=== PATIENT | male | born 1940 | race Caucasian/White ===

== ENCOUNTER → 2020-03-27 08:56 | Outpatient (BNVA) | payer MEDICARE, SELFPAY | PROVIDERS: PCP Internal Medicine; Referring Provider Internal Medicine; Visit Provider Dietitian, Registered | DX: Z76.89 Persons encountering health services in other specified circumstances (principal) ==

== ENCOUNTER 2020-05-15 06:59 | Outpatient (REF) | payer MEDICARE, SELFPAY ==
[2020-05-15 07:37] LABS: MANUAL DIFF FLAG NO
[2020-05-15 07:43] LABS: Basophils Percent Auto 0.6 % (0-2); Eosinophils Absolute Auto 0.2 X10*3/uL (0.0-0.4); Eosinophils Percent Auto 2.8 % (0-4); Hematocrit 43.7 % (42-52); Hemoglobin 14.3 g/dl (14.0-18.0); Imm Gran Abs Auto 0.02 X10*3/uL (0.00-0.03); Imm Gran Pct Auto 0.4 % (0.0-0.4); Lymphocytes Absolute Auto 1.3 X10*3/uL (1.2-4.9); Lymphocytes Percent Auto 24.2 % (20-40); Mean Corpuscular HGB Conc 32.7 g/dl (31.0-36.0); Mean Corpuscular Hemoglobin 30.8 pg (27.0-33.0); Mean Corpuscular Volume 94.2 fL (80-98); Mean Platelet Volume 12.2 fL (9.4-12.4); Monocytes Absolute Auto 0.5 X10*3/uL (0.1-1.2); Monocytes Percent Auto 9.4 % (2-11); Neutrophils Absolute Auto 3.3 X10*3/uL (2.0-8.3); Neutrophils Percent Auto 62.6 % (45-73); Platelet Count 102 X10*3/uL (160-400); Red Blood Count 4.64 X10*6/uL (4.60-5.80); White Blood Count 5.3 X10*3/uL (4.8-10.8)
[2020-05-15 07:44] LABS: Glucose Urine UA NEG (NEG); Leukocyte Esterase Urine NEG (NEG); Nitrite Urine NEG (NEG); Specific Gravity - Urine 1.025 (1.005-1.025); Urine Blood NEG (NEG); Urine Ketones NEG (NEG); Urine Protein NEG (NEG-TRACE)
[2020-05-15 07:46] LABS: Appearance Urine CLEAR; Color Urine YELLOW
[2020-05-15 08:05] LABS: Creatinine Urine 104.54 mg/dL; Microalbum/Creatinine Ratio Ur 6.6 ug/mg cr
[2020-05-15 08:08] LABS: Estimated Average Glucose 120 mg/dL; Hemoglobin A1c % 5.8 %
[2020-05-15 08:11] LABS: RBC Urine 0-2 /HPF (0); WBC Urine 0-2 /HPF (0-4)
[2020-05-15 08:12] LABS: Mucus Urine 1+ /LPF
[2020-05-15 08:17] LABS: Alanine Aminotransferase 50 U/L (0-40); Albumin Level 4.1 g/dL (3.5-5.0); Alkaline Phosphatase 172 U/L (39-117); Anion Gap 13 (12-20); Aspartate Amino Transferase 48 U/L (5-37); Bilirubin Total 0.9 mg/dL (0.0-1.0); Blood Urea Nitrogen 20 mg/dL (9-16); Calcium 8.8 mg/dL (8.4-10.2); Carbon Dioxide 28 mmol/L (22-29); Chloride 105 mmol/L (96-108); Cholesterol 164 mg/dL; Estimated Glomerular Filt Rate > 60; Glucose Fasting 105 mg/dL (60-99); HDL Cholesterol 73 mg/dL; LDL Cholesterol Calculated 83 mg/dl; Potassium 5.2 mmol/l (3.3-5.1); Sodium 141 mmol/L (135-145); Total Protein 7.2 g/dL (6.5-8.0); Triglycerides 41 mg/dL
[2020-05-15 08:20] LABS: TSH reflex Free T4 0.98 mIU/mL (0.32-4.0); Vitamin D 25-OH Total 52.6 ng/mL (>30)
[2020-05-15 08:35] LABS: Folate 18.5 ng/mL (> or = 4.0); Vitamin B12 844 pg/mL (200-900)
== END 2020-05-15 07:00 | disposition home or self-care (01) ==
LOC: HO.LAB 06:59
PROVIDERS: PCP Internal Medicine; Visit Provider Internal Medicine
DX: K74.3 Primary biliary cirrhosis (principal); D13.5 Benign neoplasm of extrahepatic bile ducts; E11.9 Type 2 diabetes mellitus without complications; E78.5 Hyperlipidemia, unspecified; G11.9 Hereditary ataxia, unspecified; M81.0 Age-related osteoporosis without current pathological fracture; E66.3 Overweight
CPT/HCPCS: 36415; 80053; 80061; 81001; 82043; 82306; 82607; 82746; 83036; 84443; 85025

== ENCOUNTER 2020-06-25 06:51 | Outpatient (REF) | payer MEDICARE, SELFPAY ==
[2020-06-25 07:40] LABS: Alanine Aminotransferase 44 U/L (0-40); Albumin Level 4.2 g/dL (3.5-5.0); Alkaline Phosphatase 185 U/L (39-117); Anion Gap 11 (12-20); Aspartate Amino Transferase 37 U/L (5-37); Bilirubin Total 1.1 mg/dL (0.0-1.0); Blood Urea Nitrogen 16 mg/dL (9-16); Calcium 8.8 mg/dL (8.4-10.2); Carbon Dioxide 30 mmol/L (22-29); Chloride 105 mmol/L (96-108); Estimated Glomerular Filt Rate > 60; Glucose Fasting 107 mg/dL (60-99); Potassium 4.2 mmol/L (3.3-5.1); Sodium 142 mmol/L (135-145); Total Protein 7.3 g/dL (6.5-8.0)
[2020-06-25 08:04] LABS: Vitamin D 25-OH Total 57.7 ng/mL (>30)
[2020-06-28 16:42] LABS: N-Telopeptide 20 (see note); NTXCreaRU 152 mg/dL (20-320)
== END 2020-06-25 06:52 | disposition home or self-care (01) ==
LOC: HO.LAB 06:51
PROVIDERS: PCP Internal Medicine; Visit Provider Internal Medicine Endocrinology, Diabetes & Metabolism
DX: M81.0 Age-related osteoporosis without current pathological fracture (principal)
CPT/HCPCS: 36415; 80053; 82306; 82523

== ENCOUNTER 2020-08-14 06:00 | Outpatient (REF) | payer MEDICARE, SELFPAY ==
[2020-08-14 07:12] LABS: MANUAL DIFF FLAG NO
[2020-08-14 07:15] LABS: Basophils Percent Auto 0.5 % (0-2); Eosinophils Absolute Auto 0.1 X10*3/uL (0.0-0.4); Eosinophils Percent Auto 3.2 % (0-4); Hematocrit 41.3 % (42-52); Hemoglobin 13.7 g/dl (14.0-18.0); Imm Gran Abs Auto 0.01 X10*3/uL (0.00-0.03); Imm Gran Pct Auto 0.2 % (0.0-0.4); Lymphocytes Absolute Auto 1.3 X10*3/uL (1.2-4.9); Lymphocytes Percent Auto 28.4 % (20-40); Mean Corpuscular HGB Conc 33.2 g/dl (31.0-36.0); Mean Corpuscular Hemoglobin 31.1 pg (27.0-33.0); Mean Corpuscular Volume 93.9 fL (80-98); Mean Platelet Volume 12.3 fL (9.4-12.4); Monocytes Absolute Auto 0.5 X10*3/uL (0.1-1.2); Monocytes Percent Auto 10.1 % (2-11); Neutrophils Absolute Auto 2.6 X10*3/uL (2.0-8.3); Neutrophils Percent Auto 57.6 % (45-73); Red Cell Distribution Width 13.3 % (11.0-16.0); White Blood Count 4.4 X10*3/uL (4.8-10.8)
[2020-08-14 07:20] LABS: Platelet Count 95 X10*3/uL (160-400)
[2020-08-14 07:42] LABS: Estimated Average Glucose 126 mg/dL
[2020-08-14 07:57] LABS: Alanine Aminotransferase 34 U/L (0-40); Albumin Level 4.1 g/dL (3.5-5.0); Alkaline Phosphatase 159 U/L (39-117); Anion Gap 13 (12-20); Aspartate Amino Transferase 38 U/L (5-37); Bilirubin Total 1.3 mg/dL (0.0-1.0); Blood Urea Nitrogen 19 mg/dL (9-16); Calcium 8.9 mg/dL (8.4-10.2); Carbon Dioxide 30 mmol/L (22-29); Chloride 107 mmol/L (96-108); Cholesterol 159 mg/dL; Estimated Glomerular Filt Rate > 60; Glucose Fasting 100 mg/dL (60-99); HDL Cholesterol 69 mg/dL; LDL Cholesterol Calculated 76 mg/dl; Potassium 4.9 mmol/L (3.3-5.1); Sodium 145 mmol/L (135-145); Total Protein 7.1 g/dL (6.5-8.0); Triglycerides 74 mg/dL
[2020-08-14 07:59] LABS: Creatinine Urine 114.92 mg/dL
[2020-08-14 08:20] LABS: TSH reflex Free T4 0.86 uIU/mL (0.32-4.0)
[2020-08-14 08:23] LABS: Glucose Urine UA NEG (NEG); Leukocyte Esterase Urine NEG (NEG); Nitrite Urine NEG (NEG); PH 6.5 (5.0-8.0); Specific Gravity - Urine 1.025 (1.005-1.025); Urine Blood NEG (NEG); Urine Ketones NEG (NEG); Urine Protein NEG (NEG-TRACE)
[2020-08-14 08:27] LABS: Appearance Urine CLEAR; Color Urine YELLOW
== END 2020-08-14 06:01 | disposition home or self-care (01) ==
LOC: HO.LAB 06:00
PROVIDERS: PCP Internal Medicine; Visit Provider Internal Medicine
DX: I10 Essential (primary) hypertension (principal); E78.00 Pure hypercholesterolemia, unspecified; E11.9 Type 2 diabetes mellitus without complications
CPT/HCPCS: 36415; 80053; 80061; 81003; 82043; 83036; 84443; 85025

== ENCOUNTER → 2020-08-15 11:16 | Outpatient (BNVA) | payer MEDICARE, SELFPAY | PROVIDERS: PCP Internal Medicine; Visit Provider Internal Medicine Endocrinology, Diabetes & Metabolism | DX: Z13.89 Encounter for screening for other disorder (principal) | CPT/HCPCS: Q3014 ==

== ENCOUNTER → 2020-08-22 09:57 | Outpatient (BNVA) | payer MEDICARE, SELFPAY | PROVIDERS: PCP Internal Medicine; Visit Provider Internal Medicine Endocrinology, Diabetes & Metabolism | DX: M81.0 Age-related osteoporosis without current pathological fracture (principal) | CPT/HCPCS: 96372; 96402; J0897 ==

== ENCOUNTER 2020-09-05 08:00 | Outpatient (REF) | payer MEDICARE, SELFPAY ==
[2020-09-05 09:24] LABS: Calcium 9.3 mg/dL (8.4-10.2)
== END 2020-09-05 08:01 | disposition home or self-care (01) ==
LOC: HO.LAB 08:00
PROVIDERS: PCP Internal Medicine; Visit Provider Internal Medicine Endocrinology, Diabetes & Metabolism
DX: M81.0 Age-related osteoporosis without current pathological fracture (principal)
CPT/HCPCS: 36415; 82040; 82310

== ENCOUNTER 2020-11-19 07:29 | Outpatient (REF) | payer MEDICARE, SELFPAY ==
[2020-11-19 08:19] LABS: MANUAL DIFF FLAG NO
[2020-11-19 08:23] LABS: Basophils Percent Auto 0.2 % (0-2); Eosinophils Absolute Auto 0.2 X10*3/uL (0.0-0.4); Eosinophils Percent Auto 3.1 % (0-4); Hematocrit 43.6 % (42-52); Hemoglobin 14.5 g/dl (14.0-18.0); Imm Gran Abs Auto 0.01 X10*3/uL (0.00-0.03); Imm Gran Pct Auto 0.2 % (0.0-0.4); Lymphocytes Absolute Auto 1.1 X10*3/uL (1.2-4.9); Lymphocytes Percent Auto 22.5 % (20-40); Mean Corpuscular HGB Conc 33.3 g/dl (31.0-36.0); Mean Corpuscular Hemoglobin 31.1 pg (27.0-33.0); Mean Corpuscular Volume 93.6 fL (80-98); Monocytes Absolute Auto 0.4 X10*3/uL (0.1-1.2); Neutrophils Absolute Auto 3.2 X10*3/uL (2.0-8.3); Platelet Count 101 X10*3/uL (160-400); Red Blood Count 4.66 X10*6/uL (4.60-5.80); Red Cell Distribution Width 13.2 % (11.0-16.0); White Blood Count 4.9 X10*3/uL (4.8-10.8)
[2020-11-19 08:47] LABS: Alanine Aminotransferase 33 U/L (0-40); Albumin Level 4.1 g/dL (3.5-5.0); Alkaline Phosphatase 152 U/L (39-117); Anion Gap 11 (12-20); Aspartate Amino Transferase 34 U/L (5-37); Bilirubin Total 0.8 mg/dL (0.0-1.0); Blood Urea Nitrogen 15 mg/dL (9-16); Calcium 9.1 mg/dL (8.4-10.2); Carbon Dioxide 30 mmol/L (22-29); Chloride 107 mmol/L (96-108); Cholesterol 149 mg/dL; Estimated Average Glucose 128 mg/dL; Estimated Glomerular Filt Rate > 60; Glucose Fasting 114 mg/dL (60-99); HDL Cholesterol 66 mg/dL; Hemoglobin A1c % 6.1 %; LDL Cholesterol Calculated 74 mg/dl; Potassium 4.8 mmol/L (3.3-5.1); Sodium 143 mmol/L (135-145); Total Protein 7.1 g/dL (6.5-8.0); Triglycerides 45 mg/dL
[2020-11-19 09:10] LABS: TSH reflex Free T4 0.54 uIU/mL (0.32-4.0); Vitamin D 25-OH Total 46.6 ng/mL (>30)
[2020-11-19 09:12] LABS: Folate 18.3 ng/mL (> or = 4.0); Vitamin B12 1025 pg/mL (200-900)
[2020-11-19 09:14] LABS: Glucose Urine UA NEG (NEG); Leukocyte Esterase Urine NEG (NEG); Nitrite Urine NEG (NEG); PH 6.5 (5.0-8.0); Specific Gravity - Urine 1.015 (1.005-1.025); Urine Blood NEG (NEG); Urine Ketones NEG (NEG); Urine Protein NEG (NEG-TRACE)
[2020-11-19 09:19] LABS: Appearance Urine CLEAR; Color Urine YELLOW
[2020-11-19 09:44] LABS: Creatinine Urine 112.16 mg/dL
== END 2020-11-19 07:30 | disposition home or self-care (01) ==
LOC: HO.LAB 07:29
PROVIDERS: PCP Internal Medicine; Visit Provider Internal Medicine
DX: G11.9 Hereditary ataxia, unspecified (principal); I10 Essential (primary) hypertension; K74.3 Primary biliary cirrhosis; E78.00 Pure hypercholesterolemia, unspecified; E66.3 Overweight; E11.9 Type 2 diabetes mellitus without complications; M81.0 Age-related osteoporosis without current pathological fracture; D13.5 Benign neoplasm of extrahepatic bile ducts
CPT/HCPCS: 36415; 80053; 80061; 81003; 82043; 82306; 82607; 82746; 83036; 84443; 85025

== ENCOUNTER 2020-12-26 07:38 | Outpatient (REF) | payer MEDICARE, SELFPAY ==
[2020-12-26 10:40] LABS: Calcium 8.7 mg/dL (8.4-10.2)
[2020-12-26 11:07] LABS: Vitamin D 25-OH Total 52.8 ng/mL (>30)
[2021-01-01 15:41] LABS: N-Telopeptide 15 (see note); NTXCreaRU 146 mg/dL (20-320)
== END 2020-12-26 07:39 | disposition home or self-care (01) ==
LOC: HO.LAB 07:38
PROVIDERS: PCP Internal Medicine; Visit Provider Internal Medicine Endocrinology, Diabetes & Metabolism
DX: M81.0 Age-related osteoporosis without current pathological fracture (principal)
CPT/HCPCS: 36415; 82040; 82306; 82310; 82523

== ENCOUNTER 2020-12-27 11:36 | Outpatient (REF) | payer MEDICARE, SELFPAY ==
--- NOTE | ~2020-12-27 | MM_ITS ---
EXAMINATION: BONE DENSITOMETRY CLINICAL INDICATION: Osteoporosis. COMPARISON: Previous BD dated 12/14/2018 and baseline BD dated 04/29/2005. TECHNIQUE: Using a [employer] DXA System (software version: 13.1) manufactured by [employer], dual-energy x-ray absorptiometry was performed of the lumbar spine and left hip. The images are of good technical quality. Summary results are attached. FINDINGS: AP SPINE L1-L4: Current: BMD 0.983 g/cm2, Z-score -1.7, T-score -2.0, osteopenia, 10.0% increase from previous, 19.6% increase from baseline (<5% change is not significant). Prior: BMD 0.894 g/cm2. Baseline: BMD 0.822 g/cm2. LEFT FEMUR, NECK: Current: BMD 0.737 g/cm2, Z-score -1.3, T-score -2.6, osteoporosis. Prior: BMD 0.754 g/cm2. Baseline: BMD 0.692 g/cm2. LEFT FEMUR, TOTAL: Current: BMD 0.778 g/cm2, Z-score -1.4, T-score -2.2, osteopenia, 0.5% increase from previous, 6.7% increase from baseline (<5% change is not significant). Prior: BMD 0.774 g/cm2. Baseline: BMD 0.729 g/cm2. IDENTIFIED RISK FACTORS: Height loss, osteoporosis, family history (parent hip fracture), secondary osteoporosis. HISTORY OF FRACTURE: None listed. MEDICATIONS: Calcium, Prolia. MM/XR DEXA axial skeleton IMPRESSION: 1. DIAGNOSIS: Osteoporosis based on the lowest T-score value of -2.6 in the femoral neck applying World Health Organization criteria. 2. 10-YEAR FRACTURE RISK PREDICTION, FRAX: Major osteoporotic fracture (clinical spine, forearm, hip or shoulder) 24.1%. Hip fracture 18.6%. 3. Treatment Recommendations: NOF guidelines recommend consideration for treatment in postmenopausal women and men age 50 and older presenting with the following: -A hip or vertebral (clinical or morphometric) fracture. -T-score less than or equal to -2.5 at the femoral neck or spine after appropriate evaluation to exclude secondary causes. -Low bone mass at the hip or spine and a 10-year fracture probability by FRAX of greater than or equal to 3% for hip fracture or greater than or equal to 20% for major osteoporotic fracture based on the [place] adapted WHO algorithm. 4. Other Recommendations: All treatment decisions require clinical judgment and consideration of individual patient factors, including patient preferences, comorbidities, previous drug use, risk factors not captured in the FRAX model (e.g. frailty, falls, vitamin D deficiency, increased bone turnover, interval significant decline in bone density) and possible under or overestimation of fracture risk by FRAX. Additional medical evaluation for secondary cause of low bone mineral density may be appropriate. FUTURE SCAN RECOMMENDATION: People with diagnosed cases of osteoporosis or at high risk for fracture should have regular bone mineral density tests. For patients eligible for Medicare, routine testing is allowed once every 2 years. The testing frequency can be increased to one year for patients who have rapidly progressing disease, those who are receiving or discontinuing medical therapy to restore bone mass, or have additional risk factors.
== END 2020-12-27 11:37 | disposition home or self-care (01) ==
LOC: HO.MAMMO 11:36
PROVIDERS: PCP Internal Medicine; Visit Provider Internal Medicine Endocrinology, Diabetes & Metabolism
DX: M81.0 Age-related osteoporosis without current pathological fracture (principal)
CPT/HCPCS: 77080

== ENCOUNTER 2021-01-01 14:34 | Outpatient (REF) | payer MEDICARE, SELFPAY ==
[2021-01-01 15:18] LABS: Basophils Percent Auto 0.3 % (0-2); Imm Gran Abs Auto 0.02 X10*3/uL (0.00-0.03); Imm Gran Pct Auto 0.3 % (0.0-0.4); Red Blood Count 4.67 X10*6/uL (4.60-5.80)
[2021-01-01 15:20] LABS: Eosinophils Absolute Auto 0.2 X10*3/uL (0.0-0.4); Eosinophils Percent Auto 2.7 % (0-4); Hematocrit 43.6 % (42-52); Hemoglobin 14.5 g/dl (14.0-18.0); Lymphocytes Absolute Auto 1.4 X10*3/uL (1.2-4.9); Lymphocytes Percent Auto 21.9 % (20-40); Mean Corpuscular HGB Conc 33.3 g/dl (31.0-36.0); Mean Corpuscular Volume 93.4 fL (80-98); Mean Platelet Volume 11.7 fL (9.4-12.4); Monocytes Absolute Auto 0.5 X10*3/uL (0.1-1.2); Monocytes Percent Auto 8.6 % (2-11); Neutrophils Absolute Auto 4.2 X10*3/uL (2.0-8.3); Neutrophils Percent Auto 66.2 % (45-73); Platelet Count 114 X10*3/uL (160-400); Red Cell Distribution Width 13.2 % (11.0-16.0); White Blood Count 6.3 X10*3/uL (4.8-10.8)
[2021-01-01 15:22] LABS: MANUAL DIFF FLAG NO
[2021-01-01 15:37] LABS: Alanine Aminotransferase 41 U/L (0-40); Albumin Level 4.2 g/dL (3.5-5.0); Alkaline Phosphatase 158 U/L (39-117); Anion Gap 11 (12-20); Aspartate Amino Transferase 42 U/L (5-37); Bilirubin Total 0.7 mg/dL (0.0-1.0); Blood Urea Nitrogen 16 mg/dL (9-16); Calcium 9.1 mg/dL (8.4-10.2); Carbon Dioxide 27 mmol/L (22-29); Chloride 107 mmol/L (96-108); Estimated Glomerular Filt Rate > 60; Glucose Random 104 mg/dL (60-115); Potassium 4.6 mmol/L (3.3-5.1); Sodium 140 mmol/L (135-145); Total Protein 7.4 g/dL (6.5-8.0)
[2021-01-01 15:59] LABS: Erythrocyte Sedimentation Rate 12 MM/HR (0-15)
== END 2021-01-01 14:35 | disposition home or self-care (01) ==
LOC: HO.LAB 14:34
PROVIDERS: PCP Internal Medicine; Visit Provider Nurse Practitioner Family
DX: M54.2 Cervicalgia (principal)
CPT/HCPCS: 36415; 80053; 85025; 85652

== ENCOUNTER 2021-02-25 07:36 | Outpatient (REF) | payer MEDICARE, SELFPAY ==
--- NOTE | ~2021-02-25 | XR_ITS ---
EXAMINATION: XR CHEST CLINICAL INFORMATION: Cough x2 months COMPARISON: None TECHNIQUE: 2 views of the chest were obtained. FINDINGS: The lungs are well-expanded and clear. The heart size and pulmonary vascularity is normal. No gross bony abnormality seen. There is mild spondylosis dorsal spine. There are old healed left lateral mid rib fractures. XR/XR chest 2V IMPRESSION: Unremarkable chest exam. No acute process seen.
[2021-02-25 07:47] LABS: MANUAL DIFF FLAG NO
[2021-02-25 08:30] LABS: Basophils Percent Auto 0.2 % (0-2); Eosinophils Absolute Auto 0.2 X10*3/uL (0.0-0.4); Eosinophils Percent Auto 2.8 % (0-4); Hematocrit 44.1 % (42-52); Hemoglobin 14.8 g/dl (14.0-18.0); Imm Gran Abs Auto 0.04 X10*3/uL (0.00-0.03); Imm Gran Pct Auto 0.8 % (0.0-0.4); Lymphocytes Absolute Auto 1.2 X10*3/uL (1.2-4.9); Lymphocytes Percent Auto 22.2 % (20-40); Mean Corpuscular HGB Conc 33.6 g/dl (31.0-36.0); Mean Corpuscular Hemoglobin 31.3 pg (27.0-33.0); Mean Corpuscular Volume 93.2 fL (80-98); Mean Platelet Volume 11.4 fL (9.4-12.4); Monocytes Absolute Auto 0.4 X10*3/uL (0.1-1.2); Monocytes Percent Auto 7.9 % (2-11); Neutrophils Absolute Auto 3.5 X10*3/uL (2.0-8.3); Neutrophils Percent Auto 66.1 % (45-73); Platelet Count 102 X10*3/uL (160-400); Red Blood Count 4.73 X10*6/uL (4.60-5.80); Red Cell Distribution Width 13.1 % (11.0-16.0); White Blood Count 5.3 X10*3/uL (4.8-10.8)
[2021-02-25 08:41] LABS: Estimated Average Glucose 126 mg/dL
[2021-02-25 08:54] LABS: Alanine Aminotransferase 35 U/L (0-40); Albumin Level 4.2 g/dL (3.5-5.0); Alkaline Phosphatase 151 U/L (39-117); Anion Gap 12 (12-20); Aspartate Amino Transferase 34 U/L (5-37); Bilirubin Total 1.1 mg/dL (0.0-1.0); Blood Urea Nitrogen 15 mg/dL (9-16); Calcium 9.4 mg/dL (8.4-10.2); Carbon Dioxide 28 mmol/L (22-29); Chloride 108 mmol/L (96-108); Cholesterol 147 mg/dL; Estimated Glomerular Filt Rate > 60; Glucose Fasting 126 mg/dL (60-99); HDL Cholesterol 64 mg/dL; LDL Cholesterol Calculated 73 mg/dl; Potassium 4.5 mmol/L (3.3-5.1); Sodium 143 mmol/L (135-145); Total Protein 7.3 g/dL (6.5-8.0); Triglycerides 53 mg/dL
[2021-02-25 08:59] LABS: Appearance Urine HAZY; Color Urine YELLOW; Glucose Urine UA NEG (NEG); Leukocyte Esterase Urine NEG (NEG); Nitrite Urine NEG (NEG); Urine Blood NEG (NEG); Urine Ketones NEG (NEG); Urine Protein NEG (NEG-TRACE)
[2021-02-25 09:17] LABS: TSH reflex Free T4 0.94 uIU/mL (0.32-4.0); Vitamin D 25-OH Total 53.6 ng/mL (>30)
[2021-02-25 09:22] LABS: Prostate Specific Antigen Scr 0.59 ng/mL (<0.05-4.0)
[2021-02-25 09:23] LABS: Creatinine Urine 141.88 mg/dL
[2021-02-25 09:26] LABS: Folate 19.7 ng/mL (> or = 4.0); Vitamin B12 946 pg/mL (200-900)
[2021-03-01 15:10] LABS: Testosterone, Free 50.1 pg/mL (30.0-135.0); Testosterone, Total 533 ng/dL (250-1100)
== END 2021-02-25 07:37 | disposition home or self-care (01) ==
LOC: HO.LAB 07:36
PROVIDERS: Absent Provider Nurse Practitioner Family; PCP Internal Medicine; Visit Provider Internal Medicine
DX: Z12.5 Encounter for screening for malignant neoplasm of prostate (principal); K74.3 Primary biliary cirrhosis; D13.5 Benign neoplasm of extrahepatic bile ducts; G11.9 Hereditary ataxia, unspecified; E55.9 Vitamin D deficiency, unspecified; R53.83 Other fatigue; E11.9 Type 2 diabetes mellitus without complications; E66.3 Overweight; E78.00 Pure hypercholesterolemia, unspecified; R05.9 Cough, unspecified
CPT/HCPCS: 36415; 71046; 80053; 80061; 81003; 82043; 82306; 82607; 82746; 83036; 84153; 84402; 84403; 84443; 85025

== ENCOUNTER → 2021-03-06 10:26 | Outpatient (BNVA) | payer MEDICARE, SELFPAY | PROVIDERS: PCP Internal Medicine; Visit Provider Nurse Practitioner Gerontology | DX: M81.0 Age-related osteoporosis without current pathological fracture (principal) | CPT/HCPCS: 96372; J0897 ==

== ENCOUNTER 2021-03-19 16:08 | Outpatient (REF) | payer MEDICARE, SELFPAY ==
[2021-03-19 17:13] LABS: Estimated Glomerular Filt Rate > 60
[2021-03-21 01:33] LABS: PTHI 46 pg/mL (14-64)
== END 2021-03-19 16:09 | disposition home or self-care (01) ==
LOC: HO.LAB 16:08
PROVIDERS: Internal Medicine; PCP Internal Medicine; Visit Provider Nurse Practitioner Family
DX: M81.0 Age-related osteoporosis without current pathological fracture (principal)
CPT/HCPCS: 36415; 82565; 83970

== ENCOUNTER 2021-05-15 06:25 | Outpatient (REF) | payer MEDICARE, SELFPAY | END 2021-05-15 06:26 | disposition home or self-care (01) | LOC: HO.LAB 06:25 | PROVIDERS: PCP Internal Medicine; Visit Provider Nurse Practitioner Family | DX: Z13.89 Encounter for screening for other disorder (principal) ==

== ENCOUNTER 2021-06-03 11:00 | Outpatient (RCR) | payer MEDICARE, SELFPAY | END 2021-06-08 07:00 | disposition home or self-care (01) | LOC: HO.PTCHIC 11:00 | PROVIDERS: PCP Internal Medicine; Visit Provider Nurse Practitioner Family | DX: M54.9 Dorsalgia, unspecified (principal); S22.49XD Multiple fractures of ribs, unspecified side, subsequent encounter for fracture with routine healing; W19.XXXD Unspecified fall, subsequent encounter | CPT/HCPCS: 97110; 97150; 97162 ==

== ENCOUNTER 2021-09-05 10:08 | Outpatient (REF) | payer MEDICARE, SELFPAY ==
[2021-09-05 11:56] LABS: Albumin Level 3.7 g/dL (3.5-5.0); Blood Urea Nitrogen 16 mg/dL (9-16); Calcium 8.9 mg/dL (8.4-10.2); Estimated Glomerular Filt Rate > 60
== END 2021-09-05 10:09 | disposition home or self-care (01) ==
LOC: HO.HMGCLDS 10:08
PROVIDERS: Visit Provider Internal Medicine Endocrinology, Diabetes & Metabolism
DX: M81.0 Age-related osteoporosis without current pathological fracture (principal)
CPT/HCPCS: 36415; 82040; 82310; 82565; 84520

== ENCOUNTER 2021-09-17 09:12 | Outpatient (REF) | payer MEDICARE, SELFPAY ==
[2021-09-17 11:38] LABS: MANUAL DIFF FLAG NO
[2021-09-17 11:51] LABS: Basophils Percent Auto 0.3 % (0-2); Eosinophils Absolute Auto 0.3 X10*3/uL (0.0-0.4); Eosinophils Percent Auto 4.5 % (0-4); Hematocrit 45.9 % (42.0-52.0); Hemoglobin 14.9 g/dl (14.0-18.0); Imm Gran Abs Auto 0.01 X10*3/uL (0.00-0.03); Imm Gran Pct Auto 0.2 % (0.0-0.4); Lymphocytes Absolute Auto 1.3 X10*3/uL (1.2-4.9); Lymphocytes Percent Auto 20.6 % (20-40); Mean Corpuscular HGB Conc 32.5 g/dl (31.0-36.0); Mean Corpuscular Hemoglobin 29.9 pg (27.0-33.0); Mean Corpuscular Volume 92.2 fL (80.0-98.0); Mean Platelet Volume 11.6 fL (9.4-12.4); Monocytes Absolute Auto 0.6 X10*3/uL (0.1-1.2); Monocytes Percent Auto 10.4 % (2-11); Neutrophils Absolute Auto 3.9 x10*3/uL (2.0-8.3); Platelet Count 124 X10*3/uL (160-400); Red Blood Count 4.98 X10*6/uL (4.60-5.80); Red Cell Distribution Width 13.2 % (11.0-16.0); White Blood Count 6.1 X10*3/uL (4.8-10.8)
[2021-09-17 11:58] LABS: Appearance Urine CLEAR; Color Urine YELLOW; Glucose Urine UA NEG (NEG); Leukocyte Esterase Urine NEG (NEG); Nitrite Urine NEG (NEG); Specific Gravity - Urine 1.025 (1.005-1.025); UACC Culture Trigger NO; Urine Blood TRACE (NEG); Urine Ketones NEG (NEG); Urine Protein NEG (NEG-TRACE)
[2021-09-17 12:13] LABS: Estimated Average Glucose 137 mg/dL; Hemoglobin A1c % 6.4 %
[2021-09-17 12:21] LABS: Alanine Aminotransferase 25 U/L (0-40); Albumin Level 3.9 g/dL (3.5-5.0); Alkaline Phosphatase 157 U/L (39-117); Anion Gap 12 (12-20); Aspartate Amino Transferase 29 U/L (5-37); Blood Urea Nitrogen 15 mg/dL (9-16); Calcium 9.2 mg/dL (8.4-10.2); Carbon Dioxide 27 mmol/L (22-29); Chloride 104 mmol/L (96-108); Cholesterol 144 mg/dL; Estimated Glomerular Filt Rate > 60; Glucose Fasting 139 mg/dL (60-99); HDL Cholesterol 59 mg/dL; LDL Cholesterol Calculated 74 mg/dl; Potassium 4.2 mmol/L (3.3-5.1); Sodium 139 mmol/L (135-145); Total Protein 7.2 g/dL (6.5-8.0); Triglycerides 59 mg/dL
[2021-09-17 12:22] LABS: TSH reflex Free T4 1.01 uIU/mL (0.32-4.0); Vitamin D 25-OH Total 53.4 ng/mL (>30)
[2021-09-17 12:28] LABS: Creatinine Urine 199.39 mg/dL
[2021-09-17 13:14] LABS: RBC Urine 0-2 /HPF (0); WBC Urine 0-2 /HPF (0-4)
== END 2021-09-17 09:13 | disposition home or self-care (01) ==
LOC: HO.HMGCLDS 09:12
PROVIDERS: Visit Provider Internal Medicine
DX: E55.9 Vitamin D deficiency, unspecified (principal); I10 Essential (primary) hypertension; E11.9 Type 2 diabetes mellitus without complications; E78.00 Pure hypercholesterolemia, unspecified
CPT/HCPCS: 36415; 80053; 80061; 81001; 81003; 82043; 82306; 83036; 84443; 85025

== ENCOUNTER 2021-10-22 12:39 | Outpatient (REF) | payer MEDICARE, SELFPAY ==
--- NOTE | 2021-10-22 17:27 | PFT_ITS ---
Forced vital capacity 85%, FEV1 96%, FEV1/FVC ratio 81. [id number] 141% and MVV is 97%. Post bronchodilator therapy, no significant response is noted. Total lung capacity 82% and residual volume is 88%. Diffusion capacity 48, corrected with the volume is 66. CONCLUSION: The normal pulmonary function test. No evidence of obstructive or restrictive pulmonary disorder. Isolated decrease in diffusion capacity, may be due to technical reason, nonspecific factors. Clinical correlation is recommended. Mike Myers MD MSB/MODL / [id number]
== END 2021-10-22 12:40 | disposition home or self-care (01) ==
LOC: HO.RESP 12:39
PROVIDERS: PCP Internal Medicine; Visit Provider Internal Medicine
DX: R05.8 Other specified cough (principal); R06.00 Dyspnea, unspecified
CPT/HCPCS: 94060; 94727; 94729

== ENCOUNTER → 2021-11-08 11:57 | Outpatient (REF) | payer MEDICARE, SELFPAY ==
--- NOTE | 2021-11-08 12:03 | ECG_ITS ---
Test Reason : ARRHYTHMIA Blood Pressure : / mmHG Vent. Rate : 046 BPM Atrial Rate : 066 BPM P-R Int : 000 ms QRS Dur : 090 ms QT Int : 436 ms P-R-T Axes : 056 003 -15 degrees QTc Int : 381 ms Sinus rhythm with 2nd degree A-V block (Mobitz I) Abnormal ECG When compared with ECG of 06-DEC-2008 09:39, Sinus rhythm is now with 2nd degree A-V block (Mobitz I) Vent. rate has decreased BY 23 BPM Referred By: Donnell Gillis Electronically Signed By:Kit Betancourt
== END ==
LOC: HO.CARD 11:57
PROVIDERS: PCP Internal Medicine; Visit Provider Internal Medicine
DX: I49.9 Cardiac arrhythmia, unspecified (principal)
CPT/HCPCS: 93005

== ENCOUNTER → 2021-12-12 12:53 | Outpatient (BNVA) | payer MEDICARE, SELFPAY | PROVIDERS: PCP Internal Medicine; Visit Provider Internal Medicine Endocrinology, Diabetes & Metabolism | DX: M81.0 Age-related osteoporosis without current pathological fracture (principal) | CPT/HCPCS: 99212 ==

== ENCOUNTER 2022-01-17 10:10 | Outpatient (REF) | payer MEDICARE, SELFPAY ==
[2022-01-17 10:32] LABS: MANUAL DIFF FLAG NO
[2022-01-17 11:16] LABS: Basophils Percent Auto 0.4 % (0-2); Eosinophils Absolute Auto 0.2 X10*3/uL (0.0-0.4); Eosinophils Percent Auto 3.5 % (0-4); Hematocrit 43.4 % (42.0-52.0); Hemoglobin 14.4 g/dl (14.0-18.0); Imm Gran Abs Auto 0.02 X10*3/uL (0.00-0.03); Imm Gran Pct Auto 0.4 % (0.0-0.4); Lymphocytes Absolute Auto 1.1 X10*3/uL (1.2-4.9); Lymphocytes Percent Auto 23.6 % (20-40); Mean Corpuscular HGB Conc 33.2 g/dl (31.0-36.0); Mean Corpuscular Hemoglobin 30.8 pg (27.0-33.0); Mean Corpuscular Volume 92.9 fL (80.0-98.0); Monocytes Absolute Auto 0.4 X10*3/uL (0.1-1.2); Monocytes Percent Auto 8.5 % (2-11); Neutrophils Absolute Auto 2.9 x10*3/uL (2.0-8.3); Neutrophils Percent Auto 63.6 % (45-73); Platelet Count 108 X10*3/uL (160-400); Red Blood Count 4.67 X10*6/uL (4.60-5.80); Red Cell Distribution Width 13.4 % (11.0-16.0); White Blood Count 4.6 X10*3/uL (4.8-10.8)
[2022-01-17 11:29] LABS: Appearance Urine Clear; Color Urine Yellow; Glucose Urine UA Negative (Negative); Leukocyte Esterase Urine Negative (Negative); Nitrite Urine Negative (Negative); Urine Blood Negative (Negative); Urine Ketones Negative (Negative); Urine Protein Negative (Neg-Trace)
[2022-01-17 11:31] LABS: Estimated Average Glucose 134 mg/dL; Hemoglobin A1c % 6.3 %
[2022-01-17 12:23] LABS: Creatinine Urine 121.69 mg/dL; Microalbum/Creatinine Ratio Ur 8.2 ug/mg cr
[2022-01-17 12:30] LABS: Alanine Aminotransferase 28 U/L (0-40); Alkaline Phosphatase 139 U/L (39-117); Anion Gap 14 (12-20); Aspartate Amino Transferase 31 U/L (5-37); Bilirubin Total 1.1 mg/dL (0.0-1.0); Blood Urea Nitrogen 18 mg/dL (9-16); Calcium 8.9 mg/dL (8.4-10.2); Carbon Dioxide 27 mmol/L (22-29); Chloride 106 mmol/L (96-108); Cholesterol 128 mg/dL; Estimated Glomerular Filt Rate > 60; Glucose Fasting 108 mg/dL (60-99); HDL Cholesterol 57 mg/dL; LDL Cholesterol Calculated 62 mg/dl; Potassium 4.8 mmol/L (3.3-5.1); Sodium 142 mmol/L (135-145); Total Protein 7.1 g/dL (6.5-8.0); Triglycerides 45 mg/dL
[2022-01-17 12:38] LABS: TSH reflex Free T4 0.94 uIU/mL (0.32-4.0); Vitamin D 25-OH Total 61.1 ng/mL (>30)
[2022-01-21 23:01] LABS: Prot Elec - Alpha1 0.3 g/dL (0.2-0.3); Prot Elec - Alpha2 0.8 g/dL (0.5-0.9); Prot Elec - Beta 1 0.4 g/dL (0.4-0.6); Prot Elec - Beta 2 0.4 g/dL (0.2-0.5); Prot Elec - Gamma 1.2 g/dL (0.8-1.7); Prot Elec - Total Protein 7.1 g/dL (6.1-8.1)
== END 2022-01-17 10:11 | disposition home or self-care (01) ==
LOC: HO.LAB 10:10
PROVIDERS: Absent Provider Internal Medicine Endocrinology, Diabetes & Metabolism; PCP Internal Medicine; Visit Provider Internal Medicine
DX: M81.0 Age-related osteoporosis without current pathological fracture (principal); I10 Essential (primary) hypertension; E11.9 Type 2 diabetes mellitus without complications; E55.9 Vitamin D deficiency, unspecified; E78.00 Pure hypercholesterolemia, unspecified
CPT/HCPCS: 36415; 80053; 80061; 81003; 82043; 82306; 83036; 84165; 84443; 85025; 86335

== ENCOUNTER → 2022-01-20 09:31 | Outpatient (BNVA) | payer MEDICARE, SELFPAY | PROVIDERS: PCP Internal Medicine; Referring Provider Internal Medicine; Visit Provider Internal Medicine | DX: I44.1 Atrioventricular block, second degree (principal) | CPT/HCPCS: 99202 ==

== ENCOUNTER 2022-01-24 13:30 | Outpatient (REF) | payer MEDICARE, SELFPAY ==
[2022-01-24 14:06] LABS: Creatinine, mg/dL 82.22
[2022-01-24 14:39] LABS: Creatinine, 24Hr Urine 1.5 G/Day (1.0-2.0); Total Volume 24 Hour Urine 1800 mL
[2022-01-27 19:47] LABS: Calcium, 24 Hr Urine 472 mg/24 h; Calcium/Creatinine Ratio 301 mg/g creat (30-210); Creatinine 24Hr Urine 1.57 g/24 h (0.50-2.15)
== END 2022-01-24 13:31 | disposition home or self-care (01) ==
LOC: HO.LNP 13:30
PROVIDERS: Visit Provider Internal Medicine Endocrinology, Diabetes & Metabolism
DX: M81.0 Age-related osteoporosis without current pathological fracture (principal)
CPT/HCPCS: 82340; 82570

== ENCOUNTER → 2022-02-11 06:42 | Outpatient (REF) | payer MEDICARE, SELFPAY ==
--- NOTE | ~2022-02-11 | NM_ITS ---
Exercise Myocardial perfusion study Indication: The second degree AV block to evaluate for myocardial ischemia Technique: The patient was brought in for an dobutamine perfusion study on 02/11/2022. Patient performed exercise as per dobutamine protocol and was injected 30 mCi of sestamibi was given intravenously one target HR was achieved. Images were obtained using the SPECT gamma camera interlaced with the gating device. Images were obtained in supine position. Resting perfusion study was performed on 02/12/2022. Patient was administered 30 mCi of sestamibi intravenously at rest. Images were then obtained in supine position. Images obtained with and without CT attenuation. Total DLP 85 mGy-cm. Images were processed with the software and compared side to side in short axis, horizontal long axis and vertical long axis views. Findings: The stress perfusion study showed non attenuated images show mildly reduced uptake in the basal septum of the LV myocardium. Attenuation corrected images show mildly reduced uptake in the septum of the LV myocardium and the apex of the LV myocardium.. The gated study shows normal LV systolic function with calculated LVEF of 74%. LV cavity is normal in size. The gated study shows normal systolic wall thickening and contraction of all segments. There is no transient ischemic dilation. Resting study shows no change in perfusion pattern compared to stress perfusion study. Gating at rest reveals normal systolic wall motion with ejection fraction at 70%. The findings are consistent with no clear reversible defect suggestive of ischemia. Mild intensity fixed defect suggestive attenuation artifact.. NM/NM cardiolite stress test Impression: 1. Normal myocardial perfusion 2. Gated LVEF is 70% 3. Transient ischemic dilatation not present Stress EKG is negative for ischemia
--- NOTE | 2022-02-11 07:12 | HM_ITS ---
Conclusion: 1. Patient was monitored for total period of 3 days 2. Baseline was normal sinus rhythm with average heart of 51 beats per minute 3. Minimal heart rate 25 beats per minute which appears to be related to 2 is to 1 av block happening at 03:00 in the morning 4. Intermittent very prolonged first-degree AV block noted with occasional Mobitz type 1 second-degree AV block noted 5. Episodes of advanced AV block noted interspersed with PVCs at 22:56 6. Total of 6460 PVCs accounting for 2.9% total beats account for frequent PVCs 7. No patient reported events MTDD
--- NOTE | 2022-02-11 07:12 | CA_ITS ---
Transthoracic Echocardiogram Patient (Last, First, Middle): Janak Jorgensen G Gender: Male Date of : 1940 Age: 81 Procedure Date: 02/11/2022 Procedure Type: Transthoracic Echocardiogram Location: OP Height: 180.34 cm Weight: 90.72 kg BSA: 2.11 m2 Heart Rate: bpm BP: 160 / 78 mmHg Special Education Case Manager: TIRSO Referring MD: Dylan Hilton MD Symptoms: I25.10 - Atherosclerotic heart disease of [place] coronary artery without... Study Quality: Fair ECG Rhythm: Undetermined Conclusions: - The left ventricular systolic function is normal. The visually estimated ejection fraction is between 55-60%. - Moderately increased right ventricular cavity size. - There is mild calcification of the aortic valve. - There is mild mitral annular calcification. - There is mild tricuspid valve regurgitation. Findings Left Ventricle Normal left ventricular cavity size. There is mildly increased left ventricular wall thickness. The left ventricular systolic function is normal. The visually estimated ejection fraction is between 55-60%. There is no evidence of regional wall motion abnormalities. E/E prime ratio is between 8 and 15 consistent with indeterminate filling pressures. Evidence suggests grade I (mild) diastolic dysfunction. Right Ventricle Moderately increased right ventricular cavity size. There is normal right ventricular systolic function. Atria The left atrium is moderately dilated. The right atrium is normal in size. Aortic Valve There is a normal trileaflet aortic valve. There is mild calcification of the aortic valve. There is no aortic valve stenosis. There is no aortic valve regurgitation. Mitral Valve There is mild mitral annular calcification. There is no mitral valve regurgitation. There is no mitral valve stenosis. Pulmonic Valve The pulmonic valve is likely normal. Tricuspid Valve There is mild tricuspid valve regurgitation. Borderline elevated pulmonary artery systolic pressure. Great Vessels The aortic annulus, sinuses of valsalva, and asc aorta are normal in size. Venous The inferior vena cava is normal in size and collapses greater than 50% with inspiration. Pericardium/Pleural There is no evidence of pericardial effusion. Prior Study Comparison No prior study available for comparison. Measurements 2D Linear Measurements IVSd: 1.07 0.6-0.9/0.6-1.0 cm LVIDd: 4.15 3.9-5.3/4.2-5.9 cm LVIDd Index: 1.97 2.4-3.2/2.2-3.1 cm/m2 LVIDs: 2.55 2.0-3.6 cm LVPWd: 1.05 0.7-1.1 cm LA Diam: 4.20 2.7-3.8/3.0-4.0 cm LAIDs Index: 1.99 1.5-2.3 cm/m2 LV Mass: 182.02 67-162/88-224 g LV Mass Index: 86.27 43-95/49-115 g/m2 LVOT Diam: 2.10 3.0+(-)1.3 cm 2D Systolic Function EF 4C: 51.70 >55% EF 2C: 56.60 >55% EF BiP: 52.70 >55% Mitral Valve MV Pk E: 0.78 MV PK A: 1.02 MV Decel Time: 258.00 E/A: 0.80 E'Lateral: 7.94 E'Medial: 5.33 E/E' Med: 14.70 E/E' Lat: 9.90 PHT: 75.00 MVA PHT: 2.93 Decel Wells: 3.04 Aortic Valve AoV Pk Anil: 1.58 AoV Mn Anil: 1.07 AoV VTI: 0.40 AoV Pk Grad: 10.00 Aov Mn Grad: 5.00 PETER Cont.VTI: 2.40 LVOT LVOT Pk Anil: 1.08 LVOT Mn Anil: 0.71 LVOT VTI: 0.28 LVOT Pk Grad: 5.00 LVOT Mn Grad: 2.00 LVOT Diam: 2.10 LVOT Area: 3.46 Diastolic Function MV Pk E: 0.78 MV Pk A: 1.02 E/A: 0.80 E'Medial: 5.33 E/E' Med: 14.70 E' Laterial: 7.94 E/E' Lat: 9.90 Right Ventricle TAPSE (mm): 21.70 TVS' Anil: 10.60 Tricuspid Valve TR Pk Anil: 2.88 TR Pk Grad: 33.00 RA Press: 3.00 RVSP: 36.00 Great Vessels Aorta Sinus of Valsalva: 3.54 2.0-3.[address] Ridge: 2.64 1.7-3.4 cm Ao Asc: 3.50 2.1-3.4 cm Updated in Other Vendor System with Status of Final Dylan Hilton MD electronically signed on 02/12/2022 12:01:43 PM with status of Final
--- NOTE | 2022-02-11 07:12 | CA_ITS ---
Acquisition Time: 2022-02-11 09:03:55 Total Exercise Time: 00:08:29 Test Indications: ABN EKG, AV BLOCK Medications: SEE CHART Protocol: DOBUTAMINE Max HR: 126 BPM 90% of Pred: 139 BPM Max BP: 136/070 mmHG Max Work Load: 1.0 METS Pharmacological stress test with Dobutamine infusion to max of 10mcg/kg/min, while kicking his legs and squeezing ball, achieving 91% MPHR, without anginal symptoms, with isolated PVCs mostly at baseline and stage 1, with long first degree AVB and second degree type 1 at baseline with FL shortening as rate increases, then accelerated junctional at higher heart rates, With nondiagnostic EKG for ischemia due to baseline EKG abnromality. Nuclear images pending. Test reviewed with Dr Hilton. Referred By: Dylan Hilton Overread By: ZOE GENAO
== END ==
LOC: HO.CARD 06:42
PROVIDERS: PCP Internal Medicine; Visit Provider Internal Medicine
DX: I25.10 Atherosclerotic heart disease of native coronary artery without angina pectoris (principal); I44.1 Atrioventricular block, second degree
CPT/HCPCS: 78452; 93017; 93242; 93306; A9500; J0280; J2785

== ENCOUNTER → 2022-02-24 09:39 | Outpatient (BNVA) | payer MEDICARE, SELFPAY | PROVIDERS: PCP Internal Medicine; Referring Provider Internal Medicine; Visit Provider Internal Medicine | DX: I44.1 Atrioventricular block, second degree (principal); I38 Endocarditis, valve unspecified; G47.33 Obstructive sleep apnea (adult) (pediatric) | CPT/HCPCS: 99212 ==

== ENCOUNTER → 2022-03-18 10:45 | Outpatient (REF) | payer MEDICARE, SELFPAY | LOC: HO.SL 10:45 | PROVIDERS: PCP Internal Medicine; Visit Provider Internal Medicine | DX: G47.33 Obstructive sleep apnea (adult) (pediatric) (principal); I44.1 Atrioventricular block, second degree | CPT/HCPCS: 95806 ==

== ENCOUNTER 2022-05-06 | Outpatient (REF) | payer MEDICARE, SELFPAY ==
[2022-05-07 16:23] LABS: Creatinine, mg/dL 71.68
[2022-05-07 19:06] LABS: Creatinine, 24Hr Urine 1.5 G/Day (1.0-2.0); Total Volume 24 Hour Urine 2150 mL
[2022-05-12 17:23] LABS: Calcium, 24 Hr Urine 340 mg/24 h; Calcium/Creatinine Ratio 223 mg/g creat (30-210); Creatinine 24Hr Urine 1.53 g/24 h (0.50-2.15)
== END 2022-05-06 00:01 | disposition home or self-care (01) ==
LOC: HO.LNP
PROVIDERS: Visit Provider Internal Medicine Endocrinology, Diabetes & Metabolism
DX: M81.0 Age-related osteoporosis without current pathological fracture (principal)
CPT/HCPCS: 82340; 82570

== ENCOUNTER → 2022-05-07 13:33 | Outpatient (BNVA) | payer MEDICARE, SELFPAY | PROVIDERS: PCP Internal Medicine; Visit Provider Internal Medicine | DX: G47.33 Obstructive sleep apnea (adult) (pediatric) (principal); E66.9 Obesity, unspecified; Z68.30 Body mass index [BMI] 30.0-30.9, adult; I44.1 Atrioventricular block, second degree | CPT/HCPCS: 99202 ==

== ENCOUNTER → 2022-05-27 10:49 | Outpatient (REF) | payer MEDICARE, SELFPAY ==
--- NOTE | 2022-05-27 10:53 | HM_ITS ---
Conclusion: 1. Baseline was normal sinus rhythm with average heart rate of 55 beats per minute 2. Frequent sinus bradycardia noted with 45% of time heart rate below 60 beats per minute with intermittent Mobitz type 1 second-degree AV block noted 3. Total of 385 isolated PVCs offer 0.2% of total beats account for occasional PVCs 4. Frequent Mobitz type 1 second-degree AV block noted with Wenckebach phenomena in followed by 2 is to 1 block, most suggestive of AV joel block 5. No patient reported symptoms MTDD
== END ==
LOC: HO.CARD 10:49
PROVIDERS: PCP Internal Medicine; Visit Provider Internal Medicine
DX: I44.1 Atrioventricular block, second degree (principal)
CPT/HCPCS: 93242

== ENCOUNTER 2022-06-16 08:41 | Outpatient (REF) | payer MEDICARE, SELFPAY ==
[2022-06-16 08:58] LABS: MANUAL DIFF FLAG NO
[2022-06-16 09:51] LABS: Estimated Average Glucose 134 mg/dL; Hemoglobin A1c % 6.3 %
[2022-06-16 09:53] LABS: Appearance Urine Clear; Color Urine Dark Yellow; Glucose Urine UA Negative (Negative); Leukocyte Esterase Urine Negative (Negative); Nitrite Urine Negative (Negative); PH 5.5 (5.0-9.0); Specific Gravity - Urine 1.025 (1.005-1.025); Urine Blood Negative (Negative); Urine Ketones Negative (Negative); Urine Protein Negative (Neg-Trace)
[2022-06-16 09:57] LABS: Basophils Percent Auto 0.6 % (0-2); Eosinophils Absolute Auto 0.2 X10*3/uL (0.0-0.4); Eosinophils Percent Auto 3.9 % (0-4); Hematocrit 42.4 % (42.0-52.0); Imm Gran Abs Auto 0.03 X10*3/uL (0.00-0.03); Imm Gran Pct Auto 0.6 % (0.0-0.4); Lymphocytes Absolute Auto 1.1 X10*3/uL (1.2-4.9); Lymphocytes Percent Auto 22.2 % (20-40); Mean Corpuscular Hemoglobin 30.1 pg (27.0-33.0); Mean Corpuscular Volume 91.2 fL (80.0-98.0); Mean Platelet Volume 11.4 fL (9.4-12.4); Monocytes Absolute Auto 0.5 X10*3/uL (0.1-1.2); Monocytes Percent Auto 8.9 % (2-11); Neutrophils Absolute Auto 3.3 x10*3/uL (2.0-8.3); Neutrophils Percent Auto 63.8 % (45-73); Platelet Count 110 X10*3/uL (160-400); Red Blood Count 4.65 X10*6/uL (4.60-5.80); Red Cell Distribution Width 13.2 % (11.0-16.0); White Blood Count 5.1 X10*3/uL (4.8-10.8)
[2022-06-16 10:34] LABS: Alanine Aminotransferase 25 U/L (0-40); Albumin Level 3.9 g/dL (3.5-5.0); Alkaline Phosphatase 163 U/L (39-117); Anion Gap 14 (12-20); Aspartate Amino Transferase 29 U/L (5-37); Blood Urea Nitrogen 17 mg/dL (9-16); Calcium 8.9 mg/dL (8.4-10.2); Carbon Dioxide 26 mmol/L (22-29); Chloride 106 mmol/L (96-108); Cholesterol 136 mg/dL; Estimated Glomerular Filt Rate > 60; Glucose Fasting 111 mg/dL (60-99); HDL Cholesterol 58 mg/dL; LDL Cholesterol Calculated 68 mg/dl; Potassium 4.1 mmol/L (3.3-5.1); Sodium 142 mmol/L (135-145); Total Protein 6.9 g/dL (6.5-8.0); Triglycerides 53 mg/dL
[2022-06-16 10:58] LABS: TSH reflex Free T4 0.97 uIU/mL (0.32-4.0); Vitamin D 25-OH Total 45.3 ng/mL (>30)
== END 2022-06-16 08:42 | disposition home or self-care (01) ==
LOC: HO.LAB 08:41
PROVIDERS: PCP Internal Medicine; Visit Provider Internal Medicine
DX: E78.00 Pure hypercholesterolemia, unspecified (principal); E55.9 Vitamin D deficiency, unspecified; E11.9 Type 2 diabetes mellitus without complications; I10 Essential (primary) hypertension
CPT/HCPCS: 36415; 80053; 80061; 81003; 82306; 83036; 84443; 85025

== ENCOUNTER → 2022-06-17 12:50 | Outpatient (BNVA) | payer MEDICARE, SELFPAY | PROVIDERS: PCP Internal Medicine; Visit Provider Internal Medicine Endocrinology, Diabetes & Metabolism | DX: M81.0 Age-related osteoporosis without current pathological fracture (principal) | CPT/HCPCS: 99212 ==

== ENCOUNTER → 2022-06-23 10:28 | Outpatient (BNVA) | payer MEDICARE, SELFPAY | PROVIDERS: PCP Internal Medicine; Referring Provider Internal Medicine; Visit Provider Internal Medicine | DX: I44.30 Unspecified atrioventricular block (principal); I38 Endocarditis, valve unspecified; I51.7 Cardiomegaly; G47.33 Obstructive sleep apnea (adult) (pediatric) | CPT/HCPCS: 93005; 99212 ==

== ENCOUNTER → 2022-07-15 13:27 | Outpatient (BNVA) | payer MEDICARE, SELFPAY | PROVIDERS: PCP Internal Medicine; Visit Provider Internal Medicine | DX: G47.33 Obstructive sleep apnea (adult) (pediatric) (principal); E66.9 Obesity, unspecified; Z68.31 Body mass index [BMI] 31.0-31.9, adult | CPT/HCPCS: 99212 ==

== ENCOUNTER 2022-10-11 10:09 | Outpatient (REF) | payer MEDICARE, SELFPAY ==
[2022-10-11 11:07] LABS: MANUAL DIFF FLAG NO
[2022-10-11 11:12] LABS: Appearance Urine Clear; Color Urine Yellow; Glucose Urine UA Negative (Negative); Leukocyte Esterase Urine Negative (Negative); Nitrite Urine Negative (Negative); Specific Gravity - Urine 1.015 (1.005-1.025); Urine Blood Negative (Negative); Urine Ketones Negative (Negative); Urine Protein Negative (Neg-Trace)
[2022-10-11 11:13] LABS: Basophils Percent Auto 0.4 % (0-2); Eosinophils Absolute Auto 0.2 X10*3/uL (0.0-0.4); Eosinophils Percent Auto 3.9 % (0-4); Hematocrit 41.7 % (42.0-52.0); Imm Gran Abs Auto 0.03 X10*3/uL (0.00-0.03); Imm Gran Pct Auto 0.6 % (0.0-0.4); Lymphocytes Percent Auto 20.2 % (20-40); Mean Corpuscular HGB Conc 33.6 g/dl (31.0-36.0); Mean Corpuscular Hemoglobin 30.8 pg (27.0-33.0); Mean Corpuscular Volume 91.6 fL (80.0-98.0); Mean Platelet Volume 11.5 fL (9.4-12.4); Monocytes Absolute Auto 0.5 X10*3/uL (0.1-1.2); Monocytes Percent Auto 9.6 % (2-11); Neutrophils Absolute Auto 3.3 x10*3/uL (2.0-8.3); Neutrophils Percent Auto 65.3 % (45-73); Platelet Count 103 X10*3/uL (160-400); Red Blood Count 4.55 X10*6/uL (4.60-5.80); Red Cell Distribution Width 13.2 % (11.0-16.0); White Blood Count 5.1 X10*3/uL (4.8-10.8)
[2022-10-11 11:26] LABS: Estimated Average Glucose 140 mg/dL; Hemoglobin A1c % 6.5 %
[2022-10-11 11:35] LABS: Creatinine Urine 98.69 mg/dL; Microalbum/Creatinine Ratio Ur 8.1 ug/mg cr
[2022-10-11 11:49] LABS: Alanine Aminotransferase 29 U/L (0-40); Albumin Level 3.8 g/dL (3.5-5.0); Alkaline Phosphatase 142 U/L (39-117); Anion Gap 9 (12-20); Aspartate Amino Transferase 29 U/L (5-37); Blood Urea Nitrogen 15 mg/dL (9-16); Calcium 8.7 mg/dL (8.4-10.2); Carbon Dioxide 29 mmol/L (22-29); Chloride 107 mmol/L (96-108); Cholesterol 138 mg/dL; Estimated Glomerular Filt Rate > 60; Glucose Fasting 135 mg/dL (60-99); HDL Cholesterol 56 mg/dL; LDL Cholesterol Calculated 73 mg/dl; Sodium 141 mmol/L (135-145); Total Protein 6.6 g/dL (6.5-8.0); Triglycerides 45 mg/dL
[2022-10-11 11:57] LABS: TSH reflex Free T4 0.91 uIU/mL (0.32-4.0); Vitamin D 25-OH Total 54.3 ng/mL (>30)
== END 2022-10-11 10:10 | disposition home or self-care (01) ==
LOC: HO.HMGCLDS 10:09
PROVIDERS: PCP Internal Medicine; Visit Provider Internal Medicine
DX: E11.9 Type 2 diabetes mellitus without complications (principal); E78.00 Pure hypercholesterolemia, unspecified; I10 Essential (primary) hypertension; E55.9 Vitamin D deficiency, unspecified; R30.0 Dysuria
CPT/HCPCS: 36415; 80053; 80061; 81003; 82043; 82306; 83036; 84443; 85025

== ENCOUNTER → 2022-11-24 13:01 | Outpatient (REF) | payer MEDICARE, SELFPAY | LOC: HO.CARD 13:01 | PROVIDERS: PCP Internal Medicine; Visit Provider Internal Medicine | DX: I44.1 Atrioventricular block, second degree (principal) | CPT/HCPCS: 93242 ==

== ENCOUNTER → 2022-11-24 13:04 | Outpatient (BNV) | payer MEDICARE, SELFPAY | PROVIDERS: PCP Internal Medicine; Visit Provider Internal Medicine | DX: I44.1 Atrioventricular block, second degree (principal) | CPT/HCPCS: 93244 ==

== ENCOUNTER 2022-12-12 10:21 | Outpatient (AMB) | payer MEDICARE, SELFPAY ==
--- NOTE | 2022-12-12 10:25 | A.OFFVIS_ITS ---
Intake Vital Signs 12/12/22 10:26 Height 5 ft 9 in Weight 216 lb 7.903 oz BMI 32.0 BP 142/80 H Blood Pressure Location Lt brachial Position Sitting Pulse 63 Intake Visit Reasons: 6 MON FUP AFTER HOLTER Intake Note: 6 month follow up Program Coordinator Executive Education Required: No Accompanied by: Spouse Allergies No Known Allergies [No Known Allergies*] Allergy (Verified 12/12/22 10:28) Medication List - Last Reconciled 12/12/22 by Dylan Hilton MD alendronate 70 mg PO QWEEK cholecalciferol (vitamin D3) 25 mcg PO DAILY colchicine 0.6 mg PO BID [DIABETIC SHOES (1 pair) As directed] escitalopram oxalate 10 mg PO DAILY simvastatin 10 mg PO BEDTIME tizanidine 2 mg PO TID ursodiol 600 mg PO BID HPI HPI Comments History of Present Illness Details Janak returns for follow-up regarding second-degree heart block. He feels quite well. No specific complaints. He has had vertigo type symptoms for many years but that does not sound like related to the heart block itself. [facility] Medical History Adenomyomatosis of gallbladder Anxiety Cerebellar ataxia Diabetes mellitus Dizziness Fatigue Insomnia Obesity (BMI 30-39.9) ROSARIO (obstructive sleep apnea) Osteoporosis Overweight (BMI 25.0-29.9) Primary biliary cirrhosis Pure hypercholesterolemia Surgical History Hx of appendectomy Hx of tonsillectomy Family History Father Cancer Mother No problems noted. Social History Household Members: Spouse Household Members Other:: Housing: House Alcohol intake: former Patient Tobacco Use Status: Former Tobacco user e-Cigarette/Vaping Use: Never Used Second Hand Smoke Exposure: No service: No Current occupational status: retired Cognitive needs: No Hearing needs: No Vision needs: Yes (Glasses) Review of Systems Const Denies weakness ENT Denies dizziness Card Denies chest pain, Denies chest pain with activity, Denies syncope, Denies rapid heart rate, Denies pedal edema, Denies edema, Denies leg edema, Denies lightheadedness, Denies palpitations, Denies dyspnea, Denies dyspnea on exertion and Denies orthopnea Resp Denies cough, Denies dyspnea and Denies dyspnea on exertion GI Denies hematochezia and Denies change in stool character Musc Denies abnormal gait, Denies muscle cramps, Denies muscle weakness, Denies numbness, Denies radiating pain into limb and Denies tingling Neuro Denies abnormal gait, Denies dizziness, Denies syncope, Denies numbness, Denies tingling and Denies weakness Endo Denies palpitations Physical Exam Vital Signs: Last Vital Signs Pulse 63 12/12/22 10:26 BP 142/80 H 12/12/22 10:26 BMI result Body Mass Index 32.0 Const General: comfortable and no acute distress Orientation/consciousness: patient oriented x3 HEENT Other: Unremarkable Head: Yes normal to inspection Neck Neck: Yes normal visual inspection Chest Chest palpation & inspection: normal inspection of the chest Resp Auscultation: clear to auscultation bilaterally Cardio Palpation: normal PMI Heart sounds: S1 normal heart sound present, S2 normal heart sound present, no gallops, no murmurs and no rubs GI Palpation (GI): Soft to palpation Back/Spine/Pelvis Other: unremarkable Skin General skin exam: no rashes or lesions noted Neuro General: patient oriented x3 Extrem General: Yes normal to inspection Psych Mental Status: mental status grossly normal Assessment & Plan Assessment & Plan (1) Heart block atrioventricular: Code(s): I44.30 - Unspecified atrioventricular block Plan: EKG shows Mobitz type 1 second-degree AV block. A prior EKG from 10 years ago shows first-degree heart block. Dobutamine perfusion imaging is unremarkable. In the most recent Holter, average heart rate is 56/Min. He has underlying second-degree type 1 heart block and transient complete heart block. However, longest pause only 2.7 seconds. Will continue to monitor. If any dizziness/syncopal episodes, they will call 911. He may consider using wearable heart rate monitor like watch. (2) Valvular heart disease: Code(s): I38 - Endocarditis, valve unspecified Plan: Echocardiogram shows mild aortic valve calcification, mild mitral annular calcification mild tricuspid regurgitation. These are not causing any issues and can be monitored periodically. (3) Right ventricular dilation: Code(s): I51.7 - Cardiomegaly Plan: Could be related to sleep apnea. CPAP should help. (4) ROSARIO (obstructive sleep apnea): Comment: Patient is using CPAP very regularly. He has really benefited from its use. Loves to continue using it. No special issues at this time. Code(s): G47.33 - Obstructive sleep apnea (adult) (pediatric) Plan: Sleep study shows moderately severe obstructive sleep apnea. Continue CPAP. We discussed about cardiac conduction system disease and obstructive sleep apnea. Compliance increased and he states he is using fairly regularly. Plan Discussed with significant other who came for appointment. Medications: Changed From colchicine 0.6 mg PO BID 90 days 180 tabs 3RF K74.3 - Primary biliary cirrhosis To colchicine 0.6 mg PO BID K74.3 - Primary biliary cirrhosis From tizanidine 2 mg PO TID 270 tabs 1RF To tizanidine 2 mg PO TID From ursodiol 600 mg (2 x 300 mg) PO BID 90 days 360 caps 3RF K74.3 - Primary biliary cirrhosis To ursodiol 600 mg PO BID K74.3 - Primary biliary cirrhosis Coding Level of Care Code Est Pt Level 4 (85124) Diagnoses Heart block atrioventricular I44.30 Valvular heart disease I38 Right ventricular dilation I51.7 ROSARIO (obstructive sleep apnea) G47.33
[2022-12-12 10:26] VITALS: BP 142/80; PULSE 63; BMI 32.0
== END 2022-12-12 11:05 | disposition home or self-care (01) ==
PROVIDERS: PCP Internal Medicine; Visit Provider Internal Medicine
DX: I44.30 Unspecified atrioventricular block (principal); I38 Endocarditis, valve unspecified; I51.7 Cardiomegaly; G47.33 Obstructive sleep apnea (adult) (pediatric)
CPT/HCPCS: 99214

== ENCOUNTER → 2022-12-12 10:21 | Outpatient (BNVA) | payer MEDICARE, SELFPAY | PROVIDERS: PCP Internal Medicine; Visit Provider Internal Medicine | DX: I44.2 Atrioventricular block, complete (principal); I44.1 Atrioventricular block, second degree; I38 Endocarditis, valve unspecified; I51.7 Cardiomegaly; G47.33 Obstructive sleep apnea (adult) (pediatric) | CPT/HCPCS: 99212 ==

== ENCOUNTER 2023-01-13 13:23 | Outpatient (AMB) | payer MEDICARE, SELFPAY ==
--- NOTE | 2023-01-13 13:25 | A.OFFVIS_ITS ---
Intake Vital Signs 01/13/23 13:26 Height 5 ft 11 in Weight 218 lb 4.122 oz BMI 30.4 BP 138/64 Blood Pressure Location Rt brachial Position Sitting Pulse 52 Pulse Source Pulse Oximeter Pulse Oximetry (%) 94 Oxygen Delivery Method Room Air Intake Visit Reasons: Obstructive sleep apnea Allergies No Known Allergies [No Known Allergies*] Allergy (Verified 01/13/23 13:43) Medication List - Last Reconciled 01/13/23 by Mike Myers MD alendronate 70 mg PO QWEEK cholecalciferol (vitamin D3) 25 mcg PO DAILY colchicine (gout) 0.6 mg PO BID [DIABETIC SHOES (1 pair) As directed] escitalopram oxalate 10 mg PO DAILY simvastatin 10 mg PO BEDTIME tizanidine 2 mg PO TID ursodiol 600 mg PO BID Do you need a note to return to daycare/school/sports/work: No HPI Obstructive sleep apnea HPI Details THIS 82 YEARS OLD GENTLEMAN IS A CASE OF OBSTRUCTIVE SLEEP APNEA, AND HE USES CPAP VERY REGULARLY. HE LOVES HIS CPAP AND IN FACT WOULD NOT BE ABLE TO SLEEP WITHOUT THAT, DENIES ANY ISSUES RELATED TO THE MASK OR CPAP DEVICE, EXCEPT THAT THE HUMIDITY SOMETIME WILL MAKE HIM COUGH. HE STILL HAS SOME DEGREE OF SLEEPINESS DURING THE DAYTIME, THOUGH HE USES CPAP FOR AT LEAST 7 HOURS EVERY NIGHT. PHYSICALLY NOT VERY ACTIVE AND IS NOT DOING ANY ACTIVE EXERCISE DURING THE DAYTIME. HIS STATES THAT HE DOES INDULGE IN EATING JUNK FOOD. HE HAS MILD DEPRESSION WHICH IS BEING CONTROLLED WITH ESCITALOPRAM. [facility] Medical History Adenomyomatosis of gallbladder Anxiety Cerebellar ataxia Diabetes mellitus Dizziness Fatigue Insomnia Obesity (BMI 30-39.9) ROSARIO (obstructive sleep apnea) Osteoporosis Overweight (BMI 25.0-29.9) Primary biliary cirrhosis Pure hypercholesterolemia Surgical History Hx of appendectomy Hx of tonsillectomy Family History Father Cancer Mother No problems noted. Social History Household Members: Spouse Household Members Other:: Housing: House Alcohol intake: former Patient Tobacco Use Status: Former Tobacco user e-Cigarette/Vaping Use: Never Used Second Hand Smoke Exposure: No service: No Current occupational status: retired Cognitive needs: No Hearing needs: No Vision needs: Yes (Glasses) Review of Systems Const All systems reviewed & are unremarkable except as noted in HPI and below Reports snoring Eyes Reports no additional complaints ENT Reports no additional complaints Card Denies chest pain, Denies irregular heart rhythm, Denies leg edema and Denies dyspnea on exertion Resp Denies cough, Denies dyspnea on exertion, Reports snoring and Denies wheezing GI Reports no additional complaints Reports no additional complaints Musc Reports no additional complaints Skin/Breast Reports system reviewed and no additional complaints, except as documented Neuro Reports other (History of mild cerebellar ataxia) Psych Reports depression (Mild controlled with small dose of escitalopram) Endo Reports no additional complaints Liborio/Lymph Reports no additional complaints Aller/Immun Reports no additional complaints and Denies wheezing Physical Exam Const General: healthy appearing (Except for moderatelately overweight), comfortable, no acute distress, alert and awake Orientation/consciousness: patient oriented x3 HEENT Head: Yes normal to inspection General nose exam: No nasal polyps present and No nasal discharge present Face and sinus: Yes sinuses nontender Mouth: oropharynx abnormals (Oropharynx is slightly crowded and narrow, Mallampati class 3) Teeth and gingiva: other (There is mild regression of the lower jaw) Throat: Yes posterior oropharynx normal Eyes General: appearance normal, both eyes and all related structures Neck Neck: Yes normal visual inspection, Yes no lymphadenopathy, Yes trachea midline, Yes no JVD and Yes other (Neck circumference 15-1/2 inch) Thyroid: Thyroid normal Chest Chest palpation & inspection: normal inspection of the chest, normal palpation of entire chest wall and no tenderness Resp Effort & Inspection: normal respiratory effort and no cough Auscultation: clear to auscultation bilaterally, no rhonchi and no wheezes Cardio Palpation: normal PMI Rate: regular rate Rhythm: regular rhythm Heart sounds: no gallops and no murmurs Peripheral pulses: Peripheral pulses 2+ throughout GI Palpation (GI): Soft to palpation, nontender, No hepatosplenomegaly present, no masses and Other GI palpation findings present (Abdomen is slightly protuberant) Auscultation: normal bowel sounds Back/Spine/Pelvis Thoracic/Lumbar Spine: thoracic and lumbar spine normal to inspection Skin General skin exam: no rashes or lesions noted Neuro General: patient oriented x3 and no focal motor deficits Cranial nerves: Yes CN's II-XII intact bilaterally Extrem General: Yes normal to inspection, Yes no clubbing, cyanosis or edema and Yes no calf tenderness Psych Appearance: grossly normal and well kempt Speech and movement: Normal speech and movement present Results Reviewed Results Reviewed: COMPLIANCE REPORT FOR THE LAST 2 112 DAYS IS REVIEWED. HE USED 108-112 DAYS, 96% OF THE TIME. AVERAGE USE IT PER NIGHT RANGES FROM 7 HOURS 47 MINUTES TO 8 HOURS 5 MINUTE. THERE IS NO SIGNIFICANT AIR LEAK. AND RESIDUAL AHI ONLY 1.1 Assessment & Plan Assessment & Plan (1) Obesity (BMI 30-39.9): Comment: PATIENT IS NOT OVERLY BUT IS MODERATELY OBESE, MAINLY DUE TO ABDOMINAL PROTUBERANCE. ADVISED THAT IT WILL BE BENEFICIAL IF HE CAN LOSE ABOUT 10 LB OF WEIGHT. ENCOURAGED TO CUT DOWN THE CARBOHYDRATES INTAKE, AND ALSO WALK ON A DAILY BASIS. Code(s): E66.9 - Obesity, unspecified (2) ROSARIO (obstructive sleep apnea): Comment: Patient is using CPAP very regularly. He has really benefited from its use. Loves to continue using it. No special issues at this time. Code(s): G47.33 - Obstructive sleep apnea (adult) (pediatric) Coding Level of Care Code Est Pt Level 3 (10969) Diagnoses Obesity (BMI 30-39.9) E66.9 ROSARIO (obstructive sleep apnea) G47.33
[2023-01-13 13:26] VITALS: BP 138/64; PULSE 52; O2SAT 94; BMI 30.4
== END 2023-01-13 13:44 | disposition home or self-care (01) ==
PROVIDERS: PCP Internal Medicine; Visit Provider Internal Medicine
DX: E66.9 Obesity, unspecified (principal); G47.33 Obstructive sleep apnea (adult) (pediatric)
CPT/HCPCS: 99213

== ENCOUNTER → 2023-01-13 13:23 | Outpatient (BNVA) | payer MEDICARE, SELFPAY | PROVIDERS: PCP Internal Medicine; Visit Provider Internal Medicine | DX: G47.33 Obstructive sleep apnea (adult) (pediatric) (principal); E66.9 Obesity, unspecified; Z68.30 Body mass index [BMI] 30.0-30.9, adult | CPT/HCPCS: 99212 ==

== ENCOUNTER 2023-02-11 10:55 | Outpatient (REF) | payer MEDICARE, SELFPAY ==
[2023-02-11 13:26] LABS: Basophils Percent Auto 0.2 % (0-2); Imm Gran Abs Auto 0.01 X10*3/uL (0.00-0.03); Imm Gran Pct Auto 0.2 % (0.0-0.4); MANUAL DIFF FLAG SCAN; PLT CLUMP 1; SCAN SMEAR FLAG 1
[2023-02-11 13:29] LABS: Eosinophils Absolute Auto 0.3 X10*3/uL (0.0-0.4); Eosinophils Percent Auto 5.7 % (0-4); Hematocrit 43.4 % (42.0-52.0); Hemoglobin 14.6 g/dl (14.0-18.0); Lymphocytes Percent Auto 20.6 % (20-40); Mean Corpuscular HGB Conc 33.6 g/dl (31.0-36.0); Mean Corpuscular Hemoglobin 30.7 pg (27.0-33.0); Mean Corpuscular Volume 91.2 fL (80.0-98.0); Mean Platelet Volume 11.4 fL (9.4-12.4); Monocytes Absolute Auto 0.5 X10*3/uL (0.1-1.2); Monocytes Percent Auto 9.2 % (2-11); Neutrophils Absolute Auto 3.2 x10*3/uL (2.0-8.3); Neutrophils Percent Auto 64.1 % (45-73); Platelet Count 99 X10*3/uL (160-400); Red Blood Count 4.76 X10*6/uL (4.60-5.80); Red Cell Distribution Width 13.2 % (11.0-16.0); White Blood Count 4.9 X10*3/uL (4.8-10.8)
[2023-02-11 13:30] LABS: Appearance Urine Clear; Color Urine Yellow; Glucose Urine UA Negative (Negative); Leukocyte Esterase Urine Negative (Negative); Nitrite Urine Negative (Negative); PH 7.5 (5.0-9.0); Urine Blood Negative (Negative); Urine Ketones Negative (Negative); Urine Protein Negative (Neg-Trace)
[2023-02-11 13:54] LABS: Estimated Average Glucose 146 mg/dL; Hemoglobin A1c % 6.7 % (<6.0)
[2023-02-11 14:09] LABS: Creatinine Urine 42.34 mg/dL; Microalbumin Urine < 5.0 mg/L
[2023-02-11 14:13] LABS: Alanine Aminotransferase 26 U/L (0-40); Alkaline Phosphatase 127 U/L (39-117); Anion Gap 10 (12-20); Aspartate Amino Transferase 30 U/L (5-37); Blood Urea Nitrogen 12 mg/dL (9-16); Calcium 9.2 mg/dL (8.4-10.2); Carbon Dioxide 28 mmol/L (22-29); Chloride 108 mmol/L (96-108); Cholesterol 137 mg/dL (<200); Estimated Glomerular Filt Rate > 60; Glucose Fasting 112 mg/dL (60-99); HDL Cholesterol 58 mg/dL (>40); LDL Cholesterol Calculated 66 mg/dL (<100); Sodium 142 mmol/L (135-145); TSH reflex Free T4 1.21 uIU/mL (0.32-4.0); Total Protein 7.3 g/dL (6.5-8.0); Triglycerides 68 mg/dL (<150); Vitamin D 25-OH Total 49.4 ng/mL (>30)
[2023-02-11 14:33] LABS: Folate 16.2 ng/mL (> or = 4.0); Vitamin B12 1103 pg/mL (200-900)
== END 2023-02-11 10:56 | disposition home or self-care (01) ==
LOC: HO.HMGCLDS 10:55
PROVIDERS: PCP Internal Medicine; Visit Provider Internal Medicine
DX: E53.8 Deficiency of other specified B group vitamins (principal); I10 Essential (primary) hypertension; E78.00 Pure hypercholesterolemia, unspecified; E55.9 Vitamin D deficiency, unspecified; R30.0 Dysuria; I44.1 Atrioventricular block, second degree; I25.10 Atherosclerotic heart disease of native coronary artery without angina pectoris; E11.9 Type 2 diabetes mellitus without complications
CPT/HCPCS: 36415; 80053; 80061; 81003; 82043; 82306; 82570; 82607; 82746; 83036; 84443; 85025

== ENCOUNTER 2023-02-16 12:15 | Outpatient (AMB) | payer MEDICARE, SELFPAY ==
[2023-02-16 12:33] VITALS: BP 138/82; PULSE 62; O2SAT 95
--- NOTE | 2023-02-16 12:33 | MHC.PC.OV ---
Vital Signs 02/16/23 12:33 Height 5 ft 11 in Weight 215 lb BMI 30.0 BP 138/82 Blood Pressure Location Lt brachial Position Sitting Pulse 62 Pulse Source Pulse Oximeter Pulse Oximetry (%) 95 Oxygen Delivery Method Room Air Intake Visit Reasons: DM, PBC, hyperlipidemia Marketing Finance Specialist Required: No Accompanied by: Self / Same As Patient Allergies No Known Allergies [No Known Allergies*] Allergy (Verified 02/16/23 12:53) Medication List - Last Reconciled 02/16/23 by Donnell Gillis MD alendronate 70 mg PO QWEEK cholecalciferol (vitamin D3) 25 mcg PO DAILY colchicine (gout) 0.6 mg PO BID [DIABETIC SHOES (1 pair) As directed] escitalopram oxalate 10 mg PO DAILY simvastatin 10 mg PO BEDTIME tizanidine 2 mg PO TID ursodiol 600 mg PO BID Tobacco use date assessed: 02/16/23 Fall risk assessment: 1 Fall in past year Last assessed Fall Risk: 02/16/23 Dental Screening Dental Screen Date: 02/16/23 Did you have a dental visit in the last 12 months?: No Did you have a dental problem in the last 6 months where you did not have access to dental care?: No Was dental information given to patient?: Patient has dentist HPI DM, PBC, hyperlipidemia HPI Details Patient comes in today for his follow up visit States that he feels okay He denies any headaches or dizziness Denies any chest pains, no SOB but reports (+) recurrent cough for a while now States that he would sometimes get some coughing fits that would last for a couple of minutes - would cough up minimal phlegm and states that he would be back to normal once his coughing subsides Notes that he seems to cough more often in the afternoon or early evening hours He denies any fever or sore throat No nausea/vomiting, no abdominal pain No change in bowel habits noted Had his follow up labs done a few days ago - to discuss his results [facility] Medical History (Updated 02/16/23 @ 13:27 by Donnell Gillis MD) Obesity (BMI 30.0-34.9) ROSARIO (obstructive sleep apnea) Obesity (BMI 30-39.9) Fatigue Overweight (BMI 25.0-29.9) Anxiety Insomnia Cerebellar ataxia Dizziness Osteoporosis Pure hypercholesterolemia Diabetes mellitus Adenomyomatosis of gallbladder Primary biliary cirrhosis Surgical History Hx of tonsillectomy Hx of appendectomy Family History Father Cancer Mother No problems noted. Social History Household Members: Spouse Household Members Other:: Housing: House Alcohol intake: former Patient Tobacco Use Status: Former Tobacco user e-Cigarette/Vaping Use: Never Used Second Hand Smoke Exposure: No service: No Current occupational status: retired Cognitive needs: No Hearing needs: No Vision needs: Yes (Glasses) Questionnaire PHQ-9 Over the last 2 weeks, how often have you been bothered by any of the following problems? 1. Little interest or pleasure in doing things: not at all 2. Feeling down, depressed, or hopeless: not at all 3. Trouble falling or staying asleep, or sleeping too much: not at all 4. Feeling tired or having little energy: not at all 5. Poor appetite or overeating: not at all 6. Feeling bad about yourself - or that you are a failure or have let yourself or your family down: not at all 7. Trouble concentrating on things, such as reading the newspaper or watching television: not at all 8. Moving or speaking so slowly that other people could have noticed. Or the opposite - being so fidgety or restless that you have been moving around a lot more than usual: not at all 9. Thoughts that you would be better off or of hurting yourself in some way: not at all Total score: 0 Depression Screening Interpretation: Negative 31555 - PHQ-9 Billing: Yes Source: Developed by Drs. Kevin Mcmullen, Juany Felix, Adolph Anderson and colleagues, with an educational michael from [employer]. Thrive Questionnaire Date Thrive assessed: 02/16/23 I am a: Patient What is your living situation today?: I have a steady place to live Within the past 12 months, did the food you bought not last and you didn't have the money to get more?: Never true Within the past 12 months, did you worry whether your food would run out before you got money to buy more?: Never true Do you have trouble paying for medicines?: No Do you have trouble getting transportation to medical appointments?: No Do you have trouble paying your heating and electricity bill?: No Do you have trouble taking care of your child, family member or friend?: No Do you have trouble with day-to-day activities such as bathing, preparing meals, shopping, managing finances, etc.?: No Are you currently unemployed and looking for a job?: No Are you interested in more education?: No Please select the resources that you would like help with: None Currently or been in a relationship where the following occur: no concerns reported AUDIT C Alcohol Use Questionnaire (AUDIT-C) 1. How often do you have a drink containing alcohol?: Never 3. How often do you have six or more drinks on one occasion?: Never Total Score: 0 Score Reviewed/Action Taken: Yes SHERMAN-7 AMB Questionnaire SHERMAN-7 Date SHERMAN - 7 assessed: 02/16/23 Feeling nervous, anxious, or on edge: 0 = Not at all Not being able to stop or control worryin = Not at all Worrying too much about different things: 0 = Not at all Trouble relaxin = Not at all Being so restless that it is hard to sit still: 0 = Not at all Becoming easily annoyed or irritable: 0 = Not at all Feeling afraid as if something awful might happen: 0 = Not at all Total SHERMAN-7 score (0-4 normal; 5-9 mild; 10-14 moderate; 15-21 severe): 0 Source: Developed by Drs. Kevin Mcmullen, Juany Felix, Adolph Anderson and colleagues, with an educational michael from [employer]. Review of Systems Const Denies chills, Reports fatigue, Denies fever(s) and Denies headache(s) ENT Denies dysphagia, Denies dizziness, Denies otalgia, Denies headache(s), Denies neck pain, Denies odynophagia and Denies sore throat Card Denies chest pain, Denies palpitations and Denies dyspnea Resp Reports cough (recurrent - see HPI), Denies dyspnea and Denies wheezing GI Denies abdominal pain, Denies constipation, Denies dysphagia, Denies heartburn, Denies diarrhea, Denies nausea, Denies odynophagia and Denies vomiting Denies dysuria, Denies nocturia and Denies urinary frequency Musc Denies neck pain Neuro Denies dizziness and Denies headache(s) Psych Reports anxiety (better with Rx) Endo Reports fatigue and Denies palpitations Aller/Immun Denies wheezing Physical exam (Primary Care) Vital Signs: Last Vital Signs Pulse 62 02/16/23 12:33 BP 138/82 02/16/23 12:33 Pulse Ox 95 02/16/23 12:33 Oxygen Delivery Method Room Air 02/16/23 12:33 BMI result Body Mass Index 30.0 Tobacco/Smoking Status: Tobacco use Status Tobacco use date assessed 02/16/23 02/16/23 12:36 Patient Tobacco Use Status Former Tobacco user 02/16/23 12:36 e-Cigarette/Vaping Use Never Used 02/16/23 12:36 PHQ-9: PHQ-9 Score PHQ-9: Total score 0 02/16/23 12:55 Depression Screening Interpretation: Negative Thrive Assessment: Date of Thrive Assessment Date Thrive assessed 02/16/23 02/16/23 12:36 Currently or been in a relationship where the following occur: no concerns reported Const General: no acute distress and alert HENMT Ears: TM's normal bilaterally and EAC's normal Throat: Yes posterior oropharynx normal and Yes tonsils normal (no TP congestion noted) Neck Neck: Yes no lymphadenopathy and Yes supple Resp Auscultation: clear to auscultation bilaterally, no rales and no wheezes Cardio Rate: regular rate Rhythm: regular rhythm Heart sounds: no murmurs GI Palpation (GI): Soft to palpation and nontender Auscultation: normal bowel sounds Skin Rashes: no rashes Extrem General: Yes no clubbing, cyanosis or edema Results Reviewed Results Reviewed: Laboratory Tests 02/11/23 11:01 WBC 4.9 Hgb 14.6 Hct 43.4 Plt Count 99 L Sodium 142 Potassium 4.0 Creatinine 0.88 Estimated GFR > 60 Fasting Glucose 112 H Hemoglobin A1c % 6.7 H Calcium 9.2 AST 30 ALT 26 Triglycerides 68 Cholesterol 137 LDL Cholesterol, Calc 66 HDL Cholesterol 58 Vitamin B12 1103 H 25-OH Vitamin D Total 49.4 TSH 1.21 Urine pH 7.5 Ur Specific [place] 1.010 Urine Protein Negative Urine Glucose (UA) Negative Urine Blood Negative Assessment and Plan Assessment & Plan (1) Primary biliary cirrhosis: Comment: EGD done in 2018 showed 1+ varices and changes consistent with patient's gastropathy Used to seeing director of student financial services in [place] but is now seeing Gastroenterology (Dr. Gaston) locally for follow up and management Code(s): K74.3 - Primary biliary cirrhosis Plan: Continue Ursodiol 300 mg 2 capsules twice a day and Colchicine 0.6 mg BID Follow up with GI (Dr. Gaston) as scheduled (2) Type 2 diabetes mellitus without complications: Code(s): E11.9 - Type 2 diabetes mellitus without complications Qualifiers: Diabetes mellitus meterman insulin use: without meterman use Qualified Code(s): E11.9 - Type 2 diabetes mellitus without complications Plan: HgbA1c was at 6.7% on his labs done a few days ago (was at 6.5% a few months ago) - goal is < 7.0% Reinforced diabetic diet - patient has not required any Rx for his diabetes so far but cautioned that his HgbA1c has been gradually inching up and he is now actually in diabetic territory and no longer just borderline diabetes Have discussed option of starting him on diabetic medication but he is concerned that it may exacerbate what he thinks are hypoglycemic episodes as he has noticed that he gets very dizzy and lightheaded often lately when he does not eat on time, especially around noon, and notices that his symptoms would improve/resolve instantly as soon as he eats something - is wondering if his symptoms are due to hypoglycemic episodes and if they are, taking Rx for diabetes may make them get worse wherein he can pass out Will have patient get tested for C-peptide level as well as a Glutamic Acid decarboxylase Ab with his next labs for further evaluation; will hold off on Rx at this time and advised him to try to watch his diet better for now (3) Pure hypercholesterolemia: Code(s): E78.00 - Pure hypercholesterolemia, unspecified Plan: Results of his labs done a few days ago reviewed and discussed with patient Reinforced low cholesterol diet Continue Simvastatin 10 mg QD Will recheck his labs and fasting lipids in 4 months for follow-up (4) Adenomyomatosis of gallbladder: Comment: Abdominal US done in early 2019 revealed (+) fatty liver changes with cholelithiasis (with findings suggesting possible chronic cholecystitis) and gallbladder adenomyomatosis - patient denies any acute abdominal symptoms/pain Code(s): D13.5 - Benign neoplasm of extrahepatic bile ducts Plan: Benign condition - does not require further intervention and patient has had no acute symptoms lately (5) Osteoporosis: Code(s): M81.0 - Age-related osteoporosis without current pathological fracture Qualifiers: Osteoporosis type: unspecified Presence of current pathological fracture: without current pathological fracture Qualified Code(s): M81.0 - Age-related osteoporosis without current pathological fracture Plan: Was on Prolia 60 mg subcutaneous injection every 6 months for about 4 to 5 years and Rx was stopped about a year ago Repeat BMD done on 12/27/2020 showed a 19.6% improvement in the AP spine from baseline, 10.0% improvement from previous and a 6.7% improvement in the left femur from baseline, 0.5% increase from previous Will continue to monitor BMD regularly Continue Fosamax 70 mg Q week - was started back on Rx by Dr. Fernandez a few months ago Follow up with endocrinology as scheduled (6) Arrhythmia: Code(s): I49.9 - Cardiac arrhythmia, unspecified Qualifiers: Arrhythmia type: unspecified cardiac arrhythmia Qualified Code(s): I49.9 - Cardiac arrhythmia, unspecified Plan: Patient was noted to have some EKG abnormalities when he was admitted to [facility] in [place] back in March 2021 - EKG back then came out as Mobitz type I AV block (Wenckebach) with premature complexes in a bigeminal pattern Echocardiogram done revealed normal left ventricular size, systolic function and wall thickness with no regional wall motion abnormalities. LV ejection fraction estimated at 60-65%. Normal diastolic function. Mild pulmonary hypertension, RVSP 39 mm Hg plus central venous pressure which should be estimated clinically due to inability to visualize IVC. Mildly increased left atrial size. Probably mild aortic valve stenosis, mean gradient 4.5 mm Hg, PETER 1.9 cm2. Moderate tricuspid valve regurgitation Was seen by cardiology last year and had Holter monitor done for further work up - Holter showed underlying sinus rhythm with average rate of 51 bpm and (+) occurrence of Mobitz 1 second-degree heart block but only during sleep, with NO occurrence during the waking hours Patient states that he was offered option of pacemaker insertion now or later and patient eventually decided on getting a repeat Holter done in 3 months time and will then decide on further Tx options depending on the result of his repeat Holter Follow up with cardiology as scheduled (7) Recurrent nonproductive cough: Code(s): R05.8 - Other specified cough Plan: Patient states that his cough cleared up for a while when he was started on a CPAP device by pulmonary a few months ago but has since recurred Chest x-rays done in 03/2019 and on 02/25/21 both came out normal; PFT done on 10/22/2021 was also unremarkable Will send him for repeat chest x-rays for further evaluation Follow up with pulmonary as scheduled (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, unspecified Plan: Follow up with Neurology as scheduled (+) gait instability due to his ataxia (9) Insomnia: Code(s): G47.00 - Insomnia, unspecified Qualifiers: Insomnia type: unspecified Qualified Code(s): G47.00 - Insomnia, unspecified Plan: Sleep hygiene reinforced Has been taking OTC sleep aids like NyQuil PM as needed with some relief (10) Anxiety: Code(s): F41.9 - Anxiety disorder, unspecified Plan: States that his anxiety has been well-controlled on his Rx Continue Escitalopram 10 mg QD (11) Obesity (BMI 30.0-34.9): Code(s): E66.9 - Obesity, unspecified Plan: Reinforced diet/exercise as tolerated/lose weight Plan Follow up in 4 months Orders: Orders C Peptide 4 Months E11.9 - Type 2 diabetes mellitus without complications Hemoglobin A1c 4 Months E11.9 - Type 2 diabetes mellitus without complications Lipid Panel 4 Months E78.00 - Pure hypercholesterolemia, unspecified UA CC w/rflx Micro + Cult 4 Months R30.0 - Dysuria Vitamin D 25-OH Total 4 Months E55.9 - Vitamin D deficiency, unspecified Uric Acid 4 Months M10.9 - Gout, unspecified XR chest 2V Today R05.9 - Cough, unspecified Glutamic acid decarboxylase Ab 4 Months E11.9 - Type 2 diabetes mellitus without complications Complete Blood Count Auto Diff 4 Months I10 - Essential (primary) hypertension Comprehensive [place]. Panel Fast 4 Months E78.00 - Pure hypercholesterolemia, unspecified TSH reflex Free T4 4 Months E78.00 - Pure hypercholesterolemia, unspecified Coding Level of Care Code Est Pt Level 4 (88937) Diagnoses Primary biliary cirrhosis K74.3 Type 2 diabetes mellitus without complication, without long-term current use of insulin E11.9 Diabetes mellitus meterman insulin use: without correction use Pure hypercholesterolemia E78.00 Adenomyomatosis of gallbladder D13.5 Osteoporosis without current pathological fracture, unspecified osteoporosis type M81.0 Osteoporosis type: unspecified Presence of current pathological fracture: without current pathological fracture Cardiac arrhythmia, unspecified cardiac arrhythmia type I49.9 Arrhythmia type: unspecified cardiac arrhythmia Recurrent nonproductive cough R05.8 Cerebellar ataxia G11.9 Insomnia, unspecified type G47.00 Insomnia type: unspecified Anxiety F41.9 Obesity (BMI 30.0-34.9) E66.9
== END 2023-02-16 13:18 | disposition home or self-care (01) ==
PROVIDERS: Visit Provider Internal Medicine
DX: E11.9 Type 2 diabetes mellitus without complications (principal); K74.3 Primary biliary cirrhosis; G11.9 Hereditary ataxia, unspecified; F41.9 Anxiety disorder, unspecified; E78.00 Pure hypercholesterolemia, unspecified; D13.5 Benign neoplasm of extrahepatic bile ducts; M81.0 Age-related osteoporosis without current pathological fracture; I49.9 Cardiac arrhythmia, unspecified; R05.8 Other specified cough; G47.00 Insomnia, unspecified; E66.9 Obesity, unspecified
CPT/HCPCS: 99214

== ENCOUNTER 2023-02-27 12:44 | Outpatient (REF) | payer MEDICARE, SELFPAY | END 2023-02-27 12:45 | disposition home or self-care (01) | LOC: HO.HMGCX 12:44 | PROVIDERS: PCP Internal Medicine; Visit Provider Internal Medicine | DX: R05.9 Cough, unspecified (principal) | CPT/HCPCS: 71046 ==

== ENCOUNTER 2023-04-07 12:12 | Outpatient (REF) | payer MEDICARE, SELFPAY ==
--- NOTE | ~2023-04-07 | XR_ITS ---
EXAMINATION: XR ANKLE, LEFT CLINICAL INFORMATION: History of falling COMPARISON: None available. TECHNIQUE: AP, lateral, and mortise views of the left ankle. FINDINGS: No fracture. Alignment is anatomic. No erosions. Joint spaces are maintained. Small posterior plantar calcaneal spur and Achilles enthesopathy is noted. XR/XR ankle LT min 3V IMPRESSION: No acute bony abnormality.
--- NOTE | ~2023-04-07 | XR_ITS ---
EXAMINATION: XR KNEE, RIGHT CLINICAL INFORMATION: History of falling COMPARISON: Right knee 02/08/2013 TECHNIQUE: Four views of the right knee. FINDINGS: No fracture. Small joint effusion. Alignment is anatomic. There is mild narrowing of the medial joint compartment. Small marginal osteophytes are seen in the patellofemoral joint compartment. Quadriceps enthesopathy is noted. Arterial vascular calcification is seen consistent with atherosclerotic disease. XR/XR knee RT 4V IMPRESSION: 1. No acute bony abnormality. 2. Mild osteoarthritis.
--- NOTE | ~2023-04-07 | XR_ITS ---
EXAMINATION: XR RIBS, BILATERAL CLINICAL INFORMATION: History of falling COMPARISON: Chest 02/27/2023 TECHNIQUE: PA view the chest and 6 views of the bilateral ribs were obtained. FINDINGS: The lungs are well expanded. There is trace atelectasis at the left lung base. Probable small left pleural effusion. No consolidation or pneumothorax. The cardiomediastinal silhouette and pulmonary vasculature are normal. There is a nondisplaced fracture of the left third posterior rib. There are healed old fractures of the left sixth, seventh, eighth, ninth and 10th ribs. No displaced right rib fracture is seen. XR/XR ribs BI 3V IMPRESSION: 1. Nondisplaced fracture of the left third posterior rib which may be acute. Correlation with clinical exam is suggested. 2. Multiple old healed left rib fractures. 3. Probable small left pleural effusion. 4. No displaced right rib fracture.
== END 2023-04-07 12:13 | disposition home or self-care (01) ==
LOC: HO.HMGCX 12:12
PROVIDERS: PCP Internal Medicine; Visit Provider Internal Medicine
DX: M79.672 Pain in left foot (principal); R07.81 Pleurodynia; Z91.81 History of falling
CPT/HCPCS: 71110; 73564; 73610

== ENCOUNTER 2023-06-09 08:47 | Outpatient (REF) | payer MEDICARE, SELFPAY ==
[2023-06-09 11:31] LABS: MANUAL DIFF FLAG NO
[2023-06-09 11:49] LABS: Basophils Percent Auto 0.4 % (0-2); Eosinophils Absolute Auto 0.3 X10*3/uL (0.0-0.4); Eosinophils Percent Auto 6.9 % (0-4); Hematocrit 44.2 % (42.0-52.0); Hemoglobin 14.4 g/dl (14.0-18.0); Imm Gran Abs Auto 0.01 X10*3/uL (0.00-0.03); Imm Gran Pct Auto 0.2 % (0.0-0.4); Lymphocytes Absolute Auto 1.2 X10*3/uL (1.2-4.9); Mean Corpuscular HGB Conc 32.6 g/dl (31.0-36.0); Mean Corpuscular Hemoglobin 30.5 pg (27.0-33.0); Mean Corpuscular Volume 93.6 fL (80.0-98.0); Monocytes Absolute Auto 0.4 X10*3/uL (0.1-1.2); Monocytes Percent Auto 8.6 % (2-11); Neutrophils Absolute Auto 2.9 x10*3/uL (2.0-8.3); Neutrophils Percent Auto 59.9 % (45-73); Platelet Count 97 X10*3/uL (160-400); Red Blood Count 4.72 X10*6/uL (4.60-5.80); Red Cell Distribution Width 13.2 % (11.0-16.0); White Blood Count 4.8 X10*3/uL (4.8-10.8)
[2023-06-09 11:51] LABS: Appearance Urine Clear; Color Urine Yellow; Glucose Urine UA Negative (Negative); Leukocyte Esterase Urine Negative (Negative); Nitrite Urine Negative (Negative); PH 6.5 (5.0-9.0); Urine Blood Negative (Negative); Urine Ketones Negative (Negative); Urine Protein Negative (Neg-Trace)
[2023-06-09 12:04] LABS: Alanine Aminotransferase 30 U/L (0-40); Albumin Level 3.9 g/dL (3.5-5.0); Alkaline Phosphatase 152 U/L (39-117); Anion Gap 13 (12-20); Aspartate Amino Transferase 27 U/L (5-37); Bilirubin Total 0.8 mg/dL (0.0-1.0); Blood Urea Nitrogen 15 mg/dL (9-16); Calcium 9.3 mg/dL (8.4-10.2); Carbon Dioxide 30 mmol/L (22-29); Chloride 105 mmol/L (96-108); Cholesterol 143 mg/dL (<200); Estimated Average Glucose 131 mg/dL; Estimated Glomerular Filt Rate > 60; Glucose Fasting 130 mg/dL (60-99); HDL Cholesterol 61 mg/dL (>40); Hemoglobin A1c % 6.2 % (<6.0); LDL Cholesterol Calculated 73 mg/dL (<100); Potassium 4.7 mmol/L (3.3-5.1); Sodium 143 mmol/L (135-145); Total Protein 7.4 g/dL (6.5-8.0); Triglycerides 47 mg/dL (<150); Uric Acid 5.1 mg/dL (3.4-7.0)
[2023-06-09 12:18] LABS: TSH reflex Free T4 1.26 uIU/mL (0.32-4.0); Vitamin D 25-OH Total 40.4 ng/mL (>30)
[2023-06-10 05:19] LABS: C Peptide 2.77 ng/mL (0.80-3.85)
[2023-06-12 20:59] LABS: Glutamic acid decarboxylase Ab <5 IU/mL (<5)
[2023-06-15 04:58] LABS: N-Telopeptide 35 (see note); NTXCreaRU 114 mg/dL (20-320)
== END 2023-06-09 08:48 | disposition home or self-care (01) ==
LOC: HO.HMGCLDS 08:47
PROVIDERS: PCP Internal Medicine; Referring Provider Internal Medicine Endocrinology, Diabetes & Metabolism; Visit Provider Internal Medicine
DX: E11.9 Type 2 diabetes mellitus without complications (principal); I10 Essential (primary) hypertension; E78.00 Pure hypercholesterolemia, unspecified; E55.9 Vitamin D deficiency, unspecified; M10.9 Gout, unspecified; M81.0 Age-related osteoporosis without current pathological fracture; R30.0 Dysuria
CPT/HCPCS: 36415; 80053; 80061; 81003; 82306; 82523; 83036; 84443; 84550; 84681; 85025; 86341

== ENCOUNTER 2023-06-17 12:43 | Outpatient (AMB) | payer MEDICARE, SELFPAY ==
--- NOTE | 2023-06-17 12:47 | A.OFFVIS_ITS ---
Intake Vital Signs 06/17/23 12:51 Height 5 ft 11.42 in Weight 215 lb 2.738 oz BMI 29.7 BP 140/72 H Blood Pressure Location Lt brachial Position Sitting Pulse 38 L Pulse Source Pulse Oximeter Intake Visit Reasons: f/u osteoporosis-confirmed Intake Note: Patient present today for Osteoporosis follow up visit. Technology Adoption Manager Required: No Accompanied by: Spouse Allergies No Known Allergies [No Known Allergies*] Allergy (Verified 06/17/23 12:57) HPI HPI Comments History of Present Illness Details 83 yo male today for fup vsit, for osteoporosis . H He has PMH of history of hyperlipidemia, primary biliary cirrhosis, DM 2 and osteoporosis. He has been on Prolia, since 06/05/17. Last Prolia injection was Denies prior fractures, no GERD, FH of hip fracture and osteoporosis in his mother, no nephrolithiasis, was steroids for a long period of time in the past, ex smoker, no anti seizures medications, No SSRI or PPI. He has negative History of head or neck irradiation. Bisphosphonates use: He used Fosamax for several years. Calcium intake: 600 mg bid Vitamin D: none Herbal medications. none DEXA scan 12/14/2018 AP SPINE L1-L4: Current: BMD 0.894 g/cm2, Z-score -2.2, T-score -2.7, osteoporosis, 2.9% decrease from previous, 8.8% increase from baseline (<5% change is not significant). Prior: BMD 0.921 g/cm2. Baseline: BMD 0.822 g/cm2. LEFT FEMUR, NECK: Current: BMD 0.754 g/cm2, Z-score -1.1, T-score -2.4, osteopenia. Prior: BMD 0.686 g/cm2. Baseline: BMD 0.692 g/cm2. LEFT FEMUR, TOTAL: Current: BMD 0.774 g/cm2, Z-score -1.3, T-score -2.3, osteopenia, 5.2% increase from previous, 6.2% increase from baseline (<5% change is not significant). Prior: BMD 0.736 g/cm2. Baseline: BMD 0.729 g/cm2. 12/27/20 FINDINGS: AP SPINE L1-L4: Current: BMD 0.983 g/cm2, Z-score -1.7, T-score -2.0, osteopenia, 10.0% increase from previous, 19.6% increase from baseline (<5% change is not significant). Prior: BMD 0.894 g/cm2. Baseline: BMD 0.822 g/cm2. LEFT FEMUR, NECK: Current: BMD 0.737 g/cm2, Z-score -1.3, T-score -2.6, osteoporosis. Prior: BMD 0.754 g/cm2. Baseline: BMD 0.692 g/cm2. LEFT FEMUR, TOTAL: Current: BMD 0.778 g/cm2, Z-score -1.4, T-score -2.2, osteopenia, 0.5% increase from previous, 6.7% increase from baseline (<5% change is not significant). Prior: BMD 0.774 g/cm2. Baseline: BMD 0.729 g/cm2. Secondary workup is negative. Started taking alendronate 70 mg q.week in April 2022. Tolerating the alendronate nicely Laboratory Tests 12/15/19 12/15/19 01/19/20 08:56 08:56 09:32 Hgb Hct Sodium Potassium Creatinine Estimated GFR Fasting Glucose Glucose 1 Hour 245 Glucose 2 Hour Estimat Average Gl ucose Hemoglobin A1c 6.0 Hemoglobin A1c % Calcium AST ALT Albumin LDL Cholesterol, C alc Collgn I C-Telopep tide 140 N-Telopeptide X-li nked 25-OH Vitamin D To teddy TSH Urine Microalbumin Microalb/Creat Rat io 01/19/20 06/25/20 06/25/20 10:32 06:57 Unknown Hgb Hct Sodium Potassium Creatinine Estimated GFR Fasting Glucose Glucose 1 Hour Glucose 2 Hour 212 Estimat Average Gl ucose Hemoglobin A1c Hemoglobin A1c % Calcium AST ALT Albumin LDL Cholesterol, C alc Collgn I C-Telopep tide N-Telopeptide X-li nked 20 25-OH Vitamin D To teddy 57.7 TSH Urine Microalbumin Microalb/Creat Rat io 08/14/20 08/14/20 08/14/20 06:14 06:14 06:14 Hgb 13.7 L Hct 41.3 L Sodium 145 Potassium 4.9 Creatinine 0.94 Estimated GFR > 60 Fasting Glucose 100 H Glucose 1 Hour Glucose 2 Hour Estimat Average Gl ucose Hemoglobin A1c Hemoglobin A1c % Calcium 8.9 AST 38 H ALT 34 Albumin 4.1 LDL Cholesterol, C alc 76 Collgn I C-Telopep tide N-Telopeptide X-li nked 25-OH Vitamin D To teddy TSH 0.86 Urine Microalbumin 7.0 Microalb/Creat Rat io 6.0 08/14/20 06:14 Hgb Hct Sodium Potassium Creatinine Estimated GFR Fasting Glucose Glucose 1 Hour Glucose 2 Hour Estimat Average Gl ucose 126 Hemoglobin A1c Hemoglobin A1c % 6.0 Calcium AST ALT Albumin LDL Cholesterol, C alc Collgn I C-Telopep tide N-Telopeptide X-li nked 25-OH Vitamin D To teddy TSH Urine Microalbumin Microalb/Creat Rat io No fx since last visit [facility] Medical History (Updated 02/16/23 @ 13:27 by Donnell Gillis MD) Obesity (BMI 30.0-34.9) ROSARIO (obstructive sleep apnea) Obesity (BMI 30-39.9) Fatigue Overweight (BMI 25.0-29.9) Anxiety Insomnia Cerebellar ataxia Dizziness Osteoporosis Pure hypercholesterolemia Diabetes mellitus Adenomyomatosis of gallbladder Primary biliary cirrhosis Surgical History Hx of tonsillectomy Hx of appendectomy Family History Father Cancer Mother No problems noted. Social History Household Members: Spouse Household Members Other:: Housing: House Alcohol intake: former Patient Tobacco Use Status: Former Tobacco user e-Cigarette/Vaping Use: Never Used Second Hand Smoke Exposure: No service: No Current occupational status: retired Cognitive needs: No Hearing needs: No Vision needs: Yes (Glasses) Assessment & Plan Assessment & Plan (1) Osteoporosis: Code(s): M81.0 - Age-related osteoporosis without current pathological fracture Qualifiers: Osteoporosis type: unspecified Presence of current pathological fracture: without current pathological fracture Qualified Code(s): M81.0 - Age- related osteoporosis without current pathological fracture Plan: This 83-year-old white male with a history of osteoporosis with no prior fragility fracture and near complete secondary workup negative currently being treated Prolia for 4 years duration and prior to that bisphosphonates. Recent DEXA bone density shows borderline osteoporosis. Secondary workup was negative. Urine NTX continues to remain suppressed Plan is to stop the alendronate. Patient was advised to continue calcium and vitamin-D. He will be returned to the care of his primary care provider who can measure DEXA bone density about 1 year's time. If this significant decline in the bone density, the alendronate can be restarted with the patient can be returned back to endocrinology Coding Level of Care Code Est Pt Level 3 (86861) Diagnoses Osteoporosis without current pathological fracture, unspecified osteoporosis type M81.0 Osteoporosis type: unspecified Presence of current pathological fracture: without current pathological fracture
[2023-06-17 12:51] VITALS: BP 140/72; PULSE 38; BMI 29.7
== END 2023-06-17 13:05 | disposition home or self-care (01) ==
PROVIDERS: PCP Internal Medicine; Visit Provider Internal Medicine Endocrinology, Diabetes & Metabolism
DX: M81.0 Age-related osteoporosis without current pathological fracture (principal)
CPT/HCPCS: 99213

== ENCOUNTER → 2023-06-17 12:43 | Outpatient (BNVA) | payer MEDICARE, SELFPAY | PROVIDERS: Visit Provider Internal Medicine Endocrinology, Diabetes & Metabolism | DX: M81.0 Age-related osteoporosis without current pathological fracture (principal) | CPT/HCPCS: 99212 ==

== ENCOUNTER 2023-06-18 10:35 | Outpatient (AMB) | payer MEDICARE, SELFPAY ==
[2023-06-18 10:37] VITALS: BP 122/80; PULSE 66; O2SAT 96; BMI 29.8
--- NOTE | 2023-06-18 10:37 | MHC.PC.OV ---
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: Yes Did you have a dental problem in the last 6 months where you did not have access to dental care?: No Was dental information given to patient?: Patient has dentist HPI PBC HPI Details Patient comes in today for his follow up visit States that he feels okay He denies any headaches or dizziness Denies any chest pains, no increased SOB although he continues to experience on and off fits of coughing spells Reports that his cough is mostly non-productive but states that he starts feeling SOB when his coughing spells are non-stop and they can sometimes keep going for a while States that taking OTC cough meds do not really help much Had chest x-rays done a few months ago that came out normal No nausea/vomiting, no abdominal pain No change in bowel habits noted Needs his Albuterol inhaler Rx refilled Had his follow up labs done last week - to discuss his results [facility] Medical History Obesity (BMI 30.0-34.9) ROSARIO (obstructive sleep apnea) Obesity (BMI 30-39.9) Fatigue Overweight (BMI 25.0-29.9) Anxiety Insomnia Cerebellar ataxia Dizziness Osteoporosis Pure hypercholesterolemia Diabetes mellitus Adenomyomatosis of gallbladder Primary biliary cirrhosis Surgical History Hx of tonsillectomy Hx of appendectomy Family History Father Cancer Mother No problems noted. Social History Household Members: Spouse Household Members Other:: Housing: House Alcohol intake: former Patient Tobacco Use Status: Former Tobacco user e-Cigarette/Vaping Use: Never Used Second Hand Smoke Exposure: No service: No Current occupational status: retired Cognitive needs: No Hearing needs: No Vision needs: Yes (Glasses) Questionnaire PHQ-9 Over the last 2 weeks, how often have you been bothered by any of the following problems? 1. Little interest or pleasure in doing things: not at all 2. Feeling down, depressed, or hopeless: not at all 3. Trouble falling or staying asleep, or sleeping too much: not at all 4. Feeling tired or having little energy: not at all 5. Poor appetite or overeating: not at all 6. Feeling bad about yourself - or that you are a failure or have let yourself or your family down: not at all 7. Trouble concentrating on things, such as reading the newspaper or watching television: not at all 8. Moving or speaking so slowly that other people could have noticed. Or the opposite - being so fidgety or restless that you have been moving around a lot more than usual: not at all 9. Thoughts that you would be better off or of hurting yourself in some way: not at all Total score: 0 Depression Screening Interpretation: Negative Depression Screening Done: Yes 14646 - PHQ-9 Billing: Yes Source: Developed by Drs. Kevin Mcmullen, Juany Felix, Adolph Anderson and colleagues, with an educational michael from [employer]. Thrive Questionnaire Date Thrive assessed: 06/18/23 I am a: Patient What is your living situation today?: I have a steady place to live Within the past 12 months, did the food you bought not last and you didn't have the money to get more?: Never true Within the past 12 months, did you worry whether your food would run out before you got money to buy more?: Never true Do you have trouble paying for medicines?: No Do you have trouble getting transportation to medical appointments?: No Do you have trouble paying your heating and electricity bill?: No Do you have trouble taking care of your child, family member or friend?: No Do you have trouble with day-to-day activities such as bathing, preparing meals, shopping, managing finances, etc.?: No Are you currently unemployed and looking for a job?: No Are you interested in more education?: No Please select the resources that you would like help with: None Currently or been in a relationship where the following occur: no concerns reported THRIVE Score: 0 AUDIT C Alcohol Use Questionnaire (AUDIT-C) 1. How often do you have a drink containing alcohol?: Never 3. How often do you have six or more drinks on one occasion?: Never Total Score: 0 Score Reviewed/Action Taken: Yes SHERMAN-7 AMB Questionnaire SHERMAN-7 Date SHERMAN - 7 assessed: 06/18/23 Feeling nervous, anxious, or on edge: 0 = Not at all Not being able to stop or control worryin = Not at all Worrying too much about different things: 0 = Not at all Trouble relaxin = Not at all Being so restless that it is hard to sit still: 0 = Not at all Becoming easily annoyed or irritable: 0 = Not at all Feeling afraid as if something awful might happen: 0 = Not at all Total SHERMAN-7 score (0-4 normal; 5-9 mild; 10-14 moderate; 15-21 severe): 0 Source: Developed by Drs. Kevin Mcmullen, Juany Felix, Adolph Anderson and colleagues, with an educational michael from [employer]. Review of Systems Const Denies chills, Denies fatigue, Denies fever(s) and Denies headache(s) ENT Denies dysphagia, Denies dizziness, Denies otalgia, Denies headache(s), Denies neck pain, Denies odynophagia and Denies sore throat Card Denies chest pain, Denies palpitations and Denies dyspnea Resp Reports cough (recurrent, non-productive - see HPI), Denies dyspnea and Denies wheezing GI Denies abdominal pain, Denies constipation, Denies dysphagia, Denies heartburn, Denies diarrhea, Denies nausea, Denies odynophagia and Denies vomiting Denies dysuria, Denies nocturia and Denies urinary frequency Musc Denies back pain and Denies neck pain Skin/Breast Denies rash Neuro Denies dizziness and Denies headache(s) Psych Reports anxiety (better with Rx) Endo Denies fatigue and Denies palpitations Aller/Immun Denies wheezing Physical exam (Primary Care) Vital Signs: Last Vital Signs Pulse 66 06/18/23 10:37 BP 122/80 06/18/23 10:37 Pulse Ox 96 06/18/23 10:37 Oxygen Delivery Method Room Air 06/18/23 10:37 BMI result Body Mass Index 29.8 Tobacco/Smoking Status: Tobacco use Status Tobacco use date assessed 06/18/23 06/18/23 10:38 Patient Tobacco Use Status Former Tobacco user 06/18/23 10:38 e-Cigarette/Vaping Use Never Used 06/18/23 10:38 PHQ-9: PHQ-9 Score PHQ-9: Total score 0 06/18/23 14:58 Depression Screening Interpretation: Negative Thrive Assessment: Date of Thrive Assessment Date Thrive assessed 06/18/23 06/18/23 10:38 Currently or been in a relationship where the following occur: no concerns reported Const General: no acute distress and alert HENMT Ears: TM's normal bilaterally and EAC's normal Throat: Yes posterior oropharynx normal and Yes tonsils normal (no TP congestion noted) Neck Neck: Yes no lymphadenopathy and Yes supple Resp Auscultation: clear to auscultation bilaterally, no rales and no wheezes Cardio Rate: regular rate Rhythm: regular rhythm Heart sounds: no murmurs GI Palpation (GI): Soft to palpation and nontender Auscultation: normal bowel sounds Skin Rashes: no rashes Extrem General: Yes no clubbing, cyanosis or edema Results Reviewed Results Reviewed: Laboratory Tests 06/09/23 09:01 WBC 4.8 Hgb 14.4 Hct 44.2 Plt Count 97 L Sodium 143 Potassium 4.7 Creatinine 0.87 Estimated GFR > 60 Hemoglobin A1c % 6.2 H C-Peptide 2.77 Uric Acid 5.1 Calcium 9.3 AST 27 ALT 30 Triglycerides 47 Cholesterol 143 LDL Cholesterol, Calc 73 HDL Cholesterol 61 N-Telopeptide X-linked 35 25-OH Vitamin D Total 40.4 TSH 1.26 Ur Specific [place] 1.020 Urine Protein Negative Urine Glucose (UA) Negative Urine Blood Negative Urine Nitrite Negative Ur Leukocyte Esterase Negative SHERMAN Antibody <5 Assessment and Plan Assessment & Plan (1) Recurrent dry cough: Code(s): R05.8 - Other specified cough Plan: Will refer patient to pulmonary for further evaluation and management Relates (+) Hx of asbestos exposure in the past Suspect that his recent symptoms may indicate ILD Will start him for now on Albuterol HFA 1 to 2 inhalations Q 6 hours PRN for symptomatic relief (2) Primary biliary cirrhosis: Comment: EGD done in 2018 showed 1+ varices and changes consistent with patient's gastropathy Used to seeing top cutter in [place] but is now seeing Gastroenterology (Dr. Gaston) locally for follow up and management Code(s): K74.3 - Primary biliary cirrhosis Plan: Continue Ursodiol 300 mg 2 capsules twice a day and Colchicine 0.6 mg BID Follow up with GI (Dr. 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 use: without snf use Qualified Code(s): E11.9 - Type 2 diabetes mellitus without complications Plan: HgbA1c was at 6.2% on his labs done last week (was at 6.7% a few months ago) - goal is < 7.0% Reinforced diabetic diet - patient has not required any Rx for his diabetes so far C-peptide and SHERMAN Ab levels are both normal on his recent labs (4) Pure hypercholesterolemia: Code(s): E78.00 - Pure hypercholesterolemia, unspecified Plan: Results of his labs done last week reviewed and discussed with patient Reinforced low cholesterol diet Continue Simvastatin 10 mg QD Will recheck his labs and fasting lipids in 4 months for follow-up (5) Adenomyomatosis of gallbladder: Comment: Abdominal US done in early 2019 revealed (+) fatty liver changes with cholelithiasis (with findings suggesting possible chronic cholecystitis) and gallbladder adenomyomatosis - patient denies any acute abdominal symptoms/pain Code(s): D13.5 - Benign neoplasm of extrahepatic bile ducts Plan: Benign condition - does not require further intervention and patient has had no acute symptoms lately (6) Osteoporosis: Code(s): M81.0 - Age-related osteoporosis without current pathological fracture Qualifiers: Osteoporosis type: unspecified Presence of current pathological fracture: without current pathological fracture Qualified Code(s): M81.0 - Age-related osteoporosis without current pathological fracture Plan: Was on Prolia 60 mg subcutaneous injection every 6 months for about 4 to 5 years and Rx was stopped about a year ago Repeat BMD done on 12/27/2020 showed a 19.6% improvement in the AP spine from baseline, 10.0% improvement from previous and a 6.7% improvement in the left femur from baseline, 0.5% increase from previous He was recently seen by Dr. Fernandez for endocrinology follow up and was taken off his Fosamax; was advised to wait for another year and then repeat his BMD Was also reportedly advised that he does not need to follow up with endocrinology again unless his follow up BMD gets signficantly worse in the future (7) Arrhythmia: Code(s): I49.9 - Cardiac arrhythmia, unspecified Qualifiers: Arrhythmia type: unspecified cardiac arrhythmia Qualified Code(s): I49.9 - Cardiac arrhythmia, unspecified Plan: Patient was noted to have some EKG abnormalities when he was admitted to [facility] in [place] back in March 2021 - EKG back then came out as Mobitz type I AV block (Wenckebach) with premature complexes in a bigeminal pattern Echocardiogram done revealed normal left ventricular size, systolic function and wall thickness with no regional wall motion abnormalities. LV ejection fraction estimated at 60-65%. Normal diastolic function. Mild pulmonary hypertension, RVSP 39 mm Hg plus central venous pressure which should be estimated clinically due to inability to visualize IVC. Mildly increased left atrial size. Probably mild aortic valve stenosis, mean gradient 4.5 mm Hg, PETER 1.9 cm2. 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, unspecified Plan: Follow up with Neurology as scheduled (+) gait instability due to his ataxia (9) Insomnia: Code(s): G47.00 - Insomnia, unspecified Qualifiers: Insomnia type: unspecified Qualified Code(s): G47.00 - Insomnia, unspecified Plan: Sleep hygiene reinforced Has been taking OTC sleep aids like NyQuil PM as needed with some relief (10) Anxiety: Code(s): F41.9 - Anxiety disorder, unspecified Plan: States that his anxiety has been well-controlled on his Rx Continue Escitalopram 10 mg QD (11) Obesity (BMI 30.0-34.9): Code(s): E66.9 - Obesity, unspecified Plan: Reinforced diet/exercise as tolerated/lose weight Plan Follow up in 4 months Orders: Orders Hemoglobin A1c 4 Months E11.9 - Type 2 diabetes mellitus without complications TSH reflex Free T4 4 Months E78.00 - Pure hypercholesterolemia, unspecified Microalbumin, Random (w Creat) 4 Months E11.9 - Type 2 diabetes mellitus without complications Complete Blood Count Auto Diff 4 Months D64.9 - Anemia, unspecified Comprehensive [place]. Panel Fast 4 Months E78.00 - Pure hypercholesterolemia, unspecified Lipid Panel 4 Months E78.00 - Pure hypercholesterolemia, unspecified UA CC w/rflx Micro + Cult 4 Months R30.0 - Dysuria Vitamin D 25-OH Total 4 Months E55.9 - Vitamin D deficiency, unspecified Referrals Pulmonary Medicine Referral R05.8 - Other specified cough Medications: New albuterol sulfate 90 mcg/actuation (Ventolin HFA) 2 puffs inhalation Q6H PRN 8.5 grams 5RF shortness of breath or wheezing 30 days Coding Level of Care Code Est Pt Level 4 (87113) Diagnoses Recurrent dry cough R05.8 Primary biliary cirrhosis K74.3 Type 2 diabetes mellitus without complication, without long-term current use of insulin E11.9 Diabetes mellitus 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
== END 2023-06-18 11:56 | disposition home or self-care (01) ==
PROVIDERS: PCP Internal Medicine; Visit Provider Internal Medicine
DX: K74.3 Primary biliary cirrhosis (principal); E11.9 Type 2 diabetes mellitus without complications; G11.9 Hereditary ataxia, unspecified; R05.8 Other specified cough; E78.00 Pure hypercholesterolemia, unspecified; D13.5 Benign neoplasm of extrahepatic bile ducts; M81.0 Age-related osteoporosis without current pathological fracture; I49.9 Cardiac arrhythmia, unspecified; G47.00 Insomnia, unspecified; F41.9 Anxiety disorder, unspecified; E66.9 Obesity, unspecified
CPT/HCPCS: 99214

== ENCOUNTER 2023-06-22 10:09 | Outpatient (AMB) | payer MEDICARE, SELFPAY ==
[2023-06-22 10:13] VITALS: BP 152/80; PULSE 66; BMI 29.8
--- NOTE | 2023-06-22 10:13 | A.OFFVIS_ITS ---
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 Overall, no cardiac symptoms like feeling dizzy or presyncopal. His main concern seems to be rather cough which is very bothersome. No significant shortness of breath within limits of his activity but sometimes when he bends down he may feel that way. Not diagnosed to have COPD but seems he has smoked about 20 years ago but not recently. Otherwise, he states he is feeling tired all the time. Etiology for that is not clear. [facility] Medical History Obesity (BMI 30.0-34.9) ROSARIO (obstructive sleep apnea) Obesity (BMI 30-39.9) Fatigue Overweight (BMI 25.0-29.9) Anxiety Insomnia Cerebellar ataxia Dizziness Osteoporosis Pure hypercholesterolemia Diabetes mellitus Adenomyomatosis of gallbladder Primary biliary cirrhosis Surgical History Hx of tonsillectomy Hx of appendectomy Family History Father Cancer Mother No problems noted. Social History Household Members: Spouse Household Members Other:: Housing: House Alcohol intake: former Patient Tobacco Use Status: Former Tobacco user e-Cigarette/Vaping Use: Never Used Second Hand Smoke Exposure: No service: No Current occupational status: retired Cognitive needs: No Hearing needs: No Vision needs: Yes (Glasses) Review of Systems Const Denies weakness ENT Denies dizziness Card Denies chest pain, Denies chest pain with activity, Denies syncope, Denies rapid heart rate, Denies pedal edema, Denies edema, Denies leg edema, Denies lightheadedness, Denies palpitations, Denies dyspnea, Denies dyspnea on exertion and Denies orthopnea Resp Denies cough, Denies dyspnea and Denies dyspnea on exertion GI Denies hematochezia and Denies change in stool character Musc Denies abnormal gait, Denies muscle cramps, Denies muscle weakness, Denies numbness, Denies radiating pain into limb and Denies tingling Neuro Denies abnormal gait, Denies dizziness, Denies syncope, Denies numbness, Denies tingling and Denies weakness Endo Denies palpitations Physical Exam Vital Signs: Last Vital Signs Pulse 66 06/22/23 10:13 BP 152/80 H 06/22/23 10:13 BMI result Body Mass Index 29.8 Const General: comfortable and no acute distress Orientation/consciousness: patient oriented x3 HEENT Other: Unremarkable Head: Yes normal to inspection Neck Neck: Yes normal visual inspection Chest Chest palpation & inspection: normal inspection of the chest Resp Other: scattered wheeze, crackles. Cardio Palpation: normal PMI Heart sounds: S1 normal heart sound present, S2 normal heart sound present, no gallops, no murmurs and no rubs GI Palpation (GI): Soft to palpation Back/Spine/Pelvis Other: unremarkable Skin General skin exam: no rashes or lesions noted Neuro General: patient oriented x3 Extrem General: Yes normal to inspection Psych Mental Status: mental status grossly normal Office Procedures EKG Details: EKG with sinus rhythm at 66/Min; MI prolongation to 460 milliseconds; T inversions inferior leads. Nonspecific ST-T changes. Similar to prior. [id number], Complete Assessment & Plan Assessment & Plan (1) Heart block atrioventricular: Code(s): I44.30 - Unspecified atrioventricular block Plan: He clearly has underlying conduction system disease. We will repeat his Holter monitor. His main pertinent symptom is rather tiredness but not clear if it is part of this or not. If any clear high-grade heart blocks, then may need pacemaker. To be decided. (2) Valvular heart disease: Code(s): I38 - Endocarditis, valve unspecified Plan: Echocardiogram shows mild aortic valve calcification, mild mitral annular calcification mild tricuspid regurgitation. These are not causing any issues and can be monitored periodically. (3) Right ventricular dilation: Code(s): I51.7 - Cardiomegaly Plan: Could be related to sleep apnea. CPAP should help. (4) ROSARIO (obstructive sleep apnea): Comment: Patient is using CPAP very regularly. He has really benefited from its use. Loves to continue using it. No special issues at this time. Code(s): G47.33 - Obstructive sleep apnea (adult) (pediatric) Plan: Sleep study shows moderately severe obstructive sleep apnea. Continue CPAP. (5) Cough: Code(s): R05.9 - Cough, unspecified Plan: Unclear etiology. History of smoking but not recently. We can get a chest CT scan for further evaluation. Last chest x-ray is unremarkable. Plan Discussed with significant other who came for appointment. Orders: Orders CT chest wo IV con Today R05.9 - Cough, unspecified, Z87.891 - Personal history of nicotine dependence ECG 3 day holter monitor Today I44.1 - Atrioventricular block, second degree Coding Level of Care Code Est Pt Level 4 (35633) Diagnoses Heart block atrioventricular I44.30 Valvular heart disease I38 Right ventricular dilation I51.7 ROSARIO (obstructive sleep apnea) G47.33 Cough R05.9 CPT Codes EKG - CPT: 23892-[id number], Complete ([id number])
== END 2023-06-22 10:35 | disposition home or self-care (01) ==
PROVIDERS: PCP Internal Medicine; Visit Provider Internal Medicine
DX: I44.30 Unspecified atrioventricular block (principal); I38 Endocarditis, valve unspecified; I51.7 Cardiomegaly; G47.33 Obstructive sleep apnea (adult) (pediatric); R05.9 Cough, unspecified
CPT/HCPCS: 93010; 99214

== ENCOUNTER → 2023-06-22 10:09 | Outpatient (BNVA) | payer MEDICARE, SELFPAY | PROVIDERS: PCP Internal Medicine; Visit Provider Internal Medicine | DX: I44.30 Unspecified atrioventricular block (principal); I38 Endocarditis, valve unspecified; I51.7 Cardiomegaly; G47.33 Obstructive sleep apnea (adult) (pediatric); R05.9 Cough, unspecified | CPT/HCPCS: 93005; 99212 ==

== ENCOUNTER 2023-07-24 08:49 | Outpatient (REF) | payer MEDICARE, SELFPAY ==
--- NOTE | ~2023-07-24 | CT_ITS ---
EXAMINATION: CT CHEST WITH CONTRAST CLINICAL INFORMATION: 83-year-old male with cough COMPARISON: None available. TECHNIQUE: Multidetector volumetric CT imaging of the chest was obtained after the administration of 65 mL of Omnipaque 350 intravenous contrast without immediate adverse reactions. Axial MIP volume rendering provided. Sagittal and coronal reformatted images were obtained. This CT examination was performed using dose optimization techniques as appropriate, variously including the following: *Automated exposure control *Adjustment of mA and/or kV according to patient size (this includes techniques or standardized protocols for targeted exams where dose is matched to indication/reason for exam; i.e. extremities or head) *Use of iterative reconstruction technique DLP: 172 mGy-cm FINDINGS: WOOD GETTER: Unremarkable LUNGS: There are no lung nodules but there are mild linear bronchiectasis seen in the left lower lobe. Central airways are patent. Linear atelectasis seen at the left lung base MEDIASTINUM: Thyroid gland enlarged with multiple nodules, correlate with thyroid ultrasound. There is no mediastinal or hilar lymphadenopathy. The aorta is nondilated. There is no incidental pulmonary embolism. Mild coronary artery calcifications present. No pericardial effusion. PLEURA: There is no pleural effusion. No pleural mass or thickening. AXILLA: No lymphadenopathy. UPPER ABDOMEN: There is nodularity of partially visualized liver consistent with cirrhotic transformation. There is cholelithiasis. Spleen measured 15 cm, enlarged. There is no portal hypertension seen otherwise. OSSEOUS STRUCTURES: There is diffuse osteopenia and kyphotic deformity in the thoracic spine. Compression fractures lytic or blastic lesions. CT/CT chest w IV con IMPRESSION: 1. No evidence of pneumonia. Mild bronchiectasis in the left lower lobe. 2. Cirrhosis and splenomegaly. 3. Cholelithiasis. 4. Multinodular thyroid gland. Fleischner guidelines were followed.
--- NOTE | 2023-07-24 09:24 | HM_ITS ---
Conclusion: 1. Patient was monitored for total period of 1 day and 20 hours 2. Baseline was normal sinus rhythm with with average heart of 53 beats per minute 3. No significant sinus pauses noted but frequent second-degree AV block noted mostly during sleep hours, preceded and followed by Wenckebach phenomenon suggestive of Mobitz type 1 second-degree AV block 4. Frequent sinus bradycardia noted with 54% of time heart rate below 60 beats per minute 5. Frequent isolated PVCs noted 6. 1 patient reported event of dizziness correlated with sinus rhythm MTDD
[2023-07-24] MEDS: iohexoL 350 MG/ML 100 ML INFUS..BTL 65 ML IV (09:32)
[2023-07-27 13:28] LABS: Creatinine POC 0.7 mg/dL (0.5-1.4); GFR POC > 60
== END 2023-07-24 08:50 | disposition home or self-care (01) ==
LOC: HO.CT 08:49
PROVIDERS: PCP Internal Medicine; Visit Provider Internal Medicine
DX: R05.9 Cough, unspecified (principal); I44.1 Atrioventricular block, second degree
CPT/HCPCS: 71260; 82565; 93242; Q9967

== ENCOUNTER → 2023-07-24 09:24 | Outpatient (BNV) | payer MEDICARE, SELFPAY | PROVIDERS: PCP Internal Medicine; Visit Provider Internal Medicine Cardiovascular Disease | DX: I44.1 Atrioventricular block, second degree (principal) | CPT/HCPCS: 93227 ==

== ENCOUNTER 2023-07-30 10:35 | Outpatient (AMB) | payer MEDICARE, SELFPAY ==
[2023-07-30 10:44] VITALS: BP 118/60; PULSE 55; O2SAT 97; BMI 29.7
--- NOTE | 2023-07-30 10:44 | MHC.OFFVIS ---
Intake Vital Signs 07/30/23 10:44 Height 5 ft 11 in Weight 213 lb BMI 29.7 BP 118/60 Blood Pressure Location Lt brachial Position Sitting Pulse 55 Pulse Source Doppler Pulse Oximetry (%) 97 Oxygen Delivery Method Room Air Intake Visit Reasons: ILD Intake Note: Patient is here for a follow up, patient c/o dry cough more in the morning, wheezing and SOB. Allergies No Known Allergies [No Known Allergies*] Allergy (Verified 07/30/23 11:02) Medication List - Last Reconciled 07/30/23 by Mike Myers MD albuterol sulfate 90 mcg/actuation (Ventolin HFA) 2 puffs inhalation Q6H PRN 30 days cholecalciferol (vitamin D3) 25 mcg PO DAILY colchicine 0.6 mg PO BID [DIABETIC SHOES (1 pair) As directed] escitalopram oxalate 10 mg PO DAILY simvastatin 10 mg PO BEDTIME tizanidine 2 mg PO TID ursodiol 600 mg PO BID Do you need a note to return to daycare/school/sports/work: No HPI ILD HPI Details Janak is very pleasant 83 years old gentleman, . Comes for Follow-up after 6 months He is being treated for sleep apnea with the use of CPAP. He uses CPAP every night and sleeps very well for 7 hours or more. Actually he feels better when he is using the CPAP and even his cough is much less, which I think is due to humidification. 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 He does not need to use the bronchodilator inhaler, but does have the Ventolin on hand. When he wakes up in the morning sometime he has runny nose with some sneezing, and may have some allergy problem. PENDING SALE TO [facility] Medical History Obesity (BMI 30.0-34.9) ROSARIO (obstructive sleep apnea) Obesity (BMI 30-39.9) Fatigue Overweight (BMI 25.0-29.9) Anxiety Insomnia Cerebellar ataxia Dizziness Osteoporosis Pure hypercholesterolemia Diabetes mellitus Adenomyomatosis of gallbladder Primary biliary cirrhosis Surgical History Hx of tonsillectomy Hx of appendectomy Family History Father Cancer Mother No problems noted. Social History Household Members: Spouse Household Members Other:: Housing: House Alcohol intake: former Patient Tobacco Use Status: Former Tobacco user e-Cigarette/Vaping Use: Never Used Second Hand Smoke Exposure: No service: No Current occupational status: retired Cognitive needs: No Hearing needs: No Vision needs: Yes (Glasses) Review of Systems Const All systems reviewed & are unremarkable except as noted in HPI and below Reports snoring Eyes Reports no additional complaints ENT Reports no additional complaints Card Denies chest pain, Denies irregular heart rhythm, Denies leg edema and Denies dyspnea on exertion Resp Denies cough, Denies dyspnea on exertion, Reports snoring and Denies wheezing GI Reports no additional complaints Reports no additional complaints Musc Reports no additional complaints Skin/Breast Reports system reviewed and no additional complaints, except as documented Neuro Reports other (History of mild cerebellar ataxia) Psych Reports depression (Mild controlled with small dose of escitalopram) Endo Reports no additional complaints Liborio/Lymph Reports no additional complaints Aller/Immun Reports no additional complaints and Denies wheezing Physical Exam Vital Signs: Last Vital Signs Pulse 55 07/30/23 10:44 BP 118/60 07/30/23 10:44 Pulse Ox 97 07/30/23 10:44 Oxygen Delivery Method Room Air 07/30/23 10:44 BMI result Body Mass Index 29.7 Const General: healthy appearing (Except for moderatelately overweight), comfortable, no acute distress, alert and awake Orientation/consciousness: patient oriented x3 HEENT Head: Yes normal to inspection General nose exam: No nasal polyps present and No nasal discharge present Face and sinus: Yes sinuses nontender Mouth: oropharynx abnormals (Oropharynx is slightly crowded and narrow, Mallampati class 3) Teeth and gingiva: other (There is mild regression of the lower jaw) Throat: Yes posterior oropharynx normal Eyes General: appearance normal, both eyes and all related structures Neck Neck: Yes normal visual inspection, Yes no lymphadenopathy, Yes trachea midline, Yes no JVD and Yes other (Neck circumference 15-1/2 inch) Thyroid: Thyroid normal Chest Chest palpation & inspection: normal inspection of the chest, normal palpation of entire chest wall and no tenderness Resp Effort & Inspection: normal respiratory effort and no cough Auscultation: clear to auscultation bilaterally, no rhonchi and no wheezes Cardio Palpation: normal PMI Rate: regular rate Rhythm: regular rhythm Heart sounds: no gallops and no murmurs Peripheral pulses: Peripheral pulses 2+ throughout GI Palpation (GI): Soft to palpation, nontender, No hepatosplenomegaly present, no masses and Other GI palpation findings present (Abdomen is slightly protuberant) Auscultation: normal bowel sounds Back/Spine/Pelvis Thoracic/Lumbar Spine: thoracic and lumbar spine normal to inspection Skin General skin exam: no rashes or lesions noted Neuro General: patient oriented x3 and no focal motor deficits Cranial nerves: Yes CN's II-XII intact bilaterally Extrem General: Yes normal to inspection, Yes no clubbing, cyanosis or edema and Yes no calf tenderness Psych Appearance: grossly normal and well kempt Speech and movement: Normal speech and movement present Results Reviewed Results Reviewed: Compliance report for the last 30 nights is reviewed. His usage is 100% of the nights and on average 7 hours 47 minutes per night. Pressure used 8.2 cm. He has no residual AHI and no air leak. Assessment & Plan Assessment & Plan (1) ROSARIO (obstructive sleep apnea): Comment: Known case of obstructive sleep apnea, well treated with the use of CPAP. Compliance is excellent. Code(s): G47.33 - Obstructive sleep apnea (adult) (pediatric) Plan: Commended for good compliance and encouraged to keep on using the CPAP every night. (2) Obesity (BMI 30-39.9): Comment: PATIENT IS MODERATELY OBESE, MAINLY DUE TO ABDOMINAL PROTUBERANCE. Code(s): E66.9 - Obesity, unspecified Plan: ADVISED THAT IT WILL BE BENEFICIAL IF HE CAN LOSE ABOUT 10 LB OF WEIGHT. ENCOURAGED TO CUT DOWN THE CARBOHYDRATES INTAKE, AND ALSO WALK ON A DAILY BASIS. (3) Cough: Comment: He has intermittent dry cough. I think dry air . Makes his cough worse Also mild allergic rhinitis may be contributing to cough. Code(s): R05.9 - Cough, unspecified Plan: Make sure to use the water in the CPAP for proper humidification. May use OTC antihistaminic agent such as Claritin or cetirizine p.r.n. for runny nose. Coding Level of Care Code Est Pt Level 3 (66352) Diagnoses ROSARIO (obstructive sleep apnea) G47.33 Obesity (BMI 30-39.9) E66.9 Cough R05.9
== END 2023-07-30 11:12 | disposition home or self-care (01) ==
PROVIDERS: PCP Internal Medicine; Visit Provider Internal Medicine
DX: G47.33 Obstructive sleep apnea (adult) (pediatric) (principal); E66.9 Obesity, unspecified; R05.9 Cough, unspecified
CPT/HCPCS: 99213

== ENCOUNTER → 2023-07-30 10:35 | Outpatient (BNVA) | payer MEDICARE, SELFPAY | PROVIDERS: PCP Internal Medicine; Visit Provider Internal Medicine | DX: G47.33 Obstructive sleep apnea (adult) (pediatric) (principal); R05.9 Cough, unspecified; E66.9 Obesity, unspecified; Z68.29 Body mass index [BMI] 29.0-29.9, adult | CPT/HCPCS: 99212 ==

== ENCOUNTER 2023-08-18 10:28 | Outpatient (AMB) | payer MEDICARE, SELFPAY ==
--- NOTE | 2023-08-18 10:30 | MHC.OFFVIS ---
Intake Vital Signs 08/18/23 10:32 Height 5 ft 11 in Weight 211 lb 10.3 oz BMI 29.5 BP 180/74 H Blood Pressure Location Lt brachial Position Sitting Pulse 58 Intake Visit Reasons: 2 mth s[address]p CT w/o contrast/ holter Intake Note: 2 month follow up Data Operations Director Required: No Accompanied by: Spouse Allergies No Known Allergies [No Known Allergies*] Allergy (Verified 08/18/23 10:32) Medication List - Last Reconciled 08/18/23 by Dylan Hilton MD albuterol sulfate 90 mcg/actuation (Ventolin HFA) 2 puffs inhalation Q6H PRN 30 days cholecalciferol (vitamin D3) 25 mcg PO DAILY colchicine 0.6 mg PO BID [DIABETIC SHOES (1 pair) As directed] escitalopram oxalate 10 mg PO DAILY simvastatin 10 mg PO BEDTIME tizanidine 2 mg PO TID ursodiol 600 mg PO BID HPI HPI Comments History of Present Illness Details Janak returns for follow-up regarding second-degree heart block. Overall, he states he is feeling tired all the time. He sleeps a lot. He just feels like he does not really have much of energy. Not clear if it is all related to the heart block. [facility] Medical History Obesity (BMI 30.0-34.9) ROSARIO (obstructive sleep apnea) Obesity (BMI 30-39.9) Fatigue Overweight (BMI 25.0-29.9) Anxiety Insomnia Cerebellar ataxia Dizziness Osteoporosis Pure hypercholesterolemia Diabetes mellitus Adenomyomatosis of gallbladder Primary biliary cirrhosis Surgical History Hx of tonsillectomy Hx of appendectomy Family History Father Cancer Mother No problems noted. Social History Household Members: Spouse Household Members Other:: Housing: House Alcohol intake: former Patient Tobacco Use Status: Former Tobacco user e-Cigarette/Vaping Use: Never Used Second Hand Smoke Exposure: No service: No Current occupational status: retired Cognitive needs: No Hearing needs: No Vision needs: Yes (Glasses) Review of Systems Const Denies weakness ENT Denies dizziness Card Denies chest pain, Denies chest pain with activity, Denies syncope, Denies rapid heart rate, Denies pedal edema, Denies edema, Denies leg edema, Denies lightheadedness, Denies palpitations, Denies dyspnea, Denies dyspnea on exertion and Denies orthopnea Resp Denies cough, Denies dyspnea and Denies dyspnea on exertion GI Denies hematochezia and Denies change in stool character Musc Denies abnormal gait, Denies muscle cramps, Denies muscle weakness, Denies numbness, Denies radiating pain into limb and Denies tingling Neuro Denies abnormal gait, Denies dizziness, Denies syncope, Denies numbness, Denies tingling and Denies weakness Endo Denies palpitations Physical Exam Vital Signs: Last Vital Signs Pulse 58 08/18/23 10:32 BP 180/74 H 08/18/23 10:32 BMI result Body Mass Index 29.5 Const General: comfortable and no acute distress Orientation/consciousness: patient oriented x3 HEENT Other: Unremarkable Head: Yes normal to inspection Neck Neck: Yes normal visual inspection Chest Chest palpation & inspection: normal inspection of the chest Resp Auscultation: clear to auscultation bilaterally Cardio Palpation: normal PMI Heart sounds: S1 normal heart sound present, S2 normal heart sound present, no gallops, Murmur heart sound present systolic II/ and at the right sternal border and no rubs GI Palpation (GI): Soft to palpation Back/Spine/Pelvis Other: unremarkable Skin General skin exam: no rashes or lesions noted Neuro General: patient oriented x3 Extrem General: Yes normal to inspection Psych Mental Status: mental status grossly normal Assessment & Plan Assessment & Plan (1) Heart block atrioventricular: Code(s): I44.30 - Unspecified atrioventricular block Plan: In the Holter, underlying sinus bradycardia with an average rate of 53/Min. He does have second-degree heart block suggesting Mobitz type 1. Frequent bradycardia. We discussed about the symptoms from the above. He does describe a lot of tiredness/fatigue/sleepiness all day. Hence reasonable to consider pacemaker and we will send him to EP for further evaluation. (2) Valvular heart disease: Code(s): I38 - Endocarditis, valve unspecified Plan: Echocardiogram shows mild aortic valve calcification, mild mitral annular calcification mild tricuspid regurgitation. No clear hemodynamic implications from the above. (3) Right ventricular dilation: Code(s): I51.7 - Cardiomegaly Plan: Could be related to sleep apnea. CPAP should help. (4) ROSARIO (obstructive sleep apnea): Comment: Known case of obstructive sleep apnea, well treated with the use of CPAP. Compliance is excellent. Code(s): G47.33 - Obstructive sleep apnea (adult) (pediatric) Plan: Sleep study shows moderately severe obstructive sleep apnea. Continue CPAP. Plan Discussed with significant other who came for appointment. Orders: Referrals Cardiac Electrophysiology Referral I44.1 - Atrioventricular block, second degree Coding Level of Care Code Est Pt Level 4 (52708) Diagnoses Heart block atrioventricular I44.30 Valvular heart disease I38 Right ventricular dilation I51.7 ROSARIO (obstructive sleep apnea) G47.33
[2023-08-18 10:32] VITALS: BP 180/74; PULSE 58; BMI 29.5
== END 2023-08-18 10:47 | disposition home or self-care (01) ==
PROVIDERS: PCP Internal Medicine; Visit Provider Internal Medicine
DX: I44.30 Unspecified atrioventricular block (principal); I38 Endocarditis, valve unspecified; I51.7 Cardiomegaly; G47.33 Obstructive sleep apnea (adult) (pediatric)
CPT/HCPCS: 99214

== ENCOUNTER → 2023-08-18 10:28 | Outpatient (BNVA) | payer MEDICARE, SELFPAY | PROVIDERS: PCP Internal Medicine; Visit Provider Internal Medicine | DX: I44.30 Unspecified atrioventricular block (principal); I38 Endocarditis, valve unspecified; I51.7 Cardiomegaly; G47.33 Obstructive sleep apnea (adult) (pediatric) | CPT/HCPCS: 99212 ==

== ENCOUNTER 2023-09-10 11:40 | Outpatient (REF) | payer MEDICARE, SELFPAY ==
--- NOTE | ~2023-09-10 | US_ITS ---
EXAMINATION: US THYROID CLINICAL INFORMATION: Nontoxic multinodular goiter. Multiple thyroid nodules seen incidentally on recent CT chest. COMPARISON: CT chest 07/24/2023. TECHNIQUE: Linear transducer grayscale and color Doppler examination with attention to the region of the thyroid. FINDINGS: SIZE: Measurements of the thyroid lobes and nodules are given in sagittal, anteroposterior and transverse dimensions respectively. Right Thyroid Lobe: 5.6 x 2.5 x 2.7 cm, volume 19.6 mL. Parenchyma: The gland echotexture is homogeneous. Thyroid vascularity is normal. Left Thyroid Lobe: 5.2 x 2.2 x 1.8 cm, volume 10.7 mL. Parenchyma: The gland echotexture is homogeneous. Thyroid vascularity is normal. Isthmus: 0.62 cm in maximum AP dimension. Estimated total number of nodules greater than or equal to 1 cm: 4. Store Receiving Specialist nodules are described as follows: 1. Location: Right inferior. Size: 1.8 x 1.7 x 1.7 cm, volume 2.7 mL. Nodule characteristics: Composition: Mixed cystic and solid (1). Echogenicity: Hypoechoic (2). Shape: Not taller than wide (0). Margins: Smooth (0). Echogenic Foci: None (0). ACR TI-RADS total points: 3 ACR TI-RADS category: 3 2. Location: Right mid. Size: 1.9 x 1.7 x 1.6 cm, volume 2.8 mL. Nodule characteristics: Composition: Solid (2). Echogenicity: Hyperechoic (1). Shape: Taller than wide (3). Margins: Smooth (0). Echogenic Foci: Punctate echogenic foci (3). ACR TI-RADS total points: 9 ACR TI-RADS category: 5 3. Location: Left mid. Size: 1.2 x 0.83 x 0.93 cm, volume 0.50 mL. Nodule characteristics: Composition: Spongiform (0). Echogenicity: Anechoic (0). Shape: Not taller than wide (0). Margins: Smooth (0). Echogenic Foci: None (0). ACR TI-RADS total points: 0 ACR TI-RADS category: 1 4. Location: Left mid. Size: 0.80 x 0.50 x 0.80 cm, volume 0.16 mL. Nodule characteristics: Composition: Spongiform (0). Echogenicity: Anechoic (0). Shape: Not taller than wide (0). Margins: Smooth (0). Echogenic Foci: None (0). ACR TI-RADS total points: 0 ACR TI-RADS category: 1 5. Location: Left mid. Size: 1.0 x 0.70 x 0.90 cm, volume 0.33 mL. Nodule characteristics: Composition: Solid (2). Echogenicity: Hypoechoic (2). Shape: Not taller than wide (0). Margins: Smooth (0). Echogenic Foci: None (0). ACR TI-RADS total points: 4 ACR TI-RADS category: 4 NODES: No lymphadenopathy is seen in the tissue surrounding the thyroid gland. US/US thyroid IMPRESSION: 1.9 cm right midpole TR 5 thyroid nodule meets criteria for biopsy. Fine-needle aspiration recommended. This study was presented today, September 15, 2023, for interpretation. PSA staff will provide results to referring provider at this time. ACR TI-RADS RECOMMENDATION REFERENCE: Ultrasound-guided fine-needle aspiration, followup ultrasound, no further follow up. * TR1 (0 point) and TR2 (2 points): No FNA or follow up. * TR3 (3 points): FNA if more than or equal to 2.5 cm in maximum dimension, followup ultrasound in 1, 3 and 5 years if 1.5 to 2.4 cm in maximum dimension. * TR4 (4-6 points): FNA if more than or equal to 1.5 cm in maximum dimension, followup ultrasound in 1, 2, 3 and 5 years if 1 to 1.4 cm in maximum dimension. * TR5 (more than or equal to 7 points): FNA if more than or equal to 1 cm in maximum dimension, followup ultrasound every year for 5 years if 0.5 to 0.9 cm in maximum dimension. * TR3, TR4 or TR5 nodules that are below the size threshold for followup receive no follow up.
== END 2023-09-10 11:41 | disposition home or self-care (01) ==
LOC: HO.HMGCX 11:40
PROVIDERS: PCP Internal Medicine; Visit Provider Internal Medicine
DX: E04.2 Nontoxic multinodular goiter (principal)
CPT/HCPCS: 76536

== ENCOUNTER 2023-10-13 08:08 | Outpatient (REF) | payer MEDICARE, SELFPAY ==
[2023-10-13 10:18] LABS: MANUAL DIFF FLAG NO
[2023-10-13 10:29] LABS: Appearance Urine Clear; Color Urine Yellow; Glucose Urine UA Negative (Negative); Leukocyte Esterase Urine Negative (Negative); Nitrite Urine Negative (Negative); PH 5.5 (5.0-9.0); Urine Blood Negative (Negative); Urine Ketones Negative (Negative); Urine Protein Negative (Neg-Trace)
[2023-10-13 10:29] LABS: Estimated Average Glucose 143 mg/dL; Hemoglobin A1c % 6.6 % (<6.0)
[2023-10-13 10:40] LABS: Basophils Percent Auto 0.4 % (0-2); Eosinophils Absolute Auto 0.3 X10*3/uL (0.0-0.4); Eosinophils Percent Auto 5.1 % (0-4); Hematocrit 43.8 % (42.0-52.0); Hemoglobin 14.8 g/dl (14.0-18.0); Imm Gran Abs Auto 0.03 X10*3/uL (0.00-0.03); Imm Gran Pct Auto 0.5 % (0.0-0.4); Lymphocytes Absolute Auto 1.4 X10*3/uL (1.2-4.9); Lymphocytes Percent Auto 25.8 % (20-40); Mean Corpuscular HGB Conc 33.8 g/dl (31.0-36.0); Mean Corpuscular Hemoglobin 31.4 pg (27.0-33.0); Mean Corpuscular Volume 92.8 fL (80.0-98.0); Mean Platelet Volume 12.1 fL (9.4-12.4); Monocytes Absolute Auto 0.5 X10*3/uL (0.1-1.2); Monocytes Percent Auto 9.6 % (2-11); Neutrophils Absolute Auto 3.2 x10*3/uL (2.0-8.3); Neutrophils Percent Auto 58.6 % (45-73); Platelet Count 108 X10*3/uL (160-400); Red Blood Count 4.72 X10*6/uL (4.60-5.80); Red Cell Distribution Width 13.2 % (11.0-16.0); White Blood Count 5.5 X10*3/uL (4.8-10.8)
[2023-10-13 11:13] LABS: Creatinine Urine 168.22 mg/dL; Microalbum/Creatinine Ratio Ur 5.9 ug/mg cr (<30)
[2023-10-13 11:15] LABS: Alanine Aminotransferase 26 U/L (0-40); Albumin Level 3.9 g/dL (3.5-5.0); Alkaline Phosphatase 134 U/L (39-117); Anion Gap 13 (12-20); Aspartate Amino Transferase 26 U/L (5-37); Blood Urea Nitrogen 19 mg/dL (9-16); Calcium 9.1 mg/dL (8.4-10.2); Carbon Dioxide 26 mmol/L (22-29); Chloride 107 mmol/L (96-108); Cholesterol 132 mg/dL (<200); Estimated Glomerular Filt Rate > 60; Glucose Fasting 116 mg/dL (60-99); HDL Cholesterol 57 mg/dL (>40); LDL Cholesterol Calculated 64 mg/dL (<100); Potassium 4.3 mmol/L (3.3-5.1); Sodium 142 mmol/L (135-145); Total Protein 7.1 g/dL (6.5-8.0); Triglycerides 55 mg/dL (<150)
[2023-10-13 11:18] LABS: TSH reflex Free T4 0.84 uIU/mL (0.32-4.0); Vitamin D 25-OH Total 43.8 ng/mL (>30)
== END 2023-10-13 08:09 | disposition home or self-care (01) ==
LOC: HO.HMGCLDS 08:08
PROVIDERS: PCP Internal Medicine; Visit Provider Internal Medicine
DX: E55.9 Vitamin D deficiency, unspecified (principal); E78.00 Pure hypercholesterolemia, unspecified; D64.9 Anemia, unspecified; R30.0 Dysuria; E11.9 Type 2 diabetes mellitus without complications
CPT/HCPCS: 36415; 80053; 80061; 81003; 82043; 82306; 82570; 83036; 84443; 85025

== ENCOUNTER 2023-10-16 12:29 | Outpatient (AMB) | payer MEDICARE, SELFPAY ==
--- NOTE | 2023-10-16 12:33 | A.OFFPC_ITS ---
Vital Signs 10/16/23 12:35 Height 5 ft 11 in Weight 210 lb 6 oz BMI 29.3 BP 118/64 Blood Pressure Location Lt brachial Position Sitting Pulse 43 L Pulse Source Pulse Oximeter Pulse Oximetry (%) 95 Oxygen Delivery Method Room Air Intake Visit Reasons: PBD, ILD, hyperlipidemia, anxiety Intake Note: Patient is here to follow up on PBD, ILD, HLD, Anxiety. Pattern Chart Writer Required: No Small Products Ii Assembler: Present Accompanied by: Spouse Allergies No Known Allergies [No Known Allergies*] Allergy (Verified 10/16/23 12:50) Medication List - Last Reconciled 10/16/23 by Donnell Gillis MD albuterol sulfate 90 mcg/actuation (Ventolin HFA) 2 puffs inhalation Q6H PRN 30 days amlodipine 2.5 mg PO DAILY cholecalciferol (vitamin D3) 25 mcg PO DAILY colchicine 0.6 mg PO BID [DIABETIC SHOES (1 pair) As directed] escitalopram oxalate 10 mg PO DAILY simvastatin 10 mg PO BEDTIME tizanidine 2 mg PO TID ursodiol 600 mg PO BID Tobacco use date assessed: 10/16/23 Fall risk assessment: No Falls in past year Last assessed Fall Risk: 10/16/23 Dental Screening Dental Screen Date: 06/18/23 HPI PBD, ILD, hyperlipidemia, anxiety HPI Details Patient comes in today for his follow up visit States that he feels okay He denies any headaches or dizziness Denies any chest pains, no increased SOB Adds that his previous recurrent dry cough seems to have improved a lot since Dr. Myers started him on some inhalers, which he is still currently using No nausea/vomiting, no abdominal pain No change in bowel habits noted Adds that he continues to experience increased pain in his right knee often, and his knee has a tendency to give out on his frequently lately when he is walking Had his follow up labs done a few days ago - to discuss his results [facility] Medical History Obesity (BMI 30.0-34.9) ROSARIO (obstructive sleep apnea) Obesity (BMI 30-39.9) Fatigue Overweight (BMI 25.0-29.9) Anxiety Insomnia Cerebellar ataxia Dizziness Osteoporosis Pure hypercholesterolemia Diabetes mellitus Adenomyomatosis of gallbladder Primary biliary cirrhosis Surgical History Hx of tonsillectomy Hx of appendectomy Family History Father Cancer Mother No problems noted. Social History Household Members: Spouse Household Members Other:: Housing: House Alcohol intake: former Patient Tobacco Use Status: Former Tobacco user e-Cigarette/Vaping Use: Never Used Second Hand Smoke Exposure: No service: No Current occupational status: retired Cognitive needs: No Hearing needs: No Vision needs: Yes (Glasses) Questionnaire Thrive Questionnaire Date Thrive assessed: 06/18/23 SHERMAN-7 AMB Questionnaire SHERMAN-7 Date SHERMAN - 7 assessed: 06/18/23 Source: Developed by Drs. Kevin Mcmullen, Juany Felix, Adolph Anderson and colleagues, with an educational imchael from [employer]. Review of Systems Const Denies chills, Denies fatigue, Denies fever(s) and Denies headache(s) ENT Denies dysphagia, Denies dizziness, Denies otalgia, Denies headache(s), Denies neck pain, Denies odynophagia and Denies sore throat Card Denies chest pain, Denies palpitations and Denies dyspnea Resp Reports cough (on and off - has improved a lot lately ), Denies dyspnea and Denies wheezing GI Denies abdominal pain, Denies constipation, Denies dysphagia, Denies heartburn, Denies diarrhea, Denies nausea, Denies odynophagia and Denies vomiting Denies dysuria, Denies nocturia and Denies urinary frequency Musc Denies back pain, Reports arthralgias (increasing, over the right knee) and Denies neck pain Skin/Breast Denies rash Neuro Denies dizziness and Denies headache(s) Psych Reports anxiety (better with Rx) Endo Denies fatigue and Denies palpitations Aller/Immun Denies wheezing Physical exam (Primary Care) Vital Signs: Last Vital Signs Pulse 43 L 10/16/23 12:35 BP 118/64 10/16/23 12:35 Pulse Ox 95 10/16/23 12:35 Oxygen Delivery Method Room Air 10/16/23 12:35 BMI result Body Mass Index 29.3 Tobacco/Smoking Status: Tobacco use Status Tobacco use date assessed 10/16/23 10/16/23 12:40 Patient Tobacco Use Status Former Tobacco user 10/16/23 12:40 e-Cigarette/Vaping Use Never Used 10/16/23 12:40 Thrive Assessment: Date of Thrive Assessment Date Thrive assessed 06/18/23 10/16/23 12:40 Const General: no acute distress and alert HENMT Ears: TM's normal bilaterally and EAC's normal Throat: Yes posterior oropharynx normal and Yes tonsils normal (no TP congestion noted) Neck Neck: Yes no lymphadenopathy and Yes supple Resp Auscultation: clear to auscultation bilaterally, no rales and no wheezes Cardio Rate: regular rate Rhythm: regular rhythm Heart sounds: no murmurs GI Palpation (GI): Soft to palpation and nontender Auscultation: normal bowel sounds Skin Rashes: no rashes Extrem General: Yes no clubbing, cyanosis or edema Results Reviewed Results Reviewed: Laboratory Tests 10/13/23 10/13/23 08:18 08:25 WBC 5.5 Hgb 14.8 Hct 43.8 Plt Count 108 L Sodium 142 Potassium 4.3 Creatinine 0.91 Estimated GFR > 60 Fasting Glucose 116 H Hemoglobin A1c % 6.6 H Calcium 9.1 AST 26 ALT 26 Triglycerides 55 Cholesterol 132 LDL Cholesterol, Calc 64 HDL Cholesterol 57 25-OH Vitamin D Total 43.8 TSH 0.84 Ur Specific Perry 1.020 Urine Protein Negative Urine Glucose (UA) Negative Urine Blood Negative Urine Nitrite Negative Ur Leukocyte Esterase Negative Microalb/Creat Ratio 5.9 Assessment and Plan Assessment & Plan (1) Primary biliary cirrhosis: Comment: EGD done in 2018 showed 1+ varices and changes consistent with patient's gastropathy Used to seeing managing director atlas in [place] but is now seeing Gastroenterology (Dr. Gaston) locally for follow up and management Code(s): K74.3 - Primary biliary cirrhosis Plan: Continue Ursodiol 300 mg 2 capsules twice a day and Colchicine 0.6 mg BID Follow up with GI (Dr. Gaston) as scheduled (2) Type 2 diabetes mellitus without complications: Code(s): E11.9 - Type 2 diabetes mellitus without complications Qualifiers: Diabetes mellitus correction insulin use: without terminal press operator use Qualified Code(s): E11.9 - Type 2 diabetes mellitus without complications Plan: His HgbA1c went up to 6.6% on his labs done a few days ago (was at 6.2% a few months ago) - goal is < 7.0% Reinforced diabetic diet - patient has not required any Rx for his diabetes so far C-peptide and SHERMAN Ab levels were both normal when recently checked He has continued to benefit from the use of diabetic footwears regularly (3) Pure hypercholesterolemia: Code(s): E78.00 - Pure hypercholesterolemia, unspecified Plan: Results of his labs done a few days ago reviewed and discussed with patient Reinforced low cholesterol diet Continue Simvastatin 10 mg QD Will recheck his labs and fasting lipids in 4 months for follow-up (4) Adenomyomatosis of gallbladder: Comment: Abdominal US done in early 2019 revealed (+) fatty liver changes with cholelithiasis (with findings suggesting possible chronic cholecystitis) and gallbladder adenomyomatosis - patient denies any acute abdominal symptoms/pain Code(s): D13.5 - Benign neoplasm of extrahepatic bile ducts Plan: Advised again that this is a benign condition and he does not require further intervention for this Patient has had no acute symptoms lately (5) Osteoporosis: Code(s): M81.0 - Age-related osteoporosis without current pathological fracture Qualifiers: Osteoporosis type: unspecified Presence of current pathological fracture: without current pathological fracture Qualified Code(s): M81.0 - Age- related osteoporosis without current pathological fracture Plan: He was on Prolia 60 mg subcutaneous injection every 6 months for about 4 to 5 years and Rx was stopped over a year ago Repeat BMD done on 12/27/2020 showed a 19.6% improvement in the AP spine from baseline, 10.0% improvement from previous and a 6.7% improvement in the left femur from baseline, 0.5% increase from previous He was recently seen by Dr. Fernandez for endocrinology follow up and was also taken off his Fosamax; was advised to wait for another year and then repeat his BMD, which will be due on or after May 2024 He was also reportedly advised that he does not need to follow up with endocrinology again unless his follow up BMD gets signficantly worse in the future (6) Arrhythmia: Code(s): I49.9 - Cardiac arrhythmia, unspecified Qualifiers: Arrhythmia type: unspecified cardiac arrhythmia Qualified Code(s): I49.9 - Cardiac arrhythmia, unspecified Plan: Patient was noted to have some EKG abnormalities when he was admitted to [facility] in [place] back in March 2021 - EKG back then came out as Mobitz type I AV block (Wenckebach) with premature complexes in a bigeminal pattern Echocardiogram done revealed normal left ventricular size, systolic function and wall thickness with no regional wall motion abnormalities. LV ejection fraction estimated at 60-65%. Normal diastolic function. Mild pulmonary hypertension, RVSP 39 mm Hg plus central venous pressure which should be estimated clinically due to inability to visualize IVC. Mildly increased left atrial size. Probably mild aortic valve stenosis, mean gradient 4.5 mm Hg, PETER 1.9 cm2. Moderate tricuspid valve regurgitation He was seen by cardiology last year and had Holter monitor done for further work up - Holter showed underlying sinus rhythm with average rate of 51 bpm and (+) occurrence of Mobitz 1 second-degree heart block but only during sleep, with NO occurrence during the waking hours Patient states that he was offered option of pacemaker insertion now or later and patient eventually decided on getting a repeat Holter done in 3 months time and will then decide on further Tx options depending on the result of his repeat Holter His Holter monitor done in July 2023 revealed the presence of 2nd degree, Mobitz I AV block, with significant burden of bradycardia at >50% He was subsequently referred for EPS studies and was advised that they will discuss his situation further with Dr. Hilton after which they will contact him with further instructions Follow up with cardiology as scheduled (7) Osteoarthritis of right knee: Code(s): M17.11 - Unilateral primary osteoarthritis, right knee Qualifiers: Osteoarthritis type: primary Qualified Code(s): M17.11 - Unilateral primary osteoarthritis, right knee Plan: X-rays of the right knee done o=in March 2023 revealed (+) OA changes Due to his increasing right knee symptoms, will refer him to orthopedics for further evaluation and management (8) Multiple thyroid nodules: Code(s): E04.2 - Nontoxic multinodular goiter Plan: Thyroid US done last month (August 2023) revealed (+) 1.9 cm right midpole TR 5 thyroid nodule meets criteria for biopsy. Fine-needle aspiration recommended He has been referred to endocrinology and is currently still awaiting scheduling for an appointment (9) Recurrent dry cough: Code(s): R05.8 - Other specified cough Plan: Was seen and evaluated by Dr. Myers a couple of months ago and was advised that this is likely multifactorial, including due to dry air, GERD and allergies He also appears to have some degree of ILD, which can contribute to his cough as well Patient states that his symptoms have improved a lot since he was started on his inhalers Continue Albuterol HFA 2 inhalations Q 6 hours PRN He was also advised to take some OTC antihistamines like Loratadine 10 mg QD PRN (10) ROSARIO (obstructive sleep apnea): Comment: Known case of obstructive sleep apnea, well treated with the use of CPAP. Compliance is excellent. 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, unspecified Plan: Follow up with Neurology as scheduled (+) gait instability due to his ataxia (12) Insomnia: Code(s): G47.00 - Insomnia, unspecified Qualifiers: Insomnia type: unspecified Qualified Code(s): G47.00 - Insomnia, unspecified Plan: Sleep hygiene reinforced Has been taking OTC sleep aids like NyQuil PM as needed with some relief (13) Anxiety: Code(s): F41.9 - Anxiety disorder, unspecified Plan: States that his anxiety has been well-controlled on his Rx Continue Escitalopram 10 mg QD (14) Obesity (BMI 30.0-34.9): Code(s): E66.9 - Obesity, unspecified Plan: Reinforced diet/exercise as tolerated/lose weight Plan Follow up in 4 months Orders: Orders Complete Blood Count Auto Diff 4 Months D64.9 - Anemia, unspecified Comprehensive [place]. Panel Fast 4 Months E78.00 - Pure hypercholesterolemia, unspecified Lipid Panel 4 Months E78.00 - Pure hypercholesterolemia, unspecified Hemoglobin A1c 4 Months E11.9 - Type 2 diabetes mellitus without complications Microalbumin, Random (w Creat) 4 Months E11.9 - Type 2 diabetes mellitus without complications Referrals Orthopedics Referral M17.11 - Unilateral primary osteoarthritis, right knee Coding Level of Care Code Est Pt Level 4 (38739) Diagnoses Primary biliary cirrhosis K74.3 Type 2 diabetes mellitus without complication, without long-term current use of insulin E11.9 Diabetes mellitus terminal press operator insulin use: without terminal press operator use Pure hypercholesterolemia E78.00 Adenomyomatosis of gallbladder D13.5 Osteoporosis without current pathological fracture, unspecified osteoporosis type M81.0 Osteoporosis type: unspecified Presence of current pathological fracture: without current pathological fracture Cardiac arrhythmia, unspecified cardiac arrhythmia type I49.9 Arrhythmia type: unspecified cardiac arrhythmia Primary osteoarthritis of right knee M17.11 Osteoarthritis type: primary Multiple thyroid nodules E04.2 Recurrent dry cough R05.8 ROSARIO (obstructive sleep apnea) G47.33 Cerebellar ataxia G11.9 Insomnia, unspecified type G47.00 Insomnia type: unspecified Anxiety F41.9 Obesity (BMI 30.0-34.9) E66.9
[2023-10-16 12:35] VITALS: BP 118/64; PULSE 43; O2SAT 95; BMI 29.3
== END 2023-10-16 13:17 | disposition home or self-care (01) ==
PROVIDERS: PCP Internal Medicine; Visit Provider Internal Medicine
DX: K74.3 Primary biliary cirrhosis (principal); E11.9 Type 2 diabetes mellitus without complications; G11.9 Hereditary ataxia, unspecified; E78.00 Pure hypercholesterolemia, unspecified; D13.5 Benign neoplasm of extrahepatic bile ducts; M81.0 Age-related osteoporosis without current pathological fracture; I49.9 Cardiac arrhythmia, unspecified; M17.11 Unilateral primary osteoarthritis, right knee; E04.2 Nontoxic multinodular goiter; R05.8 Other specified cough; G47.33 Obstructive sleep apnea (adult) (pediatric); G47.00 Insomnia, unspecified
CPT/HCPCS: 99214

== ENCOUNTER 2023-11-09 09:50 | Outpatient (AMB) | payer MEDICARE, SELFPAY ==
--- NOTE | 2023-11-09 10:15 | MHC.OFFVIS ---
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 Patient reports his right knee has been bothering him for about a year and a half. He expresses last hunting season he had a fall and twisted his knee and ankle as he came down. He states he feels a pinching pain when he is standing and goes to twist his body if he does not turn his foot fast enough with his body. He states he has tried Advil and this did provide him with relief. He denies previous treatment on the right knee. 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 Patient reports his right knee has been bothering him for about a year and a half. He expresses last hunting season he had a fall and twisted his knee and ankle as he came down. He states he feels a pinching pain when he is standing and goes to twist his body if he does not turn his foot fast enough with his body. He states he has tried Advil and this did provide him with relief. He denies previous treatment on the right knee. He has been improving on its own. [facility] Medical History Obesity (BMI 30.0-34.9) ROSARIO (obstructive sleep apnea) Obesity (BMI 30-39.9) Fatigue Overweight (BMI 25.0-29.9) Anxiety Insomnia Cerebellar ataxia Dizziness Osteoporosis Pure hypercholesterolemia Diabetes mellitus Adenomyomatosis of gallbladder Primary biliary cirrhosis Surgical History Hx of tonsillectomy Hx of appendectomy Family History Father Cancer Mother No problems noted. Social History Household Members: Spouse Household Members Other:: Housing: House Alcohol intake: former Patient Tobacco Use Status: Former Tobacco user e-Cigarette/Vaping Use: Never Used Second Hand Smoke Exposure: No service: No Current occupational status: retired Cognitive needs: No Hearing needs: No Vision needs: Yes (Glasses) Physical Exam Vital Signs: BMI result Body Mass Index 29.3 Const General: cooperative, healthy appearing, no acute distress, well developed and alert HEENT Head: Yes normal to inspection, Yes normocephalic and Yes atraumatic Mouth: moist mucous membranes Eyes General: appearance normal, both eyes and all related structures EOM: EOMs intact bilaterally Chest Other: no audible wheezing. Resp Other: No audible wheezing Effort & Inspection: normal respiratory effort Back/Spine/Pelvis Cervical Spine: normal cervical lordosis Skin General skin exam: no rashes or lesions noted Neuro General: no focal motor deficits Extrem Other: nl knee exam Psych Appearance: grossly normal and well kempt Mental Status: mental status grossly normal Speech and movement: Normal speech and movement present Affect: normal affect Attitude: cooperative Results Reviewed Results Reviewed: I personally reviewed relevant radiographs. Mild OA right knee Assessment & Plan Assessment & Plan (1) Osteoarthritis of right knee: Code(s): M17.11 - Unilateral primary osteoarthritis, right knee Category: Medical Qualifiers: Osteoarthritis type: primary Qualified Code(s): M17.11 - Unilateral primary osteoarthritis, right knee Plan: Intermittant right knee pain that is mild. Occasional sharp symptoms with twisting but he is not limited. May return to see me if pain worsens. No intervention at this time. Coding Level of Care Code New Pt Level 3 (02999) Diagnoses Primary osteoarthritis of right knee M17.11 Osteoarthritis type: primary
[2023-11-09 10:17] VITALS: BMI 29.3
== END 2023-11-09 10:42 | disposition home or self-care (01) ==
PROVIDERS: PCP Internal Medicine; Visit Provider Orthopaedic Surgery
DX: M17.11 Unilateral primary osteoarthritis, right knee (principal)
CPT/HCPCS: 99203

== ENCOUNTER → 2023-11-09 09:50 | Outpatient (BNVA) | payer MEDICARE, SELFPAY | PROVIDERS: PCP Internal Medicine; Visit Provider Orthopaedic Surgery | DX: M17.11 Unilateral primary osteoarthritis, right knee (principal) | CPT/HCPCS: 99202 ==

== ENCOUNTER 2023-12-10 10:34 | Outpatient (AMB) | payer MEDICARE, SELFPAY ==
[2023-12-10 10:40] VITALS: BP 138/60; PULSE 49; BMI 29.6
--- NOTE | 2023-12-10 10:40 | A.OFFVIS_ITS ---
Vital Signs 12/10/23 10:40 Height 5 ft 11 in Weight 212 lb 1.355 oz BMI 29.6 BP 138/60 Blood Pressure Location Lt brachial Position Sitting Pulse 49 L Intake Visit Reasons: 4 mth f/up Sandrine Brand Coordinator Required: No Accompanied by: Spouse Allergies No Known Allergies [No Known Allergies*] Allergy (Verified 11/09/23 10:22) Medication List - Last Reconciled 12/10/23 by Dylan Hilton MD albuterol sulfate 90 mcg/actuation (Ventolin HFA) 2 puffs inhalation Q6H PRN 30 days amlodipine 2.5 mg PO DAILY cholecalciferol (vitamin D3) 25 mcg PO DAILY colchicine 0.6 mg PO BID [DIABETIC SHOES (1 pair) As directed] escitalopram oxalate 10 mg PO DAILY simvastatin 10 mg PO BEDTIME tizanidine 2 mg PO TID ursodiol 600 mg (2 x 300 mg) PO BID HPI Comments Details: Janak returns for follow-up regarding second-degree heart block. He does not have any symptoms like dizziness or presyncope. He does get tiredness and fatigue during the day, but not clear if it is from the heart block or not. He was sent to EP for evaluation but they did not recommend a pacemaker. [facility] Medical History Obesity (BMI 30.0-34.9) ROSARIO (obstructive sleep apnea) Obesity (BMI 30-39.9) Fatigue Overweight (BMI 25.0-29.9) Anxiety Insomnia Cerebellar ataxia Dizziness Osteoporosis Pure hypercholesterolemia Diabetes mellitus Adenomyomatosis of gallbladder Primary biliary cirrhosis Surgical History Hx of tonsillectomy Hx of appendectomy Family History Father Cancer Mother No problems noted. Social History Household Members: Spouse Household Members Other:: Housing: House Alcohol intake: former Patient Tobacco Use Status: Former Tobacco user e-Cigarette/Vaping Use: Never Used Second Hand Smoke Exposure: No service: No Current occupational status: retired Cognitive needs: No Hearing needs: No Vision needs: Yes (Glasses) Review of Systems Const Denies chills, Denies fatigue, Denies fever(s), Denies weight gain and Denies weight loss ENT Denies dizziness Card Denies chest pain, Denies leg edema, Denies lightheadedness, Denies palpitations, Denies dyspnea on exertion, Denies orthopnea and Denies other Resp Denies cough and Denies dyspnea on exertion GI Denies hematochezia and Denies change in stool character Musc Denies abnormal gait, Denies muscle weakness, Denies numbness, Denies radiating pain into limb and Denies tingling Neuro Denies abnormal gait, Denies dizziness, Denies numbness and Denies tingling Endo Denies fatigue and Denies palpitations Physical Exam Vital Signs: Last Vital Signs Pulse 49 L 12/10/23 10:40 BP 138/60 12/10/23 10:40 BMI result Body Mass Index 29.6 Const General: comfortable and no acute distress Orientation/consciousness: patient oriented x3 HEENT Other: Unremarkable Head: Yes normal to inspection Neck Neck: Yes normal visual inspection Chest Chest palpation & inspection: normal inspection of the chest Resp Auscultation: clear to auscultation bilaterally Cardio Palpation: normal PMI Heart sounds: S1 normal heart sound present, S2 normal heart sound present, no gallops, no murmurs and no rubs GI Palpation (GI): Soft to palpation Back/Spine/Pelvis Other: unremarkable Skin General skin exam: no rashes or lesions noted Neuro General: patient oriented x3 Extrem General: Yes normal to inspection Psych Mental Status: mental status grossly normal Office Procedures EKG Details: EKG with underlying sinus rhythm with Mobitz 1 second-degree heart block at 49/Min. [id number], Complete Assessment & Plan Assessment & Plan (1) Heart block atrioventricular: Code(s): I44.30 - Unspecified atrioventricular block Category: Medical Plan: In the Holter, underlying sinus bradycardia with an average rate of 53/Min. He does have second-degree heart block suggesting Mobitz type 1. Frequent bradycardia. Unclear if his symptoms of tiredness is related to the bradycardia. EP saw him in consultation but they decided against a pacemaker. We will plan on an exercise stress test to assess for chronotropic incompetence. We will also do perfusion imaging. (2) Valvular heart disease: Code(s): I38 - Endocarditis, valve unspecified Category: Medical Plan: Echocardiogram shows mild aortic valve calcification, mild mitral annular calcification mild tricuspid regurgitation. No clear hemodynamic implications from the above. (3) Right ventricular dilation: Code(s): I51.7 - Cardiomegaly Category: Medical Plan: Could be related to sleep apnea. No symptoms signs of congestive heart failure. (4) ROSARIO (obstructive sleep apnea): Comment: Known case of obstructive sleep apnea, well treated with the use of CPAP. Compliance is excellent. Code(s): G47.33 - Obstructive sleep apnea (adult) (pediatric) Category: Medical Plan: Sleep study shows moderately severe obstructive sleep apnea. Continue CPAP. (5) Essential hypertension: Code(s): I10 - Essential (primary) hypertension Category: Medical Plan: On amlodipine. Borderline blood pressures. Home diary was also reviewed. Some slightly high readings but others are okay. Plan Discussed with significant other who came for appointment. Orders: Orders CA stress test Today I44.30 - Unspecified atrioventricular block, R07.2 - Precordial pain NM cardiolite stress test Today I44.30 - Unspecified atrioventricular block, R07.2 - Precordial pain Coding Level of Care Code Est Pt Level 4 (41600) Diagnoses Heart block atrioventricular I44.30 Valvular heart disease I38 Right ventricular dilation I51.7 ROSARIO (obstructive sleep apnea) G47.33 Essential hypertension I10 CPT Codes EKG - CPT: [id number], Complete ([id number])
== END 2023-12-10 11:05 | disposition home or self-care (01) ==
PROVIDERS: PCP Internal Medicine; Visit Provider Internal Medicine
DX: I44.30 Unspecified atrioventricular block (principal); I38 Endocarditis, valve unspecified; I51.7 Cardiomegaly; G47.33 Obstructive sleep apnea (adult) (pediatric); I10 Essential (primary) hypertension
CPT/HCPCS: 93010; 99214

== ENCOUNTER → 2023-12-10 10:34 | Outpatient (BNVA) | payer MEDICARE, SELFPAY | PROVIDERS: PCP Internal Medicine; Visit Provider Internal Medicine | DX: I10 Essential (primary) hypertension (principal); I44.30 Unspecified atrioventricular block; I38 Endocarditis, valve unspecified; I51.7 Cardiomegaly; G47.33 Obstructive sleep apnea (adult) (pediatric); R53.83 Other fatigue; R07.2 Precordial pain | CPT/HCPCS: 93005; 99212 ==

== ENCOUNTER 2023-12-15 13:52 | Outpatient (AMB) | payer MEDICARE, SELFPAY ==
[2023-12-15 13:57] VITALS: BP 148/62; PULSE 55; BMI 29.5
--- NOTE | 2023-12-15 13:57 | MHC.OFFVIS ---
Vital Signs 12/15/23 13:57 Height 5 ft 11 in Weight 211 lb 6.773 oz BMI 29.5 BP 148/62 H Blood Pressure Location Lt brachial Position Sitting Pulse 55 Pulse Source Pulse Oximeter Intake Visit Reasons: Nontoxic multinodular goiter-confirmed Intake Note: New patient present today for Nontoxic multinodular goiter office visit. 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 Accompanied by: Spouse Allergies No Known Allergies [No Known Allergies*] Allergy (Verified 12/15/23 14:05) Medication List - Last Reconciled 12/15/23 by Kevin Fernandez MD albuterol sulfate 90 mcg/actuation (Ventolin HFA) 2 puffs inhalation Q6H PRN 30 days amlodipine 2.5 mg PO DAILY cholecalciferol (vitamin D3) 25 mcg PO DAILY colchicine 0.6 mg PO BID [DIABETIC SHOES (1 pair) As directed] escitalopram oxalate 10 mg PO DAILY simvastatin 10 mg PO BEDTIME tizanidine 2 mg PO TID ursodiol 600 mg (2 x 300 mg) PO BID HPI Comments Details: 83 yo male today for fup vsit, seen previously for osteoporosis . Today's visit for new diagnosis of multinodular goiter. Us showed FINDINGS: SIZE: Measurements of the thyroid lobes and nodules are given in sagittal, anteroposterior and transverse dimensions respectively. Right Thyroid Lobe: 5.6 x 2.5 x 2.7 cm, volume 19.6 mL. Parenchyma: The gland echotexture is homogeneous. Thyroid vascularity is normal. Left Thyroid Lobe: 5.2 x 2.2 x 1.8 cm, volume 10.7 mL. Parenchyma: The gland echotexture is homogeneous. Thyroid vascularity is normal. Isthmus: 0.62 cm in maximum AP dimension. Estimated total number of nodules greater than or equal to 1 cm: 4. 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 Location: Right inferior. Size: 1.8 x 1.7 x 1.7 cm, volume 2.7 mL. Nodule characteristics: Composition: Mixed cystic and solid (1). Echogenicity: Hypoechoic (2). Shape: Not taller than wide (0). Margins: Smooth (0). Echogenic Foci: None (0). ACR TI-RADS total points: 3 ACR TI-RADS category: 3 2. Location: Right mid. Size: 1.9 x 1.7 x 1.6 cm, volume 2.8 mL. Nodule characteristics: Composition: Solid (2). Echogenicity: Hyperechoic (1). Shape: Taller than wide (3). Margins: Smooth (0). Echogenic Foci: Punctate echogenic foci (3). ACR TI-RADS total points: 9 ACR TI-RADS category: 5 3. Location: Left mid. Size: 1.2 x 0.83 x 0.93 cm, volume 0.50 mL. Nodule characteristics: Composition: Spongiform (0). Echogenicity: Anechoic (0). Shape: Not taller than wide (0). Margins: Smooth (0). Echogenic Foci: None (0). ACR TI-RADS total points: 0 ACR TI-RADS category: 1 4. Location: Left mid. Size: 0.80 x 0.50 x 0.80 cm, volume 0.16 mL. Nodule characteristics: Composition: Spongiform (0). Echogenicity: Anechoic (0). Shape: Not taller than wide (0). Margins: Smooth (0). Echogenic Foci: None (0). ACR TI-RADS total points: 0 ACR TI-RADS category: 1 5. Location: Left mid. Size: 1.0 x 0.70 x 0.90 cm, volume 0.33 mL. Nodule characteristics: Composition: Solid (2). Echogenicity: Hypoechoic (2). Shape: Not taller than wide (0). Margins: Smooth (0). Echogenic Foci: None (0). ACR TI-RADS total points: 4 ACR TI-RADS category: 4 NODES: No lymphadenopathy is seen in the tissue surrounding the thyroid gland. US/US thyroid IMPRESSION: 1.9 cm right midpole TR 5 thyroid nodule m H HeLaboratory Tests 12/15/19 12/15/19 01/19/20 08:56 08:56 09:32 Hgb Hct Sodium Potassium Creatinine Estimated GFR Fasting Glucose Glucose 1 Hour 245 Glucose 2 Hour Estimat Average Glucose Hemoglobin A1c 6.0 Hemoglobin A1c % Calcium AST ALT Albumin LDL Cholesterol, Calc Collgn I C-Telopeptide 140 N-Telopeptide X-linked 25-OH Vitamin D Total TSH Urine Microalbumin Microalb/Creat Ratio 01/19/20 06/25/20 06/25/20 10:32 06:57 Unknown Hgb Hct Sodium Potassium Creatinine Estimated GFR Fasting Glucose Glucose 1 Hour Glucose 2 Hour 212 Estimat Average Glucose Hemoglobin A1c Hemoglobin A1c % Calcium AST ALT Albumin LDL Cholesterol, Calc Collgn I C-Telopeptide N-Telopeptide X-linked 20 25-OH Vitamin D Total 57.7 TSH Urine Microalbumin Microalb/Creat Ratio 08/14/20 08/14/20 08/14/20 06:14 06:14 06:14 Hgb 13.7 L Hct 41.3 L Sodium 145 Potassium 4.9 Creatinine 0.94 Estimated GFR > 60 Fasting Glucose 100 H Glucose 1 Hour Glucose 2 Hour Estimat Average Glucose Hemoglobin A1c Hemoglobin A1c % Calcium 8.9 AST 38 H ALT 34 Albumin 4.1 LDL Cholesterol, Calc 76 Collgn I C-Telopeptide N-Telopeptide X-linked 25-OH Vitamin D Total TSH 0.86 Urine Microalbumin 7.0 Microalb/Creat Ratio 6.0 08/14/20 06:14 Hgb Hct Sodium Potassium Creatinine Estimated GFR Fasting Glucose Glucose 1 Hour Glucose 2 Hour Estimat Average Glucose 126 Hemoglobin A1c Hemoglobin A1c % 6.0 Calcium AST ALT Albumin LDL Cholesterol, Calc Collgn I C-Telopeptide N-Telopeptide X-linked 25-OH Vitamin D Total TSH Urine Microalbumin Microalb/Creat Ratio No hx of nodules in pat. No prior biopsies . No obstructive sx [facility] Medical History Obesity (BMI 30.0-34.9) ROSARIO (obstructive sleep apnea) Obesity (BMI 30-39.9) Fatigue Overweight (BMI 25.0-29.9) Anxiety Insomnia Cerebellar ataxia Dizziness Osteoporosis Pure hypercholesterolemia Diabetes mellitus Adenomyomatosis of gallbladder Primary biliary cirrhosis Surgical History Hx of tonsillectomy Hx of appendectomy Family History Father Cancer Mother No problems noted. Social History Household Members: Spouse Household Members Other:: Housing: House Alcohol intake: former Patient Tobacco Use Status: Former Tobacco user e-Cigarette/Vaping Use: Never Used Second Hand Smoke Exposure: No service: No Current occupational status: retired Cognitive needs: No Hearing needs: No Vision needs: Yes (Glasses) Physical Exam Vital Signs: Last Vital Signs Pulse 55 12/15/23 13:57 BP 148/62 H 12/15/23 13:57 BMI result Body Mass Index 29.5 Const Other: Thyroid gland is normal size weighs about 15 g. There are no nodules palpated. There is no cervical adenopathy palpated Assessment & Plan Assessment & Plan (1) Multiple thyroid nodules: Code(s): E04.2 - Nontoxic multinodular goiter Category: Medical Plan: This 83-year-old white male with a history of multinodular goiter with a dominant right mid pole nodule. He appears to be clinically and biochemically euthyroid Plan is to discuss with the patient possible fine-needle aspiration of the right midpole nodule Coding Level of Care Code Est Pt Level 3 (50067) Diagnoses Multiple thyroid nodules E04.2
== END 2023-12-15 14:42 | disposition home or self-care (01) ==
PROVIDERS: PCP Internal Medicine; Visit Provider Internal Medicine Endocrinology, Diabetes & Metabolism
DX: E04.2 Nontoxic multinodular goiter (principal)
CPT/HCPCS: 99213

== ENCOUNTER → 2023-12-15 13:52 | Outpatient (BNVA) | payer MEDICARE, SELFPAY | PROVIDERS: PCP Internal Medicine; Visit Provider Internal Medicine Endocrinology, Diabetes & Metabolism | DX: E04.2 Nontoxic multinodular goiter (principal) | CPT/HCPCS: 99212 ==

== ENCOUNTER → 2024-01-12 09:20 | Outpatient (REF) | payer MEDICARE, SELFPAY ==
--- NOTE | ~2024-01-12 | NM_ITS ---
EXERCISE MYOCARDIAL PERFUSION STUDY INDICATION: Heart block TECHNIQUE: The patient was brought in for an exercise perfusion study on 01/12/2024. Patient performed exercise as per Suleiman protocol and was injected 35 mCi of sestamibi once target heart rate was achieved. Images were obtained using the SPECT gamma camera interlaced with the gating device. Images were obtained in supine position. Resting perfusion study was performed on 01/13/2024. Patient was administered 35 mCi of sestamibi intravenously at rest. Images were then obtained in supine position. Images were processed with the software and compared side to side in short axis, horizontal long axis and vertical long axis views. Total DLP 190mGy-cm. FINDINGS: Raw images were reviewed. Arms by the patient's side. The stress perfusion study showed no significant perfusion abnormality. Both noncontrast and a CT attenuation corrected images were reviewed. The gated study shows normal LV systolic function with calculated LVEF of 65%. LV cavity is normal in size. The gated study shows normal wall thickening and contraction of segments. Resting study shows no significant perfusion abnormality. Gating at rest reveals normal wall motion with ejection fraction at 62%. The findings are consistent with no clear reversible or fixed perfusion abnormality. NM/NM cardiolite stress test IMPRESSION: 1. Myocardial perfusion imaging study shows normal myocardial perfusion. 2. Gated LVEF is 65% during stress and 62% during rest. 3. Transient ischemic dilatation not present. EKG component of the test reported separately.
--- NOTE | 2024-01-12 09:23 | CA_ITS ---
Acquisition Time: 2024-01-12 09:16:04 Total Exercise Time: 00:06:16 Test Indications: Abnormal ECG 2ND DEGREE HB Medications: ALBUTEROL AMLODIPINE COLCHICINE ESCITALOPRAM SIMVASTATIN TIZANIDINE URSODIOL Protocol: TRISTON Max HR: 113 BPM 82% of Pred: 137 BPM Max BP: 170/084 mmHG Max Work Load: 6.2 METS Exercise stress test exercise 6 min 16 sec of Triston protocol (manually changed after stage 1) achieving 82-84% MPHR, wilthout anginal symptoms, with isolated PVCs, ventricular bigeminy, venticular cuplets, with normotensive response to exercise, without EKG changes. Nuclear images pending. Test reviewed with Dr. Betancourt. Referred By: Dylan Hilton Overread By: Africa Collins
== END ==
LOC: HO.CARD 09:20
PROVIDERS: PCP Internal Medicine; Visit Provider Internal Medicine
DX: R07.2 Precordial pain (principal); I44.30 Unspecified atrioventricular block
CPT/HCPCS: 78452; 93017; A9500

== ENCOUNTER → 2024-01-12 09:23 | Outpatient (BNV) | payer MEDICARE, SELFPAY | PROVIDERS: PCP Internal Medicine; Visit Provider Nurse Practitioner | DX: I44.30 Unspecified atrioventricular block (principal) | CPT/HCPCS: 78452; 93016; 93018 ==

== ENCOUNTER 2024-01-18 14:02 | Outpatient (AMB) | payer MEDICARE, SELFPAY ==
[2024-01-18 14:03] VITALS: BP 144/56; PULSE 69; BMI 29.4
--- NOTE | 2024-01-18 14:03 | A.OFFVIS_ITS ---
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: No Accompanied by: Spouse Allergies No Known Allergies [No Known Allergies*] Allergy (Verified 12/15/23 14:05) Medication List - Last Reconciled 01/18/24 by Dylan Hilton MD albuterol sulfate 90 mcg/actuation (Ventolin HFA) 2 puffs inhalation Q6H PRN 30 days amlodipine 2.5 mg PO DAILY cholecalciferol (vitamin D3) 25 mcg PO DAILY colchicine 0.6 mg PO BID [DIABETIC SHOES (1 pair) As directed] escitalopram oxalate 10 mg PO DAILY simvastatin 10 mg PO BEDTIME tizanidine 2 mg PO TID ursodiol 600 mg (2 x 300 mg) PO BID HPI Comments Details: Janak returns for follow-up regarding second-degree heart block. He does not have any symptoms like dizziness or presyncope. He does get tiredness and fatigue during the day, but not clear if it is from the heart block or not. He was sent to EP for evaluation but they did not recommend a pacemaker. Overall, he states he is feeling just about the same as before. No new complaints. [facility] Medical History Obesity (BMI 30.0-34.9) ROSARIO (obstructive sleep apnea) Obesity (BMI 30-39.9) Fatigue Overweight (BMI 25.0-29.9) Anxiety Insomnia Cerebellar ataxia Dizziness Osteoporosis Pure hypercholesterolemia Diabetes mellitus Adenomyomatosis of gallbladder Primary biliary cirrhosis Surgical History Hx of tonsillectomy Hx of appendectomy Family History Father Cancer Mother No problems noted. Social History Household Members: Spouse Household Members Other:: Housing: House Alcohol intake: former Patient Tobacco Use Status: Former Tobacco user e-Cigarette/Vaping Use: Never Used Second Hand Smoke Exposure: No service: No Current occupational status: retired Cognitive needs: No Hearing needs: No Vision needs: Yes (Glasses) Review of Systems Const All systems reviewed & are unremarkable except as noted in HPI and below Reports as per HPI and Reports no additional complaints Eyes Reports as per HPI and Denies no additional complaints ENT Denies no additional complaints and Reports as per HPI Card Reports as per HPI, Reports no additional complaints, Denies acrocyanosis, Denies chest pain, Denies leg edema, Denies lightheadedness, Denies palpitations and Denies dyspnea Resp Reports as per HPI, Denies no additional complaints and Denies dyspnea GI Reports as per HPI and Denies no additional complaints Reports no additional complaints and Reports as per HPI Musc Reports no additional complaints and Reports as per HPI Skin/Breast Reports system reviewed and no additional complaints, except as documented Neuro Reports no additional complaints and Reports as per HPI Psych Reports no additional complaints and Reports as per HPI Endo Reports no additional complaints, Reports as per HPI and Denies palpitations Liborio/Lymph Reports no additional complaints and Reports as per HPI Aller/Immun Reports no additional complaints and Reports as per HPI Physical Exam Vital Signs: Last Vital Signs Pulse 69 01/18/24 14:03 BP 144/56 H 01/18/24 14:03 BMI result Body Mass Index 29.4 Const General: comfortable and no acute distress Orientation/consciousness: patient oriented x3 HEENT Other: Unremarkable Head: Yes normal to inspection Neck Neck: Yes normal visual inspection Chest Chest palpation & inspection: normal inspection of the chest Resp Auscultation: clear to auscultation bilaterally Cardio Palpation: normal PMI Heart sounds: S1 normal heart sound present, S2 normal heart sound present, no gallops, no murmurs and no rubs GI Palpation (GI): Soft to palpation Back/Spine/Pelvis Other: unremarkable Skin General skin exam: no rashes or lesions noted Neuro General: patient oriented x3 Extrem General: Yes normal to inspection Psych Mental Status: mental status grossly normal Assessment & Plan Assessment & Plan (1) Heart block atrioventricular: Code(s): I44.30 - Unspecified atrioventricular block Category: Medical Plan: In the Holter, underlying sinus bradycardia with an average rate of 53/Min. He does have second-degree heart block suggesting Mobitz type 1. Frequent bradycardia. Unclear if his symptoms of tiredness is related to the bradycardia. EP saw him in consultation but they decided against a pacemaker. He also underwent an exercise stress test where he was able to reach up to 82% of max predicted heart rate which indicates reasonable chronotropic competence. The perfusion component was unremarkable. Hence will continue to monitor. (2) Valvular heart disease: Code(s): I38 - Endocarditis, valve unspecified Category: Medical Plan: Echocardiogram shows mild aortic valve calcification, mild mitral annular calcification mild tricuspid regurgitation. No clear hemodynamic implications from the above. (3) Right ventricular dilation: Code(s): I51.7 - Cardiomegaly Category: Medical Plan: Could be related to sleep apnea. No symptoms signs of congestive heart failure. (4) Essential hypertension: Code(s): I10 - Essential (primary) hypertension Category: Medical Plan: Increase Amlodipine to 5 mg daily. (5) ROSARIO (obstructive sleep apnea): Comment: Known case of obstructive sleep apnea, well treated with the use of CPAP. Compliance is excellent. Code(s): G47.33 - Obstructive sleep apnea (adult) (pediatric) Category: Medical Plan: Sleep study shows moderately severe obstructive sleep apnea. Continue CPAP. Plan Discussed with significant other. Medications: New amlodipine 5 mg PO DAILY 90 tabs 3RF Discontinued amlodipine Discontinued Reason: Doctor's Order 2.5 mg PO DAILY 30 tabs 5RF Coding Level of Care Code Est Pt Level 4 (96245) Diagnoses Heart block atrioventricular I44.30 Valvular heart disease I38 Right ventricular dilation I51.7 Essential hypertension I10 ROSARIO (obstructive sleep apnea) G47.33
== END 2024-01-18 14:36 | disposition home or self-care (01) ==
PROVIDERS: PCP Internal Medicine; Visit Provider Internal Medicine
DX: I44.30 Unspecified atrioventricular block (principal); I38 Endocarditis, valve unspecified; I51.7 Cardiomegaly; I10 Essential (primary) hypertension; G47.33 Obstructive sleep apnea (adult) (pediatric)
CPT/HCPCS: 99214

== ENCOUNTER → 2024-01-18 14:02 | Outpatient (BNVA) | payer MEDICARE, SELFPAY | PROVIDERS: PCP Internal Medicine; Visit Provider Internal Medicine | DX: I44.1 Atrioventricular block, second degree (principal); I38 Endocarditis, valve unspecified; I51.7 Cardiomegaly; I10 Essential (primary) hypertension; G47.33 Obstructive sleep apnea (adult) (pediatric); Z99.89 Dependence on other enabling machines and devices | CPT/HCPCS: 99212 ==

== ENCOUNTER 2024-01-19 11:01 | Outpatient (AMB) | payer MEDICARE, SELFPAY ==
--- NOTE | 2024-01-19 11:06 | A.OFFVIS_ITS ---
Vital Signs 01/19/24 11:07 Height 5 ft 10 in Weight 209 lb 7.026 oz BMI 30.0 BP 132/60 Blood Pressure Location Lt brachial Position Sitting Pulse 63 Pulse Source Pulse Oximeter Pulse Oximetry (%) 94 Oxygen Delivery Method Room Air Intake Visit Reasons: ILD Intake Note: pt is here for follow up and feels good today. Campus Supervisor Required: No Allergies No Known Allergies [No Known Allergies*] Allergy (Verified 01/19/24 11:11) Medication List - Last Reconciled 01/19/24 by Mike Myers MD albuterol sulfate 90 mcg/actuation (Ventolin HFA) 2 puffs inhalation Q6H PRN 30 days amlodipine 5 mg PO DAILY cholecalciferol (vitamin D3) 25 mcg PO DAILY colchicine 0.6 mg PO BID [DIABETIC SHOES (1 pair) As directed] escitalopram oxalate 10 mg PO DAILY simvastatin 10 mg PO BEDTIME tizanidine 2 mg PO TID ursodiol 600 mg (2 x 300 mg) PO BID Do you need a note to return to daycare/school/sports/work: No HPI HPI ILD: Details: THIS 83 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 FAR DYSPNEA ON EXERTION, IT IS MILD, HE REMAINS PHYSICALLY ACTIVE WITHOUT ANY LIMITATION. HE DOES HAVE OCCASIONAL PAROXYSMS OF COUGH, DUE TO NONSPECIFIC CAUSE, USUALLY GOES AWAY AND HE DOES NOT HAVE TO USE THE INHALER, SLEEP APNEA WELL TREATED WITH THE USE OF CPAP WHICH HE USES VERY REGULARLY EVERY NIGHT. ACCORDING TO HIS HE SLEEPS THROUGHOUT THE NIGHT, WITHOUT WAKING UP. HE REMAINS RELATIVELY ACTIVE DURING THE DAYTIME . [facility] Medical History Obesity (BMI 30.0-34.9) ROSARIO (obstructive sleep apnea) Obesity (BMI 30-39.9) Fatigue Overweight (BMI 25.0-29.9) Anxiety Insomnia Cerebellar ataxia Dizziness Osteoporosis Pure hypercholesterolemia Diabetes mellitus Adenomyomatosis of gallbladder Primary biliary cirrhosis Surgical History Hx of tonsillectomy Hx of appendectomy Family History Father Cancer Mother No problems noted. Social History Household Members: Spouse Household Members Other:: Housing: House Alcohol intake: former Patient Tobacco Use Status: Former Tobacco user e-Cigarette/Vaping Use: Never Used Second Hand Smoke Exposure: No service: No Current occupational status: retired Cognitive needs: No Hearing needs: No Vision needs: Yes (Glasses) Review of Systems Const All systems reviewed & are unremarkable except as noted in HPI and below Reports snoring Eyes Reports no additional complaints ENT Reports no additional complaints Card Denies chest pain, Denies irregular heart rhythm, Denies leg edema and Denies dyspnea on exertion Resp Denies cough, Denies dyspnea on exertion, Reports snoring and Denies wheezing GI Reports no additional complaints Reports no additional complaints Musc Reports no additional complaints Skin/Breast Reports system reviewed and no additional complaints, except as documented Neuro Reports other (History of mild cerebellar ataxia) Psych Reports depression (Mild controlled with small dose of escitalopram) Endo Reports no additional complaints Liborio/Lymph Reports no additional complaints Aller/Immun Reports no additional complaints and Denies wheezing Physical Exam Vital Signs: Last Vital Signs Pulse 63 01/19/24 11:07 BP 132/60 01/19/24 11:07 Pulse Ox 94 01/19/24 11:07 Oxygen Delivery Method Room Air 01/19/24 11:07 BMI result Body Mass Index 30.0 Const General: healthy appearing (Except for moderatelately overweight), comfortable, no acute distress, alert and awake Orientation/consciousness: patient oriented x3 HEENT Head: Yes normal to inspection General nose exam: No nasal polyps present and No nasal discharge present Face and sinus: Yes sinuses nontender Mouth: oropharynx abnormals (Oropharynx is slightly crowded and narrow, Mallampati class 3) Teeth and gingiva: other (There is mild regression of the lower jaw) Throat: Yes posterior oropharynx normal Eyes General: appearance normal, both eyes and all related structures Neck Neck: Yes normal visual inspection, Yes no lymphadenopathy, Yes trachea midline, Yes no JVD and Yes other (Neck circumference 15-1/2 inch) Thyroid: Thyroid normal Chest Chest palpation & inspection: normal inspection of the chest (INCREASED AP DIAMETER ), normal palpation of entire chest wall and no tenderness Resp Effort & Inspection: normal respiratory effort and no cough Auscultation: clear to auscultation bilaterally, no rhonchi and no wheezes Cardio Palpation: normal PMI Rate: regular rate Rhythm: regular rhythm Heart sounds: no gallops and no murmurs Peripheral pulses: Peripheral pulses 2+ throughout GI Palpation (GI): Soft to palpation, nontender, No hepatosplenomegaly present, no masses and Other GI palpation findings present (Abdomen is slightly protuberant) Auscultation: normal bowel sounds Back/Spine/Pelvis Thoracic/Lumbar Spine: thoracic and lumbar spine normal to inspection Skin General skin exam: no rashes or lesions noted Neuro General: patient oriented x3 and no focal motor deficits Cranial nerves: Yes CN's II-XII intact bilaterally Extrem General: Yes normal to inspection, Yes no clubbing, cyanosis or edema and Yes no calf tenderness Psych Appearance: grossly normal and well kempt Speech and movement: Normal speech and movement present Results Reviewed Results Reviewed: COMPLIANCE REPORT FOR THE LAST 30 NIGHTS IS REVIEWED. HE HAS USED 30/30 NIGHTS, 100%. AVERAGE USE IT PER NIGHT 8 HOURS 34 MINUTES. AVERAGE PRESSURE USED IS 6-8 CM. THERE IS NO AIR LEAK. RESIDUAL AHI 0 Assessment & Plan Assessment & Plan (1) Obesity (BMI 30-39.9): Comment: PATIENT IS MODERATELY OBESE, MAINLY DUE TO ABDOMINAL PROTUBERANCE. WEIGHT REMAINS STABLE Code(s): E66.9 - Obesity, unspecified Category: Medical Plan: DISCUSSED ABOUT THE WEIGHT. .HE IS NOT EXCESSIVELY OVERWEIGHT BUT ENCOURAGED TO WALK DAILY AND CUT DOWN THE CARBOHYDRATES. KEEP THE WEIGHT DOWN BY 2-5 LBS (2) ROSARIO (obstructive sleep apnea): Comment: Known case of obstructive sleep apnea, well treated with the use of CPAP. Compliance is excellent. Code(s): G47.33 - Obstructive sleep apnea (adult) (pediatric) Category: Medical Plan: COMMENDED. FOR GOOD COMPLIANCE ADVISED TO CONTINUE USING THE CPAP REGULARLY EVERY NIGHT. (3) Cough: Comment: He has intermittent dry cough. I think dry air Makes his cough worse Also mild allergic rhinitis may be contributing to cough. Code(s): R05.9 - Cough, unspecified Category: Medical Plan: DURING WINTER MONTHS KEEP THE HUMIDIFIER ON. USE VENTOLIN 2 PUFFS Q 6 HOURS P.R.N. FOR ANY BOUTS OF SUSTAINED COUGH. Coding Level of Care Code Est Pt Level 3 (68145) Diagnoses Obesity (BMI 30-39.9) E66.9 ROSARIO (obstructive sleep apnea) G47.33 Cough R05.9
[2024-01-19 11:07] VITALS: BP 132/60; PULSE 63; O2SAT 94
== END 2024-01-19 11:24 | disposition home or self-care (01) ==
PROVIDERS: PCP Internal Medicine; Visit Provider Internal Medicine
DX: E66.9 Obesity, unspecified (principal); G47.33 Obstructive sleep apnea (adult) (pediatric); R05.9 Cough, unspecified
CPT/HCPCS: 99213

== ENCOUNTER → 2024-01-19 11:01 | Outpatient (BNVA) | payer MEDICARE, SELFPAY | PROVIDERS: PCP Internal Medicine; Visit Provider Internal Medicine | DX: G47.33 Obstructive sleep apnea (adult) (pediatric) (principal); E66.9 Obesity, unspecified; R05.9 Cough, unspecified; Z68.30 Body mass index [BMI] 30.0-30.9, adult | CPT/HCPCS: 99212 ==

== ENCOUNTER 2024-02-18 09:18 | Outpatient (REF) | payer MEDICARE, SELFPAY ==
[2024-02-18 13:05] LABS: MANUAL DIFF FLAG NO
[2024-02-18 13:25] LABS: Basophils Percent Auto 0.4 % (0-2); Eosinophils Absolute Auto 0.2 X10*3/uL (0.0-0.4); Eosinophils Percent Auto 4.4 % (0-4); Hematocrit 43.6 % (42.0-52.0); Hemoglobin 14.5 g/dl (14.0-18.0); Imm Gran Abs Auto 0.02 X10*3/uL (0.00-0.03); Imm Gran Pct Auto 0.4 % (0.0-0.4); Lymphocytes Absolute Auto 1.1 X10*3/uL (1.2-4.9); Lymphocytes Percent Auto 21.5 % (20-40); Mean Corpuscular HGB Conc 33.3 g/dl (31.0-36.0); Mean Corpuscular Hemoglobin 31.3 pg (27.0-33.0); Mean Corpuscular Volume 94.2 fL (80.0-98.0); Mean Platelet Volume 11.6 fL (9.4-12.4); Monocytes Absolute Auto 0.5 X10*3/uL (0.1-1.2); Monocytes Percent Auto 8.6 % (2-11); Neutrophils Absolute Auto 3.4 x10*3/uL (2.0-8.3); Neutrophils Percent Auto 64.7 % (45-73); Platelet Count 106 X10*3/uL (160-400); Red Blood Count 4.63 X10*6/uL (4.60-5.80); Red Cell Distribution Width 13.2 % (11.0-16.0); White Blood Count 5.2 X10*3/uL (4.8-10.8)
[2024-02-18 13:42] LABS: Creatinine Urine 191.42 mg/dL; Estimated Average Glucose 137 mg/dL; Hemoglobin A1c % 6.4 % (<6.0); Microalbum/Creatinine Ratio Ur 21.4 ug/mg cr (<30)
[2024-02-18 14:10] LABS: Alanine Aminotransferase 35 U/L (0-40); Albumin Level 3.9 g/dL (3.5-5.0); Alkaline Phosphatase 145 U/L (39-117); Anion Gap 10 (12-20); Aspartate Amino Transferase 30 U/L (5-37); Bilirubin Total 0.9 mg/dL (0.0-1.0); Blood Urea Nitrogen 17 mg/dL (9-16); Calcium 9.1 mg/dL (8.4-10.2); Carbon Dioxide 28 mmol/L (22-29); Chloride 108 mmol/L (96-108); Cholesterol 133 mg/dL (<200); Estimated Glomerular Filt Rate > 60; Glucose Fasting 134 mg/dL (60-99); HDL Cholesterol 55 mg/dL (>40); LDL Cholesterol Calculated 68 mg/dL (<100); Sodium 142 mmol/L (135-145); Total Protein 7.2 g/dL (6.5-8.0); Triglycerides 54 mg/dL (<150)
== END 2024-02-18 09:19 | disposition home or self-care (01) ==
LOC: HO.HMGCLDS 09:18
PROVIDERS: PCP Internal Medicine; Visit Provider Internal Medicine
DX: D64.9 Anemia, unspecified (principal); E78.00 Pure hypercholesterolemia, unspecified; E11.9 Type 2 diabetes mellitus without complications
CPT/HCPCS: 36415; 80053; 80061; 82043; 82570; 83036; 85025

== ENCOUNTER 2024-02-23 10:32 | Outpatient (AMB) | payer MEDICARE, SELFPAY ==
[2024-02-23 10:52] VITALS: BP 126/80; PULSE 51; O2SAT 95; BMI 30.3
--- NOTE | 2024-02-23 10:52 | A.OFFPC_ITS ---
Vital Signs 02/23/24 10:52 Height 5 ft 10 in Weight 211 lb 6 oz BMI 30.3 BP 126/80 Blood Pressure Location Lt brachial Position Sitting Pulse 51 Pulse Source Pulse Oximeter Pulse Oximetry (%) 95 Oxygen Delivery Method Room Air Intake Visit Reasons: 4 Month F/U Account Maintenance Representative Required: No Accompanied by: Self / Same As Patient Allergies No Known Allergies [No Known Allergies*] Allergy (Verified 02/23/24 11:21) Medication List - Last Reconciled 02/23/24 by Donnell Gillis MD albuterol sulfate 90 mcg/actuation (Ventolin HFA) 2 puffs inhalation Q6H PRN 30 days amlodipine 5 mg PO DAILY cholecalciferol (vitamin D3) 25 mcg PO DAILY colchicine 0.6 mg PO BID [DIABETIC SHOES (1 pair) As directed] escitalopram oxalate 10 mg PO DAILY simvastatin 10 mg PO BEDTIME tizanidine 2 mg PO TID ursodiol 600 mg (2 x 300 mg) PO BID Tobacco use date assessed: 02/23/24 Fall risk assessment: No Falls in past year Last assessed Fall Risk: 02/23/24 Dental Screening Dental Screen Date: 02/23/24 Did you have a dental visit in the last 12 months?: No Did you have a dental problem in the last 6 months where you did not have access to dental care?: No Was dental information given to patient?: No HPI 4 Month F/U HPI Details Patient comes in today for his follow up visit States that he feels okay He denies any headaches or dizziness Denies any chest pains, no increased SOB No nausea/vomiting, no abdominal pain No change in bowel habits noted States that he still experiences on and off pain in his right knee, which still tends to give out on him at times when he is walking He had his follow up labs done a few days ago - to discuss his results States that he already received his flu shot and COVID booster at his local pharmacy a few days ago [facility] Medical History (Updated 02/23/24 @ 11:57 by Donnell Gillis MD) ROSARIO (obstructive sleep apnea) Obesity (BMI 30-39.9) Fatigue Anxiety Insomnia Cerebellar ataxia Dizziness Osteoporosis Pure hypercholesterolemia Diabetes mellitus Adenomyomatosis of gallbladder Primary biliary cirrhosis Surgical History Hx of tonsillectomy Hx of appendectomy Family History Father Cancer Mother No problems noted. Social History Household Members: Spouse Household Members Other:: Housing: House Alcohol intake: former Patient Tobacco Use Status: Former Tobacco user e-Cigarette/Vaping Use: Never Used Second Hand Smoke Exposure: No service: No Current occupational status: retired Cognitive needs: No Hearing needs: No Vision needs: Yes (Glasses) Questionnaire PHQ-9 Over the last 2 weeks, how often have you been bothered by any of the following problems? 1. Little interest or pleasure in doing things: not at all 2. Feeling down, depressed, or hopeless: not at all 3. Trouble falling or staying asleep, or sleeping too much: not at all 4. Feeling tired or having little energy: not at all 5. Poor appetite or overeating: not at all 6. Feeling bad about yourself - or that you are a failure or have let yourself or your family down: not at all 7. Trouble concentrating on things, such as reading the newspaper or watching television: not at all 8. Moving or speaking so slowly that other people could have noticed. Or the opposite - being so fidgety or restless that you have been moving around a lot more than usual: not at all 9. Thoughts that you would be better off or of hurting yourself in some way: not at all Total score: 0 Depression Screening Interpretation: Negative Depression Screening Done: Yes 11616 - PHQ-9 Billing: Yes Source: Developed by Drs. Kevin Mcmullen, Juany Felix, Adolph Anderson and colleagues, with an educational michael from [employer]. Thrive Questionnaire Date Thrive assessed: 02/23/24 I am a: Patient What is your living situation today?: I have a steady place to live Within the past 12 months, did the food you bought not last and you didn't have the money to get more?: Never true Within the past 12 months, did you worry whether your food would run out before you got money to buy more?: Never true Do you have trouble paying for medicines?: No Do you have trouble getting transportation to medical appointments?: No Do you have trouble paying your heating and electricity bill?: No Do you have trouble taking care of your child, family member or friend?: No Do you have trouble with day-to-day activities such as bathing, preparing meals, shopping, managing finances, etc.?: No Are you currently unemployed and looking for a job?: No Are you interested in more education?: No Please select the resources that you would like help with: None Currently or been in a relationship where the following occur: No concerns reported THRIVE Score: 0 AUDIT C Alcohol Use Questionnaire (AUDIT-C) 1. How often do you have a drink containing alcohol?: Never 3. How often do you have six or more drinks on one occasion?: Never Total Score: 0 Score Reviewed/Action Taken: Yes SHERMAN-7 AMB Questionnaire SHERMAN-7 Date SHERMAN - 7 assessed: 02/23/24 Feeling nervous, anxious, or on edge: 0 = Not at all Not being able to stop or control worryin = Not at all Worrying too much about different things: 0 = Not at all Trouble relaxin = Not at all Being so restless that it is hard to sit still: 0 = Not at all Becoming easily annoyed or irritable: 0 = Not at all Feeling afraid as if something awful might happen: 0 = Not at all Total SHERMAN-7 score (0-4 normal; 5-9 mild; 10-14 moderate; 15-21 severe): 0 Source: Developed by Drs. Kevin Mcmullen, Juany Felix, Adolph Anderson and colleagues, with an educational michael from [employer]. Review of Systems Const Denies chills, Denies fatigue, Denies fever(s) and Denies headache(s) ENT Denies dysphagia, Denies dizziness, Denies otalgia, Denies headache(s), Denies neck pain, Denies odynophagia and Denies sore throat Card Denies chest pain, Denies palpitations and Denies dyspnea Resp Denies chest congestion, Denies cough, Denies dyspnea and Denies wheezing GI Denies abdominal pain, Denies constipation, Denies dysphagia, Denies heartburn, Denies diarrhea, Denies nausea, Denies odynophagia and Denies vomiting Denies dysuria, Denies nocturia and Denies urinary frequency Musc Denies back pain, Reports arthralgias (in the right knee, on and off) and Denies neck pain Skin/Breast Denies rash Neuro Denies dizziness and Denies headache(s) Psych Reports anxiety (better with Rx) Endo Denies fatigue and Denies palpitations Aller/Immun Denies wheezing Physical exam (Primary Care) Vital Signs: Last Vital Signs Pulse 51 02/23/24 10:52 BP 126/80 02/23/24 10:52 Pulse Ox 95 02/23/24 10:52 Oxygen Delivery Method Room Air 02/23/24 10:52 BMI result Body Mass Index 30.3 Tobacco/Smoking Status: Tobacco use Status Tobacco use date assessed 02/23/24 02/23/24 10:57 Patient Tobacco Use Status Former Tobacco user 02/23/24 10:57 e-Cigarette/Vaping Use Never Used 02/23/24 10:57 PHQ-9: PHQ-9 Score PHQ-9: Total score 0 02/23/24 10:57 Depression Screening Interpretation: Negative Thrive Assessment: Date of Thrive Assessment Date Thrive assessed 02/23/24 02/23/24 10:57 Currently or been in a relationship where the following occur: No concerns reported Const General: no acute distress and alert HENMT Ears: TM's normal bilaterally and EAC's normal Throat: Yes posterior oropharynx normal and Yes tonsils normal (no TP congestion noted) Neck Neck: Yes no lymphadenopathy and Yes supple Thyroid: Thyroid normal Resp Auscultation: clear to auscultation bilaterally, no rales and no wheezes Cardio Rate: regular rate Rhythm: regular rhythm Heart sounds: no murmurs GI Palpation (GI): Soft to palpation and nontender Auscultation: normal bowel sounds General: Yes no CVA tenderness Back/Spine/Pelvis Back: no CVA tenderness Thoracic/Lumbar Spine: No lumbar spinal tenderness Skin Rashes: no rashes Extrem General: Yes no clubbing, cyanosis or edema Right lower extremity: knee Details: tenderness (mild) and normal ROM; no swelling Office Procedures Flu Questionnaire Does the patient have a severe egg allergy?: No Immunizations Fluarix Triv 3056-6131 (PF) 45 mcg (15 mcg x 3)/0.5 mL IM syringe Performing Provider: Donnell Gillis MD Performing Location: [facility] [place] [facility] Documented (not given) by: DEDRA Strauss on 02/23/24 10:58 Reason Not Given: Received Previously Results Reviewed Results Reviewed: Laboratory Tests 02/18/24 09:57 WBC 5.2 Hgb 14.5 Hct 43.6 Plt Count 106 L Sodium 142 Potassium 4.0 Creatinine 0.88 Estimated GFR > 60 Fasting Glucose 134 H Hemoglobin A1c % 6.4 H Calcium 9.1 AST 30 ALT 35 Triglycerides 54 Cholesterol 133 LDL Cholesterol, Calc 68 HDL Cholesterol 55 Urine Creatinine 191.42 Urine Microalbumin 41.0 Microalb/Creat Ratio 21.4 Coding Level of Care Code Est Pt Level 4 (09984) Diagnoses Primary biliary cirrhosis K74.3 Pure hypercholesterolemia E78.00 Type 2 diabetes mellitus without complication, without long-term current use of insulin E11.9 Diabetes mellitus type: type 2 Diabetes mellitus exterminator insulin use: without exterminator use Diabetes mellitus complication status: without complication 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 I44.30 Osteoporosis without current pathological fracture, unspecified osteoporosis type M81.0 Osteoporosis type: unspecified Presence of current pathological fracture: without current pathological fracture Multiple thyroid nodules E04.2 Primary osteoarthritis of right knee M17.11 Osteoarthritis type: primary Recurrent dry cough R05.8 ROSARIO (obstructive sleep apnea) G47.33 Cerebellar ataxia G11.9 Insomnia, unspecified type G47.00 Insomnia type: unspecified Anxiety F41.9 Obesity (BMI 30-39.9) E66.9 Assessment & Plan Assessment & Plan (1) Primary biliary cirrhosis: Comment: EGD done in 2018 showed 1+ varices and changes consistent with patient's gastropathy He used to see [facility] in [place] but is now seeing Dr. Gaston here locally for gastroenterology follow up and management Code(s): K74.3 - Primary biliary cirrhosis Category: Medical Plan: Continue Ursodiol 300 mg 2 capsules BID and Colchicine 0.6 mg BID Follow up with GI (Dr. Gaston) as scheduled (2) Pure hypercholesterolemia: Code(s): E78.00 - Pure hypercholesterolemia, unspecified Category: Medical Plan: Results of his labs done a few days ago reviewed and discussed with patient Reinforced low cholesterol diet Continue Simvastatin 10 mg QD Will recheck his labs and fasting lipids in 4 months for follow-up (3) Diabetes mellitus: Code(s): E11.9 - Type 2 diabetes mellitus without complications Category: Medical Qualifiers: Diabetes mellitus type: type 2 Diabetes mellitus correction insulin use: without correction use Diabetes mellitus complication status: without complication Qualified Code(s): E11.9 - Type 2 diabetes mellitus without compli cations Plan: His HgbA1c was at 6.4% on his labs done a few days ago (was previously at 6.6% a few months ago) - goal is < 7.0% Reinforced diabetic diet - patient has not required any Rx for his diabetes so far C-peptide and SHERMAN Ab levels were both normal when checked a few months ago He has continued to benefit from the use of diabetic footwears regularly (4) Adenomyomatosis of gallbladder: Comment: Abdominal US done in early 2019 revealed (+) fatty liver changes with cho lelithiasis (with findings suggesting possible chronic cholecystitis) and gallbladder adenomyomatosis - patient denies any acute abdominal symptoms/pain Code(s): D13.5 - Benign neoplasm of extrahepatic bile ducts Category: Medical Plan: He is advised again that this is a benign condition and he does not require further intervention for this Patient has had no acute symptoms lately (5) Heart block atrioventricular: Code(s): I44.30 - Unspecified atrioventricular block Category: Medical Plan: Holter monitor done in July 2023 revealed underlying sinus bradycardia with an average rate of 53/Min. He has second-degree heart block suggesting Mobitz type 1, with frequent bradycardia He was seen by EP in consultation but they decided against a pacemaker insertion His exercise stress test in December 2023 came out okay, with myocardial perfusion imaging study shows normal myocardial perfusion. Gated LVEF is 65% during stress and 62% during rest. Echocardiogram back in 2021 showed (+) mild aortic valve calcification, mild mitral annular calcification mild tricuspid regurgitation Per cardiology, there are no clear hemodynamic implications from these and will just continue to monitor these for now (6) Osteoporosis: Code(s): M81.0 - Age-related osteoporosis without current pathological fracture Category: Medical Qualifiers: Osteoporosis type: unspecified Presence of current pathological fracture: without current pathological fracture Qualified Code(s): M81.0 - Age- related osteoporosis without current pathological fracture Plan: He was on Prolia 60 mg subcutaneous injection every 6 months for about 4 to 5 years and Rx was stopped over a year ago Repeat BMD done on 12/27/2020 showed a 19.6% improvement in the AP spine from baseline, 10.0% improvement from previous and a 6.7% improvement in the left femur from baseline, 0.5% increase from previous He was recently seen by Dr. Fernandez for endocrinology follow up and was also taken off his Fosamax; was advised to wait for another year and then repeat his BMD, which will be due on or after May 2024 He was also reportedly advised that he does not need to follow up with endocrinology again for this issue unless his follow up BMD gets significantly worse in the future (7) Multiple thyroid nodules: Code(s): E04.2 - Nontoxic multinodular goiter Category: Medical Plan: Thyroid US done in August 2023 revealed (+) 1.9 cm right midpole TR 5 thyroid nodule meets criteria for biopsy. Fine-needle aspiration was recommended He was seen by Dr. Fernandez for initial endocrinology consultation a few months ago, who agreed that patient will require FNAB He is now scheduled with endocrinology again in March 2024 for thyroid aspiration Bx (8) Osteoarthritis of right knee: Code(s): M17.11 - Unilateral primary osteoarthritis, right knee Category: Medical Qualifiers: Osteoarthritis type: primary Qualified Code(s): M17.11 - Unilateral primary osteoarthritis, right knee Plan: X-rays of the right knee done in March 2023 revealed (+) OA changes He was referred to and see by Dr. Benitez a few months ago and was reportedly advised that as his symptoms were mild, no further intervention is indicated at the time but he is advised to call up orthopedics at any time if his knee symptoms get significantly worse (9) Recurrent dry cough: Code(s): R05.8 - Other specified cough Category: Medical Plan: He was seen and evaluated by pulmonary (Dr. Myers) a few months ago and was advised that this is likely multifactorial, including due to dry air, GERD and allergies He also appears to have some degree of ILD, which can contribute to his cough as well Patient states that his symptoms have improved a lot since he was started on his Albuterol inhaler Continue Albuterol HFA 2 inhalations Q 6 hours PRN He was also advised to take some OTC antihistamines like Loratadine 10 mg QD PRN to help with his symptoms (10) ROSARIO (obstructive sleep apnea): Comment: Known case of obstructive sleep apnea, well treated with the use of CPAP. Compliance is excellent. 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, unspecified Category: Medical Plan: Patient has gait instability due to his ataxia Follow up with Neurology as scheduled (12) Insomnia: Code(s): G47.00 - Insomnia, unspecified Category: Medical Qualifiers: Insomnia type: unspecified Qualified Code(s): G47.00 - Insomnia, unspecified Plan: Sleep hygiene reinforced Has been taking OTC sleep aids like NyQuil PM as needed with some relief (13) Anxiety: Code(s): F41.9 - Anxiety disorder, unspecified Category: Medical Plan: Continue Escitalopram 10 mg QD States that his anxiety has been well-controlled on his current Rx (14) Obesity (BMI 30-39.9): Comment: PATIENT IS MODERATELY OBESE, MAINLY DUE TO ABDOMINAL PROTUBERANCE. WEIGHT REMAINS STABLE Code(s): E66.9 - Obesity, unspecified Category: Medical Plan: Reinforced diet/exercise as tolerated/lose weight but reinforced fall precautions due to his gait instability Plan Follow up in 4 months Orders: Orders Lipid Panel 4 Months E78.00 - Pure hypercholesterolemia, unspecified UA CC w/rflx Micro + Cult 4 Months R30.0 - Dysuria Vitamin D 25-OH Total 4 Months E55.9 - Vitamin D deficiency, unspecified Influenza [id number] Immunization Today Z23 - Encounter for immunization Complete Blood Count Auto Diff 4 Months D64.9 - Anemia, unspecified Comprehensive Ecru. Panel Fast 4 Months E78.00 - Pure hypercholesterolemia, unspecified TSH reflex Free T4 4 Months E78.00 - Pure hypercholesterolemia, unspecified Vitamin B12 and Folate 4 Months E53.8 - Deficiency of other specified B group vitamins
== END 2024-02-23 11:36 | disposition home or self-care (01) ==
PROVIDERS: PCP Internal Medicine; Visit Provider Internal Medicine
DX: K74.3 Primary biliary cirrhosis (principal); E11.9 Type 2 diabetes mellitus without complications; G11.9 Hereditary ataxia, unspecified; E66.9 Obesity, unspecified; Z68.30 Body mass index [BMI] 30.0-30.9, adult; Z23 Encounter for immunization; E78.00 Pure hypercholesterolemia, unspecified; D13.5 Benign neoplasm of extrahepatic bile ducts; I44.30 Unspecified atrioventricular block; M81.0 Age-related osteoporosis without current pathological fracture; E04.2 Nontoxic multinodular goiter; M17.11 Unilateral primary osteoarthritis, right knee; R05.8 Other specified cough

== ENCOUNTER → 2024-02-23 10:32 | Outpatient (BNVA) | payer MEDICARE, SELFPAY | PROVIDERS: PCP Internal Medicine; Visit Provider Internal Medicine | DX: K74.3 Primary biliary cirrhosis (principal); E78.00 Pure hypercholesterolemia, unspecified; E11.9 Type 2 diabetes mellitus without complications; D13.5 Benign neoplasm of extrahepatic bile ducts; I44.30 Unspecified atrioventricular block; M81.0 Age-related osteoporosis without current pathological fracture; E04.2 Nontoxic multinodular goiter; M17.11 Unilateral primary osteoarthritis, right knee; R05.8 Other specified cough; G47.33 Obstructive sleep apnea (adult) (pediatric); G11.9 Hereditary ataxia, unspecified; G47.00 Insomnia, unspecified; F41.9 Anxiety disorder, unspecified; E66.9 Obesity, unspecified | CPT/HCPCS: 96127; 99212 ==

== ENCOUNTER 2024-04-15 10:42 | Outpatient (AMB) | payer MEDICARE, SELFPAY ==
[2024-04-15 10:44] VITALS: BP 140/60; PULSE 53; BMI 30.7
--- NOTE | 2024-04-15 10:44 | A.OFFVIS_ITS ---
Vital Signs 04/15/24 10:44 Height 5 ft 10 in Weight 214 lb 1.102 oz BMI 30.7 BP 140/60 H Blood Pressure Location Lt brachial Position Sitting Pulse 53 Pulse Source Pulse Oximeter Intake Visit Reasons: Thyroid nodule-confirmed Intake Note: Patient present today for Thyroid nodule office visit. Content Strategy Lead Required: No Accompanied by: Spouse Allergies No Known Allergies [No Known Allergies*] Allergy (Verified 04/15/24 10:48) Medication List - Last Reconciled 04/15/24 by Hermelinda Fink MD albuterol sulfate 90 mcg/actuation (Ventolin HFA) 2 puffs inhalation Q6H PRN 30 days amlodipine 5 mg PO DAILY cholecalciferol (vitamin D3) 25 mcg PO DAILY colchicine 0.6 mg PO BID [DIABETIC SHOES (1 pair) As directed] escitalopram oxalate 10 mg PO DAILY simvastatin 10 mg PO BEDTIME tizanidine 2 mg PO TID ursodiol 600 mg (2 x 300 mg) PO BID HPI Comments Details: 84 yo male today for fup visit ,for multinodular goiter. Here today with Katie. He had a CT chest in July 2023 which incidentally showed multiple thyroid nodules. Subsequently underwent ultrasound of the thyroid in August 2023, I reviewed the images myself which showed multiple bilateral thyroid nodules, a right midpole 1.9 cm dominant nodule which is solid, hyperechoic, taller than wide with punctate echogenic foci, TR 5 nodule and per REGGIE this is high suspicion nodule with greater than 50% chance of malignancy. This meets criteria for FNA. Also noted a left mid 1.2 cm nodule which is commented on as spongiform, while this is mixed cystic and solid, it does have some macrocalcifications in it, I would not call it spongiform, we will keep an eye on this 1. Patient currently denies heat or cold intolerance, diarrhea or constipation, hair loss, palpitation, anxiety, weight changes, mood changes, low energy, changes in appearance of eyes or vision changes, tremors, increased diaphoresis or dry skin. ? Patient denies any difficulty swallowing, pain on swallowing or voice changes or difficulty breathing. Patient denies any history of childhood neck radiation. Denies having ever used lithium, amiodarone or biotin supplements. Patient denies any family history of thyroid cancer or thyroid disease. Review of systems Constitutional: no fevers, chills or weight loss HEENT: no changes in vision Cardiac: No chest pain, discomfort or palpitations. Pulmonary: No SOB GI:No abdominal pain, no nausea or vomiting, no anorexia, no blood in stool : no burning micturition, dysuria or increase in urinary frequency Neurologic: No dizziness, no weakness in extremities MSK: no back pain or joint stiffness Physical exam General: sitting comfortably in no acute distress HEENT: normocephalic/atraumatic, moist oral mucosa Neck: supple, symmetrical, no thyromegaly Cardiac: normal heart sounds Pulm: normal breath sounds B/L, no added breath sounds Abd: not distended, no tenderness Extremities: no edema, no signs of myxedema Neuro: AAO x3, Speech: normal, no facial droop, moving all 4 extremities Laboratory Tests 06/09/23 10/13/23 09:01 08:18 TSH 1.26 0.84 US 09/10/23 THYROID FINDINGS: SIZE: Measurements of the thyroid lobes and nodules are given in sagittal, anteroposterior and transverse dimensions respectively. Right Thyroid Lobe: 5.6 x 2.5 x 2.7 cm, volume 19.6 mL. Parenchyma: The gland echotexture is homogeneous. Thyroid vascularity is normal. Left Thyroid Lobe: 5.2 x 2.2 x 1.8 cm, volume 10.7 mL. Parenchyma: The gland echotexture is homogeneous. Thyroid vascularity is normal. Isthmus: 0.62 cm in maximum AP dimension. Estimated total number of nodules greater than or equal to 1 cm: 4. Cut Off Saw Tender Metal nodules are described as follows: 1. Location: Right inferior. Size: 1.8 x 1.7 x 1.7 cm, volume 2.7 mL. Nodule characteristics: Composition: Mixed cystic and solid (1). Echogenicity: Hypoechoic (2). Shape: Not taller than wide (0). Margins: Smooth (0). Echogenic Foci: None (0). ACR TI-RADS total points: 3 ACR TI-RADS category: 3 2. Location: Right mid. Size: 1.9 x 1.7 x 1.6 cm, volume 2.8 mL. Nodule characteristics: Composition: Solid (2). Echogenicity: Hyperechoic (1). Shape: Taller than wide (3). Margins: Smooth (0). Echogenic Foci: Punctate echogenic foci (3). ACR TI-RADS total points: 9 ACR TI-RADS category: 5 3. Location: Left mid. Size: 1.2 x 0.83 x 0.93 cm, volume 0.50 mL. Nodule characteristics: Composition: Spongiform (0). Echogenicity: Anechoic (0). Shape: Not taller than wide (0). Margins: Smooth (0). Echogenic Foci: None (0). ACR TI-RADS total points: 0 ACR TI-RADS category: 1 4. Location: Left mid. Size: 0.80 x 0.50 x 0.80 cm, volume 0.16 mL. Nodule characteristics: Composition: Spongiform (0). Echogenicity: Anechoic (0). Shape: Not taller than wide (0). Margins: Smooth (0). Echogenic Foci: None (0). ACR TI-RADS total points: 0 ACR TI-RADS category: 1 5. Location: Left mid. Size: 1.0 x 0.70 x 0.90 cm, volume 0.33 mL. Nodule characteristics: Composition: Solid (2). Echogenicity: Hypoechoic (2). Shape: Not taller than wide (0). Margins: Smooth (0). Echogenic Foci: None (0). ACR TI-RADS total points: 4 ACR TI-RADS category: 4 NODES: No lymphadenopathy is seen in the tissue surrounding the thyroid gland. US/US thyroid IMPRESSION: 1.9 cm right midpole TR 5 thyroid nodule m [facility]LY [facility] Medical History (Updated 02/23/24 @ 11:57 by Donnell Gillis MD) ROSARIO (obstructive sleep apnea) Obesity (BMI 30-39.9) Fatigue Anxiety Insomnia Cerebellar ataxia Dizziness Osteoporosis Pure hypercholesterolemia Diabetes mellitus Adenomyomatosis of gallbladder Primary biliary cirrhosis Surgical History Hx of tonsillectomy Hx of appendectomy Family History Father Cancer Mother No problems noted. Social History Household Members: Spouse Household Members Other:: Housing: House Alcohol intake: former Patient Tobacco Use Status: Former Tobacco user e-Cigarette/Vaping Use: Never Used Second Hand Smoke Exposure: No service: No Current occupational status: retired Cognitive needs: No Hearing needs: No Vision needs: Yes (Glasses) Physical Exam Vital Signs: Last Vital Signs Pulse 53 04/15/24 10:44 BP 140/60 H 04/15/24 10:44 BMI result Body Mass Index 30.7 Assessment & Plan Assessment & Plan (1) Multiple thyroid nodules: Code(s): E04.2 - Nontoxic multinodular goiter Category: Medical Plan: 84-year-old male with no past medical history of head or neck radiation, with no family history of thyroid cancer coming in today for thyroid nodules follow up. He had a CT chest in July 2023 which incidentally showed multiple thyroid nodules. Subsequently underwent ultrasound of the thyroid in August 2023, I reviewed the images myself which showed multiple bilateral thyroid nodules, a right midpole 1.9 cm dominant nodule which is solid, hyperechoic, taller than wide with punctate echogenic foci, TR 5 nodule and per REGGIE this is high suspicion nodule with greater than 50% chance of malignancy. This meets criteria for FNA. Also noted a left mid 1.2 cm nodule which is commented on as spongiform, while this is mixed cystic and solid, it does have some macrocalcifications in it, I would not call it spongiform, we will keep an eye on this 1. I explained that it is common to have thyroid nodules. About 95% of the time these nodules are benign. However if the nodule is > 1 cm in size or suspicious on ultrasound then a fine need aspiration biopsy is recommended. We discussed that a FNAB involves 4-5 passes with a small gauge needle and material obtained is sent off for cytology.If the cytopathology is benign then the nodule will be followed annually with repeat ultrasounds. However if it is suspicious or malignant, we will need to discuss further management. Indeterminate cytology can be further investigated with repeat FNA, genetic testing or empiric lobectomy. Malignant cytology is managed with either lobectomy or total thyroidectomy. We discussed briefly that thyroid cancer is, in most patients, an indolent disease that does not affect mortality. We will arrange for FNA of the right mid 1.9 cm nodule at next available opening and patient will follow up with me in clinic thereafter for results and further decision making. Plan: -scheduled for right mid 1.9 cm thyroid nodule FNA biopsy and a follow up 2 weeks after to discuss results Plan I spent 30 minutes in reviewing the record, seeing the patient and documenting in the medical record. Orders: Orders US biopsy thyroid Today E04.2 - Nontoxic multinodular goiter Patient Instructions: We will schedule you for a right sided thyroid biopsy and a follow up 2 weeks after to discuss results Coding Level of Care Code Est Pt Level 4 (97744) Diagnoses Multiple thyroid nodules E04.2 Time Spent (min) 30
== END 2024-04-15 11:31 | disposition home or self-care (01) ==
PROVIDERS: PCP Internal Medicine; Visit Provider Student in an Organized Health Care Education/Training Program
DX: E04.2 Nontoxic multinodular goiter (principal)
CPT/HCPCS: 99214

== ENCOUNTER → 2024-04-15 10:42 | Outpatient (BNVA) | payer MEDICARE, SELFPAY | PROVIDERS: PCP Internal Medicine; Visit Provider Student in an Organized Health Care Education/Training Program | DX: E04.2 Nontoxic multinodular goiter (principal) | CPT/HCPCS: 99212 ==

== ENCOUNTER 2024-05-11 10:32 | Outpatient (REF) | payer MEDICARE, SELFPAY ==
--- NOTE | 2024-05-11 11:28 | PCN2_ITS ---
Brief Operative Note Date of procedure: 05/11/24 Pre-op diagnosis: right mid lobe 1.9 cm thyroid nodule FNA biopsy Post-op diagnosis: same Procedure: THYROID FINE NEEDLE ASPIRATION PROCEDURE NOTE ? PROCEDURE PERFORMED: Ultrasound-guided FNA of thyroid nodule ? OPERATORS: Dr. Hermelinda Fink ? INDICATION: right mid lobe 1.9 cm thyroid nodule ; FNA performed to assess for malignancy ? DESCRIPTION OF PROCEDURE: The indications for FNA (to assess for malignancy) were reviewed with the patient in detail. Potential complications (e.g., bleeding, infection, damage to local structures, absence of clear diagnosis after FNA) were reviewed. Alternatives to FNA including conservative observation or surgery were described. The patient understood and agreed to proceed. This was documented by the signing of the written informed consent form. A time-out was performed to confirm the patient's identity and the site of planned FNA. The nodule of interest was identified using ultrasound (14 MHz linear array probe). The site of FNA was then draped in the usual fashion and ca refully cleaned and prepared using alcohol swabs. The skin at the previously-identified site of needle insertion was iced and sprayed with numbing spray. Under ultrasound guidance, _5_ passes were performed using a 1.5-inch, 25-gauge needle, and sample was obtained via capillary action. The needle tip was clearly visualized to be within the nodule at the time of sampling for _3_ of _5 passes The patient tolerated the procedure well. There were no immediate complications. A small adhesive bandage was applied, and the patient was advised to take acetaminophen (rather than NSAIDs) for any discomfort and to report any signs of inflammation/infection or marked swelling. IMPRESSION: Technically successful ultrasound-guided fine needle aspiration of right mid lobe 1.9 cm thyroid nodule FNA biopsy. PLAN: The patient was advised that I will provide follow-up regarding the cytology result and any subsequent plans. Hermelinda Fink MD Endocrinology Attending Condition: stable Disposition: same day
== END 2024-05-11 10:33 | disposition home or self-care (01) ==
LOC: HO.US 10:32
PROVIDERS: PCP Internal Medicine; Visit Provider Student in an Organized Health Care Education/Training Program
DX: E04.2 Nontoxic multinodular goiter (principal)
CPT/HCPCS: 10005; 88173; 88305

== ENCOUNTER → 2024-05-11 10:32 | Outpatient (BNV) | payer MEDICARE, SELFPAY | PROVIDERS: PCP Internal Medicine; Visit Provider Student in an Organized Health Care Education/Training Program | DX: E04.2 Nontoxic multinodular goiter (principal) | CPT/HCPCS: 10005 ==

== ENCOUNTER 2024-06-01 13:48 | Outpatient (AMB) | payer MEDICARE, SELFPAY ==
[2024-06-01 13:51] VITALS: BP 112/68; PULSE 46; BMI 31.1
--- NOTE | 2024-06-01 13:51 | MHC.OFFVIS ---
Vital Signs 06/01/24 13:51 Height 5 ft 10 in Weight 216 lb 7.903 oz BMI 31.1 BP 112/68 Blood Pressure Location Lt brachial Position Sitting Pulse 46 L Pulse Source Pulse Oximeter Intake Visit Reasons: Biopsy f/u Intake Note: Patient present today for biopsy results. Key Cutter Required: No Accompanied by: Spouse Allergies No Known Allergies [No Known Allergies*] Allergy (Verified 06/01/24 13:55) HPI Comments Details: 84 yo male today for fup visit ,for multinodular goiter. Here today with Katie. He had a CT chest in July 2023 which incidentally showed multiple thyroid nodules. Subsequently underwent ultrasound of the thyroid in August 2023, I reviewed the images myself which showed multiple bilateral thyroid nodules, a right midpole 1.9 cm dominant nodule which is solid, hyperechoic, taller than wide with punctate echogenic foci, TR 5 nodule and per REGGIE this is high suspicion nodule with greater than 50% chance of malignancy. This meets criteria for FNA. Also noted a left mid 1.2 cm nodule which is commented on as spongiform, while this is mixed cystic and solid, it does have some macrocalcifications in it, I would not call it spongiform, we will keep an eye on this 1. Interval history 05/11/2024: Underwent FNA biopsy of the right midpole 1.9 cm nodule which came back as AUS with microfollicular arrangement without overt cytologic or nuclear atypia. Afirma benign, 4% risk of malignancy. Patient currently denies heat or cold intolerance, diarrhea or constipation, hair loss, palpitation, anxiety, weight changes, mood changes, low energy, changes in appearance of eyes or vision changes, tremors, increased diaphoresis or dry skin. ? Patient denies any difficulty swallowing, pain on swallowing or voice changes or difficulty breathing. Patient denies any history of childhood neck radiation. Denies having ever used lithium, amiodarone or biotin supplements. Patient denies any family history of thyroid cancer or thyroid disease. Review of systems Constitutional: no fevers, chills or weight loss HEENT: no changes in vision Cardiac: No chest pain, discomfort or palpitations. Pulmonary: No SOB GI:No abdominal pain, no nausea or vomiting, no anorexia, no blood in stool : no burning micturition, dysuria or increase in urinary frequency Neurologic: No dizziness, no weakness in extremities MSK: no back pain or joint stiffness Physical exam General: sitting comfortably in no acute distress HEENT: normocephalic/atraumatic, moist oral mucosa Neck: supple, symmetrical, no thyromegaly Cardiac: normal heart sounds Pulm: normal breath sounds B/L, no added breath sounds Abd: not distended, no tenderness Extremities: no edema, no signs of myxedema Neuro: AAO x3, Speech: normal, no facial droop, moving all 4 extremities Laboratory Tests 06/09/23 10/13/23 09:01 08:18 TSH 1.26 0.84 US 09/10/23 THYROID FINDINGS: SIZE: Measurements of the thyroid lobes and nodules are given in sagittal, anteroposterior and transverse dimensions respectively. Right Thyroid Lobe: 5.6 x 2.5 x 2.7 cm, volume 19.6 mL. Parenchyma: The gland echotexture is homogeneous. Thyroid vascularity is normal. Left Thyroid Lobe: 5.2 x 2.2 x 1.8 cm, volume 10.7 mL. Parenchyma: The gland echotexture is homogeneous. Thyroid vascularity is normal. Isthmus: 0.62 cm in maximum AP dimension. Estimated total number of nodules greater than or equal to 1 cm: 4. Machine Bander And Cellophaner nodules are described as follows: 1. Location: Right inferior. Size: 1.8 x 1.7 x 1.7 cm, volume 2.7 mL. Nodule characteristics: Composition: Mixed cystic and solid (1). Echogenicity: Hypoechoic (2). Shape: Not taller than wide (0). Margins: Smooth (0). Echogenic Foci: None (0). ACR TI-RADS total points: 3 ACR TI-RADS category: 3 2. Location: Right mid. Size: 1.9 x 1.7 x 1.6 cm, volume 2.8 mL. Nodule characteristics: Composition: Solid (2). Echogenicity: Hyperechoic (1). Shape: Taller than wide (3). Margins: Smooth (0). Echogenic Foci: Punctate echogenic foci (3). ACR TI-RADS total points: 9 ACR TI-RADS category: 5 3. Location: Left mid. Size: 1.2 x 0.83 x 0.93 cm, volume 0.50 mL. Nodule characteristics: Composition: Spongiform (0). Echogenicity: Anechoic (0). Shape: Not taller than wide (0). Margins: Smooth (0). Echogenic Foci: None (0). ACR TI-RADS total points: 0 ACR TI-RADS category: 1 4. Location: Left mid. Size: 0.80 x 0.50 x 0.80 cm, volume 0.16 mL. Nodule characteristics: Composition: Spongiform (0). Echogenicity: Anechoic (0). Shape: Not taller than wide (0). Margins: Smooth (0). Echogenic Foci: None (0). ACR TI-RADS total points: 0 ACR TI-RADS category: 1 5. Location: Left mid. Size: 1.0 x 0.70 x 0.90 cm, volume 0.33 mL. Nodule characteristics: Composition: Solid (2). Echogenicity: Hypoechoic (2). Shape: Not taller than wide (0). Margins: Smooth (0). Echogenic Foci: None (0). ACR TI-RADS total points: 4 ACR TI-RADS category: 4 NODES: No lymphadenopathy is seen in the tissue surrounding the thyroid gland. US/US thyroid IMPRESSION: 1.9 cm right midpole TR 5 thyroid nodule m [facility] Medical History (Updated 02/23/24 @ 11:57 by Donnell Gillis MD) ROSARIO (obstructive sleep apnea) Obesity (BMI 30-39.9) Fatigue Anxiety Insomnia Cerebellar ataxia Dizziness Osteoporosis Pure hypercholesterolemia Diabetes mellitus Adenomyomatosis of gallbladder Primary biliary cirrhosis Surgical History Hx of tonsillectomy Hx of appendectomy Family History Father Cancer Mother No problems noted. Social History Household Members: Spouse Household Members Other:: Housing: House Alcohol intake: former Patient Tobacco Use Status: Former Tobacco user e-Cigarette/Vaping Use: Never Used Second Hand Smoke Exposure: No service: No Current occupational status: retired Cognitive needs: No Hearing needs: No Vision needs: Yes (Glasses) Assessment & Plan Assessment & Plan (1) Multiple thyroid nodules: Code(s): E04.2 - Nontoxic multinodular goiter Category: Medical Plan: 84-year-old male with no past medical history of head or neck radiation, with no family history of thyroid cancer coming in today for thyroid nodules follow up. He had a CT chest in July 2023 which incidentally showed multiple thyroid nodules. Subsequently underwent ultrasound of the thyroid in August 2023, I reviewed the images myself which showed multiple bilateral thyroid nodules, a right midpole 1.9 cm dominant nodule which is solid, hyperechoic, taller than wide with punctate echogenic foci, TR 5 nodule and per REGGIE this is high suspicion nodule with greater than 50% chance of malignancy. This meets criteria for FNA. Also noted a left mid 1.2 cm nodule which is commented on as spongiform, while this is mixed cystic and solid, it does have some macrocalcifications in it, I would not call it spongiform, we will keep an eye on this 1. 05/11/2024: Underwent FNA biopsy of the right midpole 1.9 cm nodule which came back as AUS with microfollicular arrangement without overt cytologic or nuclear atypia. Afirma benign, 4% risk of malignancy. Plan: -ordered thyroid ultrasound for April 2025 -ordered TSH, with reflex free T4 to be done 05/18 -follow up in 05/2025 Plan See above Orders: Orders Thyroid Stimulating Hormone 05/01/25 E04.2 - Nontoxic multinodular goiter Free T4 (Free Thyroxine) 05/01/25 E04.2 - Nontoxic multinodular goiter US thyroid 05/01/25 E04.2 - Nontoxic multinodular goiter Patient Instructions: Do ultrasound of the thyroid in April 2025 Do blood work in April 2025 -follow up in May 2025 Coding Level of Care Code Est Pt Level 3 (38022) Diagnoses Multiple thyroid nodules E04.2
== END 2024-06-01 14:04 | disposition home or self-care (01) ==
PROVIDERS: PCP Internal Medicine; Visit Provider Student in an Organized Health Care Education/Training Program
DX: E04.2 Nontoxic multinodular goiter (principal)
CPT/HCPCS: 99213

== ENCOUNTER → 2024-06-01 13:48 | Outpatient (BNVA) | payer MEDICARE, SELFPAY | PROVIDERS: PCP Internal Medicine; Visit Provider Student in an Organized Health Care Education/Training Program | DX: E04.2 Nontoxic multinodular goiter (principal) | CPT/HCPCS: 99212 ==

== ENCOUNTER 2024-06-24 10:22 | Outpatient (REF) | payer MEDICARE, SELFPAY ==
[2024-06-24 13:25] LABS: MANUAL DIFF FLAG NO
[2024-06-24 13:45] LABS: Basophils Percent Auto 0.4 % (0-2); Eosinophils Absolute Auto 0.3 X10*3/uL (0.0-0.4); Eosinophils Percent Auto 5.2 % (0-4); Hematocrit 42.3 % (42.0-52.0); Hemoglobin 14.1 g/dl (14.0-18.0); Imm Gran Abs Auto 0.02 X10*3/uL (0.00-0.03); Imm Gran Pct Auto 0.4 % (0.0-0.4); Lymphocytes Absolute Auto 1.3 X10*3/uL (1.2-4.9); Lymphocytes Percent Auto 25.7 % (20-40); Mean Corpuscular HGB Conc 33.3 g/dl (31.0-36.0); Mean Corpuscular Hemoglobin 30.7 pg (27.0-33.0); Mean Corpuscular Volume 92.2 fL (80.0-98.0); Mean Platelet Volume 11.8 fL (9.4-12.4); Monocytes Absolute Auto 0.5 X10*3/uL (0.1-1.2); Monocytes Percent Auto 9.6 % (2-11); Neutrophils Percent Auto 58.7 % (45-73); Platelet Count 109 X10*3/uL (160-400); Red Blood Count 4.59 X10*6/uL (4.60-5.80); Red Cell Distribution Width 13.4 % (11.0-16.0)
[2024-06-24 13:55] LABS: Appearance Urine Clear; Color Urine Yellow; Glucose Urine UA Negative (Negative); Leukocyte Esterase Urine Negative (Negative); Nitrite Urine Negative (Negative); Specific Gravity - Urine 1.015 (1.005-1.025); UMIC TRIGGER UACC YES; Urine Blood Negative (Negative); Urine Ketones Negative (Negative); Urine Protein 30 (1+) mg/dL (Neg-Trace)
[2024-06-24 13:58] LABS: Bacteria Urine None Seen (None Seen); Hyaline Casts Urine 0-2 /LPF (0-2); RBC Urine 0-2 /HPF (0-2); Squamous Epithelial Cell Urine 0-2 /HPF (0-2); WBC Urine 0-5 /HPF (0-5)
[2024-06-24 14:18] LABS: Alanine Aminotransferase 34 U/L (0-40); Alkaline Phosphatase 153 U/L (39-117); Anion Gap 12 (12-20); Aspartate Amino Transferase 39 U/L (5-37); Bilirubin Total 0.9 mg/dL (0.0-1.0); Blood Urea Nitrogen 15 mg/dL (9-16); Calcium 9.6 mg/dL (8.4-10.2); Carbon Dioxide 27 mmol/L (22-29); Chloride 106 mmol/L (96-108); Cholesterol 132 mg/dL (<200); Estimated Glomerular Filt Rate > 60; Glucose Fasting 117 mg/dL (60-99); HDL Cholesterol 55 mg/dL (>40); LDL Cholesterol Calculated 65 mg/dL (<100); Potassium 4.6 mmol/L (3.3-5.1); Sodium 140 mmol/L (135-145); Total Protein 7.6 g/dL (6.5-8.0); Triglycerides 60 mg/dL (<150)
[2024-06-24 14:22] LABS: TSH reflex Free T4 0.74 uIU/mL (0.32-4.0); Vitamin D 25-OH Total 52.5 ng/mL (>30)
[2024-06-24 14:40] LABS: Folate 16.4 ng/mL (> or = 4.0); Vitamin B12 832 pg/mL (200-900)
== END 2024-06-24 10:23 | disposition home or self-care (01) ==
LOC: HO.HMGCLDS 10:22
PROVIDERS: PCP Internal Medicine; Visit Provider Internal Medicine
DX: D64.9 Anemia, unspecified (principal); E55.9 Vitamin D deficiency, unspecified; E53.8 Deficiency of other specified B group vitamins; E78.00 Pure hypercholesterolemia, unspecified
CPT/HCPCS: 36415; 80053; 80061; 81001; 82306; 82607; 82746; 84443; 85025

== ENCOUNTER 2024-06-29 10:04 | Outpatient (AMB) | payer MEDICARE, SELFPAY ==
[2024-06-29 10:08] VITALS: BP 130/80; PULSE 57; O2SAT 96; BMI 30.3
--- NOTE | 2024-06-29 10:08 | A.OFFPC_ITS ---
Vital Signs 06/29/24 10:08 Height 5 ft 10 in Weight 211 lb 2 oz BMI 30.3 BP 130/80 Blood Pressure Location Lt brachial Position Sitting Pulse 57 Pulse Source Pulse Oximeter Pulse Oximetry (%) 96 Oxygen Delivery Method Room Air Intake Visit Reasons: 4 Months f/u [employer] Adviser Required: No Accompanied by: Self / Same As Patient Allergies No Known Allergies [No Known Allergies*] Allergy (Verified 06/29/24 10:41) Medication List - Last Reconciled 06/29/24 by Donnell Gillis MD albuterol sulfate 90 mcg/actuation (Ventolin HFA) 2 puffs inhalation Q6H PRN 30 days amlodipine 5 mg PO DAILY cholecalciferol (vitamin D3) 25 mcg PO DAILY colchicine 0.6 mg PO BID [DIABETIC SHOES (1 pair) As directed] escitalopram oxalate 10 mg PO DAILY simvastatin 10 mg PO BEDTIME tizanidine 2 mg PO TID ursodiol 600 mg (2 x 300 mg) PO BID Tobacco use date assessed: 06/29/24 Fall risk assessment: No Falls in past year Last assessed Fall Risk: 06/29/24 Dental Screening Dental Screen Date: 06/29/24 Did you have a dental visit in the last 12 months?: Yes Did you have a dental problem in the last 6 months where you did not have access to dental care?: No Was dental information given to patient?: Patient has dentist HPI 4 Months f/u HPI Details Patient comes in today for his follow up visit States that he feels okay He denies any headaches or dizziness Denies any chest pains, no increased SOB No nausea/vomiting, no abdominal pain No change in bowel habits noted He still has on and off pain in his right knee - knee still feels weak at times and tends to give out on him when he is walking but states that he has been able to manage it so far He was also seen by endocrinology and had thyroid nodule biopsy last month, which reportedly came out benign He had his follow up labs done a few days ago - to discuss his results [facility] Medical History ROSARIO (obstructive sleep apnea) Obesity (BMI 30-39.9) Fatigue Anxiety Insomnia Cerebellar ataxia Dizziness Osteoporosis Pure hypercholesterolemia Diabetes mellitus Adenomyomatosis of gallbladder Primary biliary cirrhosis Surgical History Hx of tonsillectomy Hx of appendectomy Family History Father Cancer Mother No problems noted. Social History Household Members: Spouse Household Members Other:: Housing: House Alcohol intake: former Patient Tobacco Use Status: Former Tobacco user e-Cigarette/Vaping Use: Never Used Second Hand Smoke Exposure: No service: No Current occupational status: retired Current occupational exposures/hazards: No Cognitive needs: No Hearing needs: No Vision needs: Yes (Glasses) Questionnaire PHQ-9 Over the last 2 weeks, how often have you been bothered by any of the following problems? 1. Little interest or pleasure in doing things: not at all 2. Feeling down, depressed, or hopeless: not at all 3. Trouble falling or staying asleep, or sleeping too much: not at all 4. Feeling tired or having little energy: not at all 5. Poor appetite or overeating: not at all 6. Feeling bad about yourself - or that you are a failure or have let yourself or your family down: not at all 7. Trouble concentrating on things, such as reading the newspaper or watching television: not at all 8. Moving or speaking so slowly that other people could have noticed. Or the opposite - being so fidgety or restless that you have been moving around a lot more than usual: not at all 9. Thoughts that you would be better off or of hurting yourself in some way : not at all Total score: 0 Depression Screening Interpretation: Negative Depression Screening Done: Yes 70293 - PHQ-9 Billing: Yes Source: Developed by Drs. Kevin Mcmullen, Juany Felix, Adolph Anderson and colleagues, with an educational michael from [employer]. Thrive Questionnaire Date Thrive assessed: 06/29/24 I am a: Patient What is your living situation today?: I have a steady place to live Within the past 12 months, did the food you bought not last and you didn't have the money to get more?: Never true Within the past 12 months, did you worry whether your food would run out before you got money to buy more?: Never true Do you have trouble paying for medicines?: No Do you have trouble getting transportation to medical appointments?: No Do you have trouble paying your heating and electricity bill?: No Do you have trouble taking care of your child, family member or friend?: No Do you have trouble with day-to-day activities such as bathing, preparing meals, shopping, managing finances, etc.?: No Are you currently unemployed and looking for a job?: No Are you interested in more education?: No Please select the resources that you would like help with: None Currently or been in a relationship where the following occur: No concerns reported THRIVE Score: 0 AUDIT C Alcohol Use Questionnaire (AUDIT-C) 1. How often do you have a drink containing alcohol?: Never 3. How often do you have six or more drinks on one occasion?: Never Total Score: 0 Score Reviewed/Action Taken: Yes SHERMAN-7 AMB Questionnaire SHERMAN-7 Date SHERMAN - 7 assessed: 06/29/24 Feeling nervous, anxious, or on edge: 0 = Not at all Not being able to stop or control worryin = Not at all Worrying too much about different things: 0 = Not at all Trouble relaxin = Not at all Being so restless that it is hard to sit still: 0 = Not at all Becoming easily annoyed or irritable: 0 = Not at all Feeling afraid as if something awful might happen: 0 = Not at all Total SHERMAN-7 score (0-4 normal; 5-9 mild; 10-14 moderate; 15-21 severe): 0 Source: Developed by Drs. Kevin Mcmullen, Juany Felix, Adolph Anderson and colleagues, with an educational michael from [employer]. Review of Systems Const Denies chills, Denies fatigue, Denies fever(s) and Denies headache(s) ENT Denies dysphagia, Denies dizziness, Denies otalgia, Denies headache(s), Denies neck pain, Denies odynophagia and Denies sore throat Card Denies chest pain, Denies palpitations and Denies dyspnea Resp Denies chest congestion, Denies cough, Denies dyspnea and Denies wheezing GI Denies abdominal pain, Denies constipation, Denies dysphagia, Denies heartburn, Denies diarrhea, Denies nausea, Denies odynophagia and Denies vomiting Denies dysuria, Denies nocturia and Denies urinary frequency Musc Denies back pain, Reports arthralgias (in the right knee, on and off) and Denies neck pain Skin/Breast Denies rash Neuro Denies dizziness and Denies headache(s) Psych Reports anxiety (better with Rx) Endo Denies fatigue and Denies palpitations Aller/Immun Denies wheezing Physical exam (Primary Care) Vital Signs: Last Vital Signs Pulse 57 06/29/24 10:08 BP 130/80 06/29/24 10:08 Pulse Ox 96 06/29/24 10:08 Oxygen Delivery Method Room Air 06/29/24 10:08 BMI result Body Mass Index 30.3 Tobacco/Smoking Status: Tobacco use Status Tobacco use date assessed 06/29/24 06/29/24 10:13 Patient Tobacco Use Status Former Tobacco user 06/29/24 10:13 e-Cigarette/Vaping Use Never Used 06/29/24 10:13 PHQ-9: PHQ-9 Score PHQ-9: Total score 0 06/29/24 11:08 Depression Screening Interpretation: Negative Thrive Assessment: Date of Thrive Assessment Date Thrive assessed 06/29/24 06/29/24 10:13 Currently or been in a relationship where the following occur: No concerns reported Const General: no acute distress and alert HENMT Ears: TM's normal bilaterally and EAC's normal Throat: Yes posterior oropharynx normal and Yes tonsils normal (no TP congestion noted) Neck Neck: Yes supple and No lymphadenopathy Thyroid: Thyroid normal Resp Auscultation: clear to auscultation bilaterally, no rales and no wheezes Cardio Rate: regular rate Rhythm: regular rhythm Heart sounds: no murmurs GI Palpation (GI): Soft to palpation and nontender Auscultation: normal bowel sounds General: Yes no CVA tenderness Back/Spine/Pelvis Back: no CVA tenderness Thoracic/Lumbar Spine: No lumbar spinal tenderness Skin Rashes: no rashes Extrem General: Yes no clubbing, cyanosis or edema Right lower extremity: knee Details: tenderness (mild) and normal ROM; no swelling Results AMB Hemoglobin A1c AMB Hemoglobin A1c 6.7 % Last Edit by DEDRA Strauss on 06/29/24 11 :03 Results Reviewed Results Reviewed: Laboratory Last Values Hgb A1c (Clinic) 6.7 % (4.0-6.0) H 06/29/24 11:01 Laboratory Tests 02/18/24 06/24/24 09:57 10:26 WBC 5.0 Hgb 14.1 Hct 42.3 Plt Count 109 L Sodium 140 Potassium 4.6 Creatinine 0.84 Estimated GFR > 60 Fasting Glucose 117 H Hemoglobin A1c % 6.4 H Calcium 9.6 AST 39 H ALT 34 Triglycerides 60 Cholesterol 132 LDL Cholesterol, Calc 65 HDL Cholesterol 55 Vitamin B12 832 25-OH Vitamin D Total 52.5 TSH 0.74 Ur Specific [place] 1.015 Urine Protein 30 (1+) H Urine Glucose (UA) Negative Urine Blood Negative Urine Nitrite Negative Ur Leukocyte Esterase Negative Coding Level of Care Code Est Pt Level 4 (98936) Diagnoses Primary biliary cirrhosis K74.3 Pure hypercholesterolemia E78.00 Type 2 diabetes mellitus without complication, without long-term current use of insulin E11.9 Diabetes mellitus type: type 2 Diabetes mellitus parts counterman insulin use: without parts counterman use Diabetes mellitus complication status: without complication 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 I44.30 Osteoporosis without current pathological fracture, unspecified osteoporosis type M81.0 Osteoporosis type: unspecified Presence of current pathological fracture: without current pathological fracture Multiple thyroid nodules E04.2 Primary osteoarthritis of right knee M17.11 Osteoarthritis type: primary Recurrent dry cough R05.8 ROSARIO (obstructive sleep apnea) G47.33 Cerebellar ataxia G11.9 Insomnia, unspecified type G47.00 Insomnia type: unspecified Anxiety F41.9 Obesity (BMI 30-39.9) E66.9 Additional Codes PHQ-9 - 32876 - PHQ-9 Billing: Yes ([id number]) Assessment & Plan Assessment & Plan (1) Primary biliary cirrhosis: Comment: EGD done in 2018 showed 1+ varices and changes consistent with patient's gastropathy He used to see learning disabilities teacher in [place] but is now seeing Dr. Gaston here locally for gastroenterology follow up and management Code(s): K74.3 - Primary biliary cirrhosis Category: Medical Plan: Continue Ursodiol 300 mg 2 capsules BID and Colchicine 0.6 mg BID Follow up with GI (Dr. Gaston) as scheduled (2) Pure hypercholesterolemia: Code(s): E78.00 - Pure hypercholesterolemia, unspecified Category: Medical Plan: Results of his labs done a few days ago reviewed and discussed with patient Reinforced low cholesterol diet Continue Simvastatin 10 mg QD Will recheck his labs and fasting lipids in 4 months for follow-up (3) Diabetes mellitus: Code(s): E11.9 - Type 2 diabetes mellitus without complications Category: Medical Qualifiers: Diabetes mellitus type: type 2 Diabetes mellitus correction insulin use: without correction use Diabetes mellitus complication status: without complication Qualified Code(s): E11.9 - Type 2 diabetes mellitus without complications Plan: His in-office HgbA1c done today is at 6.7% (HgbA1c was previously at 6.4% a few months ago) - goal is < 7.0% Reinforced diabetic diet - patient has not required any Rx for his diabetes so far C-peptide and SHERMAN Ab levels were both normal when checked last year (4) Adenomyomatosis of gallbladder: Comment: Abdominal US done in early 2019 revealed (+) fatty liver changes with cholelithiasis (with findings suggesting possible chronic cholecystitis) and gallbladder adenomyomatosis - patient denies any acute abdominal symptoms/pain Code(s): D13.5 - Benign neoplasm of extrahepatic bile ducts Category: Medical Plan: He is advised again that this is a benign condition and he does not require further intervention for this Patient has had no acute GI symptoms lately (5) Heart block atrioventricular: Code(s): I44.30 - Unspecified atrioventricular block Category: Medical Plan: Holter monitor done in July 2023 revealed underlying sinus bradycardia with an average rate of 53/Min. He has second-degree heart block suggesting Mobitz type 1, with frequent bradycardia He was seen by EP in consultation but they decided against a pacemaker insertion His exercise stress test in December 2023 came out okay, with myocardial perfusion imaging study shows normal myocardial perfusion. Gated LVEF is 65% during stress and 62% during rest. Echocardiogram back in 2021 showed (+) mild aortic valve calcification, mild mitral annular calcification mild tricuspid regurgitation Per cardiology, there are no clear hemodynamic implications from these and will just continue to monitor these for now Follow up with cardiology as scheduled (6) Osteoporosis: Code(s): M81.0 - Age-related osteoporosis without current pathological fracture Category: Medical Qualifiers: Osteoporosis type: unspecified Presence of current pathological fracture: without current pathological fracture Qualified Code(s): M81.0 - Age- related osteoporosis without current pathological fracture Plan: He was on Prolia 60 mg subcutaneous injection every 6 months for about 4 to 5 years and Rx was stopped a couple of years ago Repeat BMD done on 12/27/2020 showed a 19.6% improvement in the AP spine from baseline, 10.0% improvement from previous and a 6.7% improvement in the left femur from baseline, 0.5% increase from previous He was recently seen by Dr. Fernandez for endocrinology follow up and was also taken off his Fosamax; was advised to wait for another year and then repeat his BMD, which will be due after May 2024 Will send him for repeat BMD in the spring (2024) He was also reportedly advised that he does not need to follow up with en docrinology again for this issue unless his follow up BMD gets significantly worse in the future (7) Multiple thyroid nodules: Code(s): E04.2 - Nontoxic multinodular goiter Category: Medical Plan: Thyroid US done in August 2023 revealed (+) 1.9 cm right midpole TR 5 thyroid nodule meets criteria for biopsy. Fine-needle aspiration was recommended He was seen by Dr. Fernandez for initial endocrinology consultation a few months ago, who agreed that patient will require FNAB He eventually underwent thyroid nodule biopsy last month (May 2024) - pathology reportedly came out benign Follow up with endocrinology as scheduled (8) Osteoarthritis of right knee: Code(s): M17.11 - Unilateral primary osteoarthritis, right knee Category: Medical Qualifiers: Osteoarthritis type: primary Qualified Code(s): M17.11 - Unilateral primary osteoarthritis, right knee Plan: X-rays of the right knee done in March 2023 revealed (+) OA changes He was referred to and see by Dr. Benitez last year and was reportedly advised that as his symptoms were mild, no further intervention is indicated at the time but he is advised to call up orthopedics at any time if his knee symptoms get significantly worse (9) Recurrent dry cough: Code(s): R05.8 - Other specified cough Category: Medical Plan: He was seen and evaluated by pulmonary (Dr. Myers) a few months ago and was advised that this is likely multifactorial, including due to dry air, GERD and allergies He also appears to have some degree of ILD, which can contribute to his cough as well Patient states that his symptoms have improved a lot since he was started on his Albuterol inhaler Continue Albuterol HFA 2 inhalations Q 6 hours PRN He has also been advised to take some OTC antihistamines like Loratadine 10 mg QD PRN to help with his symptoms Follow up with pulmonary as scheduled (10) ROSARIO (obstructive sleep apnea): Comment: Known case of obstructive sleep apnea, well treated with the use of CPAP. Compliance is excellent. 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, unspecified Category: Medical Plan: Patient has gait instability due to his ataxia Follow up with Neurology as scheduled (12) Insomnia: Code(s): G47.00 - Insomnia, unspecified Category: Medical Qualifiers: Insomnia type: unspecified Qualified Code(s): G47.00 - Insomnia, unspecified Plan: Sleep hygiene reinforced Has been taking OTC sleep aids like NyQuil PM as needed with some relief (13) Anxiety: Code(s): F41.9 - Anxiety disorder, unspecified Category: Medical Plan: Continue Escitalopram 10 mg QD States that his anxiety has been well-controlled on his current Rx (14) Obesity (BMI 30-39.9): Comment: PATIENT IS MODERATELY OBESE, MAINLY DUE TO ABDOMINAL PROTUBERANCE. WEIGHT REMAINS STABLE Code(s): E66.9 - Obesity, unspecified Category: Medical Plan: Reinforced diet/exercise as tolerated/lose weight but reinforced fall precautions due to his gait instability Plan Follow up in 4 months Orders: Orders AMB Hemoglobin A1c Today Z13.9 - Encounter for screening, unspecified Complete Blood Count Auto Diff 4 Months D64.9 - Anemia, unspecified Comprehensive [place]. Panel Fast 4 Months E78.00 - Pure hypercholesterolemia, unspecified Hemoglobin A1c 4 Months E11.9 - Type 2 diabetes mellitus without complications Microalbumin, Random (w Creat) 4 Months E11.9 - Type 2 diabetes mellitus without complications TSH reflex Free T4 4 Months E78.00 - Pure hypercholesterolemia, unspecified Vitamin D 25-OH Total 4 Months E55.9 - Vitamin D deficiency, unspecified Lipid Panel 4 Months E78.00 - Pure hypercholesterolemia, unspecified UA CC w/rflx Micro + Cult 4 Months R30.0 - Dysuria Vitamin B12 and Folate 4 Months E53.8 - Deficiency of other specified B group vitamins
== END 2024-06-29 11:14 | disposition home or self-care (01) ==
PROVIDERS: PCP Internal Medicine; Visit Provider Internal Medicine
DX: E11.9 Type 2 diabetes mellitus without complications (principal); K74.3 Primary biliary cirrhosis; G11.9 Hereditary ataxia, unspecified; E78.00 Pure hypercholesterolemia, unspecified; D13.5 Benign neoplasm of extrahepatic bile ducts; I44.30 Unspecified atrioventricular block; M81.0 Age-related osteoporosis without current pathological fracture; E04.2 Nontoxic multinodular goiter; M17.11 Unilateral primary osteoarthritis, right knee; R05.8 Other specified cough; G47.33 Obstructive sleep apnea (adult) (pediatric); G47.00 Insomnia, unspecified

== ENCOUNTER → 2024-06-29 10:04 | Outpatient (BNVA) | payer MEDICARE, SELFPAY | PROVIDERS: PCP Internal Medicine; Visit Provider Internal Medicine | DX: E11.9 Type 2 diabetes mellitus without complications (principal); D13.5 Benign neoplasm of extrahepatic bile ducts; I44.30 Unspecified atrioventricular block; M81.0 Age-related osteoporosis without current pathological fracture; E04.2 Nontoxic multinodular goiter; M17.11 Unilateral primary osteoarthritis, right knee; R05.8 Other specified cough; G47.33 Obstructive sleep apnea (adult) (pediatric); G11.9 Hereditary ataxia, unspecified; G47.00 Insomnia, unspecified; F41.9 Anxiety disorder, unspecified; E66.9 Obesity, unspecified | CPT/HCPCS: 83036; 96127; 99212 ==

== ENCOUNTER 2024-07-20 09:46 | Outpatient (AMB) | payer MEDICARE, SELFPAY ==
[2024-07-20 09:59] VITALS: BP 110/54; PULSE 70; BMI 30.6
--- NOTE | 2024-07-20 09:59 | A.OFFVIS_ITS ---
Vital Signs 07/20/24 09:59 Height 5 ft 10 in Weight 212 lb 15.465 oz BMI 30.6 BP 110/54 L Blood Pressure Location Lt brachial Position Sitting Pulse 70 Pulse Source Pulse Oximeter Intake Visit Reasons: 6 mth fu Supervisor Shuttle Veneering Required: No Accompanied by: Spouse Allergies No Known Allergies [No Known Allergies*] Allergy (Verified 07/20/24 11:15) Medication List - Last Reconciled 07/20/24 by Dylan Hilton MD albuterol sulfate 90 mcg/actuation (Ventolin HFA) 2 puffs inhalation Q6H PRN 30 days amlodipine 5 mg PO DAILY cholecalciferol (vitamin D3) 25 mcg PO DAILY colchicine 0.6 mg PO BID [DIABETIC SHOES (1 pair) As directed] escitalopram oxalate 10 mg PO DAILY simvastatin 10 mg PO BEDTIME tizanidine 2 mg PO TID ursodiol 600 mg (2 x 300 mg) PO BID HPI Comments Details: Janak returns for follow-up regarding second-degree heart block. He does not have any symptoms like dizziness or presyncope. He does get tiredness and fatigue during the day, but not clear if it is from the heart block or not. He was sent to EP for evaluation but they did not recommend a pacemaker. Since last seen, no new complaints. He states he feels good. [facility] Medical History ROSARIO (obstructive sleep apnea) Obesity (BMI 30-39.9) Fatigue Anxiety Insomnia Cerebellar ataxia Dizziness Osteoporosis Pure hypercholesterolemia Diabetes mellitus Adenomyomatosis of gallbladder Primary biliary cirrhosis Surgical History Hx of tonsillectomy Hx of appendectomy Family History Father Cancer Mother No problems noted. Social History Household Members: Spouse Household Members Other:: Housing: House Alcohol intake: former Patient Tobacco Use Status: Former Tobacco user e-Cigarette/Vaping Use: Never Used Second Hand Smoke Exposure: No service: No Current occupational status: retired Current occupational exposures/hazards: No Cognitive needs: No Hearing needs: No Vision needs: Yes (Glasses) Review of Systems Const Denies chills, Denies fatigue, Denies fever(s), Denies weight gain and Denies weight loss ENT Denies dizziness Card Denies chest pain, Denies leg edema, Denies lightheadedness, Denies palpitations, Denies dyspnea on exertion, Denies orthopnea and Denies other Resp Denies cough and Denies dyspnea on exertion GI Denies hematochezia and Denies change in stool character Musc Denies abnormal gait, Denies muscle weakness, Denies numbness, Denies radiating pain into limb and Denies tingling Neuro Denies abnormal gait, Denies dizziness, Denies numbness and Denies tingling Endo Denies fatigue and Denies palpitations Physical Exam Vital Signs: Last Vital Signs Pulse 70 07/20/24 09:59 BP 110/54 L 07/20/24 09:59 BMI result Body Mass Index 30.6 Const General: comfortable and no acute distress Orientation/consciousness: patient oriented x3 HEENT Other: Unremarkable Head: Yes normal to inspection Neck Neck: Yes normal visual inspection Chest Chest palpation & inspection: normal inspection of the chest Resp Auscultation: clear to auscultation bilaterally Cardio Palpation: normal PMI Heart sounds: S1 normal heart sound present, S2 normal heart sound present, no gallops, no murmurs and no rubs GI Palpation (GI): Soft to palpation Back/Spine/Pelvis Other: unremarkable Skin General skin exam: no rashes or lesions noted Neuro General: patient oriented x3 Extrem General: Yes normal to inspection Psych Mental Status: mental status grossly normal Assessment & Plan Assessment & Plan (1) Heart block atrioventricular: Code(s): I44.30 - Unspecified atrioventricular block Category: Medical Plan: In the last Holter, underlying sinus bradycardia with an average rate of 53/Min. He does have second-degree heart block suggesting Mobitz type 1. Frequent bradycardia. Unclear if his symptoms of tiredness is related to the bradycardia. EP saw him in consultation but they decided against a pacemaker. He also underwent an exercise stress test where he was able to reach up to 82% of max predicted heart rate which indicates reasonable chronotropic competence. The perfusion component was unremarkable. Hence will continue to monitor. (2) Valvular heart disease: Code(s): I38 - Endocarditis, valve unspecified Category: Medical Plan: Echocardiogram shows mild aortic valve calcification, mild mitral annular calcification mild tricuspid regurgitation. No clear hemodynamic implications from the above. (3) Right ventricular dilation: Code(s): I51.7 - Cardiomegaly Category: Medical Plan: Could be related to sleep apnea. No symptoms signs of congestive heart failure. (4) Essential hypertension: Code(s): I10 - Essential (primary) hypertension Category: Medical Plan: Stable. On amlodipine. (5) ROSARIO (obstructive sleep apnea): Comment: Known case of obstructive sleep apnea, well treated with the use of CPAP. Compliance is excellent. Code(s): G47.33 - Obstructive sleep apnea (adult) (pediatric) Category: Medical Plan: Sleep study shows moderately severe obstructive sleep apnea. Continue CPAP. Plan Discussed with significant other. Orders: Orders ECG 3 day holter monitor 6 Months I44.1 - Atrioventricular block, second degree Coding Level of Care Code Est Pt Level 4 (38234) Complex EM visit Add On G2211 Diagnoses Heart block atrioventricular I44.30 Valvular heart disease I38 Right ventricular dilation I51.7 Essential hypertension I10 ROSARIO (obstructive sleep apnea) G47.33
== END 2024-07-20 10:20 | disposition home or self-care (01) ==
PROVIDERS: PCP Internal Medicine; Visit Provider Internal Medicine
DX: I44.30 Unspecified atrioventricular block (principal); I38 Endocarditis, valve unspecified; I51.7 Cardiomegaly; I10 Essential (primary) hypertension; G47.33 Obstructive sleep apnea (adult) (pediatric)
CPT/HCPCS: 99214; G2211

== ENCOUNTER → 2024-07-20 09:46 | Outpatient (BNVA) | payer MEDICARE, SELFPAY | PROVIDERS: PCP Internal Medicine; Visit Provider Internal Medicine | DX: G47.33 Obstructive sleep apnea (adult) (pediatric) (principal); R05.9 Cough, unspecified; I44.30 Unspecified atrioventricular block; I38 Endocarditis, valve unspecified; I11.9 Hypertensive heart disease without heart failure; Z99.89 Dependence on other enabling machines and devices | CPT/HCPCS: 99212 ==

== ENCOUNTER 2024-07-20 10:18 | Outpatient (AMB) | payer MEDICARE, SELFPAY ==
[2024-07-20 10:52] VITALS: BP 120/58; PULSE 56; O2SAT 94; BMI 30.7
--- NOTE | 2024-07-20 10:52 | A.OFFVIS_ITS ---
Vital Signs 07/20/24 10:52 Height 5 ft 10 in Weight 213 lb 13.574 oz BMI 30.7 BP 120/58 L Blood Pressure Location Lt brachial Position Sitting Pulse 56 Pulse Oximetry (%) 94 Oxygen Delivery Method Room Air Intake Visit Reasons: ILD Intake Note: pt is here for follow up and states he is doing well. Fisher Dip Net Required: No Allergies No Known Allergies [No Known Allergies*] Allergy (Verified 07/20/24 11:15) Medication List - Last Reconciled 07/20/24 by Mike Myers MD albuterol sulfate 90 mcg/actuation (Ventolin HFA) 2 puffs inhalation Q6H PRN 30 days amlodipine 5 mg PO DAILY cholecalciferol (vitamin D3) 25 mcg PO DAILY colchicine 0.6 mg PO BID [DIABETIC SHOES (1 pair) As directed] escitalopram oxalate 10 mg PO DAILY simvastatin 10 mg PO BEDTIME tizanidine 2 mg PO TID ursodiol 600 mg (2 x 300 mg) PO BID Do you need a note to return to daycare/school/sports/work: No HPI HPI ILD: Details: THIS 84 YEARS OLD 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 HE IS BEING TREATED FOR OBSTRUCTIVE SLEEP APNEA, WITH CPAP WHICH HE USES REGULARLY, EVERY NIGHT. HE HAS A MILD DEGREE COPD, BUT DOES NOT NEED TO USE ANY MAINTENANCE INHALERS. HE HAS BOUTS OF MILD COUGH OFF AND ON, AND USES ALBUTEROL IF THE COUGH GOES ON FOR LONG TIME. USUALLY HIS COUGH IS RELIEVED BY JUST USING COUGH DROPS. WEIGHT REMAINS UNCHANGED. [facility] Medical History ROSARIO (obstructive sleep apnea) Obesity (BMI 30-39.9) Fatigue Anxiety Insomnia Cerebellar ataxia Dizziness Osteoporosis Pure hypercholesterolemia Diabetes mellitus Adenomyomatosis of gallbladder Primary biliary cirrhosis Surgical History Hx of tonsillectomy Hx of appendectomy Family History Father Cancer Mother No problems noted. Social History Household Members: Spouse Household Members Other:: Housing: House Alcohol intake: former Patient Tobacco Use Status: Former Tobacco user e-Cigarette/Vaping Use: Never Used Second Hand Smoke Exposure: No service: No Current occupational status: retired Current occupational exposures/hazards: No Cognitive needs: No Hearing needs: No Vision needs: Yes (Glasses) Review of Systems Const All systems reviewed & are unremarkable except as noted in HPI and below Reports snoring Eyes Reports no additional complaints ENT Reports no additional complaints Card Denies chest pain, Denies irregular heart rhythm, Denies leg edema and Denies dyspnea on exertion Resp Denies cough, Denies dyspnea on exertion, Reports snoring and Denies wheezing GI Reports no additional complaints Reports no additional complaints Musc Reports no additional complaints Skin/Breast Reports system reviewed and no additional complaints, except as documented Neuro Reports other (History of mild cerebellar ataxia) Psych Reports depression (Mild controlled with small dose of escitalopram) Endo Reports no additional complaints Liborio/Lymph Reports no additional complaints Aller/Immun Reports no additional complaints and Denies wheezing Physical Exam Vital Signs: Last Vital Signs Pulse 56 07/20/24 10:52 BP 120/58 L 07/20/24 10:52 Pulse Ox 94 07/20/24 10:52 Oxygen Delivery Method Room Air 07/20/24 10:52 BMI result Body Mass Index 30.7 Const General: healthy appearing (Except for moderatelately overweight), comfortable, no acute distress, alert and awake Orientation/consciousness: patient oriented x3 HEENT Head: Yes normal to inspection General nose exam: No nasal polyps present and No nasal discharge present Face and sinus: Yes sinuses nontender Mouth: oropharynx abnormals (Oropharynx is slightly crowded and narrow, Mallampati class 3) Teeth and gingiva: other (There is mild regression of the lower jaw) Throat: Yes posterior oropharynx normal Eyes General: appearance normal, both eyes and all related structures Neck Neck: Yes normal visual inspection, Yes no lymphadenopathy, Yes trachea midline, Yes no JVD and Yes other (Neck circumference 15-1/2 inch) Thyroid: Thyroid normal Chest Chest palpation & inspection: normal inspection of the chest (INCREASED AP DIAMETER ), normal palpation of entire chest wall and no tenderness Resp Effort & Inspection: normal respiratory effort and no cough Auscultation: clear to auscultation bilaterally, no rhonchi and no wheezes Cardio Palpation: normal PMI Rate: regular rate Rhythm: regular rhythm Heart sounds: no gallops and no murmurs Peripheral pulses: Peripheral pulses 2+ throughout GI Palpation (GI): Soft to palpation, nontender, No hepatosplenomegaly present, no masses and Other GI palpation findings present (Abdomen is slightly protuberant) Auscultation: normal bowel sounds Back/Spine/Pelvis Thoracic/Lumbar Spine: thoracic and lumbar spine normal to inspection Skin General skin exam: no rashes or lesions noted Neuro General: patient oriented x3 and no focal motor deficits Cranial nerves: Yes CN's II-XII intact bilaterally Extrem General: Yes normal to inspection, Yes no clubbing, cyanosis or edema and Yes no calf tenderness Psych Appearance: grossly normal and well kempt Speech and movement: Normal speech and movement present Results Reviewed Results Reviewed: COMPLIANCE REPORT FOR THE LAST 30 NIGHTS IS REVIEWED. HE HAS USED CPAP FOR 29/30 NIGHTS AND AVERAGE USE IT PER NIGHT IS 4 7 HOURS 36 MINUTES. HE USES RELATIVELY LOW PRESSURE OF 7 CM AND THERE IS NO AIR LEAK AND RESIDUAL AHI ONLY 0.1 Assessment & Plan Assessment & Plan (1) ROSARIO (obstructive sleep apnea): Comment: Known case of obstructive sleep apnea, well treated with the use of CPAP. Compliance is excellent. Code(s): G47.33 - Obstructive sleep apnea (adult) (pediatric) Category: Medical Plan: COMMENDED FOR GOOD COMPLIANCE AND ENCOURAGED TO KEEP ON USING CPAP EVERY NIGHT. (2) Cough: Comment: He has intermittent dry cough. I THNK ,IT MAY BE CONTRIBUTED BY DRYNESS OF THE AIR., ARE BY MILD ALLERGIC RHINI TIS. Code(s): R05.9 - Cough, unspecified Category: Medical Plan: HE MAY USE COUGH DROPS P.R.N. MAKE SURE TO PUT WATER IN THE CPAP MACHINE AT NIGHT. MAY USE ALBUTEROL 1 OR 2 PUFFS Q 6 HOURS P.R.N. FOR SUSTAINED COUGH AND WHEEZING. Coding Level of Care Code Est Pt Level 3 (25561) Diagnoses ROSARIO (obstructive sleep apnea) G47.33 Cough R05.9
== END 2024-07-20 11:16 | disposition home or self-care (01) ==
PROVIDERS: PCP Internal Medicine; Visit Provider Internal Medicine
DX: G47.33 Obstructive sleep apnea (adult) (pediatric) (principal); R05.9 Cough, unspecified
CPT/HCPCS: 99213

== ENCOUNTER 2024-11-17 09:56 | Outpatient (REF) | payer MEDICARE, SELFPAY ==
--- OUTSIDE RECORDS SUMMARY | 2024-11-17 11:25 | XMS_ITS | Patient Health Record ---
Author Organization [facility] Address [address] [place] [address] Care Team Providers Care Extractions Technician Name Role Phone Carlin HARVEY, [place] Primary Care Provider Donaldo Beaver Jr Unavailable Reason For Referral No Information Medications Medication SIG (Take, Route, Frequency, Duration) Notes Start Date End Date Status Fish Oil 1200 MG 1 capsule Orally Twi ce a day Active Potassium Gluconate 595 (99 K) MG 1 tablet Orally PRN Active tiZANidine HCl 2 MG 1 tablet as needed O rally PRN Active Colchicine 0.6 MG 1 tablet Orally Twic e a day Active Calcium + D 600-200 MG-UNIT 1 tablet Ora lly Twice a day Active Multi Vitamin/Minerals - as directed Ora lly ONCE A DAY Active Simvastatin 10 MG 1 tablet in the even ing Orally Once a day Active Ursodiol 300 MG 2 CAPSULES Orally bid Active Immunizations Vaccine Route Administration Date Status Comme nts Influenza Unknown 01/23/2018 Administered Social History Tobacco Use: Social History Observation Description Date Details (start date - stop date) Former Smoker NA - NA Tobacco Use/Smoking Question Answer Notes Patient is a former smoker How long has it been since you last smoked? > 10 years Problems Problem Type SNOMED Code ICD Code Onset Dates Problem Status W/U Status Risk Notes Problem 42450864 Primary biliary cirrhosis (K74.3) Active confirmed Problem [id number] Esophageal varices without bleeding, unspecified esophageal varices type (I85.00) Active confirmed Plan Of Treatment Pending Test Test Name Order Date COLONOSCOPY WITH BIOPSY 02/26/2011 COLONOSCOPY REMOVAL OF LESION SNARE ALLEGRA AYALA 02/26/2011 LIVER PROFILE 10/27/2018 CBC w/o DIFF 10/27/2018 CBC w/o DIFF 03/31/2013 PROTHROMBIN TIME (PT, INR) 10/27/2018 PROTHROMBIN TIME (PT, INR) 03/31/2013 PARTIAL THROMBOPLASTIN TIME (PTT) 2012 Future Test Test Name Order Date UPPER GI ENDOSCOPY 10/27/2018 Insurance Providers Payer Name Payer Address Payer Phone Subscriber Number Group Number Insured Name Patient Relationship to Insured Coverage Start Date Coverage End Date MEDICARE OF [place] [address] [place] [address] [phone] [id number] [place] DANIEL Self - patient is the insured [employer] ATT[employer] CLAIMS [address] [place] [address] [phone] [id number] [place] DANIEL Self - patient is the insured Medical (General) History Medical History History ICD Code osteoporosis primary biliary cirrhosis colon polyps splemomegaly type II diabetes Denies [place],Lung disease,renal disease Surgical History Surgery Date(Month/Year) Appendectomy Umbilical hernia repair tonsillectomy
[2024-11-17 13:17] LABS: MANUAL DIFF FLAG NO
[2024-11-17 13:20] LABS: Basophils Percent Auto 0.5 % (0-2); Eosinophils Absolute Auto 0.3 X10*3/uL (0.0-0.4); Eosinophils Percent Auto 4.7 % (0-4); Hematocrit 42.4 % (42.0-52.0); Hemoglobin 14.3 g/dl (14.0-18.0); Imm Gran Abs Auto 0.03 X10*3/uL (0.00-0.03); Imm Gran Pct Auto 0.5 % (0.0-0.4); Lymphocytes Absolute Auto 1.6 X10*3/uL (1.2-4.9); Lymphocytes Percent Auto 25.5 % (20-40); Mean Corpuscular HGB Conc 33.7 g/dl (31.0-36.0); Mean Corpuscular Hemoglobin 31.2 pg (27.0-33.0); Mean Corpuscular Volume 92.4 fL (80.0-98.0); Mean Platelet Volume 11.8 fL (9.4-12.4); Monocytes Absolute Auto 0.6 X10*3/uL (0.1-1.2); Monocytes Percent Auto 9.3 % (2-11); Neutrophils Absolute Auto 3.7 x10*3/uL (2.0-8.3); Neutrophils Percent Auto 59.5 % (45-73); Platelet Count 111 X10*3/uL (160-400); Red Blood Count 4.59 X10*6/uL (4.60-5.80); Red Cell Distribution Width 13.4 % (11.0-16.0); White Blood Count 6.2 X10*3/uL (4.8-10.8)
[2024-11-17 13:35] LABS: Appearance Urine Clear; Color Urine Yellow; Glucose Urine UA Negative (Negative); Leukocyte Esterase Urine Trace (Negative); Nitrite Urine Negative (Negative); PH 6.5 (5.0-9.0); Specific Gravity - Urine 1.015 (1.005-1.025); UMIC TRIGGER UACC YES; Urine Blood Negative (Negative); Urine Ketones Negative (Negative); Urine Protein Negative (Neg-Trace)
[2024-11-17 13:40] LABS: Estimated Average Glucose 143 mg/dL; Hemoglobin A1c % 6.6 % (<6.0)
[2024-11-17 13:42] LABS: Bacteria Urine None Seen (None Seen); Hyaline Casts Urine 0-2 /LPF (0-2); RBC Urine 0-2 /HPF (0-2); Squamous Epithelial Cell Urine 0-2 /HPF (0-2); WBC Urine 0-5 /HPF (0-5)
[2024-11-17 13:47] LABS: Alanine Aminotransferase 33 U/L (0-40); Albumin Level 4.2 g/dL (3.5-5.0); Alkaline Phosphatase 132 U/L (39-117); Anion Gap 9 (12-20); Aspartate Amino Transferase 36 U/L (5-37); Bilirubin Total 0.9 mg/dL (0.0-1.0); Blood Urea Nitrogen 15 mg/dL (9-16); Calcium 8.9 mg/dL (8.4-10.2); Carbon Dioxide 28 mmol/L (22-29); Chloride 107 mmol/L (96-108); Cholesterol 132 mg/dL (<200); Estimated Glomerular Filt Rate > 60; Glucose Fasting 130 mg/dL (60-99); HDL Cholesterol 58 mg/dL (>40); LDL Cholesterol Calculated 63 mg/dL (<100); Sodium 140 mmol/L (135-145); Total Protein 7.3 g/dL (6.5-8.0); Triglycerides 57 mg/dL (<150)
[2024-11-17 14:00] LABS: Creatinine Urine 76.81 mg/dL; Microalbum/Creatinine Ratio Ur 6.5 ug/mg cr (<30)
[2024-11-17 14:01] LABS: Vitamin B12 845 pg/mL (200-900)
[2024-11-17 14:04] LABS: TSH reflex Free T4 0.93 uIU/mL (0.32-4.0); Vitamin D 25-OH Total 42.9 ng/mL (>30)
== END 2024-11-17 09:57 | disposition home or self-care (01) ==
LOC: HO.HMGCLDS 09:56
PROVIDERS: PCP Internal Medicine; Visit Provider Internal Medicine
DX: E11.9 Type 2 diabetes mellitus without complications (principal); E78.00 Pure hypercholesterolemia, unspecified; E55.9 Vitamin D deficiency, unspecified; E53.8 Deficiency of other specified B group vitamins; D64.9 Anemia, unspecified
CPT/HCPCS: 36415; 80053; 80061; 81001; 81003; 82043; 82306; 82570; 82607; 82746; 83036; 84443; 85025

== ENCOUNTER 2024-12-01 13:53 | Outpatient (AMB) | payer MEDICARE, SELFPAY ==
--- OUTSIDE RECORDS SUMMARY | 2024-12-01 13:57 | XMS_ITS | Patient Health Record ---
Author Organization [facility] Address [address] [place] [address] Care Team Providers Care Antisubmarine Weapons Officer Name Role Phone Carlin HARVEY, [place] Primary Care Provider Donaldo Beaver Jr Unavailable [...] Problem Status W/U Status Risk Notes Problem 11403669 Primary biliary cirrhosis (K74.3) Active confirmed Problem [id number] Esophageal varices without bleeding, unspecified esophageal varices [...] Date MEDICARE OF [place] [address] [employer] [address] [phone] [id number] CAR[place] DANIEL Self - patient is the insured [employer] ATTN CLAIMS [address] [place] [phone] [id number] [place] DANIEL Self - patient is the insured Medical (General) History Medical History History ICD Code osteoporosis primary biliary cirrhosis colon polyps splemomegaly type II diabetes Denies [place],Lung disease,renal disease Surgical History Surgery Date(Month/Year) Appendectomy Umbilical hernia repair tonsillectomy
[2024-12-01 14:05] VITALS: BP 130/70; PULSE 70; O2SAT 94; BMI 30.3
--- NOTE | 2024-12-01 14:05 | MHC.PC.OV ---
Vital Signs 12/01/24 14:05 Height 5 ft 10 in Weight 211 lb 8 oz BMI 30.3 BP 130/70 Blood Pressure Location Lt brachial Position Sitting Pulse 70 Pulse Source Pulse Oximeter Pulse Oximetry (%) 94 Oxygen Delivery Method Room Air Intake Visit Reasons: 4 month f/u Pressroom Supervisor Required: No Accompanied by: Self / Same As Patient Allergies No Known Allergies (No Known Allergies*) Allergy (Verified 12/01/24 14:20) Medication List - Last Reconciled 12/01/24 by Donnell Gillis MD albuterol sulfate 90 mcg/actuation (Ventolin HFA) 2 puffs inhalation Q6H PRN 30 days amlodipine 5 mg PO DAILY cholecalciferol (vitamin D3) 25 mcg PO DAILY colchicine 0.6 mg PO BID [DIABETIC SHOES (1 pair) As directed] escitalopram oxalate 10 mg PO DAILY simvastatin 10 mg PO BEDTIME tizanidine 2 mg PO TID ursodiol 600 mg (2 x 300 mg) PO BID Tobacco use date assessed: 12/01/24 Fall risk assessment: No Falls in past year Last assessed Fall Risk: 12/01/24 Dental Screening Dental Screen Date: 12/01/24 Did you have a dental visit in the last 12 months?: Yes Did you have a dental problem in the last 6 months where you did not have access to dental care?: No Was dental information given to patient?: Patient has dentist HPI 4 month f/u HPI Details Patient comes in today for his follow up visit States that he feels okay He denies any headaches or dizziness Denies any chest pains, no increased SOB No nausea/vomiting, no abdominal pain No change in bowel habits noted He still has on and off pain in his right knee but states that he has been able to manage it so far Needs his Ursodiol Rx refilled and would also like to get a refill for diabetic shoes He had his follow up labs done a couple of weeks ago - to discuss his results [facility] Medical History ROSARIO (obstructive sleep apnea) Obesity (BMI 30-39.9) Fatigue Anxiety Insomnia Cerebellar ataxia Dizziness Osteoporosis Pure hypercholesterolemia Diabetes mellitus Adenomyomatosis of gallbladder Primary biliary cirrhosis Surgical History Hx of tonsillectomy Hx of appendectomy Family History Father Cancer Mother No problems noted. Social History Household Members: Spouse Household Members Other:: Housing: House Alcohol intake: former Patient Tobacco Use Status: Former Tobacco user e-Cigarette/Vaping Use: Never Used Second Hand Smoke Exposure: No service: No Current occupational status: retired Current occupational exposures/hazards: No Cognitive needs: No Hearing needs: No Vision needs: Yes (Glasses) Questionnaire PHQ-9 Over the last 2 weeks, how often have you been bothered by any of the following problems? 1. Little interest or pleasure in doing things: not at all 2. Feeling down, depressed, or hopeless: not at all 3. Trouble falling or staying asleep, or sleeping too much: not at all 4. Feeling tired or having little energy: several days 5. Poor appetite or overeating: not at all 6. Feeling bad about yourself - or that you are a failure or have let yourself or your family down: not at all 7. Trouble concentrating on things, such as reading the newspaper or watching television: not at all 8. Moving or speaking so slowly that other people could have noticed. Or the opposite - being so fidgety or restless that you have been moving around a lot more than usual: not at all 9. Thoughts that you would be better off or of hurting yourself in some way: not at all Total score: 1 Depression Screening Interpretation: Negative Depression Screening Done: Yes 55061 - PHQ-9 Billing: Yes Source: Developed by Drs. Kevin Mcmullen, Juany Felix, Adolph Anderson and colleagues, with an educational michael from [employer]. Thrive Questionnaire Date Thrive assessed: 12/01/24 I am a: Patient What is your living situation today?: I have a steady place to live Within the past 12 months, did the food you bought not last and you didn't have the money to get more?: Never true Within the past 12 months, did you worry whether your food would run out before you got money to buy more?: Never true Do you have trouble paying for medicines?: No Do you have trouble getting transportation to medical appointments?: No Do you have trouble paying your heating and electricity bill?: No Do you have trouble taking care of your child, family member or friend?: No Do you have trouble with day-to-day activities such as bathing, preparing meals, shopping, managing finances, etc.?: No Are you currently unemployed and looking for a job?: No Are you interested in more education?: No Please select the resources that you would like help with: None Currently or been in a relationship where the following occur: No concerns reported THRIVE Score: 0 AUDIT C Alcohol Use Questionnaire (AUDIT-C) 1. How often do you have a drink containing alcohol?: Never 3. How often do you have six or more drinks on one occasion?: Never Total Score: 0 Score Reviewed/Action Taken: Yes SHERMAN-7 AMB Questionnaire SHERMAN-7 Date SHERMAN - 7 assessed: 12/01/24 Feeling nervous, anxious, or on edge: 0 = Not at all Not being able to stop or control worryin = Not at all Worrying too much about different things: 0 = Not at all Trouble relaxin = Not at all Being so restless that it is hard to sit still: 0 = Not at all Becoming easily annoyed or irritable: 0 = Not at all Feeling afraid as if something awful might happen: 0 = Not at all Total SHERMAN-7 score (0-4 normal; 5-9 mild; 10-14 moderate; 15-21 severe): 0 Source: Developed by Drs. Kevin Mcmullen, Juany Felix, Adolph Anderson and colleagues, with an educational michael from [employer]. Review of Systems Const Denies chills, Denies fatigue, Denies fever(s) and Denies headache(s) ENT Denies dysphagia, Denies dizziness, Denies otalgia, Denies headache(s), Denies neck pain, Denies odynophagia and Denies sore throat Card Denies chest pain, Denies palpitations and Denies dyspnea Resp Denies chest congestion, Reports cough (occasional, non-productive), Denies dyspnea and Denies wheezing GI Denies abdominal pain, Denies constipation, Denies dysphagia, Denies heartburn, Denies diarrhea, Denies nausea, Denies odynophagia and Denies vomiting Denies dysuria, Denies nocturia and Denies urinary frequency Musc Denies back pain, Reports arthralgias (in the right knee, on and off) and Denies neck pain Skin/Breast Denies rash Neuro Denies dizziness and Denies headache(s) Psych Reports anxiety (better with Rx) Endo Denies fatigue and Denies palpitations Aller/Immun Denies wheezing Physical exam (Primary Care) Vital Signs: Last Vital Signs Pulse 70 12/01/24 14:05 BP 130/70 12/01/24 14:05 Pulse Ox 94 12/01/24 14:05 Oxygen Delivery Method Room Air 12/01/24 14:05 BMI result Body Mass Index 30.3 Tobacco/Smoking Status: Tobacco use Status Tobacco use date assessed 12/01/24 12/01/24 14:10 Patient Tobacco Use Status Former Tobacco user 12/01/24 14:10 e-Cigarette/Vaping Use Never Used 12/01/24 14:10 PHQ-9: PHQ-9 Score PHQ-9: Total score 1 12/01/24 14:10 Depression Screening Interpretation: Negative Thrive Assessment: Date of Thrive Assessment Date Thrive assessed 12/01/24 12/01/24 14:10 Currently or been in a relationship where the following occur: No concerns reported Const General: no acute distress and alert HENMT Ears: TM's normal bilaterally and EAC's normal Throat: Yes posterior oropharynx normal and Yes tonsils normal (no TP congestion noted) Neck Neck: Yes supple and No lymphadenopathy Thyroid: Thyroid normal Resp Auscultation: clear to auscultation bilaterally, no rales and no wheezes Cardio Rate: regular rate Rhythm: regular rhythm Heart sounds: no murmurs GI Palpation (GI): Soft to palpation and nontender Auscultation: normal bowel sounds General: Yes no CVA tenderness Back/Spine/Pelvis Back: no CVA tenderness Thoracic/Lumbar Spine: No lumbar spinal tenderness Skin Rashes: no rashes Extrem General: Yes no clubbing, cyanosis or edema Right lower extremity: knee Details: tenderness (mild) and normal ROM; no swelling Results Reviewed Results Reviewed: Laboratory Tests 11/17/24 10:06 WBC 6.2 Hgb 14.3 Hct 42.4 Plt Count 111 L Sodium 140 Potassium 4.0 Creatinine 0.90 Estimated GFR > 60 Fasting Glucose 130 H Hemoglobin A1c % 6.6 H Calcium 8.9 D AST 36 ALT 33 Triglycerides 57 Cholesterol 132 LDL Cholesterol, Calc 63 HDL Cholesterol 58 Vitamin B12 845 25-OH Vitamin D Total 42.9 TSH 0.93 Ur Specific [place] 1.015 Urine Protein Negative Urine Glucose (UA) Negative Urine Blood Negative Urine Nitrite Negative Ur Leukocyte Esterase Trace H Microalb/Creat Ratio 6.5 Coding Level of Care Code Est Pt Level 4 (22598) Complex EM visit Add On G2211 Diagnoses Primary biliary cirrhosis K74.3 Pure hypercholesterolemia E78.00 Type 2 diabetes mellitus without complication, without long-term current use of insulin E11.9 Diabetes mellitus type: type 2 Diabetes mellitus splitter tender insulin use: without splitter tender use Diabetes mellitus complication status: without complication 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 I44.30 Osteoporosis without current pathological fracture, unspecified osteoporosis type M81.0 Osteoporosis type: unspecified Presence of current pathological fracture: without current pathological fracture Multiple thyroid nodules E04.2 Primary osteoarthritis of right knee M17.11 Osteoarthritis type: primary Recurrent dry cough R05.8 ROSARIO (obstructive sleep apnea) G47.33 Cerebellar ataxia G11.9 Insomnia, unspecified type G47.00 Insomnia type: unspecified Anxiety F41.9 Obesity (BMI 30-39.9) E66.9 Additional Codes PHQ-9 - 33297 - PHQ-9 Billing: Yes ([id number]) Assessment & Plan Assessment & Plan (1) Primary biliary cirrhosis: Comment: EGD done in 2018 showed 1+ varices and changes consistent with patient's gastropathy He used to see palliative care coordinator in [place] but is now seeing Dr. Gaston here locally for gastroenterology follow up and management Code(s): K74.3 - Primary biliary cirrhosis Category: Medical Plan: Continue Ursodiol 300 mg 2 capsules BID and Colchicine 0.6 mg BID Follow up with GI (Dr. Gaston) as scheduled (2) Pure hypercholesterolemia: Code(s): E78.00 - Pure hypercholesterolemia, unspecified Category: Medical Plan: Results of his labs done a couple of weeks ago reviewed and discussed with patient Reinforced low cholesterol diet Continue Simvastatin 10 mg QD Will recheck his labs and fasting lipids in 4 months for follow-up (3) Diabetes mellitus: Code(s): E11.9 - Type 2 diabetes mellitus without complications Category: Medical Qualifiers: Diabetes mellitus type: type 2 Diabetes mellitus splitter tender insulin use: without custodial use Diabetes mellitus complication status: without complication Qualified Code(s): E11.9 - Type 2 diabetes mellitus without complications Plan: His HgbA1c was at 6.6% on his labs done a couple of weeks ago (in-office HgbA1c was previously at 6.7% a few months ago) - goal is < 7.0% Reinforced diabetic diet - patient has not and still does not require any Rx for his diabetes so far C-peptide and SHERMAN Ab levels were both normal when checked last year (4) Adenomyomatosis of gallbladder: Comment: Abdominal US done in early 2019 revealed (+) fatty liver changes with cholelithiasis (with findings suggesting possible chronic cholecystitis) and gallbladder adenomyomatosis - patient denies any acute abdominal symptoms/pain Code(s): D13.5 - Benign neoplasm of extrahepatic bile ducts Category: Medical Plan: He is advised again that this is a benign condition and he does not require further intervention for this Patient has had no acute GI symptoms lately (5) Heart block atrioventricular: Code(s): I44.30 - Unspecified atrioventricular block Category: Medical Plan: Holter monitor done in July 2023 revealed underlying sinus bradycardia with an average rate of 53/Min. He has second-degree heart block suggesting Mobitz type 1, with frequent bradycardia He was seen by EP in consultation but they decided against a pacemaker insertion His exercise stress test in December 2023 came out okay, with myocardial perfusion imaging study shows normal myocardial perfusion. Gated LVEF is 65% during stress and 62% during rest. Echocardiogram back in 2021 showed (+) mild aortic valve calcification, mild mitral annular calcification mild tricuspid regurgitation Per cardiology, there are no clear hemodynamic implications from these and will just continue to monitor these for now Follow up with cardiology as scheduled (6) Osteoporosis: Code(s): M81.0 - Age-related osteoporosis without current pathological fracture Category: Medical Qualifiers: Osteoporosis type: unspecified Presence of current pathological fracture: without current pathological fracture Qualified Code(s): M81.0 - Age-related osteoporosis without current pathological fracture Plan: He was on Prolia 60 mg subcutaneous injection every 6 months for about 4 to 5 years and Rx was stopped a couple of years ago Repeat BMD done on 12/27/2020 showed a 19.6% improvement in the AP spine from baseline, 10.0% improvement from previous and a 6.7% improvement in the left femur from baseline, 0.5% increase from previous He was recently seen by Dr. Fernandez for endocrinology follow up and was also taken off his Fosamax; was advised to wait for another year and then repeat his BMD, which will be due after May 2024 Will send him for repeat BMD later this year He was also reportedly advised that he does not need to follow up with endocrinology again for this issue unless his follow up BMD gets significantly worse in the future (7) Multiple thyroid nodules: Code(s): E04.2 - Nontoxic multinodular goiter Category: Medical Plan: Thyroid US done in August 2023 revealed (+) 1.9 cm right midpole TR 5 thyroid nodule meets criteria for biopsy. Fine-needle aspiration was recommended He was seen by Dr. Fernandez for initial endocrinology consultation a few months ago, who agreed that patient will require FNAB He eventually underwent thyroid nodule biopsy in May 2024 - pathology reportedly came out benign Follow up with endocrinology as scheduled (8) Osteoarthritis of right knee: Code(s): M17.11 - Unilateral primary osteoarthritis, right knee Category: Medical Qualifiers: Osteoarthritis type: primary Qualified Code(s): M17.11 - Unilateral primary osteoarthritis, right knee Plan: X-rays of the right knee done in March 2023 revealed (+) OA changes He was referred to and see by Dr. Benitez last year and was reportedly advised that as his symptoms were mild, no further intervention is indicated at the time but he is advised to call up orthopedics at any time if his knee symptoms get significantly worse (9) Recurrent dry cough: Code(s): R05.8 - Other specified cough Category: Medical Plan: He was seen and evaluated by pulmonary (Dr. Myers) a few months ago and was advised that this is likely multifactorial, including due to dry air, GERD and allergies He also appears to have some degree of ILD, which can contribute to his cough as well Patient states that his symptoms have improved a lot since he was started on his Albuterol inhaler Continue Albuterol HFA 2 inhalations Q 6 hours PRN He has also been advised to take some OTC antihistamines like Loratadine 10 mg QD PRN to help with his symptoms Follow up with pulmonary as scheduled (10) ROSARIO (obstructive sleep apnea): Comment: Known case of obstructive sleep apnea, well treated with the use of CPAP. Compliance is excellent. 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, unspecified Category: Medical Plan: Patient has gait instability due to his ataxia Follow up with Neurology as scheduled (12) Insomnia: Code(s): G47.00 - Insomnia, unspecified Category: Medical Qualifiers: Insomnia type: unspecified Qualified Code(s): G47.00 - Insomnia, unspecified Plan: Sleep hygiene reinforced Has been taking OTC sleep aids like NyQuil PM as needed with some relief (13) Anxiety: Code(s): F41.9 - Anxiety disorder, unspecified Category: Medical Plan: Continue Escitalopram 10 mg QD States that his anxiety has been well-controlled on his current Rx (14) Obesity (BMI 30-39.9): Comment: PATIENT IS MODERATELY OBESE, MAINLY DUE TO ABDOMINAL PROTUBERANCE. WEIGHT REMAINS STABLE Code(s): E66.9 - Obesity, unspecified Category: Medical Plan: Reinforced diet/exercise as tolerated/lose weight but reinforced fall precautions due to his gait instability Plan Follow up in 4 months Orders: Orders Complete Blood Count Auto Diff 4 Months D64.9 - Anemia, unspecified Comprehensive [place]oy. Panel Fast 4 Months E78.00 - Pure hypercholesterolemia, unspecified Lipid Panel 4 Months E78.00 - Pure hypercholesterolemia, unspecified TSH reflex Free T4 4 Months E78.00 - Pure hypercholesterolemia, unspecified Hemoglobin A1c 4 Months E11.9 - Type 2 diabetes mellitus without complications UA CC w/rflx Micro + Cult 4 Months R30.0 - Dysuria Vitamin D 25-OH Total 4 Months E55.9 - Vitamin D deficiency, unspecified Microalbumin, Random (w Creat) 4 Months E11.9 - Type 2 diabetes mellitus without complications Medications: New [DIABETIC SHOES] As directed 2 ea 0RF E11.9 - Type 2 diabetes mellitus without complications Refilled ursodiol 600 mg (2 x 300 mg) PO BID 360 caps 0RF K74.3 - Primary biliary cirrhosis
== END 2024-12-01 14:40 | disposition home or self-care (01) ==
LOC: HO.HMCH 13:54
PROVIDERS: PCP Internal Medicine; Visit Provider Internal Medicine
DX: K74.3 Primary biliary cirrhosis (principal); E11.9 Type 2 diabetes mellitus without complications; G11.9 Hereditary ataxia, unspecified; E78.00 Pure hypercholesterolemia, unspecified; D13.5 Benign neoplasm of extrahepatic bile ducts; I44.30 Unspecified atrioventricular block; M81.0 Age-related osteoporosis without current pathological fracture; E04.2 Nontoxic multinodular goiter; M17.11 Unilateral primary osteoarthritis, right knee; R05.8 Other specified cough; G47.33 Obstructive sleep apnea (adult) (pediatric); G47.00 Insomnia, unspecified

== ENCOUNTER → 2024-12-01 13:53 | Outpatient (BNVA) | payer MEDICARE, SELFPAY | PROVIDERS: PCP Internal Medicine; Visit Provider Internal Medicine | DX: K74.3 Primary biliary cirrhosis (principal); E78.00 Pure hypercholesterolemia, unspecified; E11.9 Type 2 diabetes mellitus without complications; D13.5 Benign neoplasm of extrahepatic bile ducts; I44.30 Unspecified atrioventricular block; M81.0 Age-related osteoporosis without current pathological fracture; E04.2 Nontoxic multinodular goiter; M17.11 Unilateral primary osteoarthritis, right knee; R05.8 Other specified cough; G47.33 Obstructive sleep apnea (adult) (pediatric); G11.9 Hereditary ataxia, unspecified; G47.00 Insomnia, unspecified; F41.9 Anxiety disorder, unspecified; E66.9 Obesity, unspecified; Z68.30 Body mass index [BMI] 30.0-30.9, adult; Z87.891 Personal history of nicotine dependence; Z71.3 Dietary counseling and surveillance | CPT/HCPCS: 96127; 99212 ==

== ENCOUNTER 2024-12-10 09:17 | Outpatient (AMB) | payer MEDICARE, SELFPAY ==
--- OUTSIDE RECORDS SUMMARY | 2024-12-10 09:19 | XMS_ITS | Patient Health Record ---
Author Organization [facility] Address [address] [place] [address] Care Team Providers Care Rn Ambulatory Name Role Phone Carlin HARVEY, [place] Primary Care Provider Donaldo Beaver Jr Unavailable [...] Problem Status W/U Status Risk Notes Problem [id number] Primary biliary cirrhosis (K74.3) Active confirmed Problem [id number] Esophageal varices without bleeding, unspecified esophageal varices [...] Date MEDICARE OF [place] [address] [facility] [place] [place] [address] [phone] [id number] CAROLINA DANIEL Self - patient is the insured [employer] CLAIM[employer] [address] [place] [address] [phone] [id number] CAROLINA DANIEL Self - patient is the insured Medical (General) History Medical History History ICD Code osteoporosis primary biliary cirrhosis colon polyps splemomegaly type II diabetes Denies [place],VA,Lung disease,renal disease Surgical History Surgery Date(Month/Year) Appendectomy Umbilical hernia repair tonsillectomy
--- NOTE | 2024-12-10 09:30 | AM.OFFWIN_ITS ---
Intake Vital Signs 12/10/24 09:32 Height 5 ft 10 in Weight 213 lb BMI 30.6 BP 142/62 H Blood Pressure Location Rt brachial Position Sitting Respiration 17 Pulse 67 Pulse Source Pulse Oximeter Temp 98.1 F Temp Source Oral Pulse Oximetry (%) 96 Oxygen Delivery Method Room Air Intake Visit Reasons: EP-Tick bite Intake Note: Pt is here today c/o tick bite Mid Rt side of back : noticed on 12/07/24: states she took it out, but patient has a bullseye Patient Tobacco Use Status: Former Tobacco user Allergies No Known Allergies (No Known Allergies*) Allergy (Verified 12/10/24 09:33) HPI HPI Comments History of Present Illness Details This is an 84-year-old male presenting for evaluation of a tick bite that he first noticed on ThursdayDecember 07. Patient states that his removed the tick completely and he denies having any fevers, chills or pain at the site of the tick bite. Patient comes today because he woke up this morning and his noticed a bull's-eye rash at the site of the tick bite. Patient denies any previous history of Lyme disease or other tick-borne illness. [facility] Medical History ROSARIO (obstructive sleep apnea) Obesity (BMI 30-39.9) Fatigue Anxiety Insomnia Cerebellar ataxia Dizziness Osteoporosis Pure hypercholesterolemia Diabetes mellitus Adenomyomatosis of gallbladder Primary biliary cirrhosis Surgical History Hx of tonsillectomy Hx of appendectomy Family History Father Cancer Mother No problems noted. Social History Household Members: Spouse Household Members Other:: Housing: House Alcohol intake: former Patient Tobacco Use Status: Former Tobacco user e-Cigarette/Vaping Use: Never Used Second Hand Smoke Exposure: No service: No Current occupational status: retired Current occupational exposures/hazards: No Cognitive needs: No Hearing needs: No Vision needs: Yes (Glasses) Review of Systems Const All systems reviewed & are unremarkable except as noted in HPI and below Denies body aches, Denies chills, Denies fatigue, Denies fever(s) and Denies headache(s) Eyes Reports no additional complaints ENT Reports no additional complaints and Denies headache(s) Card Reports no additional complaints Resp Reports no additional complaints Musc Reports no additional complaints and Denies numbness Skin/Breast Details: bulls eye rash right low back Neuro Denies headache(s) and Denies numbness Psych Reports no additional complaints Endo Reports no additional complaints and Denies fatigue Aller/Immun Reports no additional complaints Physical Exam Vital Signs: Last Vital Signs Temp 98.1 F 12/10/24 09:32 Pulse 67 12/10/24 09:32 Resp 17 12/10/24 09:32 BP 142/62 H 12/10/24 09:32 Pulse Ox 96 12/10/24 09:32 Oxygen Delivery Method Room Air 12/10/24 09:32 BMI result Body Mass Index 30.6 Const Other: Pleasant, well-appearing, afebrile. General: cooperative, healthy appearing, comfortable, no acute distress, well developed, alert, awake and Physically active; No ill appearing Nutritional Appearance: well nourished Orientation/consciousness: patient oriented x3 Limitations: no limitations Skin Other: There is macular erythema circumferentially surrounding an excoriated lesion with no evidence of residual tick body that is approximately 5 cm in diameter on the right low back. Lesion is not warm to the touch and is not tender. Lesions: lesion noted (right low back) Neuro General: patient oriented x3 Psych Appearance: grossly normal Mental Status: mental status grossly normal Insight: Good insight present (Psych) Judgement: Good judgement present (Psych) Assessment & Plan Assessment & Plan (1) Erythema migrans (Lyme disease): Comment: Patient's examination is consistent with a single erythema migrans lesion. The patient's states that she feels he may have had a similar lesion on his left deltoid earlier in the week, which is no longer present. Patient will be conservatively treated with doxycycline x3 weeks. Code(s): A69.20 - Lyme disease, unspecified Plan: Doxycycline 100 mg b.i.d. times 21 days. Follow up only as needed. Medications: New doxycycline hyclate 100 mg PO BID 42 caps 0RF Coding Level of Care Code Est Pt Level 3 (82622) Diagnoses Erythema migrans (Lyme disease) A69.20 Time Spent (min) 20
[2024-12-10 09:32] VITALS: BP 142/62; PULSE 67; RESP 17; TEMP 36.7; O2SAT 96; BMI 30.6
== END 2024-12-10 10:14 | disposition home or self-care (01) ==
LOC: HO.HMCWIC 09:17
PROVIDERS: PCP Internal Medicine; Visit Provider Physician Assistant
DX: A69.20 Lyme disease, unspecified (principal)

== ENCOUNTER → 2024-12-10 09:17 | Outpatient (BNVA) | payer MEDICARE, SELFPAY | PROVIDERS: PCP Internal Medicine; Visit Provider Physician Assistant | DX: A69.20 Lyme disease, unspecified (principal) | CPT/HCPCS: 99212 ==

== ENCOUNTER 2024-12-14 11:51 | Outpatient (REF) | payer MEDICARE, SELFPAY ==
--- NOTE | ~2024-12-14 | XR_ITS ---
EXAMINATION: XR KNEE, RIGHT CLINICAL INFORMATION: M25.561 - Pain in right knee COMPARISON: 2022 TECHNIQUE: Four views of the right knee. FINDINGS: There is mild to moderate narrowing of the medial joint space, increased since the prior. There is minimal narrowing of the lateral joint space. Small volume joint effusion is evident. Small marginal osteophytes present along the medial joint line and intercondylar spines. Vascular calcifications are present posterior knee. XR/XR knee RT 4V IMPRESSION: Mild to moderate osteoarthritis, increased since the prior. Borderline joint effusion. Electronically signed by: Richard Angulo MD 12/14/2024 01:29 PM EDT
[2024-12-14 16:34] LABS: MANUAL DIFF FLAG NO
[2024-12-14 16:41] LABS: Hematocrit 44.1 % (42.0-52.0); Hemoglobin 14.6 g/dl (14.0-18.0); Imm Gran Abs Auto 0.03 X10*3/uL (0.00-0.03); Imm Gran Pct Auto 0.5 % (0.0-0.4); Lymphocytes Absolute Auto 1.3 X10*3/uL (1.2-4.9); Mean Corpuscular HGB Conc 33.1 g/dl (31.0-36.0); Mean Corpuscular Hemoglobin 30.9 pg (27.0-33.0); Mean Corpuscular Volume 93.4 fL (80.0-98.0); NRBC Abs Auto 0.000 X10*3/uL (0.0-0.012); NRBC Pct Auto 0.0 /100WBC (0.0-0.2); Platelet Count 113 X10*3/uL (160-400); Red Blood Count 4.72 X10*6/uL (4.60-5.80); White Blood Count 5.6 X10*3/uL (4.8-10.8)
[2024-12-14 16:56] LABS: Uric Acid 4.1 mg/dL (3.4-7.0)
[2024-12-15 09:19] LABS: Lyme Abs Screen <0.90 index
== END 2024-12-14 11:52 | disposition home or self-care (01) ==
LOC: HO.HMGCX 11:51
PROVIDERS: PCP Internal Medicine; Visit Provider Physician Assistant Medical
DX: M25.561 Pain in right knee (principal); R60.0 Localized edema
CPT/HCPCS: 36415; 73564; 84550; 85025; 86617; 86618; 99212

== ENCOUNTER 2024-12-14 11:51 | Outpatient (AMB) | payer MEDICARE, SELFPAY ==
[2024-12-14 12:34] VITALS: BP 128/66; PULSE 69; TEMP 36.6; O2SAT 96; BMI 30.6
--- NOTE | 2024-12-14 12:34 | AM.OFFWIN_ITS ---
Intake Vital Signs 12/14/24 12:34 Height 5 ft 10 in Weight 213 lb BMI 30.6 BP 128/66 Blood Pressure Location Lt brachial Position Sitting Pulse 69 Pulse Source Pulse Oximeter Temp 97.9 F Temp Source Oral Pulse Oximetry (%) 96 Oxygen Delivery Method Room Air Intake Visit Reasons: EP ? Lyme disease Intake Note: presents with right knee swelling and pain down to toes after starting doxycycline Patient Tobacco Use Status: Former Tobacco user Allergies No Known Allergies (No Known Allergies*) Allergy (Verified 12/14/24 12:39) Do you need a note to return to daycare/school/sports/work: No HPI HPI Comments History of Present Illness Details History of Present Illness - The patient is an 84-year-old male pre senting with joint swelling and pain following a tick bite. - The patient reports swelling in the to es and knees, described as like sausages, which began approximately one week ago. - The swelling worsened after a tick bit e, which led to a suspected Lyme disease diagnosis. - The swelling and pain have persisted d espite initial interventions with ice a nd rest. - The patient was prescribed antibiotics for the suspected Lyme disease, and has been using Advil and aspirin cream with lidocaine for pain management. - The patient is generally active, engag ing in activities such as hunting and fishing, but has reduced activity due to the current condition. - The tick was removed on a Thursday, and by Thursday, a bullseye rash was noted, followed by joint symptoms. - He denies trauma or fall. - He denies calf pain, numbness, tinglin g, ankle or foot pain. - He denies redness or warmth to the rig ht leg. Physical Exam General: Cooperative, healthy appearing, comfortable, no acute distress and well developed Respiratory: Normal respiratory effort and able to speak in complete sentences. Clear to auscultation bilaterally Cardiovascular: Regular rate and rhythm. Normal S1 and S2 Skin: No rashes or lesions noted. Musculoskeletal: Swelling noted on both sides of right knee. FROM of the knee. No click noted. No TTP of the patella or lateral condyle, medial or lateral meniscus, or posterior fossa. TTP of the right medial condyle. Negative anterior drawer test. Negative Manas noted. DTR are 1+ on the LE. Negative Homans noted. FROM of the ankle. Ambulates with a steady gait. Strength is 5/5 on the LE bilaterally. 2-3+ pitting edema noted. Neuro: Sensation is intact on the LE bilaterally. [facility] Medical History ROSARIO (obstructive sleep apnea) Obesity (BMI 30-39.9) Fatigue Anxiety Insomnia Cerebellar ataxia Dizziness Osteoporosis Pure hypercholesterolemia Diabetes mellitus Adenomyomatosis of gallbladder Primary biliary cirrhosis Surgical History Hx of tonsillectomy Hx of appendectomy Family History Father Cancer Mother No problems noted. Social History Household Members: Spouse Household Members Other:: Housing: House Alcohol intake: former Patient Tobacco Use Status: Former Tobacco user e-Cigarette/Vaping Use: Never Used Second Hand Smoke Exposure: No service: No Current occupational status: retired Current occupational exposures/hazards: No Cognitive needs: No Hearing needs: No Vision needs: Yes (Glasses) Review of Systems Const All systems reviewed & are unremarkable except as noted in HPI and below Physical Exam Vital Signs: Last Vital Signs Temp 97.9 F 12/14/24 12:34 Pulse 69 12/14/24 12:34 BP 128/66 12/14/24 12:34 Pulse Ox 96 12/14/24 12:34 Oxygen Delivery Method Room Air 12/14/24 12:34 BMI result Body Mass Index 30.6 Assessment & Plan Assessment & Plan (1) Right knee pain: Code(s): M25.561 - Pain in right knee Qualifiers: Chronicity: acute Qualified Code(s): M25.561 - Pain in right knee Plan Most likely arthralgia vs gout vs Lyme vs bursitis Plan - Rest, ice and elevation - Naproxen BID as needed for pain - Diclofenac gel as needed - will order an x-ray - will order labs - will also refer him to ortho - follow uo with PCP Orders: Orders Lyme IgG/IgM w/reflex to WB Today M25.561 - Pain in right knee Complete Blood Count Auto Diff Today M25.561 - Pain in right knee Uric Acid Today M25.561 - Pain in right knee Referrals Orthopedics Referral M25.561 - Pain in right knee Medications: New diclofenac sodium 3% 1 appl topical BID 100 grams 0RF naproxen 500 mg PO Q12H PRN 20 tabs 0RF pain 7 days Coding Level of Care Code Est Pt Level 4 (26875) Diagnoses Acute pain of right knee M25.561 Chronicity: acute
--- OUTSIDE RECORDS SUMMARY | 2024-12-14 12:38 | XMS_ITS | Patient Health Record ---
Author Organization [facility] Address [address] [place] [address] Care Team Providers Care Software Application Tester Name Role Phone Carlin HARVEY, [place] Primary Care Provider Donaldo Beaver Jr Unavailable [phone] Reason For Referral No Information Medications Medication [...] Problem Status W/U Status Risk Notes Problem [id number] Primary biliary cirrhosis (K74.3) Active confirmed Problem [id number] Esophageal varices without bleeding, unspecified esophageal varices [...] Date MEDICARE OF [place] [address] [place] [address] [phone] [id number] CAR[place] DANIEL Self - patient is the insured [employer] ATT[employer] CLAIMS [address] [place] [address] [phone] [id number] [place] DANIEL Self - patient is the insured Medical (General) History Medical History History ICD Code osteoporosis primary biliary cirrhosis colon polyps splemomegaly type II diabetes Denies [place],Lung disease,renal disease Surgical History Surgery Date(Month/Year) Appendectomy Umbilical hernia repair tonsillectomy
== END 2024-12-14 13:47 | disposition home or self-care (01) ==
PROVIDERS: PCP Internal Medicine; Visit Provider Physician Assistant Medical
DX: M25.561 Pain in right knee (principal)

== ENCOUNTER → 2024-12-14 13:06 | Outpatient (BNV) | payer MEDICARE, SELFPAY | PROVIDERS: PCP Internal Medicine; Visit Provider Radiology Diagnostic Radiology | DX: M17.11 Unilateral primary osteoarthritis, right knee (principal) | CPT/HCPCS: 73564 ==

== ENCOUNTER 2024-12-20 08:47 | Outpatient (AMB) | payer MEDICARE, SELFPAY ==
[2024-12-20 08:56] VITALS: BP 132/68; PULSE 58; TEMP 36.4; O2SAT 95; BMI 29.8
--- NOTE | 2024-12-20 08:56 | MHC.OFFWIV ---
Intake Vital Signs 12/20/24 08:56 Height 5 ft 10 in Weight 208 lb BMI 29.8 BP 132/68 Blood Pressure Location Lt brachial Position Sitting Pulse 58 Pulse Source Pulse Oximeter Temp 97.6 F Temp Source Oral Pulse Oximetry (%) 95 Oxygen Delivery Method Room Air Intake Visit Reasons: EP swelling in knee down the leg Intake Note: presents with right knee worsening pain, swelling starts immediately after weight bearing Patient Tobacco Use Status: Former Tobacco user Allergies No Known Allergies (No Known Allergies*) Allergy (Verified 12/20/24 08:59) Do you need a note to return to daycare/school/sports/work: No HPI HPI Comments History of Present Illness Details History - The patient is an 84-year-old male presenting with right knee swelling following a tick bite. - The patient was bitten by a tick on December 07, which was removed by his , and subsequently developed a bullseye rash. - On December 10, he was prescribed three weeks of doxycycline, which he completed. - On December 14, the patient came back to the [place] c/o right knee swelling and pain, which worsens with activity and improves with rest. - An x-ray showed borderline joint effusion and mild to moderate osteoarthritis. - Lyme disease and uric acid tests were negative, though the Lyme test may have been conducted too early. - The patient has no history of blood clots or active cancers and does not smoke. - He has been using Advil and Voltaren gel for pain management and was prescribed naproxen on December 14. - Denies any further symptoms such as fever or facial droop. Physical Exam General: Cooperative, healthy appearing, comfortable, no acute distress and well developed Orientation: Patient oriented x3 Limitations: No limitations Head: Normal to inspection Ears: Hearing grossly normal bilaterally Face and sinus: Normal facial exam Eyes: Appearance normal, both eyes and all related structures Neck: Normal visual inspection and Yes full ROM Respiratory: Normal respiratory effort and able to speak in complete sentences. Neuro: Patient oriented x3 Extremities: Right knee with edema, negative patellar ballotement, TTP medial right knee, no joint laxity, no skin changes, lower extremity with 1+ non pitting edema PFSH Medical History ROSARIO (obstructive sleep apnea) Obesity (BMI 30-39.9) Fatigue Anxiety Insomnia Cerebellar ataxia Dizziness Osteoporosis Pure hypercholesterolemia Diabetes mellitus Adenomyomatosis of gallbladder Primary biliary cirrhosis Surgical History Hx of tonsillectomy Hx of appendectomy Family History Father Cancer Mother No problems noted. Social History Household Members: Spouse Household Members Other:: Housing: House Alcohol intake: former Patient Tobacco Use Status: Former Tobacco user e-Cigarette/Vaping Use: Never Used Second Hand Smoke Exposure: No service: No Current occupational status: retired Current occupational exposures/hazards: No Cognitive needs: No Hearing needs: No Vision needs: Yes (Glasses) Review of Systems Const All systems reviewed & are unremarkable except as noted in HPI and below Physical Exam Vital Signs: Last Vital Signs Temp 97.6 F 12/20/24 08:56 Pulse 58 12/20/24 08:56 BP 132/68 12/20/24 08:56 Pulse Ox 95 12/20/24 08:56 Oxygen Delivery Method Room Air 12/20/24 08:56 BMI result Body Mass Index 29.8 Assessment & Plan Assessment & Plan (1) Effusion, right knee: Code(s): M25.461 - Effusion, right knee Plan: Plan Patient was informed and verbally consented to the use of an ambient scribe for clinic note documentation during this visit. Tick Bite With Bullseye Rash with subsequent right knee effusion - Continue monitoring for Lyme disease symptoms; repeat Lyme test scheduled for January 23. - Patient should complete a course of doxycycline. - X-ray showed borderline joint effusion and mild to moderate osteoarthritis. - Recommended use of naproxen and compression wrapping to manage swelling. OLIMPIA wrapped his knee for him. - Referral to orthopedics for further evaluation; appointment scheduled for January 16. Called to see if they could move his appt up as knee is more painful. - Continue topical diclofenac gel. - Very low risk of DVT, no history of blood clots or active cancers and does not smoke. Orders: Orders Lyme IgG/IgM w/reflex to WB 01/23/25 A69.20 - Lyme disease, unspecified Coding Level of Care Code Est Pt Level 3 (45433) Diagnoses Effusion, right knee M25.461
--- OUTSIDE RECORDS SUMMARY | 2024-12-20 09:03 | XMS_ITS | Patient Health Record ---
Author Organization [facility] Address [address] [place] [address] Care Team Providers Care Director Talent Acquisition Name Role Phone Carlin HARVEY, [place] Primary Care Provider Donaldo Beaver Jr Unavailable [...] Problem Status W/U Status Risk Notes Problem [id number] Primary biliary cirrhosis (K74.3) Active confirmed Problem [id number] Esophageal varices without bleeding, unspecified esophageal varices [...] Date MEDICARE OF [place] [address] [facility] [place] [address] [phone] [id number] [place] DANIEL Self - patient is the insured [employer] ATT[employer] CLAIMS [address] [place] [address] [phone] [id number] [place] DANIEL Self - patient is the insured Medical (General) History Medical History History ICD Code osteoporosis primary biliary cirrhosis colon polyps splemomegaly type II diabetes Denies [place],Lung disease,renal disease Surgical History Surgery Date(Month/Year) Appendectomy Umbilical hernia repair tonsillectomy
== END 2024-12-20 09:57 | disposition home or self-care (01) ==
PROVIDERS: PCP Internal Medicine; Visit Provider Physician Assistant
DX: M25.461 Effusion, right knee (principal)

== ENCOUNTER → 2024-12-20 08:47 | Outpatient (BNVA) | payer MEDICARE, SELFPAY | PROVIDERS: PCP Internal Medicine; Visit Provider Physician Assistant | DX: M25.461 Effusion, right knee (principal) | CPT/HCPCS: 99212 ==

== ENCOUNTER → 2025-01-02 11:10 | Outpatient (REF) | payer MEDICARE, SELFPAY ==
--- NOTE | 2025-01-02 11:12 | HM_ITS ---
Conclusion: 1. Patient was monitored for total period of 2 days and 23 hours 2. Baseline was normal sinus rhythm with average heart of 57 beats per minute 3. Occasional PACs and PVCs noted 4. Occasional episodes of Mobitz type 1 second-degree AV block noted 5. No patient reported events MTDD
--- OUTSIDE RECORDS SUMMARY | 2025-01-02 11:54 | XMS_ITS | Patient Health Record ---
Author Organization [facility] Address [address] [place] [address] Care Team Providers Care Pattern Chain Builder Name Role Phone Carlin HARVEY, [place] Primary Care Provider Donaldo Beaver Jr Unavailable [phone] Reason For Referral No Information Medications Medication [...] Problem Status W/U Status Risk Notes Problem [id number] Primary biliary cirrhosis (K74.3) Active confirmed Problem [id number] Esophageal varices without bleeding, unspecified esophageal varices [...] Date MEDICARE OF [place] [address] [place] [address] [phone] [id number] [place] DANIEL Self - patient is the insured [employer] ATT[employer] CLAIMS [address] [place] [address] [id number] [place] DANIEL Self - patient is the insured Medical (General) History Medical History History ICD Code osteoporosis primary biliary cirrhosis colon polyps splemomegaly type II diabetes Denies [place],VA,Lung disease,renal disease Surgical History Surgery Date(Month/Year) Appendectomy Umbilical hernia repair tonsillectomy
== END ==
LOC: HO.CARD 11:10
PROVIDERS: PCP Internal Medicine; Visit Provider Internal Medicine
DX: I44.1 Atrioventricular block, second degree (principal)
CPT/HCPCS: 93242

== ENCOUNTER → 2025-01-02 11:12 | Outpatient (BNV) | payer MEDICARE, SELFPAY | PROVIDERS: PCP Internal Medicine; Visit Provider Internal Medicine Cardiovascular Disease | DX: I49.1 Atrial premature depolarization (principal); I49.3 Ventricular premature depolarization | CPT/HCPCS: 93244 ==

== ENCOUNTER 2025-01-11 09:46 | Outpatient (AMB) | payer MEDICARE, SELFPAY ==
[2025-01-11 09:52] VITALS: BP 130/54; PULSE 37; O2SAT 96; BMI 30.5
--- NOTE | 2025-01-11 09:52 | A.OFFVIS_ITS ---
Vital Signs 01/11/25 09:52 Height 5 ft 10 in Weight 212 lb 11.937 oz BMI 30.5 BP 130/54 L Blood Pressure Location Lt brachial Position Sitting Pulse 37 L Pulse Source Pulse Oximeter Pulse Oximetry (%) 96 Oxygen Delivery Method Room Air Intake Visit Reasons: ILD Intake Note: pt is here for follow up and states his breathing is okay, has cpap. Reactor Kettle Operator Required: No Allergies No Known Allergies (No Known Allergies*) Allergy (Verified 01/11/25 10:07) Medication List - Last Reconciled 01/11/25 by Mike Myers MD albuterol sulfate 90 mcg/actuation (Ventolin HFA) 2 puffs inhalation Q6H PRN 30 days amlodipine 5 mg PO DAILY cholecalciferol (vitamin D3) 25 mcg PO DAILY colchicine 0.6 mg PO BID [DIABETIC SHOES As directed] [DIABETIC SHOES (1 pair) As directed] diclofenac sodium 3% 1 appl topical BID escitalopram oxalate 10 mg PO DAILY naproxen 500 mg PO Q12H PRN 7 days simvastatin 10 mg PO BEDTIME tizanidine 2 mg PO TID ursodiol 600 mg (2 x 300 mg) PO BID Do you need a note to return to daycare/school/sports/work: No HPI HPI ILD: Details: Janak is 84 years old very pleasant gentleman who comes with his very pleasant , for his 6 months follow-up. He is a case of obstructive sleep apnea and uses CPAP very regularly every night. He admits that he sleeps much better with the CPAP, then if he does not use. We do not have the printout for his compliance but he uses about 6 hours every night regularly. There is no issue with the CPAP mask( fullface) or the machine. Except that it did not transmit the data for compliance. He is also case of mild COPD and uses albuterol 2 puffs Q 6 hours p.r.n. which is very rare. Lately he has had intermittent bouts of cough especially in the morning when he wakes up and comes down to the kitchen to make cough. It takes long time before he could expectorates is smiles speck of phlegm then he gets better. I explained to him that this is most likely a small bowel of mucus which needs to come up, During the day he is fine with only minimal shortness of breath if he climbs stairs or walks up hills. [facility] Medical History (Updated 01/11/25 @ 10:25 by Mike Myers MD) COPD (chronic obstructive pulmonary disease) ROSARIO (obstructive sleep apnea) Obesity (BMI 30-39.9) Fatigue Anxiety Insomnia Cerebellar ataxia Dizziness Osteoporosis Pure hypercholesterolemia Diabetes mellitus Adenomyomatosis of gallbladder Primary biliary cirrhosis Surgical History Hx of tonsillectomy Hx of appendectomy Family History Father Cancer Mother No problems noted. Social History Household Members: Spouse Household Members Other:: Housing: House Alcohol intake: former Patient Tobacco Use Status: Former Tobacco user e-Cigarette/Vaping Use: Never Used Second Hand Smoke Exposure: No service: No Current occupational status: retired Current occupational exposures/hazards: No Cognitive needs: No Hearing needs: No Vision needs: Yes (Glasses) Review of Systems Const All systems reviewed & are unremarkable except as noted in HPI and below Reports snoring Eyes Reports no additional complaints ENT Reports no additional complaints Card Denies chest pain, Denies irregular heart rhythm, Denies leg edema and Denies dyspnea on exertion Resp Denies cough, Denies dyspnea on exertion, Reports snoring and Denies wheezing GI Reports no additional complaints Reports no additional complaints Musc Reports no additional complaints Skin/Breast Reports system reviewed and no additional complaints, except as documented Neuro Reports other (History of mild cerebellar ataxia) Psych Reports depression (Mild controlled with small dose of escitalopram) Endo Reports no additional complaints Liborio/Lymph Reports no additional complaints Aller/Immun Reports no additional complaints and Denies wheezing Physical Exam Vital Signs: Last Vital Signs Pulse 37 L 01/11/25 09:52 BP 130/54 L 01/11/25 09:52 Pulse Ox 96 01/11/25 09:52 Oxygen Delivery Method Room Air 01/11/25 09:52 BMI result Body Mass Index 30.5 Const General: healthy appearing (Except for moderatelately overweight), comfortable, no acute distress, alert and awake Orientation/consciousness: patient oriented x3 HEENT Head: Yes normal to inspection General nose exam: No nasal polyps present and No nasal discharge present Face and sinus: Yes sinuses nontender Mouth: oropharynx abnormals (Oropharynx is slightly crowded and narrow, Mallampati class 3) Teeth and gingiva: other (There is mild regression of the lower jaw) Throat: Yes posterior oropharynx normal Eyes General: appearance normal, both eyes and all related structures Neck Neck: Yes normal visual inspection, Yes no lymphadenopathy, Yes trachea midline, Yes no JVD and Yes other (Neck circumference 15-1/2 inch) Thyroid: Thyroid normal Chest Chest palpation & inspection: normal inspection of the chest (INCREASED AP DIAMETER ), normal palpation of entire chest wall and no tenderness Resp Effort & Inspection: normal respiratory effort and no cough Auscultation: clear to auscultation bilaterally, no rhonchi and no wheezes Cardio Palpation: normal PMI Rate: regular rate Rhythm: regular rhythm Heart sounds: no gallops and no murmurs Peripheral pulses: Peripheral pulses 2+ throughout GI Palpation (GI): Soft to palpation, nontender, No hepatosplenomegaly present, no masses and Other GI palpation findings present (Abdomen is slightly protuberant) Auscultation: normal bowel sounds Back/Spine/Pelvis Thoracic/Lumbar Spine: thoracic and lumbar spine normal to inspection Skin General skin exam: no rashes or lesions noted Neuro General: patient oriented x3 and no focal motor deficits Cranial nerves: Yes CN's II-XII intact bilaterally Extrem General: Yes normal to inspection, Yes no clubbing, cyanosis or edema and Yes no calf tenderness Psych Appearance: grossly normal and well kempt Speech and movement: Normal speech and movement present Results Reviewed Results Reviewed: Compliance report not available today Assessment & Plan Assessment & Plan (1) ROSAROI (obstructive sleep apnea): Comment: Known case of obstructive sleep apnea, well treated with the use of CPAP. Compliance is excellent( uses for 6-8 hrs ) Code(s): G47.33 - Obstructive sleep apnea (adult) (pediatric) Category: Medical Plan: The compliance report is not available but he is very reliable gentleman and he does use it every night regularly anywhere between 6-8 hours. Advised to continue using it regularly , Make sure to put distilled water in the humidification chamber every night (2) Cough: Comment: HE HAS INTERMITTENT DRY COUGH. HE DESCRIBES HAVING BOUTS OF COUGH ESPECIALLY IN THE MORNING HOURS, WHEN HE COMES DOWN TO MAKE COFFEE. I THNK ,IT MAY BE CONTRIBUTED BY DRYNESS OF THE AIR., OR BY MILD ALLERGIC RHINITIS. Code(s): R05.9 - Cough, unspecified Category: Medical Plan: MAY USE STEAM INHALATION IN THE MORNING SOON HE WAKES UP. DRINK MORE FLUIDS. MAKE SURE TO KEEP HUMIDIFICATION OPTIMAL IN THE HOUSE. (3) COPD (chronic obstructive pulmonary disease): Comment: PATIENT HAS MILD DEGREE OF COPD WHICH HAS REMAINED STABLE AND CONTROLLED. Code(s): J44.9 - Chronic obstructive pulmonary disease, unspecified Category: Medical Plan: USE ALBUTEROL HFA 2 PUFFS Q 6 HOURS ONLY P.R.N. Coding Level of Care Code Est Pt Level 3 (00750) Diagnoses ROSARIO (obstructive sleep apnea) G47.33 Cough R05.9 COPD (chronic obstructive pulmonary disease) J44.9
--- OUTSIDE RECORDS SUMMARY | 2025-01-11 10:37 | XMS_ITS | Patient Health Record ---
Author Organization [facility] Address [address] [place] [address] Care Team Providers Care Garbage Worker Name Role Phone Carlin HARVEY, [place] Primary Care Provider Donaldo Beaver Jr Unavailable [phone] Reason For Referral No Information Medications Medication [...] Problem Status W/U Status Risk Notes Problem [id number] Primary biliary cirrhosis (K74.3) Active confirmed Problem [id number] Esophageal varices without bleeding, unspecified esophageal varices [...] Date MEDICARE OF [place] [address] [place] [facility] [place] [address] [phone] [id number] CAR[place] DANIEL Self - patient is the insured [employer] ATT[employer] CLAIMS [address] [place] [address] [id number] CAR[place] DANIEL Self - patient is the insured Medical (General) History Medical History History ICD Code osteoporosis primary biliary cirrhosis colon polyps splemomegaly type II diabetes Denies [place],Lung disease,renal disease Surgical History Surgery Date(Month/Year) Appendectomy Umbilical hernia repair tonsillectomy
== END 2025-01-11 10:17 | disposition home or self-care (01) ==
PROVIDERS: PCP Internal Medicine; Visit Provider Internal Medicine
DX: G47.33 Obstructive sleep apnea (adult) (pediatric) (principal); R05.9 Cough, unspecified; J44.9 Chronic obstructive pulmonary disease, unspecified
CPT/HCPCS: 99213

== ENCOUNTER → 2025-01-11 09:46 | Outpatient (BNVA) | payer MEDICARE, SELFPAY | PROVIDERS: PCP Internal Medicine; Visit Provider Internal Medicine | DX: J44.9 Chronic obstructive pulmonary disease, unspecified (principal); R05.9 Cough, unspecified; G47.33 Obstructive sleep apnea (adult) (pediatric); Z99.89 Dependence on other enabling machines and devices | CPT/HCPCS: 99212 ==

== ENCOUNTER 2025-01-16 10:44 | Outpatient (AMB) | payer MEDICARE, SELFPAY ==
--- NOTE | 2025-01-16 10:53 | MHC.OFFVIS ---
Vital Signs 01/16/25 11:00 Height 5 ft 10 in Weight 212 lb BMI 30.4 Intake Visit Reasons: OV-RT knee OA Intake Note: Janak is an 84 year old male who presents today for a follow up of right knee OA. Patient was last seen with Dr. Benitez in October of 2023, reported mild pain, occasional sharp pain with twisting. He was instructed to follow up as needed. Today patient reports having soreness that comes and goes. States his pain increases with quick turning motion. He complains in intermittent swelling that goes down to his foot. Allergies No Known Allergies (No Known Allergies*) Allergy (Verified 01/16/25 10:55) Medication List - Last Reconciled 01/16/25 by Gabriele Valderrama PA-C albuterol sulfate 90 mcg/actuation (Ventolin HFA) 2 puffs inhalation Q6H PRN 30 days amlodipine 5 mg PO DAILY cholecalciferol (vitamin D3) 25 mcg PO DAILY colchicine 0.6 mg PO BID [DIABETIC SHOES As directed] [DIABETIC SHOES (1 pair) As directed] diclofenac sodium 3% 1 appl topical BID escitalopram oxalate 10 mg PO DAILY naproxen 500 mg PO Q12H PRN 7 days simvastatin 10 mg PO BEDTIME tizanidine 2 mg PO TID ursodiol 600 mg (2 x 300 mg) PO BID HPI HPI OV-RT knee OA: Details: 84-year-old gentleman presents to the office today accompanied by his for pain in the right knee. He states the pain is not constant it is not limiting his activities. He complains of occasional flare-ups most recently when he was treated for Lyme disease. He states the swelling comes and goes and will resolve on his own. No concerns today. [facility] Medical History (Updated 01/11/25 @ 10:25 by Mike Myers MD) COPD (chronic obstructive pulmonary disease) ROSARIO (obstructive sleep apnea) Obesity (BMI 30-39.9) Fatigue Anxiety Insomnia Cerebellar ataxia Dizziness Osteoporosis Pure hypercholesterolemia Diabetes mellitus Adenomyomatosis of gallbladder Primary biliary cirrhosis Surgical History Hx of tonsillectomy Hx of appendectomy Family History Father Cancer Mother No problems noted. Social History Household Members: Spouse Household Members Other:: Housing: House Alcohol intake: former Patient Tobacco Use Status: Former Tobacco user e-Cigarette/Vaping Use: Never Used Second Hand Smoke Exposure: No service: No Current occupational status: retired Current occupational exposures/hazards: No Cognitive needs: No Hearing needs: No Vision needs: Yes (Glasses) Review of Systems Const All systems reviewed & are unremarkable except as noted in HPI and below Physical Exam Vital Signs: BMI result Body Mass Index 30.4 Extrem Other: Right knee normal to inspection no effusion present he has full range of motion with mild crepitus. No tenderness to palpation. Calf supple nontender neurovascularly intact. Results Reviewed Results Reviewed: X-rays of the right knee obtained in the office today and reviewed by me show mild osteoarthritis. Assessment & Plan Assessment & Plan (1) Osteoarthritis of right knee: Code(s): M17.11 - Unilateral primary osteoarthritis, right knee Category: Medical Qualifiers: Osteoarthritis type: primary Qualified Code(s): M17.11 - Unilateral primary osteoarthritis, right knee Plan: In the absence of symptoms the patient will continue with conservative management of activity modifications. I did recommend a course of physical therapy to work on strength exercises however he will work on his own exercises at home. If he develops an effusion and has worsening symptoms he can contact our office and we can aspirate the knee and potentially inject with steroid otherwise he will follow up as needed. Orders: Orders XR knee RT 2V Today M25.569 - Pain in unspecified knee Coding Level of Care Code Est Pt Level 3 (31909) Complex EM visit Add On G2211 Diagnoses Primary osteoarthritis of right knee M17.11 Osteoarthritis type: primary
[2025-01-16 11:00] VITALS: BMI 30.4
--- OUTSIDE RECORDS SUMMARY | 2025-01-16 11:59 | XMS_ITS | Patient Health Record ---
Author Organization [facility] Address [address] [place] [address] Care Team Providers Care Story Teller Name Role Phone Carlin HARVEY, [place] Primary Care Provider Donaldo Beaver Jr Unavailable [phone] Reason For Referral No Information Medications Medication [...] Problem Status W/U Status Risk Notes Problem [id number] Primary biliary cirrhosis (K74.3) Active confirmed Problem [id number] Esophageal varices without bleeding, unspecified esophageal varices [...] Date MEDICARE OF [place] [address] [address] [phone] [id number] CAROLINA DANIEL Self - patient is the insured [employer] ATT[employer] CLAIMS [address] [place] [address] [phone] [id number] CAROLINA DANIEL Self - patient is the insured Medical (General) History Medical History History ICD Code osteoporosis primary biliary cirrhosis colon polyps splemomegaly type II diabetes Denies [place],Lung disease,renal disease Surgical History Surgery Date(Month/Year) Appendectomy Umbilical hernia repair tonsillectomy
== END 2025-01-16 12:02 | disposition home or self-care (01) ==
LOC: HO.HOS 10:45
PROVIDERS: PCP Internal Medicine; Visit Provider Physician Assistant
DX: M17.11 Unilateral primary osteoarthritis, right knee (principal)
CPT/HCPCS: 99213; G2211

== ENCOUNTER → 2025-01-16 10:47 | Outpatient (BNV) | payer MEDICARE, SELFPAY | PROVIDERS: Visit Provider Radiology Diagnostic Radiology | DX: M17.11 Unilateral primary osteoarthritis, right knee (principal); I70.201 Unspecified atherosclerosis of native arteries of extremities, right leg | CPT/HCPCS: 73560 ==

== ENCOUNTER 2025-01-16 11:40 | Outpatient (REF) | payer MEDICARE, SELFPAY ==
--- NOTE | ~2025-01-16 | XR_ITS ---
EXAMINATION: XR KNEE, RIGHT CLINICAL INFORMATION: M25.569 - Pain in unspecified knee COMPARISON: December 14, 2024 TECHNIQUE: AP view in standing position both knees. [place] view of the right knee. FINDINGS: Joint space narrowing involving mostly the medial compartment with sclerosis along the articular surface of the medial tibial plateau. No chondrocalcinosis. No acute cortical disruption or gross malalignment. Vascular there is. No lytic or blastic lesions. XR/XR knee RT 2V IMPRESSION: Medial compartment osteoarthritis/osteoarthrosis without acute fracture or dislocation. Atherosclerosis disease, peripheral. Electronically signed by: Felipe Richards MD 01/16/2025 11:01 AM EDT
--- OUTSIDE RECORDS SUMMARY | 2025-01-17 12:37 | XMS_ITS | Patient Health Record ---
Author Organization [facility] Address [address] [place] [address] Care Team Providers Care Installation Superintendent Name Role Phone Carlin HARVEY, [place] Primary Care Provider Donaldo Beaver Jr Unavailable [phone] Reason For Referral No Information Medications Medication [...] Problem Status W/U Status Risk Notes Problem [id number] Primary biliary cirrhosis (K74.3) Active confirmed Problem [id number] Esophageal varices without bleeding, unspecified esophageal varices [...] Date MEDICARE OF [place] [address] [address] [phone] [id number] CAROLINA DANIEL Self - patient is the insured MED[employer] ATTN CLAIMS [address] [place] [phone] [id number] CAROLINA DANIEL Self - patient is the insured Medical (General) History Medical History History ICD Code osteoporosis primary biliary cirrhosis colon polyps splemomegaly type II diabetes Denies [place],Lung disease,renal disease Surgical History Surgery Date(Month/Year) Appendectomy Umbilical hernia repair tonsillectomy
== END 2025-01-16 11:41 | disposition home or self-care (01) ==
LOC: HO.HOSX 11:40
PROVIDERS: Visit Provider Physician Assistant
DX: M17.11 Unilateral primary osteoarthritis, right knee (principal); M25.561 Pain in right knee; Z79.1 Long term (current) use of non-steroidal anti-inflammatories (NSAID)
CPT/HCPCS: 73560; 99212

== ENCOUNTER 2025-02-08 12:42 | Outpatient (REF) | payer MEDICARE, SELFPAY ==
--- OUTSIDE RECORDS SUMMARY | 2025-02-08 16:08 | XMS_ITS | Patient Health Record ---
Author Organization [facility] Address [address] [place] [address] Care Team Providers Care Crane Crew Supervisor Name Role Phone Carlin HARVEY, [place] Primary Care Provider Donaldo Beaver Jr Unavailable [...] Problem Status W/U Status Risk Notes Problem [id number] Primary biliary cirrhosis (K74.3) Active confirmed Problem [id number] Esophageal varices without bleeding, unspecified esophageal varices type (I85.00) Active confirmed Plan Of Treatment Pending Test Test Name Order Date COLONOSCOPY WITH BIOPSY 02/26/2011 COLONOSCOPY REMOVAL OF LESION SNARE ALLEGRA AYALA 02/26/2011 LIVER PROFILE 10/27/2018 CBC w/o DIFF 10/27/2018 CBC w/o DIFF 03/31/2013 PROTHROMBIN TIME (PT, INR) 03/31/2013 PROTHROMBIN TIME (PT, INR) 10/27/2018 PARTIAL THROMBOPLASTIN TIME (PTT) 2012 Future Test Test Name Order Date UPPER GI ENDOSCOPY 10/27/2018 Insurance Providers Payer Name Payer Address Payer Phone Subscriber Number Group Number Insured Name Patient Relationship to Insured Coverage Start Date Coverage End Date MEDICARE OF [place] [address] [facility] [place] [address] [phone] [id number] CAROLINA DANIEL Self - patient is the insured MED[employer] ATTN CLAIMS [address] [place] [address] [phone] [id number] CAROLINA DANIEL Self - patient is the insured Medical (General) History Medical History History ICD Code osteoporosis primary biliary cirrhosis colon polyps splemomegaly type II diabetes Denies [place],Lung disease,renal disease Surgical History Surgery Date(Month/Year) Appendectomy Umbilical hernia repair tonsillectomy
[2025-02-09 06:44] LABS: Lyme Abs Screen <0.90 index
== END 2025-02-08 12:43 | disposition home or self-care (01) ==
LOC: HO.HMGCLDS 12:42
PROVIDERS: Physician Assistant; PCP Internal Medicine; Visit Provider Internal Medicine
DX: A69.20 Lyme disease, unspecified (principal)
CPT/HCPCS: 36415; 86617; 86618

== ENCOUNTER 2025-02-27 10:48 | Outpatient (AMB) | payer MEDICARE, SELFPAY ==
--- NOTE | 2025-02-27 10:52 | MHC.OFFVIS ---
Vital Signs 02/27/25 10:53 Height 5 ft 10 in Weight 187 lb 6.287 oz BMI 26.9 BP 130/68 Blood Pressure Location Lt brachial Position Sitting Pulse 61 Pulse Source Monitor Intake Visit Reasons: 6m follow up Allergies No Known Allergies (No Known Allergies*) Allergy (Verified 01/16/25 10:55) Medication List - Last Reconciled 02/27/25 by Dylan Hilton MD albuterol sulfate 90 mcg/actuation (Ventolin HFA) 2 puffs inhalation Q6H PRN 30 days amlodipine 5 mg PO DAILY cholecalciferol (vitamin D3) 25 mcg PO DAILY colchicine 0.6 mg PO BID [DIABETIC SHOES As directed] [DIABETIC SHOES (1 pair) As directed] diclofenac sodium 3% 1 appl topical BID escitalopram oxalate 10 mg PO DAILY naproxen 500 mg PO Q12H PRN 7 days simvastatin 10 mg PO BEDTIME tizanidine 2 mg PO TID ursodiol 600 mg (2 x 300 mg) PO BID HPI Comments Details: Janak returns for follow-up regarding second-degree heart block. Overall, he states he feels just about the same. His main concerns these days are more of cough and respiratory symptoms but nothing clearly cardiac. He has had longstanding fatigue which is just about the same as before. No dizziness or presyncope or syncope. No clear-cut cardiac symptoms otherwise. Because of the heart block, we did send him to EP last year but they did not recommend a pacemaker. [facility] Medical History (Updated 01/11/25 @ 10:25 by Mike Myers MD) COPD (chronic obstructive pulmonary disease) ROSARIO (obstructive sleep apnea) Obesity (BMI 30-39.9) Fatigue Anxiety Insomnia Cerebellar ataxia Dizziness Osteoporosis Pure hypercholesterolemia Diabetes mellitus Adenomyomatosis of gallbladder Primary biliary cirrhosis Surgical History Hx of tonsillectomy Hx of appendectomy Family History Father Cancer Mother No problems noted. Social History Household Members: Spouse Household Members Other:: Housing: House Alcohol intake: former Patient Tobacco Use Status: Former Tobacco user e-Cigarette/Vaping Use: Never Used Second Hand Smoke Exposure: No service: No Current occupational status: retired Current occupational exposures/hazards: No Cognitive needs: No Hearing needs: No Vision needs: Yes (Glasses) Review of Systems Const Denies weakness ENT Denies dizziness Card Denies chest pain, Denies chest pain with activity, Denies syncope, Denies rapid heart rate, Denies pedal edema, Denies edema, Denies leg edema, Denies lightheadedness, Denies palpitations, Denies dyspnea, Denies dyspnea on exertion and Denies orthopnea Resp Denies cough, Denies dyspnea and Denies dyspnea on exertion GI Denies hematochezia and Denies change in stool character Musc Denies abnormal gait, Denies muscle cramps, Denies muscle weakness, Denies numbness, Denies radiating pain into limb and Denies tingling Neuro Denies abnormal gait, Denies dizziness, Denies syncope, Denies numbness, Denies tingling and Denies weakness Endo Denies palpitations Physical Exam Vital Signs: Last Vital Signs Pulse 61 02/27/25 10:53 BP 130/68 02/27/25 10:53 BMI result Body Mass Index 26.9 Const General: comfortable and no acute distress Orientation/consciousness: patient oriented x3 HEENT Other: Unremarkable Head: Yes normal to inspection Neck Neck: Yes normal visual inspection Chest Chest palpation & inspection: normal inspection of the chest Resp Auscultation: clear to auscultation bilaterally Cardio Palpation: normal PMI Heart sounds: S1 normal heart sound present, S2 normal heart sound present, no gallops, no murmurs and no rubs GI Palpation (GI): Soft to palpation Back/Spine/Pelvis Other: unremarkable Skin General skin exam: no rashes or lesions noted Neuro General: patient oriented x3 Extrem General: Yes normal to inspection Psych Mental Status: mental status grossly normal Office Procedures EKG Details: EKG with sinus rhythm with Mobitz type one second-degree heart block with inferior T inversions. Ventricular rate 61/Min. Overall, similar to prior. [id number], Complete Assessment & Plan Assessment & Plan (1) Heart block atrioventricular: Code(s): I44.30 - Unspecified atrioventricular block Category: Medical Plan: In the most recent Holter monitor, underlying rhythm is sinus with an average rate of 57/Min. Evidence of Mobitz type one av block but no high-grade AV blocks. In the past, he did not ETT where he was able to reach up to 82% of max predicted heart rate which indicates reasonable chronotropic competence. The perfusion component was unremarkable. Has already been seen by EP who did not recommend any pacemaker. We will continue to follow. (2) Valvular heart disease: Code(s): I38 - Endocarditis, valve unspecified Category: Medical Plan: Echocardiogram shows mild aortic valve calcification, mild mitral annular calcification mild tricuspid regurgitation. No clear hemodynamic implications from the above. (3) Right ventricular dilation: Code(s): I51.7 - Cardiomegaly Category: Medical Plan: Could be related to sleep apnea. No symptoms signs of congestive heart failure. (4) Essential hypertension: Code(s): I10 - Essential (primary) hypertension Category: Medical Plan: Stable. On amlodipine. (5) ROSARIO (obstructive sleep apnea): Comment: Known case of obstructive sleep apnea, well treated with the use of CPAP. Compliance is excellent( uses for 6-8 hrs ) Code(s): G47.33 - Obstructive sleep apnea (adult) (pediatric) Category: Medical Plan: Sleep study shows moderately severe obstructive sleep apnea. Continue CPAP. Plan Discussed with significant other. Discussion Notes We reviewed the potential need for a pacemaker if his heart rate consistently drops below 40 beats per minute or if he feels like passing out. Patient was informed and verbally consented to the use of an ambient scribe for clinic note documentation during this visit. Coding Level of Care Code Est Pt Level 4 (72965) Complex EM visit Add On G2211 Diagnoses Heart block atrioventricular I44.30 Valvular heart disease I38 Right ventricular dilation I51.7 Essential hypertension I10 ROSARIO (obstructive sleep apnea) G47.33 CPT Codes EKG - CPT: 53307-[id number], Complete ([id number])
[2025-02-27 10:53] VITALS: BP 130/68; PULSE 61; BMI 26.9
--- OUTSIDE RECORDS SUMMARY | 2025-02-27 13:03 | XMS_ITS | Patient Health Record ---
Author Organization [facility] Address [address] [place] [address] Care Team Providers Care Machine Slat Basket Maker Name Role Phone Carlin HARVEY, [place] Primary Care Provider Donaldo Beaver Jr Unavailable [...] Problem Status W/U Status Risk Notes Problem [id number] Primary biliary cirrhosis (K74.3) Active confirmed Problem 29047761 Esophageal varices without bleeding, unspecified esophageal varices [...] Date MEDICARE OF [place] [address] [facility] [address] [phone] [id number] CAROLINA DANIEL Self - patient is the insured [employer] ATTN CLAIMS [address] [place] [address] [id number] CAROLINA DANIEL Self - patient is the insured Medical (General) History Medical History History ICD Code osteoporosis primary biliary cirrhosis colon polyps splemomegaly type II diabetes Denies [place],Lung disease,renal disease Surgical History Surgery Date(Month/Year) Appendectomy Umbilical hernia repair tonsillectomy
== END 2025-02-27 11:15 | disposition home or self-care (01) ==
LOC: HO.HCS 10:50
PROVIDERS: PCP Internal Medicine; Visit Provider Internal Medicine
DX: I44.30 Unspecified atrioventricular block (principal); I38 Endocarditis, valve unspecified; I51.7 Cardiomegaly; I10 Essential (primary) hypertension; G47.33 Obstructive sleep apnea (adult) (pediatric)
CPT/HCPCS: 93010; 99214; G2211

== ENCOUNTER → 2025-02-27 10:48 | Outpatient (BNVA) | payer MEDICARE, SELFPAY | PROVIDERS: PCP Internal Medicine; Visit Provider Internal Medicine | DX: I44.30 Unspecified atrioventricular block (principal); I38 Endocarditis, valve unspecified; I51.7 Cardiomegaly; I10 Essential (primary) hypertension; I44.1 Atrioventricular block, second degree; G47.33 Obstructive sleep apnea (adult) (pediatric); R94.31 Abnormal electrocardiogram [ECG] [EKG] | CPT/HCPCS: 93005; 99212 ==

== ENCOUNTER 2025-03-06 08:55 | Outpatient (REF) | payer MEDICARE, SELFPAY ==
--- OUTSIDE RECORDS SUMMARY | 2025-03-06 08:59 | XMS_ITS | Patient Health Record ---
Author Organization [facility] Address [address] [place] [address] Care Team Providers Care Tube Teller Name Role Phone Carlin HARVEY, [place] Primary Care Provider Donaldo Beaver Jr Unavailable [phone] Reason For Referral No Information Medications [...] Problem Status W/U Status Risk Notes Problem Primary biliary cirrhosis (87042062) Primary biliary cirrhosis (K74.3) Active confirmed Problem Esophageal varices without bleeding (98180124) Esophageal varices without bleeding, unspecified esophageal varices [...] Date MEDICARE OF [place] [address] [place] [address] [id number] CAROLINA DANIEL Self - patient is the insured MED[employer] ATTN CLAIMS [address] [place] [address] [phone] [id number] CAROLINA DANIEL Self - patient is the insured Medical (General) History Medical History History ICD Code osteoporosis primary biliary cirrhosis colon polyps splemomegaly type II diabetes Denies [place],Lung disease,renal disease Surgical History Surgery Date(Month/Year) Appendectomy Umbilical hernia repair tonsillectomy
[2025-03-06 10:21] LABS: MANUAL DIFF FLAG NO
[2025-03-06 10:26] LABS: Hematocrit 45.3 % (42.0-52.0); Hemoglobin 14.6 g/dl (14.0-18.0); Imm Gran Abs Auto 0.03 X10*3/uL (0.00-0.03); Imm Gran Pct Auto 0.5 % (0.0-0.4); Lymphocytes Absolute Auto 1.2 X10*3/uL (1.2-4.9); Mean Corpuscular HGB Conc 32.2 g/dl (31.0-36.0); Mean Corpuscular Hemoglobin 30.7 pg (27.0-33.0); Mean Corpuscular Volume 95.2 fL (80.0-98.0); NRBC Abs Auto 0.000 X10*3/uL (0.0-0.012); NRBC Pct Auto 0.0 /100WBC (0.0-0.2); Platelet Count 110 X10*3/uL (160-400); Red Blood Count 4.76 X10*6/uL (4.60-5.80); White Blood Count 6.0 X10*3/uL (4.8-10.8)
[2025-03-06 10:28] LABS: Appearance Urine Clear; Glucose Urine UA Negative (Negative); PH 6.0 (5.0-9.0); Specific Gravity - Urine 1.020 (1.005-1.025); UMIC TRIGGER UACC YES
[2025-03-06 10:39] LABS: Alanine Aminotransferase 32 U/L (0-40); Albumin Level 4.2 g/dL (3.5-5.0); Alkaline Phosphatase 141 U/L (39-117); Anion Gap 13 (12-20); Aspartate Amino Transferase 36 U/L (5-37); Blood Urea Nitrogen 13 mg/dL (9-16); Calcium 8.9 mg/dL (8.4-10.2); Carbon Dioxide 28 mmol/L (22-29); Chloride 108 mmol/L (96-108); Cholesterol 129 mg/dL (<200); Estimated Glomerular Filt Rate > 60; HDL Cholesterol 53 mg/dL (>40); Potassium 4.9 mmol/L (3.3-5.1); Sodium 144 mmol/L (135-145); Total Protein 7.3 g/dL (6.5-8.0); Triglycerides 55 mg/dL (<150)
[2025-03-06 10:56] LABS: Microalbum/Creatinine Ratio Ur 9.8 ug/mg cr (<30)
== END 2025-03-06 08:56 | disposition home or self-care (01) ==
LOC: HO.HMGCLDS 08:55
PROVIDERS: PCP Internal Medicine; Visit Provider Internal Medicine
DX: B35.1 Tinea unguium (principal); E55.9 Vitamin D deficiency, unspecified; R30.0 Dysuria; E78.00 Pure hypercholesterolemia, unspecified; E11.9 Type 2 diabetes mellitus without complications; D64.9 Anemia, unspecified
CPT/HCPCS: 36415; 80053; 80061; 81001; 82043; 82306; 82570; 83036; 84443; 85025; 99212

== ENCOUNTER 2025-03-06 09:12 | Outpatient (AMB) | payer MEDICARE, SELFPAY ==
[2025-03-06 09:49] VITALS: BP 132/64; PULSE 65; TEMP 36.4; O2SAT 94; BMI 26.8
--- NOTE | 2025-03-06 09:49 | MHC.OFFWIV ---
Intake Vital Signs 03/06/25 09:49 Height 5 ft 10 in Weight 187 lb BMI 26.8 BP 132/64 Blood Pressure Location Lt brachial Position Sitting Pulse 65 Pulse Source Pulse Oximeter Temp 97.6 F Temp Source Oral Pulse Oximetry (%) 94 Oxygen Delivery Method Room Air Intake Visit Reasons: ep right foot pain Intake Note: pt presents with right great toe pain Patient Tobacco Use Status: Former Tobacco user Allergies No Known Allergies (No Known Allergies*) Allergy (Verified 03/06/25 09:51) Do you need a note to return to daycare/school/sports/work: No HPI HPI Comments History of Present Illness Details 85 y/o Male patient who presents to the walk in clinic with c/o right Great Toe pain associated with Burning and tingling for 2-3 days now. Denies any recent injury or trauma to the foot. Denies redness or Discharge. Denies fevers, chills, nausea or vomiting. [facility] Medical History (Updated 03/06/25 @ 10:39 by Catalina Buchanan NP) Onychomycosis COPD (chronic obstructive pulmonary disease) ROSARIO (obstructive sleep apnea) Obesity (BMI 30-39.9) Fatigue Anxiety Insomnia Cerebellar ataxia Dizziness Osteoporosis Pure hypercholesterolemia Diabetes mellitus Adenomyomatosis of gallbladder Primary biliary cirrhosis Surgical History Hx of tonsillectomy Hx of appendectomy Family History Father Cancer Mother No problems noted. Social History Household Members: Spouse Household Members Other:: Housing: House Alcohol intake: former Patient Tobacco Use Status: Former Tobacco user e-Cigarette/Vaping Use: Never Used Second Hand Smoke Exposure: No service: No Current occupational status: retired Current occupational exposures/hazards: No Cognitive needs: No Hearing needs: No Vision needs: Yes (Glasses) Review of Systems Const All systems reviewed & are unremarkable except as noted in HPI and below Physical Exam Vital Signs: Last Vital Signs Temp 97.6 F 03/06/25 09:49 Pulse 65 03/06/25 09:49 BP 132/64 03/06/25 09:49 Pulse Ox 94 03/06/25 09:49 Oxygen Delivery Method Room Air 03/06/25 09:49 BMI result Body Mass Index 26.8 Const General: no acute distress Nutritional Appearance: well nourished Orientation/consciousness: patient oriented x3 Neuro General: patient oriented x3, gait normal and moves all extremities Extrem Right lower extremity: foot Details: normal capillary refill, normal to inspection, tenderness and toes with normal ROM Ankle/foot/toe images:  1. Normal color, no warmth, no drainage and no deformity seen. Nails discolored, thick hard. Dry cracked skin. Psych Speech and movement: Normal speech and movement present Assessment & Plan Assessment & Plan (1) Onychomycosis: Code(s): B35.1 - Tinea unguium Plan: He does have Fungal infection on his Toe Nails. Nails brittle, thick and discolored. Advised to f/u with PCP for pOssible referral to Podiatry. No clear signs of bacterial or viral infection. Advised to soak feet in warm bucket of water. Coding Level of Care Code Est Pt Level 4 (93068) Diagnoses Onychomycosis B35.1 Time Spent (min) 20
== END 2025-03-06 10:34 | disposition home or self-care (01) ==
PROVIDERS: PCP Internal Medicine; Visit Provider Nurse Practitioner Family
DX: B35.1 Tinea unguium (principal)

== ENCOUNTER 2025-03-13 15:38 | Outpatient (AMB) | payer MEDICARE, SELFPAY ==
--- NOTE | 2025-03-13 16:00 | A.OFFPC_ITS ---
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 Required: No Accompanied by: Self / Same As Patient Allergies No Known Allergies (No Known Allergies*) Allergy (Verified 03/14/25 09:12) Medication List - Last Reconciled 03/14/25 by Donnell Gillis MD albuterol sulfate 90 mcg/actuation (Ventolin HFA) 2 puffs inhalation Q6H PRN 30 days amlodipine 5 mg PO DAILY cholecalciferol (vitamin D3) 25 mcg PO DAILY colchicine 0.6 mg PO BID [DIABETIC SHOES As directed] [DIABETIC SHOES (1 pair) As directed] diclofenac sodium 3% 1 appl topical BID escitalopram oxalate 10 mg PO DAILY naproxen 500 mg PO Q12H PRN 7 days simvastatin 10 mg PO BEDTIME tizanidine 2 mg PO TID ursodiol 600 mg (2 x 300 mg) PO BID Tobacco use date assessed: 03/13/25 Fall risk assessment: No Falls in past year Last assessed Fall Risk: 03/13/25 Dental Screening Dental Screen Date: 03/13/25 Did you have a dental visit in the last 12 months?: Yes Did you have a dental problem in the last 6 months where you did not have access to dental care?: No Was dental information given to patient?: Patient has dentist HPI 4 months HPI Details Patient comes in today for his follow up visit States that he feels okay He denies any headaches or dizziness Denies any chest pains, no increased SOB but he continues to have increased coughing fits usually in the morning - states that he would start coughing non- stop when it starts and he would literally feel like coughing his brains out for about 10 to 15 minutes, after which his cough would then gradually subside Thinks that his coughing fits would usually start after he drinks something and once his coughing subsides, it would not really recur or bother him for the rest of the day No nausea/vomiting, no abdominal pain No change in bowel habits noted Still has recurrent pain in his right knee - he was seen by orthopedics a couple of months ago and sent for repeat x-rays, which revealed (+) medial compartment osteoarthritis/osteoarthrosis without acute fracture or dislocation He had his follow up labs done last week - to discuss his results [facility] Medical History Onychomycosis COPD (chronic obstructive pulmonary disease) ROSARIO (obstructive sleep apnea) Obesity (BMI 30-39.9) Fatigue Anxiety Insomnia Cerebellar ataxia Dizziness Osteoporosis Pure hypercholesterolemia Diabetes mellitus Adenomyomatosis of gallbladder Primary biliary cirrhosis Surgical History Hx of tonsillectomy Hx of appendectomy Family History Father Cancer Mother No problems noted. Social History Household Members: Spouse Household Members Other:: Housing: House Alcohol intake: former Patient Tobacco Use Status: Former Tobacco user e-Cigarette/Vaping Use: Never Used Second Hand Smoke Exposure: No service: No Current occupational status: retired Current occupational exposures/hazards: No Cognitive needs: No Hearing needs: No Vision needs: Yes (Glasses) Questionnaire PHQ-9 Over the last 2 weeks, how often have you been bothered by any of the following problems? Depression Screening Interpretation: Negative Depression Screening Done: Yes Source: Developed by Drs. Kevin Mcmullen, Juany Felix, Adolph Anderson and colleagues, with an educational michael from [employer]. Thrive Questionnaire Date Thrive assessed: 11/14/24 I am a: Patient What is your living situation today?: I have a steady place to live Within the past 12 months, did the food you bought not last and you didn't have the money to get more?: Never true Within the past 12 months, did you worry whether your food would run out before you got money to buy more?: Never true Do you have trouble paying for medicines?: No Do you have trouble getting transportation to medical appointments?: No Do you have trouble paying your heating and electricity bill?: No Do you have trouble taking care of your child, family member or friend?: No Do you have trouble with day-to-day activities such as bathing, preparing meals, shopping, managing finances, etc.?: No Are you currently unemployed and looking for a job?: No Are you interested in more education?: No Please select the resources that you would like help with: None Currently or been in a relationship where the following occur: No concerns reported THRIVE Score: 0 SHERMAN-7 AMB Questionnaire SHERMAN-7 Date SHERMAN - 7 assessed: 12/01/24 Source: Developed by Drs. Kevin Mcmullen, Juany Felix, Adolph Anderson and colleagues, with an educational michael from [employer]. Review of Systems Const Denies chills, Denies fatigue, Denies fever(s) and Denies headache(s) ENT Denies dysphagia, Denies dizziness, Denies otalgia, Denies headache(s), Denies neck pain, Denies odynophagia and Denies sore throat Card Denies chest pain, Denies palpitations and Denies dyspnea Resp Denies chest congestion, Reports cough (recurrent, usually in the morning - see HPI for details), Denies dyspnea and Denies wheezing GI Denies abdominal pain, Denies constipation, Denies dysphagia, Denies heartburn, Denies diarrhea, Denies nausea, Denies odynophagia and Denies vomiting Denies difficulty urinating, Denies dysuria, Denies nocturia and Denies urinary frequency Musc Denies back pain, Reports arthralgias (in the right knee, on and off) and Denies neck pain Skin/Breast Denies rash Neuro Denies dizziness and Denies headache(s) Psych Reports anxiety (better controlled with Rx) Endo Denies fatigue and Denies palpitations Aller/Immun Denies wheezing Physical exam (Primary Care) Vital Signs: Last Vital Signs Temp 97.5 F 03/13/25 16:02 Pulse 50 03/13/25 16:02 Resp 18 03/13/25 16:02 BP 154/58 H 03/13/25 16:02 Pulse Ox 94 03/13/25 16:02 Oxygen Delivery Method Room Air 03/13/25 16:02 BMI result Body Mass Index 30.0 Tobacco/Smoking Status: Tobacco use Status Tobacco use date assessed 03/13/25 03/13/25 16:13 Patient Tobacco Use Status Former Tobacco user 03/13/25 16:00 e-Cigarette/Vaping Use Never Used 03/13/25 16:00 Depression Screening Interpretation: Negative Thrive Assessment: Date of Thrive Assessment Date Thrive assessed 11/14/24 03/13/25 16:00 Currently or been in a relationship where the following occur: No concerns reported Const General: no acute distress and alert HENMT Ears: TM's normal bilaterally and EAC's normal Throat: Yes posterior oropharynx normal and Yes tonsils normal (no TP congestion noted) Neck Neck: Yes supple and No lymphadenopathy Thyroid: Thyroid normal Resp Auscultation: clear to auscultation bilaterally, no rales and no wheezes Cardio Rate: regular rate Rhythm: regular rhythm Heart sounds: no murmurs GI Palpation (GI): Soft to palpation and nontender Auscultation: normal bowel sounds General: Yes no CVA tenderness Back/Spine/Pelvis Back: no CVA tenderness Thoracic/Lumbar Spine: No lumbar spinal tenderness Skin Rashes: no rashes Extrem General: Yes no clubbing, cyanosis or edema Right lower extremity: knee Details: tenderness (mild) and normal ROM; no swelling Results Reviewed Results Reviewed: Laboratory Tests 03/06/25 03/06/25 09:02 09:10 WBC 6.0 Hgb 14.6 Hct 45.3 Plt Count 110 L Sodium 144 Potassium 4.9 D Creatinine 0.86 Estimated GFR > 60 Fasting Glucose 123 H Hemoglobin A1c % 6.5 H Calcium 8.9 AST 36 ALT 32 Alkaline Phosphatase 141 H Triglycerides 55 Cholesterol 129 LDL Cholesterol, Calc 65 HDL Cholesterol 53 25-OH Vitamin D Total 59.2 TSH 0.95 Ur Specific [place] 1.020 Urine Protein Negative Urine Glucose (UA) Negative Urine Blood Negative Urine Nitrite Negative Ur Leukocyte Esterase Trace H Microalb/Creat Ratio 9.8 Coding Level of Care Code Est Pt Level 4 (09234) Complex EM visit Add On G2211 Diagnoses Spasmodic cough R05.8 ROSARIO (obstructive sleep apnea) G47.33 Primary biliary cirrhosis K74.3 Pure hypercholesterolemia E78.00 Type 2 diabetes mellitus without complication, without long-term current use of insulin E11.9 Diabetes mellitus complication status: without complication Diabetes mellitus mcc insulin use: without mcc use Diabetes mellitus type: type 2 Heart block atrioventricular I44.30 Adenomyomatosis of gallbladder D13.5 Osteoporosis without current pathological fracture, unspecified osteoporosis type M81.0 Osteoporosis type: unspecified Presence of current pathological fracture: without current pathological fracture Multiple thyroid nodules E04.2 Primary osteoarthritis of right knee M17.11 Osteoarthritis type: primary Cerebellar ataxia G11.9 Insomnia, unspecified type G47.00 Insomnia type: unspecified Anxiety F41.9 Obesity (BMI 30-39.9) E66.9 Assessment & Plan Assessment & Plan (1) Spasmodic cough: Code(s): R05.8 - Other specified cough Category: Medical Plan: He was seen and evaluated by pulmonary (Dr. Myers) a few months ago and was advised that this is likely multifactorial, including due to dry air, GERD and allergies He also appears to have some degree of ILD, which can contribute to his cough as well Patient states that his symptoms have improved a lot since he was started on his Albuterol inhaler Continue Albuterol HFA 2 inhalations Q 6 hours PRN He has also been advised to take some OTC antihistamines like Loratadine 10 mg QD PRN to help with his symptoms Follow up with pulmonary as scheduled As patient is still experiencing recurrent coughing, with symptoms worse in the morning and will often subside a few minutes after he drinks something, will send him for a barium swallow to complete his evaluation - suspect aspiration and/or GERD as possible etiologies of his recurrent coughing (2) ROSARIO (obstructive sleep apnea): Comment: Known case of obstructive sleep apnea, well treated with the use of CPAP. Compliance is excellent( uses for 6-8 hrs ) Code(s): G47.33 - Obstructive sleep apnea (adult) (pediatric) Category: Medical Plan: Patient states that he continues to use his CPAP device regularly when sleeping at night and is benefiting greatly from its continued use Follow up with Sleep Medicine as scheduled (3) Primary biliary cirrhosis: Comment: EGD done in 2018 showed 1+ varices and changes consistent with patient's gastropathy He used to see termite exterminator in [place] but is now seeing Dr. Gaston here locally for gastroenterology follow up and management Code(s): K74.3 - Primary biliary cirrhosis Category: Medical Plan: Continue Ursodiol 300 mg 2 capsules BID and Colchicine 0.6 mg BID Follow up with GI (Dr. Gaston) as scheduled (4) Pure hypercholesterolemia: Code(s): E78.00 - Pure hypercholesterolemia, unspecified Category: Medical Plan: Results of his labs done last week reviewed and discussed with patient Reinforced low cholesterol diet Continue Simvastatin 10 mg QD Will recheck his labs and fasting lipids in 4 months for follow-up (5) Diabetes mellitus: Code(s): E11.9 - Type 2 diabetes mellitus without complications Category: Medical Qualifiers: Diabetes mellitus complication status: without complication Diabetes mellitus termite exterminator insulin use: without mcc use Diabetes mellitus type: type 2 Qualified Code(s): E11.9 - Type 2 diabetes mellitus without complications Plan: His HgbA1c was at 6.5% on his labs done last week (HgbA1c was previously at 6.6% a few months ago) - goal is < 7.0% Reinforced diabetic diet - patient has not and still does not require any Rx for his diabetes so far C-peptide and SHERMAN Ab levels were both normal when checked last year Patient also has not seen podiatry in a while now - he used to see Dr. Vu, who last year Will refer him now to [facility] Podiatry for his annual diabetic foot exam (6) Heart block atrioventricular: Code(s): I44.30 - Unspecified atrioventricular block Category: Medical Plan: Holter monitor done in July 2023 revealed underlying sinus bradycardia with an average rate of 53/Min. He has second-degree heart block suggesting Mobitz type 1, with frequent bradycardia He was seen by EP in consultation but they decided against a pacemaker insertion His exercise stress test in December 2023 came out okay, with myocardial perfusion imaging study shows normal myocardial perfusion. Gated LVEF is 65% during stress and 62% during rest. Echocardiogram back in 2021 showed (+) mild aortic valve calcification, mild mitral annular calcification mild tricuspid regurgitation Per cardiology, there are no clear hemodynamic implications from these and will just continue to monitor these for now Follow up with cardiology as scheduled (7) Adenomyomatosis of gallbladder: Comment: Abdominal US done in early 2019 revealed (+) fatty liver changes with cholelithiasis (with findings suggesting possible chronic cholecystitis) and gallbladder adenomyomatosis - patient denies any acute abdominal symptoms/pain Code(s): D13.5 - Benign neoplasm of extrahepatic bile ducts Category: Medical Plan: He is advised again that this is a benign condition and he does not require further intervention for this Patient has had no acute GI symptoms lately (8) Osteoporosis: Code(s): M81.0 - Age-related osteoporosis without current pathological fracture Category: Medical Qualifiers: Osteoporosis type: unspecified Presence of current pathological fracture: without current pathological fracture Qualified Code(s): M81.0 - Age- related osteoporosis without current pathological fracture Plan: He was on Prolia 60 mg subcutaneous injection every 6 months for about 4 to 5 years and Rx was stopped a couple of years ago Repeat BMD done on 12/27/2020 showed a 19.6% improvement in the AP spine from baseline, 10.0% improvement from previous and a 6.7% improvement in the left femur from baseline, 0.5% increase from previous He was recently seen by Dr. Fernandez for endocrinology follow up and was also taken off his Fosamax; was advised to wait for another year and then repeat his BMD, which will be due after May 2024 We will now send him for repeat BMD for follow up He was also reportedly advised that he does not need to follow up with endocrinology again for this issue unless his follow up BMD gets significantly worse in the future (9) Multiple thyroid nodules: Code(s): E04.2 - Nontoxic multinodular goiter Category: Medical Plan: Thyroid US done in August 2023 revealed (+) 1.9 cm right midpole TR 5 thyroid nodule meets criteria for biopsy. Fine-needle aspiration was recommended He was seen by Dr. Fernandez for initial endocrinology consultation a few months ago, who agreed that patient will require FNAB He eventually underwent thyroid nodule biopsy in May 2024 - pathology reportedly came out benign Follow up with endocrinology as scheduled (10) Osteoarthritis of right knee: Code(s): M17.11 - Unilateral primary osteoarthritis, right knee Category: Medical Qualifiers: Osteoarthritis type: primary Qualified Code(s): M17.11 - Unilateral primary osteoarthritis, right knee Plan: X-rays of the right knee done in March 2023 revealed (+) OA changes He was referred to and seen by Dr. 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, unspecified Category: Medical Plan: Patient has gait instability due to his ataxia Follow up with Neurology as scheduled (12) Insomnia: Code(s): G47.00 - Insomnia, unspecified Category: Medical Qualifiers: Insomnia type: unspecified Qualified Code(s): G47.00 - Insomnia, unspecified Plan: Sleep hygiene reinforced Has been taking OTC sleep aids like NyQuil PM as needed with some relief (13) Anxiety: Code(s): F41.9 - Anxiety disorder, unspecified Category: Medical Plan: Continue Escitalopram 10 mg QD States that his anxiety has been well-controlled on his current Rx (14) Obesity (BMI 30-39.9): Comment: PATIENT IS MODERATELY OBESE, MAINLY DUE TO ABDOMINAL PROTUBERANCE. WEIGHT REMAINS STABLE Code(s): E66.9 - Obesity, unspecified Category: Medical Plan: Reinforced diet/exercise as tolerated/lose weight but reinforced fall precautions due to his gait instability Plan Follow up in 4 months Orders: Orders FL Modified Barium Swallow 03/13/25 R05.8 - Other specified cough XR DEXA axial skeleton 03/13/25 M81.0 - Age-related osteoporosis without current pathological fracture Comprehensive [place]. Panel Fast 4 Months E78.00 - Pure hypercholesterolemia, unspecified Vitamin B12 and Folate 4 Months E53.8 - Deficiency of other specified B group vitamins Complete Blood Count Auto Diff 4 Months D64.9 - Anemia, unspecified Lipid Panel 4 Months E78.00 - Pure hypercholesterolemia, unspecified TSH reflex Free T4 4 Months E78.00 - Pure hypercholesterolemia, unspecified UA CC w/rflx Micro + Cult 4 Months R30.0 - Dysuria Vitamin D 25-OH Total 4 Months E55.9 - Vitamin D deficiency, unspecified Referrals Podiatry Referral E11.9 - Type 2 diabetes mellitus without complications
[2025-03-13 16:02] VITALS: BP 154/58; PULSE 50; RESP 18; TEMP 36.4; O2SAT 94
--- OUTSIDE RECORDS SUMMARY | 2025-03-13 19:52 | XMS_ITS | Patient Health Record ---
Author Organization [facility] Address [address] [place] [address] Care Team Providers Care Licensed Loan Officer Name Role Phone Carlin HARVEY, [place] Primary Care Provider Donaldo Beaver Jr Unavailable [phone] Reason For Referral No Information Medications Medication [...] Status Risk Notes Problem Primary biliary cirrhosis (53130366) Primary biliary cirrhosis (K74.3) Active confirmed Problem Esophageal varices without bleeding (84430242) Esophageal varices without bleeding, unspecified esophageal varices [...] [place] [address] [place] [address] [id number] CAROLINA DANIEL Self - patient is the insured [employer] CLAIMS [address] [place] [address] [id number] CAROLINA DANIEL Self - patient is the insured Medical (General) History Medical History History ICD Code osteoporosis primary biliary cirrhosis colon polyps splemomegaly type II diabetes Denies [place],Lung disease,renal disease Surgical History Surgery Date(Month/Year) Appendectomy Umbilical hernia repair tonsillectomy
== END 2025-03-13 16:32 | disposition home or self-care (01) ==
LOC: HO.HMCH 15:39
PROVIDERS: PCP Internal Medicine; Visit Provider Internal Medicine
DX: K74.3 Primary biliary cirrhosis (principal); G11.9 Hereditary ataxia, unspecified; E11.9 Type 2 diabetes mellitus without complications; R05.8 Other specified cough; G47.33 Obstructive sleep apnea (adult) (pediatric); E78.00 Pure hypercholesterolemia, unspecified; I44.30 Unspecified atrioventricular block; D13.5 Benign neoplasm of extrahepatic bile ducts; M81.0 Age-related osteoporosis without current pathological fracture; E04.2 Nontoxic multinodular goiter; M17.11 Unilateral primary osteoarthritis, right knee; G47.00 Insomnia, unspecified

== ENCOUNTER → 2025-03-13 15:38 | Outpatient (BNVA) | payer MEDICARE, SELFPAY | PROVIDERS: PCP Internal Medicine; Visit Provider Internal Medicine | DX: K74.3 Primary biliary cirrhosis (principal); R05.8 Other specified cough; G47.33 Obstructive sleep apnea (adult) (pediatric); E78.00 Pure hypercholesterolemia, unspecified; E11.9 Type 2 diabetes mellitus without complications; I44.30 Unspecified atrioventricular block; D13.5 Benign neoplasm of extrahepatic bile ducts; M81.0 Age-related osteoporosis without current pathological fracture; E04.2 Nontoxic multinodular goiter; M17.11 Unilateral primary osteoarthritis, right knee; G11.9 Hereditary ataxia, unspecified; G47.00 Insomnia, unspecified; F41.9 Anxiety disorder, unspecified; E66.9 Obesity, unspecified; E55.9 Vitamin D deficiency, unspecified; R30.0 Dysuria; Z68.30 Body mass index [BMI] 30.0-30.9, adult | CPT/HCPCS: 99212 ==

== ENCOUNTER 2025-04-17 11:16 | Outpatient (REF) | payer MEDICARE, SELFPAY ==
--- NOTE | ~2025-04-17 | US_ITS ---
EXAMINATION: US THYROID HISTORY: E04.2 - Nontoxic multinodular goiter TECHNIQUE: Real-time grayscale ultrasound imaging was performed and images were reviewed. COMPARISON: Comparison is made with the prior examination dated 09/11/2023. FINDINGS: SIZE: The right thyroid lobe measures 5.3 x 2.2 x 2.2 cm. The left thyroid lobe measures 5.0 x 2.4 x 1.5 cm. The isthmus measures 3 mm. FLOW: Flow to the gland is normal. ECHOGENICITY: The echotexture of the gland is homogeneous. NODULES: There is spongiform nodules in the midportion of the left thyroid lobe measuring 1.1 x 0.6 x 0.9 cm and 6 x 7 x 7 mm. Multiple nodules are again noted as described below: Nodule #: 1 Location: Mid to lower pole of the right thyroid lobe measuring 1.2 x 1.5 x 1.0 cm (previously 1.9 x 1.7 x 1.6 cm). Shape: Taller than wide (3 points) Margins: Ill-defined (0 points) Echotexture: Hyperechoic (1 point) Composition: Mixed (1 point) Calcifications: None (0 points) Total points: 5 TIRADS: TR4: Moderately suspicious. Nodule #: 2 Location: Lower pole of the right thyroid lobe measuring 1.5 x 1.6 x 1.8 cm (previously 1.8 x 1.7 x 1.7 cm). Shape: Wider than tall (0 points) Margins: Ill-defined (0 points) Echotexture: Hypoechoic (2 points) Composition: Mixed (1 point) Calcifications: None (0 points) Total points: 3 TIRADS: TR3: Mildly suspicious. US/US thyroid IMPRESSION: Stable thyroid nodules as described. ACR TI-RADS Guidelines TR1 (0 points): Benign. No follow-up or biopsy required TR2 (2 points): Not Suspicious. No biopsy or follow up indicated TR3 (3 points): Mildly Suspicious. FNA if >= 2.5 cm, Follow if >= 1.5 cm TR4 (4-6 points): Moderately Suspicious. FNA if >= 1.5 cm, Follow if >= 1.0 cm TR5 (>=7 points): Highly Suspicious. FNA if >= 1.0 cm, Follow if >= 0.5 cm Electronically signed by: Kevin Fountain MD 04/17/2025 01:48 PM [facility]
== END 2025-04-17 11:17 | disposition home or self-care (01) ==
LOC: HO.US 11:16
PROVIDERS: PCP Internal Medicine; Visit Provider Student in an Organized Health Care Education/Training Program
DX: E04.2 Nontoxic multinodular goiter (principal)
CPT/HCPCS: 76536

== ENCOUNTER → 2025-04-17 11:18 | Outpatient (BNV) | payer MEDICARE, SELFPAY | PROVIDERS: PCP Internal Medicine; Visit Provider Radiology Diagnostic Radiology | DX: E04.2 Nontoxic multinodular goiter (principal) | CPT/HCPCS: 76536 ==

== ENCOUNTER 2025-05-10 10:19 | Outpatient (REF) | payer MEDICARE, SELFPAY ==
--- NOTE | ~2025-05-10 | FL_ITS ---
EXAMINATION: Modified Barium Swallow CLINICAL INFORMATION: Dysphagia. COMPARISON: None. TECHNIQUE: Modified barium swallow was performed under lateral fluoroscopy with patient in standing position. Barium mixed with solids and liquids of different consistencies was administered by the speech pathologist. Examination was recorded in the fluoroscopy suite. FINDINGS: Patient was given multiple consistencies. There is no evidence of laryngeal penetration, or subglottic aspiration. No significant follicular or piriform sinus pooling. FLUOROSCOPY TIME: 1 minute 7 seconds. Number of Spot Images: N/A DOSE AREA PRODUCT: 574.9 uGy-m2 (microgray-meter squared) FL/FL Modified Barium Swallow IMPRESSION: No evidence of laryngeal penetration or aspiration. Normal examination. Please refer to the full speech therapy report to follow for further details. Electronically signed by: Dean Collins MD 05/10/2025 11:08 AM ABIMBOLA DIMAS
--- NOTE | 2025-05-10 12:23 | MHC.SL.IMP ---
Date of Plan of Treatment: 05/10/25 Onset of Symptoms/Illness: 03/14/25 Date Treatment Started: 05/10/25 Admitting Diagnosis: Hx COPD, ROSARIO Primary Speech & Language Diagnosis: R13.11 Oral Phase Dysphagia Reason for Today's Visit: 01915 Modified Barium Swallow Study Pre-evaluation Dietary Consistencies: Regular Pre-evaluation Liquid Consistency: Thin Pre-evaluation Medication Administration: Whole with Liquid Medical History: Modified Barium Swallow Study Fluoroscopic Evaluation of Swallowing Function CPT Code 63145 Evaluation Year: 2024 Reason for Study: Coughing fits in the morning Referring Physician: Donnell Gillis MD Evaluating Clinician: Rosaline Franco MA, CCC-TRANSIT MIXER OPERATOR Study Number: 1 Patient Name: Janak Jorgensen Status: Outpatient Age: 85 Sex: Male Medical History Medical History Onychomycosis COPD (chronic obstructive pulmonary disease) ROSARIO (obstructive sleep apnea) Obesity (BMI 30-39.9) Fatigue Anxiety Insomnia Cerebellar ataxia Dizziness Osteoporosis Pure hypercholesterolemia Diabetes mellitus Adenomyomatosis of gallbladder Primary biliary cirrhosis Surgical History Hx of tonsillectomy Hx of appendectomy Current (pre-evaluation) Intake/Diet: Route: PO Diet Grade: Regular Liquid Consistencies: Thin Pre-Study Functional Oral Intake Scale (FOIS): 7- Total oral intake with no restrictions Pain: None reported at time of study SUBJECTIVE: Patient is an 85 year old male referred for a modified barium swallow study (MBSS) by his primary care provider, Donnell Gillis MD. At his last primary care appointment in February, patient reported having coughing fits, which occurred usually in the morning. Patient reported coughing nonstop for 10-15 minutes and that it ?usually starts after drinking something.? Patient reported that once the episode ceased, it would not bother him for the rest of the day. Today, patient endorses still having these coughing fits, but denies having any trouble swallowing solids or liquids, denies feeling liquid ?go down the wrong pipe,? denies odynophagia, globus sensation, or choking. Pertinent medical history includes COPD, ROSARIO, cerebellar ataxia, and diabetes. core: Oral Motor Exam Facial Symmetry: Symmetrical Mouth Occlusion: Normal Oral-Facial Teeth Characteristics: Dentures Oral-Facial Teeth Miscellaneous Observation: Dentures appear to be in good condition & fit well Oral-Facial Lip Pucker Description: Normal Oral-Facial Smile (Lips) Description: Normal Oral-Facial Puff Cheeks Description: Normal Tongue Size: Normal Tongue Excursion Description: Normal Tongue Range of Movement Description: Normal Tongue Speed of Movement Description: Normal Tongue Strength of Movement (against opposing pressure): Normal Tongue Movement Characteristics: Normal/Absent Is patient able to manage secretions?: Yes Food and Liquid Trials: Oral Impairment: Lip Closure: Did not test Oral Impairment: Tongue Control During Bolus Hold: 2=Posterior escape of less than half of bolus Oral Impairment: Bolus Preparation/Mastication: 1=Slow prolonged chewing/mashing with complete re-collection Oral Impairment: Bolus Transport/Lingual Motion: 1= Delayed initiation of tongue motion Oral Impairment: Oral Residue: 2=Residue collection on oral structures Oral Impairment:Initiation of Pharyngeal Swallow: 1=Bolus head in valleculae Pharyngeal Impairment: Soft Palate Elevation: 0=No bolus between soft palate (SP)/pharyngeal wall (PW) Pharyngeal Impairment: Laryngeal Elevation: 0=Complete superior movement of thyroid cartilage (see description) Pharyngeal Impairment: Anterior Hyoid Excursion: 1=Partial anterior movement Pharyngeal Impairment: Epiglottic Movement: 1=Partial inversion Pharyngeal Impairment: Laryngeal Vestibular Closure:: 0=Complete: no air/contrast in laryngeal vestibule Pharyngeal Impairment: Pharyngeal Stripping Wave: 0=Present: complete Pharyngeal Impairment: Pharyngeal Contraction: Did not test Pharyngeal Impairment: Pharyngoesophageal Segment Openin=Partial distention/partial duration: partial obstruction of flow Pharyngeal Impairment: Tongue Base (TB) Retraction: 1=Trace column of contrast/air between TB and posterior PW Pharyngeal Impairment: Pharyngeal Residue: 1=Trace residue within or on pharyngeal structures Pharyngeal Impairment: Esophageal Clearance Upright Position: Did not test Impressions and Recommendations OBJECTIVE: Time-out: performed at 10:45 Evaluation Start: 10:30; Stop: 10:35 Patient Positioning: Standing Viewing Planes: LATERAL ONLY Contrast: MBSImP? Standardized Protocol using commercially prepared, standardized Barium viscosities, including: Varibar? THIN LIQUID (40% w/v, <15 cps) , Varibar? PUDDING (40% w/v, <9099-0324 cps) , 1/2 Shortbread Cookie (1 x1 x.25 ) [facility] ID: [id number] [facility] Results: Lip closure for intraoral bolus containment could not be assessed due to logistical reasons not related to physiologic impairment. Tongue control during bolus hold resulted in posterior escape of less than half of the bolus. Bolus preparation and mastication resulted in slow, prolonged chewing/mashing but with complete re-collection. Bolus transport/lingual motion demonstrated delayed initiation of tongue motion. Oral residue was a collection on oral structures. Initiation of the pharyngeal swallow occurred when the bolus head was in the valleculae. Soft palate elevation resulted in no bolus between the soft palate and the pharyngeal wall. Laryngeal elevation demonstrated complete superior movement of the thyroid cartilage with complete approximation of the arytenoids to the epiglottic petiole. Anterior hyoid excursion demonstrated partial anterior movement. Epiglottic movement resulted in partial inversion. Laryngeal vestibular closure was complete, as indicated by no air or contrast within the laryngeal vestibule at the height of the swallow. Pharyngeal stripping wave was present and complete. Pharyngeal contraction could not be determined due to logistical reasons not related to physiologic impairment. Pharyngoesophageal segment opening demonstrated partial distension/partial duration, with partial obstruction of bolus flow. Tongue base retraction allowed a trace column of contrast or air between the retracted tongue base and the posterior pharyngeal wall. Pharyngeal residue was a trace within or on pharyngeal structures. Esophageal clearance in the upright position could not be assessed due to logistical reasons not related to physiologic impairment. Oral Impairment Score: 7 (absence of score, component 1) Pharyngeal Impairment Score: 3 (absence of score, component 13) Esophageal Impairment Score: --- (absence of score, component 17) Laryngeal Penetration and Aspiration: Neither penetration nor aspiration was observed in today's study with Cookie, Pudding-thick, Thin. 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 Patient was standing for lateral view. He fed himself independently and trialed the following consistencies: -Thin liquid (via individual and rapid sequential cup sips) -Puree (mixture applesauce w/ barium pudding) -Regular (shortbread cookies coated w/ barium pudding) There was a small amount of liquid pooling in the floor of mouth with premature posterior spillage of trace liquid from the oral cavity seen intermittently. Mastication was mildly slowed, characterized by piece meal clearing. Patient chewed bolus, swallowed partial bolus, continued chewing, and then swallowed again to clear the oral cavity. Posterior bolus transport was delayed in initiation, with brisk lingual movement. Pharyngeal swallow trigger initiated as the bolus head reached the valleculae. Post-swallow, there was mild residue seen on the tongue and palate, which cleared with secondary swallows. No escape to the nasopharynx or nasal cavity. Complete laryngeal elevation, with partial epiglottic inversion and complete laryngeal vestibular closure. There was no evidence of aspiration or penetration during this exam. There was a very trace amount of residue in the valleculae and pyriform sinuses which cleared on subsequent swallows. Note cricopharyngeal bar (CP bar), which appeared to somewhat contribute to pharyngeal residue, though it was trace, but did not otherwise have a functional impact. The following compensatory strategies have not been used until today's study, but when employed, improved swallowing function: Additional Swallow(s) per Bolus eliminated Oral Residue, Pharyngeal Residue Liquid Intake Recommendation: Thin Dietary Recommendations: Regular Medication Administration: Whole with Liquid Please contact the pharmacy regarding appropriate crushable or liquid drug formulations that are available whenever modified delivery is recommended. Compensatory Strategies Recommended: Sitting Upright (90 deg), Small Bites and Sips, Alternate Liquids/Solids, Rate of Ingestion Change Recommendation for Speech Therapy: NA:Typical Evaluation Text Comment: Intake Recommendations: Route: PO Diet Grade: Regular Liquid Consistencies: Thin Post-Study Functional Oral Intake Scale (FOIS): 7- Total oral intake with no restrictions Patient presents with mild oral phase dysphagia, characterized by delayed AP transport and piece meal deglutition pattern. Adequate airway protection with no evidence of aspiration or penetration on trials of solids and liquids. Complete oral and pharyngeal clearance seen after secondary swallows, which were self-initiated. Note CP bar, which had minimal functional impact (contributed to trace residue which cleared on dry swallows). Patient denies having symptoms related to his swallow. Suggested Referrals: The patient might benefit from a referral to: Otolaryngology vs Pulmonology Indication for Referral: Patient w/ hx COPD, ROSARIO, reporting prolonged coughing fits, especially in the morning. No aspiration or significant residuals seen on MBSS 05/10. Therapy Recommendations: Further speech therapy intervention and diet modification are not warranted at this time. Patient is recommended to continue on unmodified textures REGULAR solids and THIN liquids. Recommend strategies to promote clearance: upright 90 degree positioning, small bites/sips, chew food well, dry swallow between bites or alternate with sips of liquid for clearance. Clinician - Supplemental, Miscellaneous Communication: It is important to note MBSS objective studies are snapshots in time and Patient function might vary with factors such as time of day or concomitant medical conditions. For this reason, the final treatment plan for this patient should rest with their medical care team. Additional recommendations should be considered with the totality of the Patient in mind. Thank for the opportunity to participate in the care of this patient. If you have any questions about the content of this report, please contact the [facility] at [facility]. Education: Education regarding findings from today's study and plans for therapy were provided to Patient only through Verbal Instruction. Understanding was expressed by the Patient only. Planogrammer Clinician/Clinical Fellow: No Supervisory Statement: N/A Speech Language Pathologist: Rosaline Franco M.A., CCC-TRANSIT MIXER OPERATOR
--- OUTSIDE RECORDS SUMMARY | 2025-05-10 12:41 | XMS_ITS | Patient Health Record ---
Author Organization [facility] Address [address] [place] [address] Care Team Providers Care Senior [email or web address] Developer Name Role Phone Carlin HARVEY, [place] Primary Care Provider Donaldo Beaver Jr Unavailable Reason For Referral No Information Medications Medication SIG (Take, Route, Frequency, Duration) Notes Start Date End Date Status Fish Oil 1200 MG Capsule 1 capsule Orall y Twice a day Active Potassium Gluconate 595 (99 K) MG Tablet 1 tablet Orally PRN Active tiZANidine HCl 2 MG Tablet 1 tablet as n eeded Orally PRN Active Colchicine 0.6 MG Tablet 1 tablet Orally Twice a day Active Calcium + D 600-200 MG-UNIT Tablet 1 tablet Orally Twice a day Active Multi Vitamin/Minerals - Tablet as directed Orally ONCE A DAY Active Simvastatin 10 MG Tablet 1 tablet in the evening Orally Once a day Active Ursodiol 300 MG Capsule 2 CAPSULES Orally bid Active Immunizations Vaccine Route Administration Date Status Comme nts Influenza Unknown 01/23/2018 Administered Social History Tobacco Use: Social History Observation Description Date Details (start date - stop date) Former Smoker NA - NA Social History Tobacco Use: Social Info Question Answer Notes Tobacco Use/Smoking Patient is a former smoker How long has it been since you last smoked? > 10 years Additional Details Category Social Info Options Details Miscellaneous: Marital status: Occupation: retired Problems Problem Type SNOMED Code ICD Code Onset Dates Problem Status W/U Status Risk Notes Problem Primary biliary cirrhosis (36105247) Primary biliary cirrhosis (K74.3) Active confirmed Problem Esophageal varices without bleeding (10396698) Esophageal varices without bleeding, unspecified esophageal varices [...] Date MEDICARE OF [place] [address] [facility] [place] [address] [phone] [id number] CAROLINA DANIEL Self - patient is the insured [employer] CLAIMS [address] [place] [address] [id number] CAR[place]INA DANIEL Self - patient is the insured Medical (General) History Medical History History ICD Code osteoporosis primary biliary cirrhosis colon polyps splemomegaly type II diabetes Denies [place],Lung disease,renal disease Surgical History Surgery Date(Month/Year) Appendectomy Umbilical hernia repair tonsillectomy
== END 2025-05-10 10:20 | disposition home or self-care (01) ==
LOC: HO.XRAY 10:19
PROVIDERS: Visit Provider Internal Medicine
DX: R05.8 Other specified cough (principal)
CPT/HCPCS: 74230; 92611

== ENCOUNTER → 2025-05-10 10:30 | Outpatient (BNV) | payer MEDICARE, SELFPAY | PROVIDERS: Visit Provider Radiology Diagnostic Radiology | DX: R13.10 Dysphagia, unspecified (principal) | CPT/HCPCS: 74230 ==